=== PATIENT | female | born 1980 | race Caucasian/White ===

== ENCOUNTER 2022-10-11 22:15 | Emergency (ER) | payer MEDICAID, SELFPAY ==
[2022-10-11 22:16] VITALS: BP 187/103; PULSE 105; RESP 22; TEMP 36.2; BMI 39.9
[2022-10-11 22:19] VITALS: BP 187/103; PULSE 105; RESP 22; TEMP 36.2
--- NOTE | 2022-10-11 22:50 | US_ITS ---
INDICATION: PAIN-UPPER ABD RADIATES TO SHOULDER EXAMINATION: Ultrasound US Abdomen RUQ (limited) TECHNIQUE: Penn scale and color doppler imaging was performed of the right upper quadrant. COMPARISON: None. FINDINGS: LIVER: 19.7 cm. Diffuse increased echogenicity with pericholecystic sparing. No focal hepatic lesion. There is no free fluid. 1.3 cm left hepatic echogenic mass. GALLBLADDER AND BILIARY TREE: Distended gallbladder with dependent cholelithiasis. No shadowing gallstone, pericholecystic fluid or gallbladder wall thickening is demonstrated. The proximal common bile duct measures 4 mm, which is within normal limits for the patient''s age. Songraphic Ledezma''s sign: None PANCREAS: No focal abnormality is demonstrated in the pancreas. No pancreatic ductal dilatation. RIGHT KIDNEY: 10.2 cm in length without hydronephrosis or shadowing nephrolithiasis. Color flow noted. US/Gallbladder IMPRESSION: Hepatic steatosis and hepatomegaly. Focal left hepatic echogenic 1.3 cm mass is nonspecific, most commonly hemangioma, with other benign or malignant neoplasms not excluded. Multiphasic contrast enhanced MRI or CT is recommended for further evaluate when clinically able. Distended gallbladder with cholelithiasis. No secondary evidence of cholecystitis. Distention is nonspecific but can be secondary to fasting for symptomatic cholelithiasis. Nuclear medicine hepatobiliary scan can further evaluate as clinically indicated. Electronically Signed: Hector Grier MD at 23:49 EST ,
--- NOTE | 2022-10-11 22:55 | ED.VIS.GI ---
HPI HPI - GI History of Present Illness Chief Complaint: Abd Pain Informant: patient and spouse/S.O. Narrative Narrative: Patient is a 42-year-old female who denies any past medical history presenting with worsening upper abdominal pain. Patient states has been having intermittent episodes of this pain for about a year now. She notices the worst when she eats fatty foods, caffeine or pizza. States the pain will be in her upper abdomen and radiate to her back. She was having an episode every week to 10 days however over the past week she has had 3 episodes. On Friday (1 week ago) she had pain so bad that she threw up. She states normally when these happen she will take ibuprofen of the pain still there she will take Tylenol and that will relieve it. She will go to sleep. She states these always happen at night. She denies any change in her bowel habits. She drinks a glass of wine 1-2 times a week. She is not seeing anyone for this because I am afraid of doctors. She has a history of a 's and 2 D&Cs. She notes stress seems to make her symptoms worse as well. Tonight patient states they had tacos for dinner and she had taco salad. She did have a glass of wine tonight. The pain is pretty severe however not as bad as it has been in the past. She is nauseous but is not had any vomiting tonight. Denies any change in bowel habits or urinary symptoms. Denies any black or blood in her stool. She denies any chest pain, shortness of breath or difficulty breathing. No other complaints at this time. [facility] Medical History No acute medical problems Home Medications famotidine 20 mg tablet (Pepcid) 20 mg PO BID #14 tabs 10/12/22 [Rx Last Taken Unknown] hydrocodone-acetaminophen 5-325mg 5mg-325mg 1 tab PO Q6H PRN pain 3 days #12 tabs 10/12/22 [Rx Last Taken Unknown] ondansetron HCl 4 mg tablet 4 mg PO Q8H 3 days #9 tabs 10/12/22 [Rx Last Taken Unknown] Allergy/AdvReac Type Severity Reaction Status Date / Time No Known Allergies Allergy Verified 10/11/22 22:22 Social History Smoking Status: Never smoker ROS ROS ED Constitutional Constitutional ED: Denies chills or fever(s) ENT ENT ED: Denies rhinorrhea or sore throat Cardiovascular Cardiovascular: Denies chest pain Respiratory/Chest Respiratory/Chest: Denies cough or dyspnea Gastrointestinal Gastrointestinal: Reports abdominal pain and nausea; Denies constipation, diarrhea, melena or vomiting Genitourinary Genitourinary ED: Denies dysuria or hematuria Musculoskeletal Musculoskeletal: Reports back pain; Denies arthralgias or myalgias Integumentary Denies rash Neurologic Neurologic: Denies headache(s), paresthesias or weakness Psychiatric Psychiatric: Denies anxiety Hematologic/Lymphatic Hematologic/Lymphatic: Denies easy bleeding or easy bruising EXAM Physical Exam Const Vital Signs: 10/11/22 22:16 10/11/22 22:19 10/12/22 00:19 Temperature 97.1 F L 97.1 F L Temperature Source Temporal Temporal Pulse Rate 105 H 105 H 70 Respiratory Rate 22 H 22 H 18 Blood Pressure 187/103 H 187/103 H 147/80 H Blood Pressure Mean 131 131 102 Pulse Ox 95 Oxygen Delivery Method Room Air 10/12/22 02:04 Temperature Temperature Source Pulse Rate Respiratory Rate 18 Blood Pressure Blood Pressure Mean Pulse Ox Oxygen Delivery Method Room Air Positive well nourished, well developed and obese Constitutional Narrative: Uncomfortable appearing but no acute distress General Appearance ED: well developed; Negative for pallor Nutritional Appearance: obese HEENT Reports moist mucous membranes normocephalic and atraumatic Eyes PERRL Neck supple and no JVD Resp normal respiratory effort and clear to auscultation bilaterally Cardio regular rate, regular rhythm and no murmurs GI non-distended GI Narrative: Patient does have pain in the right upper quadrant but does not have a Ledezma sign. Pain is worse in the epigastric region. No peritoneal signs. Auscultation: hyperactive bowel sounds Palpation: soft and tender epigastric; Negative for guarding or rigid Back/Spine no CVA tenderness Extremity full ROM General Extremety ED: Negative for edema General Extremity: Negative for edema Neuro moves all extremities and no sensory deficits noted Motor Exam: Negative for general weakness Psych mental status grossly normal and thought process normal Mood & Affect: anxious Skin no wounds General Skin Exam: Negative for jaundice or pallor MDM MDM MDM Narrative Medical decision making narrative: Patient is evaluated for upper abdominal pain with associated nausea. She has been having intermittent episodes but been worsening over the past week or 2. Initially patient is hypertensive, tachycardic and tachypneic. I suspect this is more of a pain response. She also states she has a lot of anxiety about doctors. CBC is normal. BMP is remarkable for mildly elevated creatinine of 1.10. Do not have any baseline to compare to. Urinalysis is normal. Lipase is normal. Right upper quadrant ultrasound obtained which does show a distended gallbladder with cholelithiasis but no secondary signs of cholecystitis. Discussed with the patient and she now tells me she is also get some pain in her left mid abdomen. CT of the abdomen and pelvis added on to further evaluate the left side. This continues to show distended gallbladder with cholelithiasis but also shows a 2.8 cm nodule on the left adrenal gland which recommends adrenal protocol CT for follow-up. Patient is informed of these findings. She is redosed with morphine 1 time in the ER as well as Tylenol. Overall she has improvement of her symptoms. Spoke with Dr. Orlando, surgery on-call who is agreeable with outpatient follow-up with outpatient HIDA scan. Patient is counseled on return precautions. Counseled on a low-fat diet. Will be given a prescription for Pepcid, Zofran and [place] for further symptom control outpatient. Counseled that she may also need to follow-up with a PCP and is given referral. Encouraged to increase her fluid intakes and avoid NSAIDs given her mildly elevated creatinine. Patient is given a liter of IV fluids in the emergency room. Lab Data Labs: Laboratory Results - last 24 hr 10/11/22 10/11/22 10/11/22 22:50 22:50 23:03 WBC 9.3 RBC 4.51 Hgb 13.5 Hct 39.9 MCV 88.5 MCH 29.9 MCHC 33.8 RDW Std Deviation 38.4 RDW Coeff of Zain 12.0 Plt Count 293 MPV 9.8 Immature Gran % (Auto) 0.200 Neut % (Auto) 55.8 Lymph % (Auto) 34.3 [place] % (Auto) 7.5 Eos % (Auto) 1.8 Baso % (Auto) 0.4 Absolute Neuts (auto) 5.2 Absolute Lymphs (auto) 3.20 Nucleated RBC % 0 Sodium 138 Potassium 4.2 Chloride 109 H Carbon Dioxide 24.0 Anion Gap 5 BUN 18 Creatinine 1.10 H Estim Creat Clear Calc 57.53 Est GFR (MDRD) Af Amer 70 Est GFR (MDRD) Non-Af 58 L BUN/Creatinine Ratio 16.4 Glucose 116 H Calcium 11.0 H Total Bilirubin 0.30 Direct Bilirubin 0.08 AST 15 ALT 32 Alkaline Phosphatase 80 Total Protein 7.7 Albumin 3.7 Globulin 4.0 Lipase 112 Urine Color Yellow Urine Clarity Clear Urine pH 6.0 Ur Specific [place] 1.020 Urine Protein Negative Urine Glucose (UA) Normal Urine Ketones Negative Urine Occult Blood Negative Urine Nitrite Negative Urine Bilirubin Negative Urine Urobilinogen Normal Ur Leukocyte Esterase Negative Urine RBC 0 SEEN Urine WBC 0 SEEN Ur Squamous Epith Cells 0 SEEN Urine Bacteria 0 SEEN Urine Mucus 0 SEEN Urine Test Negative Radiography Diagnostic Testing: Clinical Impression(s) from Imaging Studies Gallbladder Ultrasound 10/11/22 22:50 IMPRESSION: Hepatic steatosis and hepatomegaly. Focal left hepatic echogenic 1.3 cm mass is nonspecific, most commonly hemangioma, with other benign or malignant neoplasms not excluded. Multiphasic contrast enhanced MRI or CT is recommended for further evaluate when clinically able. Distended gallbladder with cholelithiasis. No secondary evidence of cholecystitis. Distention is nonspecific but can be secondary to fasting for symptomatic cholelithiasis. Nuclear medicine hepatobiliary scan can further evaluate as clinically indicated. Electronically Signed: Hector Grier MD at 23:49 EST , Abdomen/Pelvis CT 10/12/22 00:44 IMPRESSION: Distended gallbladder with cholelithiasis. No gross surrounding inflammation. Nuclear medicine hepatobiliary scan could further evaluate as clinically indicated. Indeterminate left adrenal 2.8 cm nodule. Recommend multiphasic contrast enhanced adrenal protocol CT to further evaluate when clinically able. Electronically Signed: Hector Grier MD at 2:21 EST , Discharge Plan Triage Chief Complaint: Abd Pain ED Provider: Melody Cohen Dx/Rx/DC Orders Clinical Impression: Symptomatic cholelithiasis, Adrenal nodule, Nausea Instructions: ED Diet, Low Fat, ED Gallstones with Biliary Colic Prescriptions: New hydrocodone-acetaminophen 5-325 mg tablet 1 tab PO Q6H PRN (Reason: pain) 3 Days Qty: 12 0RF ondansetron HCl 4 mg tablet 4 mg PO Q8H 3 Days Qty: 9 0RF famotidine [Pepcid] 20 mg tablet 20 mg PO BID Qty: 14 0RF Primary Care Provider: Care Physician,No Primary Referrals: Daniel Candelario MD [Med Staff - [facility]] - As soon as possible Tali Orlando MD [Med Staff - Active Staff] - 3-5 Days Care Physician,No Primary [Primary Care Provider] - Activity Restrictions/Additional Instructions: You have gallstones. I suspect this is causing your pain. Drink fluids, avoid NSAIDs and stick to a low-fat diet. Return if your symptoms worsen. You been given referral for surgery (Dr. Orlando) as well as a family care doctor to follow-up with Disposition Disposition: Home, Self Care
[2022-10-11 23:06] LABS: Absolute Neutrophil Count 5.2 X10^3/uL (2.0-7.7); Basophil# 0.04 X10^3/uL; Basophil% 0.4 % (0-1); Eosinophil# 0.17 X10^3/uL; Eosinophils% 1.8 % (0-5); Hematocrit 39.9 % (37-47); Hemoglobin 13.5 g/dL (12.0-15.0); Lymphocyte % 34.3 % (19-41); Mean Corp Hgb Conc 33.8 g/dL (32-36); Mean Corpuscular Hgb 29.9 pg (27.0-32.0); Mean Corpuscular Volume 88.5 fL (81-99); Mean Platelet Vol. 9.8 fl (6.2-12.0); Monocyte% 7.5 % (0-10); NRBC Flagged by Analyzer 0 % (0-5); Neutrophil # 5.21 X10^3/uL (2.7-7.7); Neutrophil % 55.8 % (47-70); Platelet Count 293 K/mm3 (150-450); RBC Distribution Width SD 38.4 fl (35.1-43.9); Red Blood Count 4.51 M/mm3 (4.2-5.4); White Blood Count 9.3 K/mm3 (4.4-11.0)
[2022-10-11 23:21] LABS: Bacteria 0 SEEN /hpf (None Seen); Mucous, Urine 0 SEEN /hpf (<or=2+); Red Blood Cells-Urine 0 SEEN /hpf (0-5); Squamous Epithelial Cells - UA 0 SEEN /hpf (5-10); White Blood Cells 0 SEEN /hpf (0-5)
[2022-10-11 23:22] LABS: AST(SGOT) 15 U/L (15-37); Alanine Aminotransfer ALT/SGPT 32 U/L (13-56); Albumin, Serum 3.7 g/dL (3.2-5.0); Alkaline Phosphatase 80 U/L (45-117); Anion Gap 5 (5-15); BUN 18 mg/dL (7-18); BUN/Creat Ratio 16.4 RATIO (10-20); Bilirubin, Direct 0.08 mg/dL (0.00-0.30); Chloride 109 mmol/L (98-107); EST Glomerular Filtration Rate 58 mL/min (>60); Est Glom Filt Rate - Afr Amer 70 mL/min (>60); Estimated Creatinine Clearance 57.53 ml/min; Glucose 116 mg/dL (74-106); Lipase 112 U/L (73-393); Potassium 4.2 mmol/L (3.5-5.1); Protein, Total 7.7 g/dL (6.4-8.2); Sodium Level 138 mmol/L (136-145)
[2022-10-11 23:26] LABS: Color, Urine Yellow (Yellow); Glucose, Dipstick Normal (Normal); Ketone-Dipstick Negative (Negative); Leukocyte Esterase-Dipstick Negative /ul (Negative); Nitrite-Dipstick Negative (Negative); Occult Blood-Urine Negative /ul (Negative); Protein-Dipstick Negative (Negative); Urine Bilirubin Dipstick Negative (Negative); Urine Clarity Clear (Clear); Urine Urobilinogen Normal (Normal)
[2022-10-11 23:30] LABS: Internal QC Validated? YES +Cl - CLEAR BKGD; Pregnancy, Urine Negative Negative
[2022-10-11] MEDS: 0.9% Normal Saline 1,000 ML 1000 ML IV (23:41)
[2022-10-11] MEDS: Ondansetron 4 MG/2 ML Vial IV (23:44)
[2022-10-11] MEDS: Morphine 4 MG/ML Syringe IV (23:45)
[2022-10-12 00:19] VITALS: BP 147/80; PULSE 70; RESP 18; O2SAT 95
--- NOTE | 2022-10-12 00:44 | CT_ITS ---
INDICATION: abd pain EXAMINATION: CT ABDOMEN AND PELVIS WITH CONTRAST - CT Abdomen And Pelvis W/ Contrast Injection TECHNIQUE: Helically acquired images were obtained of the abdomen and pelvis following IV contrast. A radiation dose optimization technique was used for this scan. IV Contrast dosage and agent: 100 mL [id number] Oral contrast: None. COMPARISON: Gallbladder ultrasound October 11, 2022. FINDINGS: LOWER CHEST: Mild dependent atelectasis.. No cardiomegaly or pericardial effusion. LIVER: Homogeneous. No focal mass. GALLBLADDER AND BILIARY TREE: Mildly distended gallbladder with cholelithiasis.. No intra- or extrahepatic biliary ductal dilation. PANCREAS: No focal cystic or solid mass. SPLEEN: Normal size without focal cystic or solid mass. ADRENAL GLANDS: Left adrenal 2.8 cm indeterminate density nodule. Normal right adrenal. The mandible KIDNEYS AND URETERS: Normal renal size and position. No hydronephrosis. PERITONEUM: No ascites or free air. No other fluid collection. BOWEL: No evidence of acute appendicitis. No stomach or bowel distension. No focal inflammatory change. LYMPH NODES: No enlarged mesenteric or retroperitoneal lymph nodes. VESSELS: Aorta is non-dilated. URINARY BLADDER: Well filled gallbladder without wall thickening or surrounding inflammation.. REPRODUCTIVE ORGANS: Unremarkable uterus and adnexa.. ABDOMINAL WALL: Fat-containing umbilical hernia without inflammation.. BONES: No lytic or blastic abnormality. CT/Abdomen/Pelvis W IV Cont ONLY IMPRESSION: Distended gallbladder with cholelithiasis. No gross surrounding inflammation. Nuclear medicine hepatobiliary scan could further evaluate as clinically indicated. Indeterminate left adrenal 2.8 cm nodule. Recommend multiphasic contrast enhanced adrenal protocol CT to further evaluate when clinically able. Electronically Signed: Hector Grier MD at 2:21 EST ,
[2022-10-12] MEDS: Acetaminophen 325 MG Tablet 650 MG PO (00:50)
[2022-10-12] MEDS: Morphine 4 MG/ML Syringe IV (01:38)
[2022-10-12 02:04] VITALS: RESP 18
[2022-10-12 03:19] VITALS: RESP 18
--- NOTE | 2022-10-16 15:08 | CASEMGMT ---
[facility] F/U -Per [facility] report 10/12/22: CT/Abdomen/Pelvis W IV Cont ONLY IMPRESSION: Distended gallbladder with cholelithiasis.? No gross surrounding inflammation.? Nuclear medicine hepatobiliary scan could further evaluate as clinically indicated. Indeterminate left adrenal 2.8 cm nodule.? Recommend multiphasic contrast enhanced adrenal protocol CT to further evaluate when clinically able. -TC to pt regarding the above findings. Pt denied having a PCP but stated a doctor was suggested during the ED visit. Pt is out of town and has not yet called to schedule. [employer] encouraged pt to do so. Pt stated she plans to when she returns home. Findings reviewed. D/t pt not having a PCP and being out of town, pt was encouraged to access the Portal. Pt stated she has an appointment scheduled with Dr. Orlando on Friday for further evaluation. Pt denied needing any assistance in securing a PCP or scheduling any appointments.
== END 2022-10-12 03:38 | disposition home or self-care (01) ==
PROVIDERS: Emergency Provider Emergency Medicine; Visit Provider Emergency Medicine
DX: K80.20 Calculus of gallbladder without cholecystitis without obstruction (principal); E27.8 Other specified disorders of adrenal gland; E66.9 Obesity, unspecified; R11.0 Nausea
CPT/HCPCS: 74177; 76705; 80048; 80076; 81001; 81025; 83690; 85025; 96361; 96374; 96375; 99283; J7030; Q9967; A4216; J2405

== ENCOUNTER → 2023-06-30 | Outpatient (CLI) | payer MEDICAID, SELFPAY ==
[2023-06-30 12:30] LABS: hCG Titer Quant., Serum 2148 mIU/mL (1-3)
== END | disposition home or self-care (01) ==
PROVIDERS: Referring Provider Obstetrics & Gynecology; Visit Provider Obstetrics & Gynecology
DX: O36.80X0 Pregnancy with inconclusive fetal viability, not applicable or unspecified (principal); Z3A.00 Weeks of gestation of pregnancy not specified
CPT/HCPCS: 36415; 84702

== ENCOUNTER → 2023-07-02 | Outpatient (CLI) | payer MEDICAID, SELFPAY ==
[2023-07-02 11:59] LABS: hCG Titer Quant., Serum 2127 mIU/mL (1-3)
== END | disposition home or self-care (01) ==
LOC: LAB 10:20
PROVIDERS: Referring Provider Obstetrics & Gynecology; Visit Provider Obstetrics & Gynecology
DX: O36.80X0 Pregnancy with inconclusive fetal viability, not applicable or unspecified (principal); Z3A.00 Weeks of gestation of pregnancy not specified
CPT/HCPCS: 36415; 84702; 86850; 86900; 86901

== ENCOUNTER → 2023-07-03 | Outpatient (CLI) | payer MEDICAID, SELFPAY ==
[2023-07-09 14:09] LABS: Anti-Cardiolipin Ab, IgA, Qn < 9 APL U/mL (0-11); Anti-Cardiolipin Ab, IgG, Qn < 9 GPL U/mL (0-14); Anti-Cardiolipin Ab, IgM, Qn < 9 MPL U/mL (0-12); Beta-2-Glycoprotein I IgA <9 (0-25); Beta-2-Glycoprotein I IgG <9 (0-20); Beta-2-Glycoprotein I IgM <9 (0-32); Dilute Prothrombin Time (dPT) 35.4 sec (0.0-47.6); Dilute Russell Viper Venom 35.1 sec (0.0-47.0); Interpretation Comment: (.); PTT-LA 35.6 sec (0.0-43.5); Thrombin Time 17.4 sec (0.0-23.0); dPT Confirm Ratio 1.14 Ratio (0.00-1.34)
== END | disposition home or self-care (01) ==
PROVIDERS: Referring Provider Obstetrics & Gynecology; Visit Provider Obstetrics & Gynecology
DX: N96 Recurrent pregnancy loss (principal)
CPT/HCPCS: 36415; 86146; 86147

== ENCOUNTER 2023-09-17 17:28 | Emergency (ER) | payer MEDICAID, SELFPAY ==
[2023-09-17 17:30] VITALS: BP 163/100; PULSE 82; RESP 18; TEMP 36.2; O2SAT 99; BMI 36.7
[2023-09-17 18:38] LABS: Internal QC Validated? YES +Cl - CLEAR BKGD; Pregnancy, Serum, hCG Quali. NEGATIVE Negative
[2023-09-17 18:46] LABS: ALB/GLOB Ratio 0.9 RATIO (0.9-2.4); AST(SGOT) 19 U/L (15-37); Alanine Aminotransfer ALT/SGPT 22 U/L (13-56); Albumin, Serum 3.7 g/dL (3.2-5.0); Alkaline Phosphatase 79 U/L (45-117); Anion Gap 2 (5-15); BUN 7 mg/dL (7-18); BUN/Creat Ratio 6.5 RATIO (10-20); Calcium,Total 10.6 mg/dL (8.5-10.1); Chloride 109 mmol/L (98-107); Creatinine, Serum 1.07 mg/dL (0.55-1.02); EST Glomerular Filtration Rate 59 mL/min (>60); Est Glom Filt Rate - Afr Amer 72 mL/min (>60); Estimated Creatinine Clearance 58.54 ml/min; Globulin 3.9 g/dL (2.2-4.2); Glucose 108 mg/dL (74-106); Potassium 4.5 mmol/L (3.5-5.1); Protein, Total 7.6 g/dL (6.4-8.2); Sodium Level 137 mmol/L (136-145)
[2023-09-17 18:48] LABS: Absolute Lymphocyte Count 2.66 X10^3/uL (0.83-4.51); Absolute Neutrophil Count 4.1 X10^3/uL (2.0-7.7); Bacteria 0 SEEN /hpf (None Seen); Basophil# 0.06 X10^3/uL; Basophil% 0.8 % (0-1); Color, Urine Yellow (Yellow); Eosinophil# 0.11 X10^3/uL; Eosinophils% 1.5 % (0-5); Glucose, Dipstick Normal (Normal); Hematocrit 39.2 % (37-47); Hemoglobin 13.2 g/dL (12.0-15.0); Ketone-Dipstick Negative (Negative); Leukocyte Esterase-Dipstick Negative /ul (Negative); Lymphocyte # 2.66 X10^3/ul (0.83-4.51); Lymphocyte % 35.7 % (19-41); Mean Corp Hgb Conc 33.7 g/dL (32-36); Mean Corpuscular Hgb 30.6 pg (27.0-32.0); Mean Platelet Vol. 9.4 fl (6.2-12.0); Monocyte# 0.56 X10^3/uL; Monocyte% 7.5 % (0-10); Mucous, Urine 0 SEEN /hpf (<or=2+); NRBC Flagged by Analyzer 0 % (0-5); Neutrophil # 4.05 X10^3/uL (2.7-7.7); Neutrophil % 54.4 % (47-70); Nitrite-Dipstick Negative (Negative); Occult Blood-Urine 250 /ul (Negative); Platelet Count 306 K/mm3 (150-450); Protein-Dipstick Negative (Negative); RBC Distribution Width CV 11.9 % (11.6-14.6); RBC Distribution Width SD 39.5 fl (35.1-43.9); Red Blood Count 4.31 M/mm3 (4.2-5.4); Specific Gravity, Urine 1.015 (1.002-1.030); Urine Bilirubin Dipstick Negative (Negative); Urine Clarity Clear (Clear); Urine Urobilinogen Normal (Normal); White Blood Cells 0 SEEN /hpf (0-5); White Blood Count 7.5 K/mm3 (4.4-11.0)
--- NOTE | 2023-09-17 18:48 | CT_ITS ---
EXAM: CT abdomen and pelvis with contrast. HISTORY: abdominal pain TECHNIQUE: CT Abdomen And Pelvis W/ Contrast Injection. A radiation dose optimization technique was used for this scan. COMPARISON: CT abdomen pelvis October 12, 2022. LIMITATIONS: Motion artifact. LOWER CHEST: Normal. LIVER: Normal. GALLBLADDER: Gallstones identified on the prior exam are not well visualized on the current study. No inflammatory change. BILE DUCTS: Normal. PANCREAS: Normal. SPLEEN: Normal. ADRENAL GLANDS: A left adrenal nodule measures 2.5 x 2 cm, similar to the prior exam. The nodule measures 60 Hounsfield units. KIDNEYS/URETERS/BLADDER: Normal. AORTA: Normal caliber. BOWEL/MESENTERY: No evidence of colitis. No small bowel obstruction. APPENDIX: Normal. PERITONEUM: Normal. REPRODUCTIVE ORGANS: Normal. BONES/SOFT TISSUES: No acute fracture. OTHER: None. CONCLUSION: No acute abnormality. 2.5 cm indeterminate left adrenal nodule, grossly stable in size. Adrenal mass protocol CT recommended as previously described. Electronically Signed: Abad Kirkland MD at 20:17 EST , CT/Abdomen/Pelvis W IV Cont ONLY IMPRESSION: undefined
--- NOTE | 2023-09-17 18:49 | ED.VIS.GI ---
HPI HPI - GI History of Present Illness Chief Complaint: Abd Pain Detail of Chief Complaint: Abdominal pain Informant: patient and family Narrative Narrative: Patient presents with abdominal pain that she has had for the last 9 days off-and-on and continuously for more than 24 hours. Describes the pain as starting in the left lower abdomen radiating to the right upper abdomen into her back and right shoulder blade. Patient's had nausea and is vomited intermittently. She is been having a hard time eating for the last 9 days because tends to trigger more pain. Patient states that she was diagnosed with gallstones almost a year ago but did not want to have surgery. Patient saw a extruding press adjuster several months ago and was started on some supplements. She has periods where she does not have pain for weeks on end. She denies urinary symptoms. She had no diarrhea. She denies any blood in her stool or black tarry stool. [facility] Medical History (Updated 09/17/23 @ 22:[address] Maykel Ponce, ) History of blood transfusion History of placenta abruption History of pre-eclampsia No acute medical problems hemorrhage Home Medications docosahexaenoic acid 200 mg capsule ( DHA) mg PO 07/03/23 [History Last Taken Unknown] omeprazole 20 mg capsule,delayed release 20 mg PO DAILY #30 CAPSULES 09/17/23 [Rx Last Taken Unknown] sucralfate 1 gram tablet (Carafate) 1 g PO BID #30 tabs 09/17/23 [Rx Last Taken Unknown] Allergy/AdvReac Type Severity Reaction Status Date / Time No Known Allergies Allergy Verified 09/17/23 17:30 Family History (Updated 07/03/23 @ 15:28 by Rachel Rodriguez) Other Diabetes Surgical History (Updated 07/03/23 @ 15:28 by Rachel Rodriguez) S/P S/P dilation and curettage Social History (Updated 07/03/23 @ 15:30 by Rachel Rodriguez) Smoking Status: Never smoker alcohol intake: current details: not while substance use type: does not use caffeine: Yes what type of physical activity do you participate in: walking and other details: joi frequency: 3-4 times per week seatbelt use: always do you feel safe at home: Yes additional social history: - David RICHARD ED Review of Systems ROS Unobtainable: other Constitutional Constitutional ED: Reports lethargy; Denies chills, fever(s), sweats or weight loss Eyes Eyes: Denies blurry vision, change in vision or diplopia ENT ENT ED: Denies rhinorrhea or sore throat Cardiovascular Cardiovascular: Denies chest pain, orthopnea or racing heartbeat Respiratory/Chest Respiratory/Chest: Denies cough, dyspnea, dyspnea on exertion, orthopnea or sputum Gastrointestinal Gastrointestinal: Reports abdominal pain, nausea and vomiting; Denies diarrhea Genitourinary Genitourinary ED: Denies dysuria, hematuria or urinary frequency Musculoskeletal Musculoskeletal: Denies arthralgias, back pain, myalgias or neck pain Integumentary Denies abscess, Abrasions or rash Neurologic Neurologic: Denies headache(s) or weakness Psychiatric Psychiatric: Denies anxiety, depression or suicidal thoughts Endocrine Endocrinology: Denies polydipsia, polyphagia or polyuria Hematologic/Lymphatic Hematologic/Lymphatic: Denies easy bleeding, easy bruising or lymphadenopathy Allergic/Immunologic Allergic/Immunologic ED: Denies mouth swelling, tongue swelling or urticaria EXAM Physical Exam Const Vital Signs: 09/17/23 17:30 Temperature 97.2 F L Temperature Source Temporal Pulse Rate 82 Respiratory Rate 18 Blood Pressure 163/100 H Blood Pressure Mean 121 Pulse Ox 99 Oxygen Delivery Method Room Air Positive well nourished and well developed General Appearance ED: well developed and NAD HEENT Reports TM's clear and moist mucous membranes normocephalic and atraumatic; Negative for trauma or tenderness Tympanic Membrane ED: Yes TM's clear Eyes PERRL and EOMs intact bilaterally General Eye ED: Negative for pale conjunctiva or scleral icterus Neck no lymphadenopathy, supple and no JVD General: Negative for tenderness Chest Wall inspection of chest normal and palpation of chest normal Chest: Negative for tenderness Resp normal respiratory effort and clear to auscultation bilaterally Effort and Inspection: Negative for respiratory distress or pain with movement Auscultation: Negative for rhonchi, wheezes or diminished lung sounds Cardio regular rate, regular rhythm, S1 normal heart sound, S2 normal heart sound and no murmurs Peripheral Pulses: pulses 2+ throughout GI normal to inspection, nondistended, normoactive bowel sounds, soft to palpation, non-distended and no masses GI Narrative: Mild tenderness to the left lower quadrant. She has tenderness over the epigastric region as well as the right upper quadrant with some guarding. Negative Ledezma sign. No rebound, rigidity, or peritoneal signs. Back/Spine no CVA tenderness and no thoracic nor lumbar tenderness Extremity normal to inspection General Extremety ED: Negative for edema General Extremity: Negative for edema Neuro oriented x3, CN's II-XII intact bilaterally, no sensory deficits noted and gait normal Sensorium / Orientation: awake, alert, oriented to person, oriented to place and oriented to time Motor Exam: strength 5/5 throughout and strength abnormal Psych mental status grossly normal Skin no rashes or lesions noted and no wounds MDM MDM MDM Narrative Medical decision making narrative: Patient presents with abdominal pain that is typical of her gallbladder symptoms. In the differential would be gallbladder disease versus peptic ulcer disease versus other acute intra-abdominal process. IV line established. CBC with differential obtained showing a 7.5 hemoglobin 13 and platelet count of 306. Chemistries and LFTs were couple. Urinalysis normal. hCG was negative. CT scan of the abdomen pelvis without contrast obtained showed no acute disease process. Discussed case with general surgeon on-call who presented to evaluate patient. I was asked to obtain a gallbladder ultrasound which was performed that showed gallstones but no evidence of cholecystitis. Dr. Whittington evaluated patient in the emergency department feels more likely this could be peptic ulcer disease or H. pylori. He recommended that I start patient on Carafate and omeprazole and have patient follow-up with him as an outpatient. Lab Data Attestation: I reviewed the patient's lab results. Labs: Laboratory Results - last 24 hr 09/17/23 09/17/23 09/17/23 18:25 18:25 18:40 WBC Cancelled 7.5 Corrected WBC Cancelled RBC Cancelled 4.31 Hgb Cancelled 13.2 Hct Cancelled 39.2 MCV Cancelled 91.0 MCH Cancelled 30.6 MCHC Cancelled 33.7 RDW Std Deviation Cancelled 39.5 RDW Coeff of Zain Cancelled 11.9 Plt Count Cancelled 306 MPV Cancelled 9.4 Immature Gran % (Auto) Cancelled 0.100 Neut % (Auto) Cancelled 54.4 Lymph % (Auto) Cancelled 35.7 [place] % (Auto) Cancelled 7.5 Eos % (Auto) Cancelled 1.5 Baso % (Auto) Cancelled 0.8 Absolute Neuts (auto) Cancelled 4.1 Absolute Lymphs (auto) Cancelled 2.66 Total Counted Cancelled Neutrophils % (Manual) Cancelled Band Neutrophils % Cancelled Lymphocytes % (Manual) Cancelled Monocytes % (Manual) Cancelled Eosinophils % (Manual) Cancelled Basophils % (Manual) Cancelled Metamyelocytes % Cancelled Myelocytes % Cancelled Promyelocytes % Cancelled Blast Cells % Cancelled Plasma Cell % (Manual) Cancelled Other Cells % Cancelled Nucleated RBC % Cancelled 0 Nucleated RBCs/100 WBC Cancelled Differential Comment Cancelled Diff Path Review Cancelled Hypersegmented Neuts Cancelled Atypical Lymphocytes Cancelled Reactive Lymphocytes Cancelled Smudge Cells Cancelled Toxic Granulation Cancelled Toxic Vacuolation Cancelled Dohle Bodies Cancelled Gilson Rods Cancelled Platelet Estimate Cancelled Plt Morphology Comment Cancelled RBC Morphology Cancelled Cancelled Polychromasia Cancelled Hypochromasia Cancelled Poikilocytosis Cancelled Basophilic Stippling Cancelled Anisocytosis Cancelled Microcytosis Cancelled Macrocytosis Cancelled Spherocytes Cancelled Sickle Cells Cancelled Target Cells Cancelled Tear Drop Cells Cancelled Ovalocytes Cancelled Stomatocytes Cancelled [place] Bodies Cancelled [place] Cells Cancelled Bite Cells Cancelled Crenated Cell Cancelled Acanthocytes (Spur) Cancelled Rouleaux Cancelled Schistocytes Cancelled Sodium 137 Potassium 4.5 Chloride 109 H Carbon Dioxide 26.0 Anion Gap 2 L BUN 7 Creatinine 1.07 H Estim Creat Clear Calc 58.54 Est GFR (MDRD) Af Amer 72 Est GFR (MDRD) Non-Af 59 L BUN/Creatinine Ratio 6.5 L Glucose 108 H Calcium 10.6 H Total Bilirubin 0.40 AST 19 ALT 22 Alkaline Phosphatase 79 Total Protein 7.6 Albumin 3.7 Globulin 3.9 Albumin/Globulin Ratio 0.9 Lipase 18 Serum , Qual NEGATIVE Urine Color Yellow Urine Clarity Clear Urine pH 6.0 Ur Specific [place] 1.015 Urine Protein Negative Urine Glucose (UA) Normal Urine Ketones Negative Urine Occult Blood 250 H Urine Nitrite Negative Urine Bilirubin Negative Urine Urobilinogen Normal Ur Leukocyte Esterase Negative Urine RBC 0-5 SEEN Urine WBC 0 SEEN Ur Squamous Epith Cells 0-5 SEEN Urine Bacteria 0 SEEN Urine Mucus 0 SEEN Radiography Diagnostic Testing: Clinical Impression(s) from Imaging Studies Abdomen/Pelvis CT 09/17/23 18:48 IMPRESSION: undefined Gallbladder Ultrasound 09/17/23 20:40 IMPRESSION: undefined Discharge Plan Triage Chief Complaint: Abd Pain ED Provider: Maykel Ponce Dx/Rx/DC Orders Clinical Impression: Abdominal pain, Cholelithiasis Instructions: ED Abdominal Pain Unkn Cause Fem, ED Gallstones with Biliary Colic, ED Gastritis Ulcer No Abx Prescriptions: New omeprazole 20 mg capsule,delayed release(DR/EC) 20 mg PO DAILY Qty: 30 0RF sucralfate [Carafate] 1 gram tablet 1 g PO BID Qty: 30 0RF No Action DHA 200 mg capsule PO Primary Care Provider: Care Physician,No Primary Referrals: Seth Whittington MD [Med Staff - Active Staff] - 3-5 Days Care Physician,No Primary [Primary Care Provider] - Disposition Disposition: Home, Self Care
[2023-09-17 19:01] LABS: Red Blood Cells-Urine 0-5 SEEN /hpf (0-5); Squamous Epithelial Cells - UA 0-5 SEEN /hpf (5-10)
[2023-09-17] MEDS: Ondansetron 4 MG/2 ML Vial IV (19:03)
[2023-09-17] MEDS: HYDROmorphone 1 MG/ML Syringe IV ×2 (19:03→22:52)
[2023-09-17 19:33] LABS: Lipase 18 U/L (13-75)
--- NOTE | 2023-09-17 20:40 | US_ITS ---
EXAM: Ultrasound abdomen, RUQ. HISTORY: abdominal pain COMPARISON: CT abdomen pelvis from the same day. LIMITATIONS: None. LIVER: Probable mild fatty infiltration. 1.5 cm hyperechoic focus in the left lobe may represent focal fat deposition or a hemangioma. No corresponding abnormality identified on the CT. PORTAL VEINS: Normal. GALLBLADDER Size: Normal. Stones/sludge: Multiple gallstones. Wall thickness: Normal measuring 2 mm. Pericholecystic fluid: None. Sonographic Ledezma sign: Negative. EXTRAHEPATIC BILE DUCTS: The partially visualized common duct is normal in caliber measuring 4 mm. PANCREAS: Partially visualized. The visualized portion is normal. RIGHT KIDNEY: A punctate hyperechoic focus is likely artifactual as no stones are identified on the CT. No hydronephrosis. OTHER: None. CONCLUSION: Gallstones without evidence of acute cholecystitis. Electronically Signed: Abad Kirkland MD at 21:31 EST , US/Gallbladder IMPRESSION: undefined
[2023-09-17 22:29] VITALS: BP 138/93; PULSE 80; RESP 16; O2SAT 99
--- NOTE | 2023-09-17 22:32 | PCM.HP.STD ---
[facility] - General General Date of Service: 09/17/23 Chief Complaint: Abdominal pain HPI Narrative TOD MUHAMMAD, is a 43 F who presents to [facility] with complaints of 9 days of abdominal and back pain is associated with some nausea and vomiting. Patient reports that the pain seems to begin in the left lower quadrant, a send to the left upper quadrant, across her abdomen to the right upper quadrant and then radiated to the back. She reports that this present episode of pain is only the latest in a series of episodes dating back over a year. She notes that the pain seems to begin 5 to 8 hours after eating, but can be present without eating anything at all or with even low-fat foods. She notes particular triggers and marinara sauces or caffeine. She also has observed that she can have an episode simply during a higher stress time of life. She confesses to using an overabundance of Tylenol and ibuprofen to manage the symptoms. Patient's ER work-up today included a CBC and CMP. Both CBC and CMP were within normal limits. CT imaging of the abdomen and pelvis was performed and radiology noted that they did not visualize the cholelithiasis seen on previous imaging and that there is no associated inflammatory changes. I was asked to evaluate patient at this point for consideration of inpatient admission with cholecystectomy on the basis of a diagnosis of symptomatic cholelithiasis but requested a ultrasound to be done prior. This request was granted in this study showed the prior gallstones, but no evidence of cholecystitis. Patient confirms a history of evaluation for these complaints dating back to October 2022. She notes that she came into the emergency department thinking that she probably had an ulcer, however when gallstones were found she was referred for outpatient HIDA imaging. She reports that she did not get much follow-up on this study but did find out that the gallbladder was not visualized. And a follow-up consultation visit with surgery she was recommended cholecystectomy, however she opted not to follow through on this recommendation due to lack of rapport with that consulting physician. She states that she has established with a homeopathic provider for more natural means of dealing with her condition. [facility] Medical History (Updated 09/17/23 @ 22:[address] Maykel Ponce DO) History of blood transfusion History of placenta abruption History of pre-eclampsia No acute medical problems hemorrhage Home Medications docosahexaenoic acid 200 mg capsule ( DHA) mg PO 07/03/23 [History Last Taken Unknown] omeprazole 20 mg capsule,delayed release 20 mg PO DAILY #30 CAPSULES 09/17/23 [Rx Last Taken Unknown] sucralfate 1 gram tablet (Carafate) 1 g PO BID #30 tabs 09/17/23 [Rx Last Taken Unknown] Allergy/AdvReac Type Severity Reaction Status Date / Time No Known Allergies Allergy Verified 09/17/23 17:30 Family History (Updated 07/03/23 @ 15:28 by Rachel Rodriguez) Other Diabetes Surgical History (Updated 07/03/23 @ 15:28 by Rachel Rodriguez) S/P S/P dilation and curettage Social History (Updated 07/03/23 @ 15:30 by Rachel Rodriguez) Smoking Status: Never smoker alcohol intake: current details: not while substance use type: does not use caffeine: Yes what type of physical activity do you participate in: walking and other details: joi frequency: 3-4 times per week seatbelt use: always do you feel safe at home: Yes additional social history: - David RICHARD Gastrointestinal Gastrointestinal: Reports abdominal pain, nausea and vomiting; Denies constipation or diarrhea Vital Signs Vital Signs Vital Signs: 09/17/23 17:30 09/17/23 22:29 Temperature 97.2 F L Temperature Source Temporal Pulse Rate 82 80 Respiratory Rate 18 16 Blood Pressure 163/100 H 138/93 H Blood Pressure Mean 121 108 Pulse Ox 99 99 Oxygen Delivery Method Room Air Room Air Weight Weight: 213 lb 14.4 oz Body Mass Index (BMI) 36.7 Physical Exam Const alert and oriented x3 Constitutional Narrative: Mild distress from discomfort General Appearance: cooperative Resp normal respiratory effort GI GI Narrative: Obese, nondistended, soft, tender to palpation primarily in the epigastrium and slightly to the right upper quadrant. Negative Ledezma sign. Results Lab / Micro Data 09/17/23 18:40 09/17/23 18:25 Labs: Laboratory Results - last 24 hr 09/17/23 18:25: WBC Cancelled, Corrected WBC Cancelled, RBC Cancelled, Hgb Cancelled, Hct Cancelled, MCV Cancelled, MCH Cancelled, MCHC Cancelled, RDW Std Deviation Cancelled, RDW Coeff of Zain Cancelled, Plt Count Cancelled, MPV Cancelled, Immature Gran % (Auto) Cancelled, Neut % (Auto) Cancelled, Lymph % (Auto) Cancelled, [place] % (Auto) Cancelled, Eos % (Auto) Cancelled, Baso % (Auto) Cancelled, Absolute Neuts (auto) Cancelled, Absolute Lymphs (auto) Cancelled, Total Counted Cancelled, Neutrophils % (Manual) Cancelled, Band Neutrophils % Cancelled, Lymphocytes % (Manual) Cancelled, Monocytes % (Manual) Cancelled, Eosinophils % (Manual) Cancelled, Basophils % (Manual) Cancelled, Metamyelocytes % Cancelled, Myelocytes % Cancelled, Promyelocytes % Cancelled, Blast Cells % Cancelled, Plasma Cell % (Manual) Cancelled, Other Cells % Cancelled, Nucleated RBC % Cancelled, Nucleated RBCs/100 WBC Cancelled, Differential Comment Cancelled, Diff Path Review Cancelled, Hypersegmented Neuts Cancelled, Atypical Lymphocytes Cancelled, Reactive Lymphocytes Cancelled, Smudge Cells Cancelled, Toxic Granulation Cancelled, Toxic Vacuolation Cancelled, Dohle Bodies Cancelled, Gil[place] Rods Cancelled, Platelet Estimate Cancelled, Plt Morphology Comment Cancelled, RBC Morphology Cancelled 09/17/23 18:25: RBC Morphology Cancelled, Polychromasia Cancelled, Hypochromasia Cancelled, Poikilocytosis Cancelled, Basophilic Stippling Cancelled, Anisocytosis Cancelled, Microcytosis Cancelled, Macrocytosis Cancelled, Spherocytes Cancelled, Sickle Cells Cancelled, Target Cells Cancelled, Tear Drop Cells Cancelled, Ovalocytes Cancelled, Stomatocytes Cancelled, [place] Bodies Cancelled, [place] Cells Cancelled, Bite Cells Cancelled, Crenated Cell Cancelled, Acanthocytes (Spur) Cancelled, Rouleaux Cancelled, Schistocytes Cancelled, Sodium 137, Potassium 4.5, Chloride 109 H, Carbon Dioxide 26.0, Anion Gap 2 L, BUN 7, Creatinine 1.07 H, Estim Creat Clear Calc 58.54, Est GFR (MDRD) Af Amer 72, Est GFR (MDRD) Non-Af 59 L, BUN/Creatinine Ratio 6.5 L, Glucose 108 H, Calcium 10.6 H, Total Bilirubin 0.40, AST 19, ALT 22, Alkaline Phosphatase 79, Total Protein 7.6, Albumin 3.7, Globulin 3.9, Albumin/Globulin Ratio 0.9, Lipase 18, Serum , Qual NEGATIVE 09/17/23 18:40: WBC 7.5, RBC 4.31, Hgb 13.2, Hct 39.2, MCV 91.0, MCH 30.6, MCHC 33.7, RDW Std Deviation 39.5, RDW Coeff of Zain 11.9, Plt Count 306, MPV 9.4, Immature Gran % (Auto) 0.100, Neut % (Auto) 54.4, Lymph % (Auto) 35.7, [place] % (Auto) 7.5, Eos % (Auto) 1.5, Baso % (Auto) 0.8, Absolute Neuts (auto) 4.1, Absolute Lymphs (auto) 2.66, Nucleated RBC % 0, Urine Color Yellow, Urine Clarity Clear, Urine pH 6.0, Ur Specific [place] 1.015, Urine Protein Negative, Urine Glucose (UA) Normal, Urine Ketones Negative, Urine Occult Blood 250 H, Urine Nitrite Negative, Urine Bilirubin Negative, Urine Urobilinogen Normal, Ur Leukocyte Esterase Negative, Urine RBC 0-5 SEEN, Urine WBC 0 SEEN, Ur Squamous Epith Cells 0-5 SEEN, Urine Bacteria 0 SEEN, Urine Mucus 0 SEEN Radiology Impression Abdomen/Pelvis CT 09/17/23 18:48 IMPRESSION: undefined Gallbladder Ultrasound 09/17/23 20:40 IMPRESSION: undefined Assessment & Plan Assessment/Plan (1) Cholelithiasis: PLAN: This is a 43-year-old female with a history of cholelithiasis (was first diagnosed on CT and ultrasound from October 2022. She subsequently underwent HIDA imaging which reportedly showed no evidence of gallbladder visualization at 120 minutes. Radiology read this as concerning for possible dyskinesia. She was referred for outpatient cholecystectomy but did not follow through on this due to lack of rapport with the consulting physician. In today's evaluation her diagnosis of cholelithiasis was confirmed without any further evidence of cholecystitis. On exam she has a negative Ledezma sign and her tenderness seems to be primarily in the epigastrium. Further, her description of her pain is atypical for gallbladder discomfort?both in the precipitating factors as well as the region of distribution. Therefore, I have suggested the patient, her , and her father that alternative differentials to be considered before we simply proceed with surgery. The more patient discussed her symptoms in more a possible upper GI source sounds plausible. (2) Abdominal pain: PLAN: Patient describing primarily epigastric abdominal pain with some associated nausea and vomiting. Additionally she admits to some bloating and finds that this pain can be present in the absence of any food or in the presence of nonfatty foods. She confesses that the pain is worse with times of stress and after any ingestion of caffeine or marinara type sauces. This combination is highly suggestive of a possible upper GI source and a differential including dyspepsia, possible gastric ulcer, possible hiatal hernia, possible helical back to pylori infection must be considered. To this end, I have recommended empiric treatment with omeprazole and Carafate followed by outpatient follow-up to schedule a diagnostic EGD. Patient and her family are both very receptive/appreciative of this beauty counselor and wished to proceed as described. Charges/Coding Visit Charges Office Visits / Consults: 37248 ED Visit; Moderate Severity
[2023-09-17] MEDS: Pantoprazole Sodium 40 MG in 0.9% Normal Saline (100mL MB+) 100 ML 330 MG IV (22:52)
[2023-09-17] MEDS: Mag Hydrox/Al Hydrox/Simeth 30 ML UDC PO (22:52)
== END 2023-09-17 23:26 | disposition home or self-care (01) ==
PROVIDERS: Emergency Provider Emergency Medicine; Visit Provider Emergency Medicine
DX: K80.20 Calculus of gallbladder without cholecystitis without obstruction (principal); R10.9 Unspecified abdominal pain
CPT/HCPCS: 74177; 76705; 80053; 81001; 83690; 84703; 85025; 96365; 96375; 96376; 99282; Q9967; A4216; J2405

== ENCOUNTER 2023-11-22 23:23 | Observation (INO) | payer MEDICAID, SELFPAY ==
[2023-11-22 23:24] VITALS: BP 157/88; PULSE 94; RESP 18; TEMP 35.7; O2SAT 97; BMI 39.9
--- OUTSIDE RECORDS SUMMARY | 2023-11-22 23:56 | XMS RPT_ITS | CCD ---
Author Name Unknown Address [address] [place] [address] Organization [facility] Care Team Providers Care Staff Field Engineer Name Role Phone Tiseha QURESHI, Donald Syed Primary Care Provider [phone] Unavailable Primary Care Provider Unavailrandi Motley MD, Donald Syed Primary Care Provider [phone] Donald Motley MD Primary Care Provider [phone] CRISTOFER BANKS Referring Unavailable DONALD MOTLEY Primary Care Unavailable CAT SHERMAN Referring Unavailable DONALD MOTLEY Primary Care Unavailable CAT SHERMAN Attending Unavailable DONALD MOTLEY Primary Care Unavailable CAT SHERMAN Referring Unavailable DONALD MOTLEY Primary Care Unavailable CAT SHERMAN Attending Unavailable CAT SHERMAN Referring Unavailable CAROLINE MEZA Attending Unavailable NINFA GUZMAN Referring Unavailable DONALD MOTLEY Primary Care Unavailable Medications Completed/Discontinued Medications Medication Drug Class(es) Dates Sig (Normalized) Sig (Original) acetaminophen 325 mg / HYDROcodone bitartrate 5 mg oral tablet (8 sources) Opioid Agonist Start: 10-12-2022 End: 12-02-2022 take 1 tablet by mouth every six hours as needed for pain HYDROcodone-acetami nophen (NORCO) 5-325 mg per tablet TAKE 1 TABLET BY MOUTH EVERY 6 HOURS NEEDED FOR PAIN FOR 3 DAYS 0 10/12/2022 12/02/2022 Discontinued Problems Active Problems Problem Classification Problem Date Documented Da te Episodic/Chronic Other diseases of kidney and ureters (1 source) Renal impairment; Translations: [Disorder of kidney and ureter, unspecified] Episodic Other endocrine disorders (12 sources) Adrenal mass; Translations: [Other specified disorders of adrenal gland] Onset: 10-28-2022 Chronic Other endocrine disorders (1 source) Other specified disorders of adrenal gland; Translations: [Adrenal nodule (HCC)] Onset: 10-28-2022 Chronic Other nutritional; endocrine; and metabolic disorders (6 sources) Body mass index 30+ - obesity; Translations: [Obesity, unspecified] Onset: 11-07-2022 Chronic Other nutritional; endocrine; and metabolic disorders (1 source) Obesity, unspecified; Translations: [Obesity (BMI 30-39.9)] Onset: 11-07-2022 Chronic Past or Other Problems Problem Classification Problem Date Documented Date Episodic/Chronic Abdominal pain (3 sources) Abdominal pain; Translations: [Unspecified abdominal pain] Onset: 10-31-2022 Episodic Biliary tract disease (5 sources) Cholelithiasis without obstruction; Translations: [Calculus of gallbladder without cholecystitis without obstruction] Onset: 10-31-2022 Episodic Other screening for suspected conditions (not mental disorders or infectious disease) (3 sources) Patient encounter status; Translations: [Encounter for screening mammogram for malignant neoplasm of breast] Onset: 02-07-2023 Episodic Results Test Name Value Interpretation Reference Range Facil ity Vital Signs Date Time Vital Sign Value Performing Clinician Faci lity 02-07-2023 13:17-0400 Body weight 103.87 kg Cat Older HOSPITAL MEDICINE DIRECTOR.PLANT WIRE CHIEF Work Phone: [facility] 02-07-2023 13:17-0400 Diastolic blood pressure 85 mm[Hg] Cat Older HOSPITAL MEDICINE DIRECTOR.PLANT WIRE CHIEF Work Phone: [facility] 02-07-2023 13:17-0400 Heart rate 78 /min Cat Older HOSPITAL MEDICINE DIRECTOR.PLANT WIRE CHIEF Work Phone: [facility] 02-07-2023 13:17-0400 Respiratory rate 16 /min Cat Older HOSPITAL MEDICINE DIRECTOR.PLANT WIRE CHIEF Work Phone: [facility] 02-07-2023 13:17-0400 Systolic blood pressure 126 mm[Hg] Cat Older HOSPITAL MEDICINE DIRECTOR.PLANT WIRE CHIEF Work Phone: [facility] 12-02-2022 15:25-0500 Body height 162.6 cm Caroline Meza PA-C Work Phone: [facility] 12-02-2022 15:25-0500 Body weight 104.24 kg Caroline Kalka PA-C Work Phone: [facility] 12-02-2022 15:25-0500 Diastolic blood pressure 84 mm[Hg] Caroline Kalka PA-C Work Phone: [facility] 12-02-2022 15:25-0500 Heart rate 68 /min Caroline Kalka PA-C Work Phone: [facility] 12-02-2022 15:25-0500 Systolic blood pressure 126 mm[Hg] Caroline Kalka PA-C Work Phone: [facility] 11-07-2022 14:15-0500 Body height 162.6 cm Pac 3 Work Phone: [facility] 11-07-2022 14:15-0500 Body weight 99.79 kg Pac 3 Work Phone: [facility] 10-28-2022 09:46-0500 Body weight 103.42 kg Cat Older HOSPITAL MEDICINE DIRECTOR.PLANT WIRE CHIEF Work Phone: [facility] 10-28-2022 09:46-0500 Diastolic blood pressure 83 mm[Hg] Cat Older HOSPITAL MEDICINE DIRECTOR.PLANT WIRE CHIEF Work Phone: [facility] 10-28-2022 09:46-0500 Heart rate 76 /min Cat Older HOSPITAL MEDICINE DIRECTOR.PLANT WIRE CHIEF Work Phone: [facility] 10-28-2022 09:46-0500 Respiratory rate 14 /min Cat Older HOSPITAL MEDICINE DIRECTOR.PLANT WIRE CHIEF Work Phone: [facility] 10-28-2022 09:46-0500 Systolic blood pressure 125 mm[Hg] Cat Older HOSPITAL MEDICINE DIRECTOR.PLANT WIRE CHIEF Work Phone: [facility] Encounters Encounter Date Encounter Type Care Provider Facility Start: 02-24-2023 End: 02-24-2023 ambulatory DONALD MOTLEY Facility:[facility] Start: 02-07-2023 End: 02-08-2023 ambulatory ANTOINE TIESHA Facility:[facility] Start: 02-07-2023 End: 02-07-2023 Patient encounter procedure Cat Older HOSPITAL MEDICINE DIRECTOR.ALISSON Work Phone: [facility] Procedures Date Procedure Procedure Detail Performing Clinician Start: 10-31-2022 Hepatobiliary syst i maging including gallbladder Cat Older HOSPITAL MEDICINE DIRECTOR.ALISSON Work Phone: Plan of Treatment Date Care Activity Detail Author Start: 02-08-2024 HEPATITIS C SCREENING HEPATITIS C NC DANNI [facility] Payers Date Payer Category Payer Medicaid [id number] 2021 Medicaid [id number] Social History Date Type Detail Facility Start: 10-21-2022 Tobacco smoking stat [facility] Never smoked tobacco [facility] Start: 10-21-2022 Tobacco use and exposure Smoke less tobacco non-user [facility] Start: 10-28-2022 End: 11-05-2022 Alcohol intake Ex-drinker (finding) [facility] Start: 10-28-2022 End: 02-07-2023 Alcohol intake [facility] Start: 1980 Sex Assigned At Not on file C [facility] Tobacco smoking stat [facility] Tobacco smoking consumption unknown [facility] Start: 11-07-2022 Alcohol Comment 2/week [facility] Start: 12-02-2022 End: 02-07-2023 Alcohol intake Current drinker of alcohol (finding) [facility] Start: 02-06-2023 History SDOH Alcohol Frequency 4 [facility] Start: 02-06-2023 History SDOH Alcohol Std Drinks 1 [facility] Start: 02-06-2023 History SDOH Social Connections Phone 5 [facility] Start: 02-06-2023 History SDOH Social Connections Get Together 3 [facility] Start: 02-06-2023 History SDOH Physica l Activity MPS 6 [facility] Start: 02-06-2023 History SDOH Stress 2 [facility] Start: 10-28-2022 Tobacco use panel [facility] Clinical Notes 10-14-2022 to 10-22-2023 Cat Older, HOSPITAL MEDICINE DIRECTORMARY - 02/07/2023 1:32 PM Xander Meza PA-C - 12/02/2022 3:25 PM ESTTelephone Encounter - Judy You - 11/19/2022 8:16 AM ESTPatient InstructionsPatient Instructions Note Date & Type Note Facility 10-22-2023 Note Patient Outreach (IN [facility]) TOD DA SILVA ([id number]) 1980 F Date Time Provider Department 10/22/23 DONALD MOTLEY During your visit today, we recorded the following information about you: Allergies As of Date: 10/22/2023 (No Known Allergies) Date Reviewed: 02/21/2023 Reviewed by: Makenna Moralez RT(R) - Fully Assessed Visit Diagnosis:Encounter for screening mammogram for breast cancer [Z12.31] Order(s):[facility] SCREENING [[id number]] Order #: [id number] FUTURE Prescriptions as of 10/27/2023 - ascorbic acid, vitamin C, (VITAMIN C) 250 mg tablet Take 250 mg by mouth once daily. - cholecalciferol, vitamin D3, 10 mcg (400 unit) cap Take 400 Units by mouth once daily. Problem List As Of Date 10/22/2023 Noted Resolved Adrenal nodule (HCC) [E27.8] 10/28/2022 Obesity (BMI 30-39.9) [E66.9] 11/07/2022 Encounter Status:Closed by [facility] on 10/27/23 [facility] 02-24-2023 Note HNO ID: [id number] Author: RT Sharath(R) Service: ? Author Type: Information Management Officer Type: Progress Notes Filed: 02/24/2023 2:42 PM Note Text: Radiology Service Progress Note PATIENT NAME: Tod Cordova DATE OF SERVICE: February 24, 2023 TIME: 2:41 PM PATIENT IDENTITY VERIFICATION COMPLETED USING TWO (2) IDENTIFIERS: Name and Date of confirmed by patient verbally. FALL SCREENING: Has the patient had 2 falls in the last year or 1 fall with injury or currently using an Ambulatory Assistive Device (Walker, Cane, Wheelchair, Crutches, etc.)? No PATIENT GENDER DATA: Female. status: : No status: NO. PATIENT RELEVANT IMPLANT DATA REVIEWED: Yes RADIOLOGY DEPARTMENT: CT; Exam(s) Completed: adrenals w/o PERIPHERAL IV DATA: Not applicable SIGNED BY: RT Salazar(R) February 24, 2023 2:41 PM [facility] 02-07-2023 Note HNO ID: [id number] Author: Cat Nuñez APRN.PLANT WIRE CHIEF Service: ? Author Type: Nurse Practitioner Type: Progress Notes Filed: 02/10/2023 8:48 AM Note Text: CC: Patient presents with: F/U 3 Month: Gallstones HPI Tod Cordova is a 42 year old female who presents today for above. Patient was seen in October for abdominal pain related to gallstones. She was hesitant to have lap michelle done as recommended by general surgeon and was searching for alternatives. Eventually she agreed to surgery but then canceled it when abdominal pain resolved with daily lemon juice and water. She reports occasional abdominal pain since then that she manages with diet and the lemon juice. Denies any new or worsening symptoms. There was an incidental finding of adrenal nodule on CT in October, further characterization with dedicated CT was recommended and she is ready to schedule this now. REVIEW OF SYSTEMS See HPI PAST MEDICAL HISTORY Diagnosis Date NEGATIVE MEDICAL HISTORY PAST SURGICAL HISTORY Procedure Laterality Date SECTION HX 2018 DANDC, DIAG AND/OR THERAPEUTIC 2017 ALLERGIES Patient has no known allergies. MEDICATIONS ascorbic acid, vitamin C, (VITAMIN C) 250 mg tablet Take 250 mg by mouth once daily. cholecalciferol, vitamin D3, 10 mcg (400 unit) cap Take 400 Units by mouth once daily. FAMILY HISTORY Problem Relation Age of Onset Thyroid Mother Hyperlipidemia Mother Thyroid Father Thyroid Sister No Known Problems Sister No Known Problems Brother No Known Problems Brother No Known Problems Brother No Known Problems Maternal Grandmother No Known Problems Maternal Grandfather No Known Problems Paternal Grandmother Diabetes Paternal Grandfather Heart Paternal Grandfather Colon Cancer No Family History Social History Tobacco Use Smoking status: Never Smokeless tobacco: Never Vaping Use Vaping Use: Never used Substance Use Topics Alcohol use: Yes Alcohol/week: 2.0 standard drinks Types: 2 Glasses of wine per week Comment: 2/week Drug use: Never PHYSICAL EXAM BP 126/85 Pulse 78 Resp 16 Wt 103.9 kg (229 lb) LMP 10/15/2022 BMI 39.31 kg/m? General Appearance: well appearing, in no acute distress, alert Pysch: mood and affect broad and appropriate DATA REVIEWED: Most recent labs and imaging results. ASSESSMENT/PLAN: 1. Calculus of gallbladder without cholecystitis without obstruction - ICD9: 574.20, ICD10: K80.20 (primary diagnosis) Asymptomatic currently. Manages intermittent pain with dietary changes and lemon juice. Follow-up as needed if pain becomes persistent 2. Adrenal nodule (HCC) - ICD9: 255.8, ICD10: E27.8 - CT ADRENAL WO/W IVCON - IV CONTRAST (RADIOLOGY PROCEDURE) 3. Obesity (BMI 30-39.9) - ICD9: 278.00, ICD10: E66.9 Stable 4. Screening, lipid - ICD9: V77.91, ICD10: Z13.220 - LIPID PANEL BASIC Prescription instructions reviewed with patient as applicable. Potential red flag symptoms discussed with the patient. Reviewed appropriate action plan to take if red flag symptoms occur. Patient agreeable to treatment plan. During this patient visit I have spent approximately 20 minutes in counseling regarding medications, test results, and coordinating care. Cat Nuñez APRN.PLANT WIRE CHIEF [facility] 02-07-2023 History of Presen t illness Narrative CC: Patient presents with: F/U 3 Month: Gallstones HPI Tod Cordova is a 42 year old female who presents today for above. Patient was seen in October for abdominal pain related to gallstones. She was hesitant to have lap michelle done as recommended by general surgeon and was searching for alternatives. Eventually she agreed to surgery but then canceled it when abdominal pain resolved with daily lemon juice and water. She reports occasional abdominal pain since then that she manages with diet and the lemon juice. Denies any new or worsening symptoms. There was an incidental finding of adrenal nodule on CT in October, further characterization with dedicated CT was recommended and she is ready to schedule this now. REVIEW OF SYSTEMS See HPI PAST MEDICAL HISTORY Diagnosis Date NEGATIVE MEDICAL HISTORY PAST SURGICAL HISTORY Procedure Laterality Date SECTION HX 2019 D&C, DIAG AND/OR THERAPEUTIC 2017 ALLERGIES Patient has no known allergies. MEDICATIONS ascorbic acid, vitamin C, (VITAMIN C) 250 mg tablet Take 250 mg by mouth once daily. cholecalciferol, vitamin D3, 10 mcg (400 unit) cap Take 400 Units by mouth once daily. FAMILY HISTORY Problem Relation Age of Onset Thyroid Mother Hyperlipidemia Mother Thyroid Father Thyroid Sister No Known Problems Sister No Known Problems Brother No Known Problems Brother No Known Problems Brother No Known Problems Maternal Grandmother No Known Problems Maternal Grandfather No Known Problems Paternal Grandmother Diabetes Paternal Grandfather Heart Paternal Grandfather Colon Cancer No Family History Social History Tobacco Use Smoking status: Never Smokeless tobacco: Never Vaping Use Vaping Use: Never used Substance Use Topics Alcohol use: Yes Alcohol/week: 2.0 standard drinks Types: 2 Glasses of wine per week Comment: 2/week Drug use: Never PHYSICAL EXAM BP 126/85 Pulse 78 Resp 16 Wt 103.9 kg (229 lb) LMP 10/15/2022 BMI 39.31 kg/m General Appearance: well appearing, in no acute distress, alert Pysch: mood and affect broad and appropriate DATA REVIEWED: Most recent labs and imaging results. ASSESSMENT/PLAN: 1. Calculus of gallbladder without cholecystitis without obstruction - ICD9: 574.20, ICD10: K80.20 (primary diagnosis) Asymptomatic currently. Manages intermittent pain with dietary changes and lemon juice. Follow-up as needed if pain becomes persistent 2. Adrenal nodule (HCC) - ICD9: 255.8, ICD10: E27.8 - CT ADRENAL WO/W IVCON - IV CONTRAST (RADIOLOGY PROCEDURE) 3. Obesity (BMI 30-39.9) - ICD9: 278.00, ICD10: E66.9 Stable 4. Screening, lipid - ICD9: V77.91, ICD10: Z13.220 - LIPID PANEL BASIC Prescription instructions reviewed with patient as applicable. Potential red flag symptoms discussed with the patient. Reviewed appropriate action plan to take if red flag symptoms occur. Patient agreeable to treatment plan. During this patient visit I have spent approximately 20 minutes in counseling regarding medications, test results, and coordinating care. Cat Nuñez APRN.CNP documented in this encounter [facility] 12-02-2022 Note HNO ID: [id number] Author: Caroline Meza PA-C Service: ? Author Type: Physician Band Presser Type: Progress Notes Filed: 12/02/2022 3:50 PM Note Text: CHIEF COMPLAINT: Patient presents with: Abdominal Pain HPI: Tod Cordova is a 42 year old female who presents for Abdominal Pain. Admits to LLQ pain, radiates to RUQ, right shoulder for the past few weeks. Has CT abd 10/2022 which showed cholelithiasis, distended gallbladder. HIDA showed no visualization of the gallbladder/possible biliary dyskinesia. Went on liquids w/ tablespoon of lemon juice with improvement in symptoms. Around 11/12/2022 had complete improvement in symptoms, canceled lap surg with Dr. Orlando. Now able to eat, no further abd pain. Labs from 10/2022 were WNL. Denies regular heartburn, indigestion, unintentional weight loss, changes in bowel habits. CT abd 10/2022 HIDA 10/2022 IMPRESSION: 1. Nonvisualization of gallbladder after 2 hours, in an outpatient setting, this can be related to gallbladder dyskinesia. 2. Patent common bile duct Component Latest Ref Rng AND Units 11/07/2022 WBC 3.70 - 11.00 k/uL 6.10 RBC 3.90 - 5.20 m/uL 4.38 Hemoglobin 11.5 - 15.5 g/dL 13.3 Hematocrit 36.0 - 46.0 % 39.5 MCV 80.0 - 100.0 fL 90.2 MCH 26.0 - 34.0 pg 30.4 MCHC 30.5 - 36.0 g/dL 33.7 RDW-CV 11.5 - 15.0 % 11.9 Platelet Count 150 - 400 k/uL 245 MPV 9.0 - 12.7 fL 10.6 Neut% % 54.2 Abs Neut (ANC) 1.45 - 7.50 k/uL 3.31 Lymph% % 33.0 Abs Lymph 1.00 - 4.00 k/uL 2.01 O'Brien% % 9.5 Abs O'Brien <0.87 k/uL 0.58 Eosin% % 2.3 Abs Eosin <0.46 k/uL 0.14 Baso% % 0.7 Abs Baso <0.11 k/uL 0.04 Immature Gran % % 0.3 IMMATURE GRANS (ABS) <0.10 k/uL <0.03 NRBC /100 WBC 0.0 Absolute nRBC <0.01 k/uL <0.01 DTYPE Auto Protein, Total 6.3 - 8.0 g/dL 7.0 Albumin 3.9 - 4.9 g/dL 4.1 Calcium 8.5 - 10.2 mg/dL 10.7 (H) Bilirubin, Total 0.2 - 1.3 mg/dL 0.3 Alkaline Phosphatase 34 - 123 U/L 85 AST 13 - 35 U/L 25 ALT 7 - 38 U/L 24 Glucose 74 - 99 mg/dL 116 (H) BUN 7 - 21 mg/dL 13 Creatinine 0.58 - 0.96 mg/dL 0.92 Sodium 136 - 144 mmol/L 135 (L) Potassium 3.7 - 5.1 mmol/L 4.5 Chloride 97 - 105 mmol/L 104 CO2 22 - 30 mmol/L 21 (L) Anion Gap 9 - 18 mmol/L 10 eGFR >=60 mL/min/1.73mA? 80 Record Review: [facility] / Outside records reviewed. PAST MEDICAL HISTORY Diagnosis Date NEGATIVE MEDICAL HISTORY PAST SURGICAL HISTORY Procedure Laterality Date SECTION HX 2018 DANUT, DIAG AND/OR THERAPEUTIC 2017 Allergies: ALLERGIES No Known Allergies Medications: ascorbic acid, vitamin C, (VITAMIN C) 250 mg tablet Take 250 mg by mouth once daily. cholecalciferol, vitamin D3, 10 mcg (400 unit) cap Take 400 Units by mouth once daily. FAMILY HISTORY Problem Relation Age of Onset Thyroid Mother Hyperlipidemia Mother Thyroid Father Thyroid Sister No Known Problems Sister No Known Problems Brother No Known Problems Brother No Known Problems Brother No Known Problems Maternal Grandmother No Known Problems Maternal Grandfather No Known Problems Paternal Grandmother Diabetes Paternal Grandfather Heart Paternal Grandfather Colon Cancer No Family History Employer And Job Title: None on file Years Of Education Completed: Not specified Marital Status: Social History Tobacco Use Smoking status: Never Smokeless tobacco: Never Vaping Use Vaping Use: Never used Substance Use Topics Alcohol use: Yes Alcohol/week: 2.0 standard drinks Types: 2 Glasses of wine per week Comment: 2/week Drug use: Never Review of Systems: Review of Systems All other systems reviewed and are negative. Are you taking any blood thinners? No Physical Examination: BP 126/84 Pulse 68 Ht 5' 4 (1.63m) Wt 229 lb 12.8 oz (104.2kg) LMP 10/15/2022 BMI 39.43 kg/(m2). Physical Exam Constitutional: General: She is not in acute distress. Appearance: Normal appearance. She is normal weight. She is not ill-appearing, toxic-appearing or diaphoretic. HENT: Head: Normocephalic and atraumatic. Nose: Nose normal. Eyes: General: No scleral icterus. Right eye: No discharge. Left eye: No discharge. Extraocular Movements: Extraocular movements intact. Conjunctiva/sclera: Conjunctivae normal. Pupils: Pupils are equal, round, and reactive to light. Cardiovascular: Rate and Rhythm: Normal rate and regular rhythm. Pulses: Normal pulses. Heart sounds: Normal heart sounds. No murmur heard. No friction rub. No gallop. Pulmonary: Effort: No respiratory distress. Breath sounds: Normal breath sounds. No stridor. No wheezing, rhonchi or rales. Chest: Chest wall: No tenderness. Abdominal: General: Abdomen is flat. Bowel sounds are normal. There is no distension. Palpations: Abdomen is soft. There is no mass. Tenderness: There is no abdominal tenderness. There is no right CVA tenderness, left CVA tenderness, guarding or rebound. Hernia: No hernia is present. Musculosk (more content not included)... [facility] 12-02-2022 History of Presen t illness Narrative Images from the original note were not included. CHIEF COMPLAINT: Patient presents with: Abdominal Pain HPI: Tod Cordova is a 42 year old female who presents for Abdominal Pain. Admits to LLQ pain, radiates to RUQ, right shoulder for the past few weeks. Has CT abd 10/2022 which showed cholelithiasis, distended gallbladder. HIDA showed no visualization of the gallbladder/possible biliary dyskinesia. Went on liquids w/ tablespoon of lemon juice with improvement in symptoms. Around 11/12/2022 had complete improvement in symptoms, canceled lap surg with Dr. Orlando. Now able to eat, no further abd pain. Labs from 10/2022 were WNL. Denies regular heartburn, indigestion, unintentional weight loss, changes in bowel habits. CT abd 10/2022 HIDA 10/2022 IMPRESSION: 1. Nonvisualization of gallbladder after 2 hours, in an outpatient setting, this can be related to gallbladder dyskinesia. 2. Patent common bile duct Component Latest Ref Rng & Units 11/07/2022 WBC 3.70 - 11.00 k/uL 6.10 RBC 3.90 - 5.20 m/uL 4.38 Hemoglobin 11.5 - 15.5 g/dL 13.3 Hematocrit 36.0 - 46.0 % 39.5 MCV 80.0 - 100.0 fL 90.2 MCH 26.0 - 34.0 pg 30.4 MCHC 30.5 - 36.0 g/dL 33.7 RDW-CV 11.5 - 15.0 % 11.9 Platelet Count 150 - 400 k/uL 245 MPV 9.0 - 12.7 fL 10.6 Neut% % 54.2 Abs Neut (ANC) 1.45 - 7.50 k/uL 3.31 Lymph% % 33.0 Abs Lymph 1.00 - 4.00 k/uL 2.01 O'Brien% % 9.5 Abs O'Brien <0.87 k/uL 0.58 Eosin% % 2.3 Abs Eosin <0.46 k/uL 0.14 Baso% % 0.7 Abs Baso <0.11 k/uL 0.04 Immature Gran % % 0.3 IMMATURE GRANS (ABS) <0.10 k/uL <0.03 NRBC /100 WBC 0.0 Absolute nRBC <0.01 k/uL <0.01 DTYPE Auto Protein, Total 6.3 - 8.0 g/dL 7.0 Albumin 3.9 - 4.9 g/dL 4.1 Calcium 8.5 - 10.2 mg/dL 10.7 (H) Bilirubin, Total 0.2 - 1.3 mg/dL 0.3 Alkaline Phosphatase 34 - 123 U/L 85 AST 13 - 35 U/L 25 ALT 7 - 38 U/L 24 Glucose 74 - 99 mg/dL 116 (H) BUN 7 - 21 mg/dL 13 Creatinine 0.58 - 0.96 mg/dL 0.92 Sodium 136 - 144 mmol/L 135 (L) Potassium 3.7 - 5.1 mmol/L 4.5 Chloride 97 - 105 mmol/L 104 CO2 22 - 30 mmol/L 21 (L) Anion Gap 9 - 18 mmol/L 10 eGFR >=60 mL/min/1.73m 80 Record Review: [facility] / Outside records reviewed. PAST MEDICAL HISTORY Diagnosis Date NEGATIVE MEDICAL HISTORY PAST SURGICAL HISTORY Procedure Laterality Date SECTION HX 2018 D&C, DIAG AND/OR THERAPEUTIC 2016 Allergies: ALLERGIES No Known Allergies Medications: ascorbic acid, vitamin C, (VITAMIN C) 250 mg tablet Take 250 mg by mouth once daily. cholecalciferol, vitamin D3, 10 mcg (400 unit) cap Take 400 Units by mouth once daily. FAMILY HISTORY Problem Relation Age of Onset Thyroid Mother Hyperlipidemia Mother Thyroid Father Thyroid Sister No Known Problems Sister No Known Problems Brother No Known Problems Brother No Known Problems Brother No Known Problems Maternal Grandmother No Known Problems Maternal Grandfather No Known Problems Paternal Grandmother Diabetes Paternal Grandfather Heart Paternal Grandfather Colon Cancer No Family History Employer And Job Title: None on file Years Of Education Completed: Not specified Marital Status: Social History Tobacco Use Smoking status: Never Smokeless tobacco: Never Vaping Use Vaping Use: Never used Substance Use Topics Alcohol use: Yes Alcohol/week: 2.0 standard drinks Types: 2 Glasses of wine per week Comment: 2/week Drug use: Never Review of Systems: Review of Systems All other systems reviewed and are negative. Are you taking any blood thinners? No Physical Examination: BP 126/84 Pulse 68 Ht 5' 4 (1.63m) Wt 229 lb 12.8 oz (104.2kg) LMP 10/15/2022 BMI 39.43 kg/(m^2). Physical Exam Constitutional: General: She is not in acute distress. Appearance: Normal appearance. She is normal weight. She is not ill-appearing, toxic-appearing or diaphoretic. HENT: Head: Normocephalic and atraumatic. Nose: Nose normal. Eyes: General: No scleral icterus. Right eye: No discharge. Left eye: No discharge. Extraocular Movements: Extraocular movements intact. Conjunctiva/sclera: Conjunctivae normal. Pupils: Pupils are equal, round, and reactive to light. Cardiovascular: Rate and Rhythm: Normal rate and regular rhythm. Pulses: Normal pulses. Heart sounds: Normal heart sounds. No murmur heard. No friction rub. No gallop. Pulmonary: Effort: No respiratory distress. Breath sounds: Normal breath sounds. No stridor. No wheezing, rhonchi or rales. Chest: Chest wall: No tenderness. Abdominal: General: Abdomen is flat. Bowel sounds are normal. There is no distension. Palpations: Abdomen is soft. There is no mass. Tenderness: There is no abdominal tenderness. There is no right CVA tenderness, left CVA tenderness, guarding or rebound. Hernia: No hernia is present. Musculoskeletal: General: Normal range of motion. Cervical back: Normal range of motion and neck supple. Skin: General: Skin is warm and dry. Neurological: General: No focal deficit present. Mental Status: She is alert and oriented to person, place, and time. Psychiatric: Mood and Affect: Mood normal. Behavior: Behavior normal. Assessment/Plan (K82.8) Biliary dyskinesia (primary encounter diagnosis) 1. Biliary dyskinesia - No current symptoms, tolerating normal diet PO, canceled surg with Dr. Orlando - Discussed indications to return to GI office if sx of abd pain were to return I spent a total of 15 minutes on the date of the service which included preparing to see the patient, [id number] patient care, completing clinical documentation, obtaining and/or reviewing separately obtained history, performing a medically appropriate examination, counseling and educating the patient/family/caregiver, ordering medications, tests, or procedures, communicating with other HCPs (not separately reported), independently interpreting results (not separately reported), communicating results to the patient/family/caregiver, and care coordination (not separately reported). Caroline Meza PA-C December 02, 2022 3:47 PM documented in this encounter [facility] 11-19-2022 Miscellaneous Notes Called patient to confirm cancellation of procedure. Patient confirmed cancellation and denied to reschedule. Patient stated she is following up with gastro. Message sent to [place] to cancel surgery on 11/21/2022 with Darion. Judy You Feature Writer Patient calling in to cancel procedure with Dr Orlando at this time declined to reschedule. Patient accepted sooner date in [place] with Dr. Orlando - anesthesia reviewed and approved. Patient now scheduled 11/21/[address] Orlando in [place] for Lap Michelle. Patient stated if she gets worse she will go to the ER. Message sent to change to [place] Judy You Feature Writer Patient scheduled in [place] with soonest date of 11/25/2022 with Nuvia. Patient asking if she can get in sooner with Darion in [place] and possibly next week as she is in terrible pain and can't wait till the 16. Message sent to verify approval for [place]. Sated to patient I will be in contact if we can geta sooner date. Patient given my direct line of [phone]. Images from the original note were not included. Tali Orlando MD You 22 hours ago (9:39 AM) To be scheduled at [place] [facility] anesthesia Dx: k80.90 CPT 18995, possible [id number] Thank you You Tali Orlando MD [address] Orlando, Patient is ready to proceed with gallbladder surgery as she is in constant pain. What CPT, DX and anesthesia would you like to proceed with? Please advise Thank you Judy You Feature Writer Pt called in states having constant pain now and would like to proceed with the gallbladder surgery. documented in this encounter [facility] 11-07-2022 Instructions Ninfa Guzman PA-C - 11/07/2022 2:29 PM EST PATIENT PREOPERATIVE INSTRUCTIONS Cristofer Banks MD has scheduled you for your procedure at this surgery center: [facility]: [phone] -- [address] [address]. Please read below carefully for your personalized instructions. Dietary Restrictions: - No solid food after midnight. - You may have 12 ounces of clear liquids (water, clear juices such as apple juice or gatorade, carbonated beverages, clear tea, black coffee, jello) until 2 hours before scheduled arrival at facility. Medications: Unless instructed differently below, stay on all of your medications until your surgery. Approved medications to take the morning of surgery with a sip of water: none If you start any new medications after today's visit, please contact the surgeon's office. Blood Thinning Medications: - Stop NSAIDS (Ibuprofen, Advil, Aleve, Motrin, Celebrex, Mobic, etc.) 7 days before surgery, as directed by your surgeon. - Stop Aspirin 7 days before surgery, as directed by your surgeon. - Stop Vitamin E, ALL multi-vitamins, herbals and dietary supplements 7 days before surgery. - You may take Tylenol (Acetaminophen) or any of your pain medications that do not contain aspirin or NSAIDS as needed. [place] is OK to continue Important Reminders: - Candy, mints, and tobacco products are NOT permitted the morning of surgery. - Hearing aids, dentures and glasses may be worn the morning of surgery. - NO jewelry, body piercings, makeup, hairpins or contacts are to be worn the day of surgery. If you develop symptoms such as a fever, cold, or flu, or have other changes to your health within TWO DAYS of scheduled surgery or the morning of surgery, please contact the surgery center above. Personal Belongings: -Please have photo ID and insurance cards. -If you do not have a copy of advance directives on file with us, please bring a copy with you on the day of surgery. - Leave ALL valuables and money at home or with family members. For Outpatient Procedures: - YOU MUST HAVE A RESPONSIBLE PILOT PLANT OPERATOR TAKE YOU HOME. A FOREST ENGINEER OR COCOA POWDER MIXER OPERATOR CANNOT BE MADE A RESPONSIBLE PILOT PLANT OPERATOR. - We recommend that a responsible person stays with you overnight to take care of you. - You cannot stay in a hotel alone after outpatient surgery. You will not be permitted to have your surgery, if you do not have someone to take care of you. Arrival Time for Surgery: - The Surgery Center or hospital where you are having surgery will call the afternoon before surgery (or Friday for Friday surgery) with a scheduled arrival time. - If you have not heard by 4 pm, please contact the surgery center above. Please be aware that emergency situations arise, which may delay or change your surgical time. If this happens, we will notify you as soon as possible and regret any inconvenience. If you already have an Advance Directive, please fax a copy to [phone] or email to for it to be added to your chart. If you do not have an Advance Directive, you can find the appropriate form and more information at [email or web address]. We recommend that you complete the Advance Directive form found on the website and bring it with you the day of your surgery. It can be witnessed and scanned into your chart that day. Ninfa Guzman PA-C documented in this encounter [facility] 11-07-2022 History and physical note PREANESTHESIA CONSULT CLINIC This is a virtual visit. It required patient-provider interaction for the medical decision making as documented below. Patient has been identified by name and date of : Yes Reason for call: PACC visit Accompanied by: - David Patient name: Tod Cordova Scheduled Surgery: LAPAROSCOPIC CHOLECYSTECTOMY WITH GRAMS CHIEF COMPLAINT: Patient presents with: Anesthesia Consult HPI: This is a 42 year old female who presents with calculus of gallbladder. She went to ED 10/11/2022 with severe epigastric pain. She was having ~3 episodes/week, but now symptoms are worse. She describes constant abdominal pain, worse after eating. [place] brings relief for 2 hours. She also reports nausea. ACTIVE PROBLEM LIST Adrenal Nodule (Hcc) Obesity (Bmi 30-39.9) PAST MEDICAL HISTORY Diagnosis Date NEGATIVE MEDICAL HISTORY PAST SURGICAL HISTORY Procedure Laterality Date SECTION HX 2019 D&C, DIAG AND/OR THERAPEUTIC 2017 FAMILY HISTORY Problem Relation Age of Onset Thyroid Mother Hyperlipidemia Mother Thyroid Father Thyroid Sister No Known Problems Sister No Known Problems Brother No Known Problems Brother No Known Problems Brother No Known Problems Maternal Grandmother No Known Problems Maternal Grandfather No Known Problems Paternal Grandmother Diabetes Paternal Grandfather Heart Paternal Grandfather Social History: Social History Tobacco Use Smoking status: Never Smokeless tobacco: Never Vaping Use Vaping Use: Never used Substance Use Topics Alcohol use: Not Currently Alcohol/week: 2.0 standard drinks Types: 2 Glasses of wine per week Comment: 2/week Drug use: Never MEDICATIONS: Current Inpatient Medications Current Outpatient Medications Medication Sig ascorbic acid, vitamin C, (VITAMIN C) 250 mg tablet Take 250 mg by mouth once daily. cholecalciferol, vitamin D3, 10 mcg (400 unit) cap Take 400 Units by mouth once daily. HYDROcodone-acetaminophen (NORCO) 5-325 mg per tablet TAKE 1 TABLET BY MOUTH EVERY 6 HOURS NEEDED FOR PAIN FOR 3 DAYS No current facility-administered medications for this visit. ALLERGIES: ALLERGIES No Known Allergies REVIEW OF SYSTEMS: PAIN ASSESSMENT: Pain Pain Level: 3 General: +weight loss- 10 lbs with gallbladder Neuro: No history of TIA's, stroke, NAIL MAKING MACHINE SETTER tumor, impaired sensorium, hemiplegia, paraplegia or quadraplegia. No neurological symptoms or problems. Respiratory: No history of current cough or dyspnea, or pneumonia in the past 6 weeks. No history of respiratory/pulmonary symptoms or problems. Cardiovascular: No history of HTN requiring medication, no history of angina, CHF, TX, cardiac surgery or stents. Denies rest pain, gangrene or revascularization/amputation for PVD. No history of cardiovascular symptoms or problems. 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 : Denies, Patient's last menstrual period was 10/15/2022. Endocrine: No history of diabetes. Has not taken steroids within the past 30 days. No history of endocrinological symptoms or problems. Hematology: No history of bleeding or clotting disorder. Pt is not taking anti-coagulation or platelet medications. No history of hematological symptoms or problems. Oncology: No history of CA metastasis, chemo within 30 days, or radiotherapy within 90 days. Has not lost 10% of body wt in 6 months. No history of oncological symptoms or problems. Psych: No history of psychiatric symptoms or problems. Musculoskeletal: Negative for joint pain or swelling, back pain or muscle pain. Skin: Negative for lesions, rash and itching. PHYSICAL EXAM: VITAL SIGNS: Ht 5' 4 (1.63m) Wt 220 lb (99.8kg) LMP 10/15/2022 BMI 37.74 kg/(m^2). GENERAL: alert and appropriate, in no distress, well-hydrated, well nourished, and happy, smiling, interactive, BMI 37.8 SKIN: no rash noted HEAD: normocephalic, no abnormality or lesion noted EYES: no injection and visual acuity is grossly normal EARS: hearing grossly normal NOSE: external nose normal without rhinorrhea OROPHARYNX: moist mucus membranes NECK: full ROM, no cervical LNs noted RESPIRATORY: breathing non-labored CHEST: equal chest rise with normal respiratory effort HEART: RRR, confirmed with radial pulse exam ABDOMEN: soft and non-tender BACK: back normal in appearance, spine with FROM NEUROLOGIC: no obvious deficit Diagnostic tests reviewed for today's visit: Lab Value Units Date High Low HB No results within date range. HCT No results within date range. WBC No results within date range. PLT No results within date range. NA No results within date range. K No results within date range. GLUC No results within date range. BUN No results within date range. CREAT No results within date range. PTSEC No results within date range. INR No results within date range. APTT No results within date range. ALT No results within date range. AST No results within date range. TBILI No results within date range. TSH No results within date range. Lab Value Units Date High Low HCGQT No results within date range. UHCG No results within date range. HCG, BODY* No results within date range. Lab Value Units Date High Low ABORHD No results within date range. ABSCREEN No results within date range. No results found for: HBA1C PENDING Assessment/Plan Obesity (BMI 30-39.9) Assessment: BMI 37.8 METS: Climb a flight of stairs or walk up a hill (5.50 METs) Patient denies any chest pain or undue shortness of breath with the above physical activity. ASA Class: 2 ANESTHESIA FINDINGS: Intubation History: No history of difficult intubation Significant Anesthesia Considerations: None Airway Exam: General: Normal appearance Mallampati Score is CLASS III ULBT: Class I - Lower incisors can bite the upper lip above the wally line Neck: Normal appearance and function, Distance from hyoid to mentum during neck extension is at least 3 finger breaths Mouth: Normal tongue size and Mouth opening greater than 2 finger breaths Dentition: caps/crowns Airway History: No abnormal airway history STOP BANG Score: Criteria: Snoring Score = 1 PLAN This patient is optimally prepared for surgery. CONSULTS: Patient does not require consults for optimization at this time. The Following Tests/Procedures Have Been Initiated: CBC, CMP Planned Anesthetic: Per anesthesia choice Instructions Given to Patient: Patient given verbal instructions and voices comprehension and compliance. Copy sent electronically via My Chart, email, or mobile device. I spent more than 25 minutes [id number]-[id number] with the patient and over half the time was devoted to counseling and/or coordination of care. SIGNATURE: Ninfa Guzman PA-C PATIENT NAME: Tod Cordova DATE: 11/07/2022 TIME: 2:25 PM PAGER/CONTACT #: documented in this encounter [facility] 11-05-2022 Miscellaneous Notes Per Cat Nuñez NP, Patient saw Dr. Orlando 10/28/2022, does not need a referral. Patient can MyChart Dr. Orlando re: results, next step. Raquel Gambino LPN Patient notified of below results/recommendation. Consult to General Surgery, Patient is wanting to see Dr. Orlando. Raquel Gambino LPN Please let the patient know the HIDA scan showed gallbladder dyskinesia. Meaning your gallbladder's ability to move bile out into your bile ducts is not functioning properly. When your gallbladder can t efficiently move bile out into your bile ducts, the backup of bile causes your gallbladder to become tinajero or swollen leading to pain that can be intermittent. The treatment for this is typically removal of the gallbladder. Cat Nuñez APRN.CNP documented in this encounter [facility] 11-05-2022 Miscellaneous Notes Error documented in this encounter [facility] 10-31-2022 Note HNO ID: [id number] Author: RT Anthony(R) Service: Nuclear Medicine Author Type: Technologist Type: Progress Notes Filed: 10/31/2022 3:40 PM Note Text: RADIOLOGY SERVICE PROGRESS NOTE SERVICE DATE: 10/31/2022 SERVICE TIME: 1:05 PM PATIENT IDENTITY VERIFICATION COMPLETED USING TWO (2) STANDARD IDENTIFIERS: Name and Date of confirmed by patient verbally FALL SCREENING: Has the patient had 2 falls in the last year or 1 fall with injury or currently using an Ambulatory Assistive Device (Walker, Cane, Wheelchair, Crutches, etc.)? No PATIENT GENDER DATA: .female : No status: No ALLERGIES: Reviewed and unchanged MEDICATIONS REVIEWED: No PATIENT RELEVANT IMPLANT DATA REVIEWED: Not Applicable CREATININE: No results found for: CREAT, EGFROTH, EGFRAA P.O.C.T. RESULTS: N/A October 31, [address] PERFORMED: No IV SITE: Ambulatory: A peripheral IV was started in the Right antecubital site with a Angio cath: 24 gauge. POST EXAM PIV STATUS: Discontinued PROCEDURE TYPE: NM INJECT: Hepatobiliary with Gallbladder EF. 5.4 mCi Tc99m CHOLETEC. Gallbladder did not show after 2 hours of imaging; No EF calculated. ADMINISTRATION TIME: 13:20 PATIENT DISCHARGED TO: Ambulatory patient, left [place] department area. A Diagnostic radioactive procedure has taken place, with no further precautions necessary other than routine body substance precautions. More information regarding radiation safety can be found using this link: [email or web address] [email or web address] SIGNATURE: PIERRE Cruz PATIENT NAME: Tod Cordova DATE: October 31, 2022 TIME: 1:35 PM PAGER/CONTACT #: [facility] 10-31-2022 History of Presen t illness Narrative RADIOLOGY SERVICE PROGRESS NOTE SERVICE DATE: 10/31/2022 SERVICE TIME: 1:05 PM PATIENT IDENTITY VERIFICATION COMPLETED USING TWO (2) STANDARD IDENTIFIERS: Name and Date of confirmed by patient verbally FALL SCREENING: Has the patient had 2 falls in the last year or 1 fall with injury or currently using an Ambulatory Assistive Device (Walker, Cane, Wheelchair, Crutches, etc.)? No PATIENT GENDER DATA: .female : No status: No ALLERGIES: Reviewed and unchanged MEDICATIONS REVIEWED: No PATIENT RELEVANT IMPLANT DATA REVIEWED: Not Applicable CREATININE: No results found for: CREAT, EGFROTH, EGFRAA P.O.C.T. RESULTS: N/A October 31, [address] PERFORMED: No IV SITE: Ambulatory: A peripheral IV was started in the Right antecubital site with a Angio cath: 24 gauge. POST EXAM PIV STATUS: Discontinued PROCEDURE TYPE: NM INJECT: Hepatobiliary with Gallbladder EF. 5.4 mCi Tc99m CHOLETEC. Gallbladder did not show after 2 hours of imaging; No EF calculated. ADMINISTRATION TIME: 13:20 PATIENT DISCHARGED TO: Ambulatory patient, left [place] department area. A Diagnostic radioactive procedure has taken place, with no further precautions necessary other than routine body substance precautions. More information regarding radiation safety can be found using this link: [email or web address] uclear%[email or web address] df SIGNATURE: PIERRE Cruz PATIENT NAME: Tod Cordova DATE: October 31, 2022 TIME: 1:35 PM PAGER/CONTACT #: documented in this encounter [facility] 10-30-2022 Note Patient Outreach (IN [facility]) TOD DA SILVA ([id number]) 1980 F Date Time Provider Department 10/30/22 DONALD MOTLEY During your visit today, we recorded the following information about you: Allergies As of Date: 10/30/2022 (No Known Allergies) Date Reviewed: 10/28/2022 Reviewed by: Cat Nuñez APRN.CNP - Fully Assessed Visit Diagnosis:Encounter for screening mammogram for breast cancer [Z12.31] Order(s):[facility] SCREENING [0703332] Order #: [id number] FUTURE Prescriptions as of 11/04/2022 - ascorbic acid, vitamin C, (VITAMIN C) 250 mg tablet Take 250 mg by mouth once daily. - cholecalciferol, vitamin D3, (VITAMIN D-3) 10 mcg (400 unit) cap Take 400 Units by mouth once daily. - HYDROcodone-acetaminophen (NORCO) 5-325 mg per tablet TAKE 1 TABLET BY MOUTH EVERY 6 HOURS NEEDED FOR PAIN FOR 3 DAYS Problem List As Of Date 10/30/2022 Noted Resolved Adrenal nodule (HCC) [E27.8] 10/28/2022 Encounter Status:Closed by [email or web address], PRODUSER on 11/04/22 [facility] 10-28-2022 Note HNO ID: [id number] Author: Cat Nuñez APRN.PLANT WIRE CHIEF Service: ? Author Type: Nurse Practitioner Type: Progress Notes Filed: 10/28/2022 10:54 AM Note Text: CC: Patient presents with: ED Follow-up Establish Care HPI Tod Cordova is a 42 year old female who presents today for above. Patient was seen in the ER on 10/11 for worsening of chronic abdominal pain. CT abdomen revealed mildly distended gallbladder with cholelithiasis and incidental finding of 2.8 cm adrenal nodule. Ultrasound confirmed distended gallbladder and gallstones, no ductal dilatation or blockage. She was referred to general surgery. Today patient reports ongoing abdominal pain, mainly located in the LLQ abdomen. Described as intermittent, sharp pain. She denies fever, chills, nausea, vomiting, diarrhea, constipation, black/bloody stools. She has made some dietary changes, cut out all alcohol and high fat foods. Trying to lose weight. She saw general surgeon on 10/21 and was not happy with her answers. [place] that they just wanted to cut out my gallbladder without giving consideration to any other treatments and work-up for other causes. She has no previous PCP. Denies any significant medical problems until now. Denies any other concerns today. REVIEW OF SYSTEMS See HPI PAST MEDICAL HISTORY Diagnosis Date NEGATIVE MEDICAL HISTORY PAST SURGICAL HISTORY Procedure Laterality Date DANDC, DIAG AND/OR THERAPEUTIC 2017 ALLERGIES Patient has no known allergies. MEDICATIONS ascorbic acid, vitamin C, (VITAMIN C) 250 mg tablet Take 250 mg by mouth once daily. cholecalciferol, vitamin D3, (VITAMIN D-3) 10 mcg (400 unit) cap Take 400 Units by mouth once daily. HYDROcodone-acetaminophen (NORCO) 5-325 mg per tablet TAKE 1 TABLET BY MOUTH EVERY 6 HOURS NEEDED FOR PAIN FOR 3 DAYS FAMILY HISTORY Problem Relation Age of Onset Thyroid Mother Hyperlipidemia Mother Thyroid Father Thyroid Sister No Known Problems Sister No Known Problems Brother No Known Problems Brother No Known Problems Brother No Known Problems Maternal Grandmother No Known Problems Maternal Grandfather No Known Problems Paternal Grandmother Diabetes Paternal Grandfather Heart Paternal Grandfather Social History Tobacco Use Smoking status: Never Smokeless tobacco: Never Vaping Use Vaping Use: Never used Substance Use Topics Alcohol use: Not Currently Alcohol/week: 2.0 standard drinks Types: 2 Glasses of wine per week Drug use: Never PHYSICAL EXAM BP 125/83 Pulse 76 Resp 14 Wt 103.4 kg (228 lb) BMI 39.14 kg/m? General Appearance: well appearing, in no acute distress, alert Pysch: mood and affect broad and appropriate Lungs: Lungs clear to auscultation. No wheezing, rhonchi, rales. Heart: RRR without murmur, gallop, or rubs. No ectopy Abdomen: Soft, non-distended. mild right lower quadrant abdominal tenderness with palpation. No guarding or rebound tenderness. Negative Ledezma's sign. Bowel sounds normal and active. No masses, organomegaly but difficult exam due to body habitus DATA REVIEWED: Outside chart from [facility] ER reviewed. ASSESSMENT/PLAN: 1. Abdominal pain, unspecified abdominal location - ICD9: 789.00, ICD10: R10.9 (primary diagnosis) Pain mostly in the LLQ abdomen, etiology unclear Differential Diagnosis includes GERD, PUD, IBD, and Gall bladder colic/cholelithiasis - NM HEPATOBILIARY W EF AND/OR RX to evaluate gallbladder function - CONSULT TO GASTROENTEROLOGY for further evaluation and recommendations - follow-up in 3 months or sooner as needed 2. Calculus of gallbladder without cholecystitis without obstruction - ICD9: 574.20, ICD10: K80.20 Low fat diet, avoid triggering foods Plan as above - NM HEPATOBILIARY W EF AND/OR RX 3. Adrenal nodule (HCC) - ICD9: 255.8, ICD10: E27.[address] Radiologist recommends multiphasic contrast enhanced adrenal protocol CT to evaluate further. Recommend addressing gallbladder/abdominal first and can discuss further evaluation with CT at follow-up in 3 months 4. Renal insufficiency - ICD9: 593.9, ICD10: N28.9 Recheck - COMP METABOLIC PANEL Prescription instructions reviewed with patient as applicable. Potential red flag symptoms discussed with the patient. Reviewed appropriate action plan to take if red flag symptoms occur. Patient agreeable to treatment plan. Cat Nuñez APRN.CNP [facility] 10-28-2022 Instructions Cat Nuñez APRN.CNP - 10/28/2022 10:18 AM EST Ursodiol documented in this encounter [facility] 10-28-2022 History of Presen t illness Narrative CC: Patient presents with: ED Follow-up Establish Care HPI Tod Cordova is a 42 year old female who presents today for above. Patient was seen in the ER on 10/11 for worsening of chronic abdominal pain. CT abdomen revealed mildly distended gallbladder with cholelithiasis and incidental finding of 2.8 cm adrenal nodule. Ultrasound confirmed distended gallbladder and gallstones, no ductal dilatation or blockage. She was referred to general surgery. Today patient reports ongoing abdominal pain, mainly located in the LLQ abdomen. Described as intermittent, sharp pain. She denies fever, chills, nausea, vomiting, diarrhea, constipation, black/bloody stools. She has made some dietary changes, cut out all alcohol and high fat foods. Trying to lose weight. She saw general surgeon on 10/21 and was not happy with her answers. Shobonier that they just wanted to cut out my gallbladder without giving consideration to any other treatments and work-up for other causes. She has no previous PCP. Denies any significant medical problems until now. Denies any other concerns today. REVIEW OF SYSTEMS See HPI PAST MEDICAL HISTORY Diagnosis Date NEGATIVE MEDICAL HISTORY PAST SURGICAL HISTORY Procedure Laterality Date D&C, DIAG AND/OR THERAPEUTIC 2016 ALLERGIES Patient has no known allergies. MEDICATIONS ascorbic acid, vitamin C, (VITAMIN C) 250 mg tablet Take 250 mg by mouth once daily. cholecalciferol, vitamin D3, (VITAMIN D-3) 10 mcg (400 unit) cap Take 400 Units by mouth once daily. HYDROcodone-acetaminophen (NORCO) 5-325 mg per tablet TAKE 1 TABLET BY MOUTH EVERY 6 HOURS NEEDED FOR PAIN FOR 3 DAYS FAMILY HISTORY Problem Relation Age of Onset Thyroid Mother Hyperlipidemia Mother Thyroid Father Thyroid Sister No Known Problems Sister No Known Problems Brother No Known Problems Brother No Known Problems Brother No Known Problems Maternal Grandmother No Known Problems Maternal Grandfather No Known Problems Paternal Grandmother Diabetes Paternal Grandfather Heart Paternal Grandfather Social History Tobacco Use Smoking status: Never Smokeless tobacco: Never Vaping Use Vaping Use: Never used Substance Use Topics Alcohol use: Not Currently Alcohol/week: 2.0 standard drinks Types: 2 Glasses of wine per week Drug use: Never PHYSICAL EXAM BP 125/83 Pulse 76 Resp 14 Wt 103.4 kg (228 lb) BMI 39.14 kg/m General Appearance: well appearing, in no acute distress, alert Pysch: mood and affect broad and appropriate Lungs: Lungs clear to auscultation. No wheezing, rhonchi, rales. Heart: RRR without murmur, gallop, or rubs. No ectopy Abdomen: Soft, non-distended. mild right lower quadrant abdominal tenderness with palpation. No guarding or rebound tenderness. Negative Ledezma's sign. Bowel sounds normal and active. No masses, organomegaly but difficult exam due to body habitus DATA REVIEWED: Outside chart from [facility] ER reviewed. ASSESSMENT/PLAN: 1. Abdominal pain, unspecified abdominal location - ICD9: 789.00, ICD10: R10.9 (primary diagnosis) Pain mostly in the LLQ abdomen, etiology unclear Differential Diagnosis includes GERD, PUD, IBD, and Gall bladder colic/cholelithiasis - NM HEPATOBILIARY W EF AND/OR RX to evaluate gallbladder function - CONSULT TO GASTROENTEROLOGY for further evaluation and recommendations - follow-up in 3 months or sooner as needed 2. Calculus of gallbladder without cholecystitis without obstruction - ICD9: 574.20, ICD10: K80.20 Low fat diet, avoid triggering foods Plan as above - NM HEPATOBILIARY W EF AND/OR RX 3. Adrenal nodule (HCC) - ICD9: 255.8, ICD10: E27.[address] Radiologist recommends multiphasic contrast enhanced adrenal protocol CT to evaluate further. Recommend addressing gallbladder/abdominal first and can discuss further evaluation with CT at follow-up in 3 months 4. Renal insufficiency - ICD9: 593.9, ICD10: N28.9 Recheck - COMP METABOLIC PANEL Prescription instructions reviewed with patient as applicable. Potential red flag symptoms discussed with the patient. Reviewed appropriate action plan to take if red flag symptoms occur. Patient agreeable to treatment plan. Cat Nuñez APRN.CNP documented in this encounter [facility] 10-14-2022 Miscellaneous Notes Images from the original note were not included. Tali Orlando MD P [facility] Surg Scheduling Pool This is a new patient - Tod Cordova, seen in [place] ED 10/11/2022 with cholelithiasis/biliary colic. To be referred to this clinic for consideration of laparoscopic cholecystectomy. : 1980 [address], [place] [phone] Please call patient for an appointment to see one of us. 1st attempt to reach patient to schedule an in office visit with Dr. Orlando. Left voicemail to directly contact [phone]. Registration is NOT complete. Judy You Feature Writer documented in this encounter [facility] Diagnosis Encounter for screening mammogram for breast cancer Calculus of gallbladder without cholecystitis without obstruction Calculus of gallbladder without mention of cholecystitis or obstruction [facility] Diagnosis Pre-op evaluation- Primary Preoperative examination, unspecified Obesity (BMI 30-39.9) Obesity, unspecified Calculus of gallbladder without cholecystitis without obstruction Calculus of gallbladder without mention of cholecystitis or obstruction [facility] Diagnosis Biliary dyskinesia- Primary Other specified disorder of gallbladder [facility] Diagnosis Calculus of gallbladder without cholecystitis without obstruction- Primary Calculus of gallbladder without mention of cholecystitis or obstruction Adrenal nodule (HCC) Unspecified disorder of adrenal glands Obesity (BMI 30-39.9) Obesity, unspecified Screening, lipid Screening for lipoid disorders [facility] Diagnosis Calculus of gallbladder without cholecystitis without obstruction Calculus of gallbladder without mention of cholecystitis or obstruction Abdominal pain, unspecified abdominal location [facility]ative)* Diagnostic Procedure Only (Routine) - Pending Review Specialty Diagnoses / Procedures Referred By Sierra quijano Referred To Contact [facility] Diagnoses Encounter for screening mammogram for breast cancer Procedures JULES SCREENING SCREENING MAMMOGRAPHY BI 2-VIEW BREAST INC CAD Donald Motley MD [address] [place] [address] [facility] [address] [place] [address] Referral ID Status Reason Start Date Expiration Date Visits Requested Visits Authorized [id number] Pending Review Auto-Generat ed Referral 2 11/29/2023 1 1 [facility] Reason for Referral Specialty Diagnoses / Procedures Referred By Sierra quijano Referred To Contact Gastroenterology Diagnoses Abdominal pain, unspecified abdominal location Procedures CONSULT TO GASTROENTEROLOGY OFFICE/OUTPATIENT [facility] MDM 60-74 MINUTES Older, JULIA Shelton.PL[employer] WIRE CHIEF [address] [place] [address] Referral ID Status Reason Start Date Expiration Date Visits Requested Visits Authorized [id number] Authorized PCP Requested Referral 2 10/28/2023 1 1 Specialty Diagnoses / Procedures Referred By Contac t Referred To Contact MOLECULAR & FUNCTIONAL IMAGING Diagnoses Calculus of gallbladder without cholecystitis without obstruction Abdominal pain, unspecified abdominal location Procedures NM HEPATOBILIARY W EF AND/OR RX HEPATOBIL SYST IMAG INC GB W/PHARMA INTERVENJ Older, Cat, HOSPITAL MEDICINE DIRECTOR.[employer]F [address] [place] [address] Molecular [facility] Functional Imaging [address] [place] [address] Referral ID Status Reason Start Date Expiration Date Visits Requested Visits Authorized [id number] Authorized Auto-Generat ed Referral 2 11/27/2023 1 1 Specialty Diagnoses / Procedures Referred By Contac t Referred To Contact CT IMAGING Diagnoses Disorder of adrenal gland (HCC) Adrenal nodule (HCC) Procedures CT ADRENAL WO/W IVCON CT ABDOMEN W & W/O CONTRAST Joaquin, Cat, HOSPITAL MEDICINE DIRECTOR.[employer] CHIEF [address] [place] [address] Ct Imaging Referral ID Status Reason Start Date Expiration Date Visits Requested Visits Authorized [id number] Authorized Auto-Generat ed Referral 02/07/2023 03/24/2023 1 1 Summary Purpose Family History No Family History Records Found Advance Directives No Advanced Directives Records Found Additional Source Comments Source Comments (unrecognize d section and content) In the event this informatio n is protected by the Federal Confidentiality of Alcohol and Drug Abuse Patient Records regulations: The Federal rules restrict any use of the information to criminally investigate or prosecute any alcohol or drug abuse patient.[facility] the event this information is protected by the Federal Confidentiality of Alcohol and Drug Abuse Patient Records regulations: The Federal rules restrict any use of the information to criminally investigate or prosecute any alcohol or drug abuse patient.[facility] the event this information is protected by the Federal Confidentiality of Alcohol and Drug Abuse Patient Records regulations: The Federal rules restrict any use of the information to criminally investigate or prosecute any alcohol or drug abuse patient.[facility] the event this information is protected by the Federal Confidentiality of Alcohol and Drug Abuse Patient Records regulations: The Federal rules restrict any use of the information to criminally investigate or prosecute any alcohol or drug abuse patient.[facility] the event this information is protected by the Federal Confidentiality of Alcohol and Drug Abuse Patient Records regulations: The Federal rules restrict any use of the information to criminally investigate or prosecute any alcohol or drug abuse patient.[facility] the event this information is protected by the Federal Confidentiality of Alcohol and Drug Abuse Patient Records regulations: The Federal rules restrict any use of the information to criminally investigate or prosecute any alcohol or drug abuse patient.[facility] the event this information is protected by the Federal Confidentiality of Alcohol and Drug Abuse Patient Records regulations: The Federal rules restrict any use of the information to criminally investigate or prosecute any alcohol or drug abuse patient.[facility] the event this information is protected by the Federal Confidentiality of Alcohol and Drug Abuse Patient Records regulations: The Federal rules restrict any use of the information to criminally investigate or prosecute any alcohol or drug abuse patient.[facility] the event this information is protected by the Federal Confidentiality of Alcohol and Drug Abuse Patient Records regulations: The Federal rules restrict any use of the information to criminally investigate or prosecute any alcohol or drug abuse patient.[facility] the event this information is protected by the Federal Confidentiality of Alcohol and Drug Abuse Patient Records regulations: The Federal rules restrict any use of the information to criminally investigate or prosecute any alcohol or drug abuse patient.[facility] Reason for Visit (unrecogniz ed section and content) Reason Comments Results Reason Comments Appointment Reason Comments Anesthesia Consult Reason Comments Patient Update Appointment Reason Comments Abdominal Pain Specialty Diagnoses / Procedures Referred By Sierra quijano Referred To Contact Gastroenterology Diagnoses Abdominal pain, unspecified abdominal location Procedures CONSULT TO GASTROENTEROLOGY OFFICE/OUTPATIENT NEW HIGH MDM 60-74 MINUTES Cat Nuñez, HOSPITAL MEDICINE DIRECTOR.[employer] CHIEF [address] [place] [address] Referral ID Status Reason Start Date Expiration Date V isits Requested Visits Authorized [id number] Closed PCP Requested Referral 10/28/2022 10/28/2023 1 1 Reason Comments F/U 3 Month Gallstones Reason Comments Radiology NM Specialty Diagnoses / Procedures Referred By Sierra quijano Referred To Contact MOLECULAR & FUNCTIONAL IMAGING Diagnoses Calculus of gallbladder without cholecystitis without obstruction Abdominal pain, unspecified abdominal location Procedures NM HEPATOBILIARY W EF AND/OR RX HEPATOBIL SYST IMAG INC GB W/PHARMA INTERVENJ Cat Nuñez, HOSPITAL MEDICINE DIRECTOR.[employer] CHIEF [address] [place] [address] Molecular & Functional Imaging [address] [place] [address] Referral ID Status Reason Start Date Expiration Date V isits Requested Visits Authorized [id number] Closed Auto-Generate d Referral 10/28/2022 11/27/2023 1 1 Care Teams (unrecognized sec tion and content) Staff Field Engineer Relationship Specialty Start Date End Date Donald Motley MD [address] [place] [address] PCP - General Internal Medicine 10/28/22 Staff Field Engineer Relationship Specialty Start Date End Date Donald Motley MD [address] [place], [place] [address] PCP - General Internal Medicine 10/28/22 11/07/22 Staff Field Engineer Relationship Specialty Start Date End Date Donald Motley MD [address] [place], [place] [id number] PCP - General Internal Medicine 10/28/22 11/07/22 Staff Field Engineer Relationship Specialty Start Date End Date Donald Motley MD [address] [place], [place] [id number] PCP - General Internal Medicine 10/28/22 11/07/22 Staff Field Engineer Relationship Specialty Start Date End Date Donald Motley MD [address] [place] [address] PCP - General Internal Medicine 12/30/22 Staff Field Engineer Relationship Specialty Start Date End Date Donald Motley MD [address] [place], [place] [id number] PCP - General Internal Medicine 10/28/22 11/07/22 INFORMATION SOURCE (unrecogn ized section and content) FOR RECORDS PERTAINING TO PATIENTS WHO ARE OR HAVE BEEN ENROLLED IN A CHEMICAL DEPENDENCY/SUBSTANCEABUSE PROGRAM, SOME INFORMATION MAY BE OMITTED. This clinical summary was aggregated from multiple sources. Caution should be exercised in using it in the provision of clinical care. This summary normalizes information from multiple sources, and as a consequence, information in this document may materially change the coding, format and clinical context of patient data. In addition, data may be omitted in some cases. CLINICAL DECISIONS SHOULD BE BASED ON THE PRIMARY CLINICAL RECORDS. [employer] [facility]. provides no warranty or guarantee of the accuracy or completeness of information in this document.
--- NOTE | 2023-11-23 00:15 | EDS_ITS ---
HPI HPI - GI History of Present Illness Chief Complaint: Abd Pain Narrative Narrative: 43-year-old female presenting with epigastric pain. She has had this for some time. Is been well-controlled with Carafate and omeprazole. Patient states that she was recently seen by Dr. Whittington as there was some speculation as to whether this was her gallbladder and was reassured that it is not her gallbladder. The plan was initially to do an upper endoscopy however the patient found out recently that she is . Because of this the endoscopy was canceled. Her pain had been well-controlled so she did not have any concern. When she is talk to her licensed psychologist manager her licensed psychologist manager told her that she did not want her on omeprazole and to use Pepcid which is not working. Patient denies anything that would cause her symptoms in her diet. She is almost out of her Carafate and omeprazole. PFSH PFSH Medical History Alcohol use Gastric reflux History of blood transfusion History of placenta abruption History of pre-eclampsia Hypertension Non-smoker hemorrhage Wears glasses Home Medications omeprazole 20 mg capsule,delayed release 20 mg PO DAILY #30 CAPSULES 09/17/23 [Rx Last Taken Unknown] sucralfate 1 gram tablet (Carafate) 1 g PO BID PRN abdominal discomfort 11/22/23 [History Last Taken Unknown] thyoid 130 PO DAILY 11/22/23 [History Last Taken Unknown] Allergy/AdvReac Type Severity Reaction Status Date / Time No Known Allergies Allergy Verified 11/22/23 23:29 Family History Mother CAD (coronary artery disease) Thyroid disorder Father CAD (coronary artery disease) Thyroid disorder Sister Thyroid disorder Other Diabetes Surgical History Hx of wisdom tooth extraction S/P S/P dilation and curettage Social History Smoking Status: Never smoker alcohol intake: current details: not while substance use type: does not use caffeine: Yes what type of physical activity do you participate in: walking and other details: joi frequency: 3-4 times per week seatbelt use: always do you feel safe at home: Yes additional social history: - David RICHARD ROS ED Constitutional Constitutional ED: Denies chills, fever(s) or sweats Eyes Eyes: Denies blurry vision or change in vision ENT ENT ED: Denies ear pain or sore throat Cardiovascular Cardiovascular: Denies chest pain, palpitations or racing heartbeat Respiratory/Chest Respiratory/Chest: Denies cough, dyspnea or sputum Gastrointestinal Gastrointestinal: Denies abdominal pain, constipation, diarrhea, nausea or vomiting Genitourinary Genitourinary ED: Denies dysuria, hematuria or urinary frequency Musculoskeletal Musculoskeletal: Denies arthralgias, myalgias or neck pain Integumentary Denies abscess, Abrasions or rash Neurologic Neurologic: Denies headache(s), paresthesias or weakness Psychiatric Psychiatric: Denies anxiety, depression, suicidal ideation or suicidal thoughts Endocrine Endocrinology: Denies polydipsia or polyuria EXAM Physical Exam Const Vital Signs: 11/22/23 23:24 11/23/23 06:14 11/23/23 02:00 Temperature 96.2 F L 98.8 F 98.1 F Temperature Source Temporal Temporal Temporal Pulse Rate 94 78 78 Respiratory Rate 18 16 16 Blood Pressure 157/88 H 154/93 H 156/90 H Blood Pressure Mean 111 113 112 Pulse Ox 97 96 94 Oxygen Delivery Method Room Air Room Air Room Air 11/23/23 06:59 Temperature 97.8 F Temperature Source Temporal Pulse Rate 70 Respiratory Rate 16 Blood Pressure 122/83 H Blood Pressure Mean 96 Pulse Ox 97 Oxygen Delivery Method Room Air Positive well nourished General Appearance ED: NAD HEENT Reports moist mucous membranes normocephalic and atraumatic Resp normal respiratory effort Effort and Inspection: Negative for respiratory distress Cardio regular rate and regular rhythm GI GI Narrative: Epigastric pain Neuro CN's II-XII intact bilaterally Sensorium / Orientation: alert Motor Exam: strength 5/5 throughout Psych mental status grossly normal MDM MDM MDM Narrative Medical decision making narrative: HerPatient with history of gastric ulcers and epigastric pain. She recently stopped her omeprazole per her licensed psychologist manager. She is presenting tonight with worse jason pain and she states she is almost out of her Carafate and omeprazole. After long discussion of her most evaluation we will give her a GI cocktail to see if we can control her symptoms. After leaving the room the patient asked the nurse specifically for morphine or Dilaudid which I do not think is appropriate. Pepcid and Protonix IV. I did check a CBC, CMP, lipase which were all within normal limits. Quantitative hCG will also be obtained. Review of the medical record both on [facility] does show that the patient has had a CT of the abdomen pelvis which was negative and a HIDA scan which showed may be some biliary dyskinesia secondary to no movement of the gallbladder 2 hours into her HIDA scan. She does have a history of gallstones gallbladder ultrasound which was recently performed in the last week. Her labs have remained unremarkable. It is noted that the patient is and has had 3 miscarriages. Patient states that she has not seen anybody this but she has seen Dr. Price in the past and she states she does go to [facility]. Denies any vaginal bleeding or loss of fluid. I obtained a quantitative hCG is 5428. The patient is still experiencing epigastric pain and at this point I will speak with fDr. Price on the best way to control this epigastric pain as the patient is still asking for morphine and Dilaudid. Patient now had an episode of vomiting and she request narcotic pain medicine again. I counseled her on the risks of taking narcotic medication in . We went over this at length. She is willing to take any risk associated with taking narcotics. Her was at the bedside. I will have her fill out appropriate paperwork send she acknowledges the risk and she was given a dose of morphine and Zofran. On reevaluation at 3 AM the patient is doing a little better and laying in bed still appears to be in pain. at this point stated that he did not think that a one-time dose of morphine should be a real risk factor for miscarriage given the studies that he is read. I then stated to him that it is a risk that they need to know before she gets morphine and because she is a patient who has had several miscarriages already morphine and her may pose a greater risk for miscarriage than somebody who would not had several miscarriages. To this she acknowledged understanding. Explained to he and the patient that we will need to get the pain under control but also a plan going forward as her pain is not improving significantly and she is already seeing omeprazole, Pepcid, cocktail, and morphine and Zofran. Negative ultrasound was discussed with Dr. Whittington who was going to come in and see the patient however he had something emergently had to do and needed to go to the OR this morning so therefore I am trying to get a hold of the OB on-call Dr. Price. I repeated her abdominal exam and it is still benign. She does not have any pain with palpation and she is having a band across her epigastrium still. She is requesting crackers at this point. I gave her a dose of IV Dilaudid 0.5 mg at her request. I did discuss with her that diagnostically although that we really had left to make a diagnosis is CT scan which I do not believe she needs given her benign abdomen and normal lab work and she agreed given that she is and does not want to have any risk to the baby. At this point I will try to get a hold of OB so that we can get the patient admitted for pain control and Dr. Whittington was happy to see the patient as an inpatient when he is done with his case. Discussed with Dr. Price who will admit the patient. Patient admitted in stabilized condition. Impression: 1. For semester 2. Intractable abdominal pain 3. Gallstones Lab Data Attestation: I reviewed the patient's lab results. Labs: Laboratory Results - last 24 hr 11/22/23 11/22/23 11/23/23 23:32 23:35 04:00 WBC 8.6 RBC 4.26 Hgb 12.7 Hct 38.4 MCV 90.1 MCH 29.8 MCHC 33.1 RDW Std Deviation 39.3 RDW Coeff of Zain 12.0 Plt Count 274 MPV 10.2 Immature Gran % (Auto) 0.300 Neut % (Auto) 57.3 Lymph % (Auto) 30.6 [place] % (Auto) 9.5 Eos % (Auto) 1.6 Baso % (Auto) 0.7 Absolute Neuts (auto) 4.9 Absolute Lymphs (auto) 2.63 Nucleated RBC % 0 Sodium 138 Potassium 3.8 Chloride 108 H Carbon Dioxide 22.0 Anion Gap 8 BUN 16 Creatinine 0.97 Estim Creat Clear Calc 88.52 Est GFR (MDRD) Af Amer 80 Est GFR (MDRD) Non-Af 67 BUN/Creatinine Ratio 16.5 Glucose 117 H Lactic Acid 1.3 Calcium 10.3 H Total Bilirubin 0.30 AST 15 ALT 26 Alkaline Phosphatase 75 Total Protein 7.3 Albumin 3.5 Globulin 3.8 Albumin/Globulin Ratio 0.9 Lipase 34 HCG, Quant 5428 H Radiography Diagnostic Testing: Clinical Impression(s) from Imaging Studies Obstetrics Ultrasound 11/23/23 02:24 IMPRESSION: 1. Subchorionic hemorrhage measuring 1.6 x 1.4 x 0.7 cm. 2. Cardiac activity is identified on cine images but heart rate was difficult to determine on M mode images. 3. Single live intrauterine at 6 weeks 1 day. Electronically Signed: Seth Isaac MD at 3:57 EST , Gallbladder Ultrasound 11/23/23 04:02 IMPRESSION: 1. Meningioma measuring 1.3 cm left lobe of the liver. 2. Cholelithiasis. Electronically Signed: Seth Isaac MD at 5:35 EST , Discharge Plan Triage Chief Complaint: Abd Pain ED Provider: Bradley Mancini Dx/Rx/DC Orders Prescriptions: No Action omeprazole 20 mg capsule,delayed release(DR/EC) 20 mg PO DAILY Qty: 30 0RF thyoid 130 PO DAILY sucralfate [Carafate] 1 gram tablet 1 g PO BID PRN (Reason: abdominal discomfort) Primary Care Provider: Care Physician,No Primary Referrals: Care Physician,No Primary [Primary Care Provider] -
[2023-11-23] MEDS: Mag Hydrox/Al Hydrox/Simeth 30 ML UDC PO (00:21)
[2023-11-23] MEDS: Ondansetron ODT 4 MG Tablet PO (00:21)
[2023-11-23] MEDS: Famotidine 200 MG/20 ML MDV 20 MG in 0.9% Normal Saline (Pres. free 8 ML 300 MG IV (01:23)
[2023-11-23] MEDS: Pantoprazole Sodium 40 MG in 0.9% Normal Saline (100mL MB+) 100 ML 330 MG IV ×2 (01:23→09:54)
[2023-11-23 01:30] LABS: ALB/GLOB Ratio 0.9 RATIO (0.9-2.4); AST(SGOT) 15 U/L (15-37); Alanine Aminotransfer ALT/SGPT 26 U/L (13-56); Albumin, Serum 3.5 g/dL (3.2-5.0); Alkaline Phosphatase 75 U/L (45-117); Anion Gap 8 (5-15); BUN 16 mg/dL (7-18); BUN/Creat Ratio 16.5 RATIO (10-20); Calcium,Total 10.3 mg/dL (8.5-10.1); Chloride 108 mmol/L (98-107); Creatinine, Serum 0.97 mg/dL (0.55-1.02); EST Glomerular Filtration Rate 67 mL/min (>60); Est Glom Filt Rate - Afr Amer 80 mL/min (>60); Estimated Creatinine Clearance 88.52 ml/min; Globulin 3.8 g/dL (2.2-4.2); Glucose 117 mg/dL (74-106); Lipase 34 U/L (13-75); Potassium 3.8 mmol/L (3.5-5.1); Protein, Total 7.3 g/dL (6.4-8.2); Sodium Level 138 mmol/L (136-145)
[2023-11-23 01:40] LABS: Absolute Lymphocyte Count 2.63 X10^3/uL (0.83-4.51); Absolute Neutrophil Count 4.9 X10^3/uL (2.0-7.7); Basophil# 0.06 X10^3/uL; Basophil% 0.7 % (0-1); Eosinophil# 0.14 X10^3/uL; Eosinophils% 1.6 % (0-5); Hematocrit 38.4 % (37-47); Hemoglobin 12.7 g/dL (12.0-15.0); Lymphocyte # 2.63 X10^3/ul (0.83-4.51); Lymphocyte % 30.6 % (19-41); Mean Corp Hgb Conc 33.1 g/dL (32-36); Mean Corpuscular Hgb 29.8 pg (27.0-32.0); Mean Corpuscular Volume 90.1 fL (81-99); Mean Platelet Vol. 10.2 fl (6.2-12.0); Monocyte# 0.82 X10^3/uL; Monocyte% 9.5 % (0-10); NRBC Flagged by Analyzer 0 % (0-5); Neutrophil # 4.91 X10^3/uL (2.7-7.7); Neutrophil % 57.3 % (47-70); Platelet Count 274 K/mm3 (150-450); RBC Distribution Width SD 39.3 fl (35.1-43.9); Red Blood Count 4.26 M/mm3 (4.2-5.4); White Blood Count 8.6 K/mm3 (4.4-11.0)
[2023-11-23 01:59] LABS: hCG Titer Quant., Serum 5428 mIU/mL (1-3)
[2023-11-23 02:00] VITALS: BP 156/90; PULSE 78; RESP 16; TEMP 36.7; O2SAT 94
--- NOTE | 2023-11-23 02:24 | US_ITS ---
EXAM: US , TRANSVAGINAL CLINICAL INDICATION: abdominal pain TECHNIQUE: Real-time transvaginal obstetrical ultrasound of the maternal pelvis and a first trimester with image documentation. Transvaginal imaging was used for better evaluation of the fetus and adnexa. COMPARISON: No relevant prior studies available. FINDINGS: GESTATION: Single intrauterine gestation. [place]-rump length is 3 mm corresponding to 6 weeks 1 day. Cardiac activity is identified on cine images but heart rate was difficult to determine on M mode images. Yolk sac is visualized. PLACENTA/AMNIOTIC FLUID: Subchorionic hemorrhage measuring 1.6 x 1.4 x 0.7 cm. UTERUS/CERVIX: Unremarkable. No myometrial mass. The uterus measures 10.6 x 6.6 x 5.2 cm. OVARIES: Left ovary not visualized. The right ovary measures 2.6 x 2.3 x 2.5 cm. FREE FLUID: No free fluid. US/Transvaginal w/Preg US IMPRESSION: 1. Subchorionic hemorrhage measuring 1.6 x 1.4 x 0.7 cm. 2. Cardiac activity is identified on cine images but heart rate was difficult to determine on M mode images. 3. Single live intrauterine at 6 weeks 1 day. Electronically Signed: Seth Isaac MD at 3:57 EST ,
[2023-11-23] MEDS: Ondansetron 4 MG/2 ML Vial IV (02:40)
[2023-11-23] MEDS: Morphine 4 MG/ML Syringe IV ×3 (02:40→09:53)
[2023-11-23] MEDS: 0.9% Normal Saline (1000mL) 1,000 ML 999 ML IV (02:40)
--- NOTE | 2023-11-23 02:47 | ED.RN ---
0238: The patient was informed that morphine does have the potential to cause defects, harm, and potential demise; The patient was asked if they would still like the medication for abdominal pain, and they verbalized consent Yes I consent; I just want this pain to stop, obviously the goal is not to kill the baby, I just can't take the pain anymore . The patient was asked if they had also spoke with the primary ER Doctor [facility], I was informed that he also had went over the risks as well.
--- NOTE | 2023-11-23 04:02 | US_ITS ---
EXAM: US ABDOMEN LIMITED, RIGHT UPPER QUADRANT CLINICAL INDICATION: ruq pain TECHNIQUE: Real-time ultrasound of the right upper quadrant with image documentation. COMPARISON: No relevant prior studies available. FINDINGS: LIVER: Meningioma measuring 1.3 cm left lobe of the liver. There is normal echotexture. No intrahepatic biliary ductal dilation. GALLBLADDER: Multiple small gallstones layering in the gallbladder. No gallbladder wall thickening is demonstrated. No pericholecystic fluid. Negative sonographic Ledezma''s sign. COMMON BILE DUCT: Unremarkable as visualized. The proximal common bile duct is within normal limits for the patient''s age. PANCREAS: Unremarkable as visualized. No focal abnormality is demonstrated in the pancreas. No pancreatic ductal dilatation. RIGHT KIDNEY: Unremarkable. There is no hydronephrosis. No shadowing calculus. No focal lesion or perinephric collection is demonstrated. US/Gallbladder IMPRESSION: 1. Meningioma measuring 1.3 cm left lobe of the liver. 2. Cholelithiasis. Electronically Signed: Seth Isaac MD at 5:35 EST ,
[2023-11-23 04:44] LABS: Lactic Acid 1.3 mmol/L (0.4-1.9)
[2023-11-23 06:14] VITALS: BP 154/93; PULSE 78; RESP 16; TEMP 37.1; O2SAT 96
[2023-11-23 06:59] VITALS: BP 122/83; PULSE 70; RESP 16; TEMP 36.6; O2SAT 97
[2023-11-23] MEDS: HYDROmorphone 0.5 MG/0.5 ML SYRINGE IV (06:59)
--- OUTSIDE RECORDS SUMMARY | 2023-11-23 07:37 | XMS RPT_ITS | CCD ---
Author Name Unknown Address [address] [place] [address] Organization [facility] Care Team Providers Care Agency Development Manager Name Role Phone Tiesha QURESHI, Donald Syed Primary Care Provider [phone] Unavailable Primary Care Provider Unavailrandi Motley MD, Donald Syed Primary Care Provider [phone] Donald Motley MD Primary Care Provider [phone] CRISTOFER BANKS Referring Unavailable DONALD MOTLEY Primary [...] 13:17-0400 Body weight 103.87 kg Cat Older CUSTODIAN ATHLETIC EQUIPMENT.TOOL ADJUSTER Work Phone: [facility] 02-07-2023 13:17-0400 Diastolic blood pressure 85 mm[Hg] Cat Older CUSTODIAN ATHLETIC EQUIPMENT.TOOL ADJUSTER Work Phone: [facility] 02-07-2023 13:17-0400 Heart rate 78 /min Cat Older CUSTODIAN ATHLETIC EQUIPMENT.TOOL ADJUSTER Work Phone: [facility] 02-07-2023 13:17-0400 Respiratory rate 16 /min Cat Older CUSTODIAN ATHLETIC EQUIPMENT.TOOL ADJUSTER Work Phone: [facility] 02-07-2023 13:17-0400 Systolic blood pressure 126 mm[Hg] Cat Older CUSTODIAN ATHLETIC EQUIPMENT.TOOL ADJUSTER Work Phone: [facility] 12-02-2022 15:25-0500 Body height 162.6 cm Caroline Meza PA-C Work Phone: [facility] 12-02-2022 15:25-0500 Body weight 104.24 kg Caroline Kalka PA-C Work Phone: [facility] 12-02-2022 15:25-0500 Diastolic blood pressure 84 mm[Hg] Caroline Kalka PA-C Work Phone: [facility] 12-02-2022 15:25-0500 Heart rate 68 /min Caroline Kalka PA-C Work Phone: [facility] 12-02-2022 15:25-0500 Systolic blood pressure 126 mm[Hg] Caroline Kalka PA-C Work Phone: [facility] 11-07-2022 14:15-0500 Body height 162.6 cm Pac 3 Work Phone: [facility] 11-07-2022 14:15-0500 Body weight 99.79 kg Pac 3 Work Phone: [facility] 10-28-2022 09:46-0500 Body weight 103.42 kg Cat Older CUSTODIAN ATHLETIC EQUIPMENT.TOOL ADJUSTER Work Phone: [facility] 10-28-2022 09:46-0500 Diastolic blood pressure 83 mm[Hg] Cat Older CUSTODIAN ATHLETIC EQUIPMENT.TOOL ADJUSTER Work Phone: [facility] 10-28-2022 09:46-0500 Heart rate 76 /min Cat Older CUSTODIAN ATHLETIC EQUIPMENT.TOOL ADJUSTER Work Phone: [facility] 10-28-2022 09:46-0500 Respiratory rate 14 /min Cat Older CUSTODIAN ATHLETIC EQUIPMENT.TOOL ADJUSTER Work Phone: [facility] 10-28-2022 09:46-0500 Systolic blood pressure 125 mm[Hg] Cat Older CUSTODIAN ATHLETIC EQUIPMENT.TOOL ADJUSTER Work Phone: [facility] Encounters Encounter Date Encounter Type Care Provider Facility Start: 02-24-2023 End: 02-24-2023 ambulatory DONALD MOTLEY Facility:[facility] Start: 02-07-2023 End: 02-08-2023 ambulatory ANTOINE TIESHA Facility:[facility] Start: 02-07-2023 End: 02-07-2023 Patient encounter procedure Cat Older CUSTODIAN ATHLETIC EQUIPMENT.ALISSON Work Phone: Internal Medicine [facility]on Procedures Date Procedure Procedure Detail Performing Clinician Start: 10-31-2022 Hepatobiliary syst i maging including gallbladder Cat Older CUSTODIAN ATHLETIC EQUIPMENT.ALISSON Work Phone: Plan of Treatment Date Care Activity Detail Author Start: 02-08-2024 HEPATITIS C SCREENING HEPATITIS C [place] DANNI [facility] Payers Date Payer Category Payer Medicaid [id number] 2021 Medicaid [id number] Social History Date Type Detail Facility Start: 10-21-2022 Tobacco smoking stat [facility] Never smoked tobacco [facility] Start: 10-21-2022 Tobacco use and exposure Smoke less tobacco non-user [facility] Start: 10-28-2022 End: 11-05-2022 Alcohol intake Ex-drinker (finding) [facility] Start: 10-28-2022 End: 02-07-2023 Alcohol intake [facility] Start: 1980 Sex Assigned At Not on file [facility] Tobacco smoking stat [facility] Tobacco smoking consumption unknown [facility] Start: 11-07-2022 Alcohol Comment 2/week [facility] Start: 12-02-2022 End: 02-07-2023 Alcohol intake Current drinker of alcohol (finding) [facility] Start: 02-06-2023 History SDOH Alcohol Frequency 4 [facility] Start: 02-06-2023 History SDOH Alcohol Std Drinks 1 [facility] Start: 02-06-2023 History SDOH Social Connections Phone 5 [facility] Start: 02-06-2023 History SDOH Social Connections Get Together 3 [facility] Start: 02-06-2023 History SDOH Physica l Activity MPS 6 [facility] Start: 02-06-2023 History SDOH Stress 2 [facility] Start: 10-28-2022 Tobacco use panel [facility] Clinical Notes 10-14-2022 to 10-22-2023 Cat Older, CUSTODIAN ATHLETIC EQUIPMENTMARY - 02/07/2023 1:32 PM Xander Meza PA-C - 12/02/2022 3:25 PM ESTTelephone Encounter - Judy You - 11/19/2022 8:16 AM ESTPatient InstructionsPatient Instructions Note Date & Type Note Facility 10-22-2023 Note Patient Outreach (IN [facility]) TOD DA SILVA ([id number]) 1980 F Date Time Provider Department 10/22/23 DONALD MOTLEY During your visit today, we recorded the following information about you: Allergies As of Date: 10/22/2023 (No Known Allergies) Date Reviewed: 02/21/2023 Reviewed by: Makenna Moralez RT(R) - Fully Assessed Visit Diagnosis:Encounter for screening mammogram for breast cancer [Z12.31] Order(s):[facility] SCREENING [[id number]] Order #: [id number] FUTURE Prescriptions as of 10/27/2023 - ascorbic acid, vitamin C, (VITAMIN C) 250 mg tablet Take 250 mg by mouth once daily. - cholecalciferol, vitamin D3, 10 mcg (400 unit) cap Take 400 Units by mouth once daily. Problem List As Of Date 10/22/2023 Noted Resolved Adrenal nodule (HCC) [E27.8] 10/28/2022 Obesity (BMI 30-39.9) [E66.9] 11/07/2022 Encounter Status:Closed by happnR on 10/27/23 [facility] 02-24-2023 Note HNO ID: [id number] Author: RT Sharath(R) Service: ? Author Type: Packer Denture Type: Progress Notes Filed: 02/24/2023 2:42 PM [...] RT Salazar(R) February 24, 2023 2:41 PM [facility] 02-07-2023 Note HNO ID: [id number] Author: Cat Nuñez APRN.TOOL ADJUSTER Service: ? Author Type: Nurse Practitioner Type: [...] test results, and coordinating care. Cat Nuñez APRN.TOOL ADJUSTER [facility] 02-07-2023 History of Presen t illness [...] Cat Nuñez APRN.CNP documented in this encounter [facility] 12-02-2022 Note HNO ID: [id number] Author: Caroline Meza PA-C Service: ? Author Type: Physician Communications Maintainer Type: Progress Notes Filed: 12/02/2022 3:50 PM [...] Abs Lymph 1.00 - 4.00 k/uL 2.01 [place]% % 9.5 Abs [place] <0.87 k/uL 0.58 Eosin% % 2.3 Abs [...] HISTORY Procedure Laterality Date SECTION HX 2018 DANAZ, DIAG AND/OR THERAPEUTIC 2017 Allergies: ALLERGIES No [...] is present. Musculosk (more content not included)... [facility] 12-02-2022 History of Presen t illness [...] Abs Lymph 1.00 - 4.00 k/uL 2.01 [place]% % 9.5 Abs [place] <0.87 k/uL 0.58 Eosin% % 2.3 Abs [...] which included preparing to see the patient, [id number] patient care, completing clinical documentation, obtaining and/or reviewing separately obtained history, performing a medically appropriate examination, counseling and educating the patient/family/caregiver, ordering medications, tests, or procedures, communicating with other HCPs (not separately reported), independently interpreting results (not separately reported), communicating results to the patient/family/caregiver, and care coordination (not separately reported). Caroline Meza PA-C December 02, 2022 3:47 PM documented in this encounter [facility] 11-19-2022 Miscellaneous Notes Called patient to confirm cancellation of procedure. Patient confirmed cancellation and denied to reschedule. Patient stated she is following up with gastro. Message sent to [place] to cancel surgery on 11/21/2022 with Darion. Judy You Professional Architect Patient calling in to cancel procedure with Dr Orlando at this time declined to reschedule. Patient accepted sooner date in [place] with Dr. Orlando - anesthesia reviewed and approved. Patient now scheduled 11/21/[address] Orlando in [place] for Lap Michelle. Patient stated if she gets worse she will go to the ER. Message sent to change to [place] Judy You Professional Architect Patient scheduled in [place] with soonest date of 11/25/2022 with Nuvia. Patient asking if she can get in sooner with Darion in [place] and possibly next week as she is in terrible pain and can't wait till the 16. Message sent to verify approval for [place]. Sated to patient I will be in contact if we can geta sooner date. Patient given my direct line of [phone]. Images from the original note were not included. Tali Orlando MD You 22 hours ago (9:39 AM) To be scheduled at [place] General anesthesia Dx: k80.90 CPT 18108, possible [id number] Thank you You Tali Orlando MD [address] Orlando, Patient is ready to proceed with gallbladder surgery as she is in constant pain. What CPT, DX and anesthesia would you like to proceed with? Please advise Thank you Judy You Professional Architect Pt called in states having constant pain now and would like to proceed with the gallbladder surgery. documented in this encounter [facility] 11-07-2022 Instructions Ninfa Guzman PA-C - 11/07/2022 2:29 PM EST PATIENT PREOPERATIVE INSTRUCTIONS Cristofer Banks MD has scheduled you for your procedure at this surgery center: [facility]: [phone] -- [address] [address]. Please read below carefully for your personalized [...] not contain aspirin or NSAIDS as needed. Sidney is OK to continue Important Reminders: - [...] Procedures: - YOU MUST HAVE A RESPONSIBLE MRI TECHNICIAN TAKE YOU HOME. A ASSISTANT PROFESSOR OF RADIOLOGY OR FLAG FOOTBALL COACH CANNOT BE MADE A RESPONSIBLE MRI TECHNICIAN. - We recommend that a responsible person [...] Advance Directive, please fax a copy to [phone] or email to for it to be [...] Ninfa Guzman PA-C documented in this encounter [facility] 11-07-2022 History and physical note PREANESTHESIA [...] describes constant abdominal pain, worse after eating. Sidney brings relief for 2 hours. She also [...] gallbladder Neuro: No history of TIA's, stroke, VITAMIN MANAGER tumor, impaired sensorium, hemiplegia, paraplegia or quadraplegia. No neurological symptoms or problems. Respiratory: No history of current cough or dyspnea, or pneumonia in the past 6 weeks. No history of respiratory/pulmonary symptoms or problems. Cardiovascular: No history of HTN requiring medication, no history of angina, CHF, VA, cardiac surgery or stents. Denies rest pain, gangrene or revascularization/amputation for PVD. No history of cardiovascular symptoms or problems. 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 I spent more than 25 minutes [id number]-pu-yphm with the patient and over half the time was devoted to counseling and/or coordination of care. SIGNATURE: Ninfa Guzman PA-C PATIENT NAME: Tod Cordova DATE: 11/07/2022 TIME: 2:25 PM PAGER/CONTACT #: documented in this encounter [facility] 11-05-2022 Miscellaneous Notes Per Cat Nuñez [...] Cat Nuñez APRN.CNP documented in this encounter [facility] 11-05-2022 Miscellaneous Notes Error documented in this encounter [facility] 10-31-2022 Note HNO ID: [id number] Author: RT Anthony(R) Service: Nuclear Medicine Author [...] 13:20 PATIENT DISCHARGED TO: Ambulatory patient, left MD department area. A Diagnostic radioactive procedure has taken place, with no further precautions necessary other than routine body substance precautions. More information regarding radiation safety can be found using this link: [email or web address] SIGNATURE: PIERRE Cruz PATIENT NAME: Tod Cordova DATE: October 31, 2022 TIME: 1:35 PM PAGER/CONTACT #: [facility] 10-31-2022 History of Presen t illness [...] PM PAGER/CONTACT #: documented in this encounter [facility] 10-30-2022 Note Patient Outreach (IN [facility]MMN) TOD DA SILVA ([id number]) 1980 F Date Time Provider Department 10/30/22 DONALD MOTLEY During your visit today, we recorded the following information about you: Allergies As of Date: 10/30/2022 (No Known Allergies) Date Reviewed: 10/28/2022 Reviewed by: Cat Nuñez APRN.CNP - Fully Assessed Visit Diagnosis:Encounter for screening mammogram for breast cancer [Z12.31] Order(s):[facility] SCREENING [[id number]] Order #: [id number] FUTURE Prescriptions as of 11/04/2022 - ascorbic [...] nodule (HCC) [E27.8] 10/28/2022 Encounter Status:Closed by SchoolOut, PRODUSER on 11/04/22 [facility] 10-28-2022 Note HNO ID: [id number] Author: Cat Nuñez APRN.TOOL ADJUSTER Service: ? Author Type: Nurse Practitioner Type: [...] and was not happy with her answers. [place] that they just wanted to cut out [...] body habitus DATA REVIEWED: Outside chart from [facility] ER reviewed. ASSESSMENT/PLAN: 1. Abdominal pain, [...] agreeable to treatment plan. Cat Nuñez APRN.CNP [facility] 10-28-2022 Instructions Cat Nuñez APRN.CNP - 10/28/2022 10:18 AM EST Ursodiol documented in this encounter [facility] 10-28-2022 History of Presen t illness [...] and was not happy with her answers. [place] that they just wanted to cut out [...] body habitus DATA REVIEWED: Outside chart from [facility] ER reviewed. ASSESSMENT/PLAN: 1. Abdominal pain, [...] Cat Nuñez APRN.CNP documented in this encounter [facility] 10-14-2022 Miscellaneous Notes Images from the original note were not included. Tali Orlando MD P [facility] Surg Scheduling Pool This is a new patient - Tod Cordova, seen in [place] ED 10/11/2022 with cholelithiasis/biliary colic. To be referred to this clinic for consideration of laparoscopic cholecystectomy. : 1980 [address], [place] [phone] Please call patient for an appointment to see one of us. 1st attempt to reach patient to schedule an in office visit with Dr. Orlando. Left voicemail to directly contact [phone]. Registration is NOT complete. Judy You Professional Architect documented in this encounter [facility] Diagnosis Encounter for screening mammogram for breast cancer Calculus of gallbladder without cholecystitis without obstruction Calculus of gallbladder without mention of cholecystitis or obstruction [facility] Diagnosis Pre-op evaluation- Primary Preoperative examination, unspecified Obesity (BMI 30-39.9) Obesity, unspecified Calculus of gallbladder without cholecystitis without obstruction Calculus of gallbladder without mention of cholecystitis or obstruction [facility] Diagnosis Biliary dyskinesia- Primary Other specified disorder of gallbladder [facility] Diagnosis Calculus of gallbladder without cholecystitis without obstruction- Primary Calculus of gallbladder without mention of cholecystitis or obstruction Adrenal nodule (HCC) Unspecified disorder of adrenal glands Obesity (BMI 30-39.9) Obesity, unspecified Screening, lipid Screening for lipoid disorders [facility] Diagnosis Calculus of gallbladder without cholecystitis without obstruction Calculus of gallbladder without mention of cholecystitis or obstruction Abdominal pain, unspecified abdominal location documented [facility] this encounter [facility] (narrative)* Diagnostic Procedure Only (Routine) - Pending Review Specialty Diagnoses / Procedures Referred By Sierra quijano Referred To Contact [facility] Diagnoses Encounter for screening mammogram for breast cancer Procedures JULES SCREENING SCREENING MAMMOGRAPHY BI 2-VIEW BREAST INC CAD Donald Motley MD [address] [place] [address] [facility] [address] [place] [place] [address] Referral ID Status Reason Start Date Expiration Date Visits Requested Visits Authorized [id number] Pending Review Auto-Generat ed Referral 2 11/29/2023 1 1 [facility] Reason for Referral Specialty Diagnoses / Procedures Referred By Sierra quijano Referred To Contact Gastroenterology Diagnoses Abdominal pain, unspecified abdominal location Procedures CONSULT TO GASTROENTEROLOGY OFFICE/OUTPATIENT [facility] MDM 60-74 MINUTES Older, JULIA Shelton.TOOL ADJUSTER [address] [place] [address] Referral ID Status Reason Start Date Expiration Date Visits Requested Visits Authorized [id number] Authorized PCP Requested Referral 2 10/28/2023 1 1 Specialty Diagnoses / Procedures Referred By Contac t Referred To Contact MOLECULAR & FUNCTIONAL IMAGING Diagnoses Calculus of gallbladder without cholecystitis without obstruction Abdominal pain, unspecified abdominal location Procedures NM HEPATOBILIARY W EF AND/OR RX HEPATOBIL SYST IMAG INC GB W/PHARMA INTERVENJ Older, Cat, CUSTODIAN ATHLETIC EQUIPMENT.TOOL ADJUSTER [address] [place] [address] Molecular & Functional Imaging [address] [place] [address] Referral ID Status Reason Start Date Expiration Date Visits Requested Visits Authorized [id number] Authorized Auto-Generat ed Referral 2 11/27/2023 1 1 Specialty Diagnoses / Procedures Referred By Contac t Referred To Contact CT IMAGING Diagnoses Disorder of adrenal gland (HCC) Adrenal nodule (HCC) Procedures CT ADRENAL WO/W IVCON CT ABDOMEN W & W/O CONTRAST Joaquin, Cat, CUSTODIAN ATHLETIC EQUIPMENT.TOOL ADJUSTER [address] [place] [address] Ct [facility] Referral ID Status Reason Start Date Expiration Date Visits Requested Visits Authorized [id number] Authorized Auto-Generat ed Referral 02/07/2023 03/24/2023 1 [...] or prosecute any alcohol or drug abuse patient.[facility] Hospital[facility] the event this information is protected by the Federal Confidentiality of Alcohol and Drug Abuse Patient Records regulations: The Federal rules restrict any use of the information to criminally investigate or prosecute any alcohol or drug abuse patient.[facility] HospitalIn the event this information is protected by the Federal Confidentiality of Alcohol and Drug Abuse Patient Records regulations: The Federal rules restrict any use of the information to criminally investigate or prosecute any alcohol or drug abuse patient.[facility] HospitalIn the event this information is protected by the Federal Confidentiality of Alcohol and Drug Abuse Patient Records regulations: The Federal rules restrict any use of the information to criminally investigate or prosecute any alcohol or drug abuse patient.[facility] HospitalIn the event this information is protected by the Federal Confidentiality of Alcohol and Drug Abuse Patient Records regulations: The Federal rules restrict any use of the information to criminally investigate or prosecute any alcohol or drug abuse patient.[facility] HospitalIn the event this information is protected by the Federal Confidentiality of Alcohol and Drug Abuse Patient Records regulations: The Federal rules restrict any use of the information to criminally investigate or prosecute any alcohol or drug abuse patient.[facility] HospitalIn the event this information is protected by the Federal Confidentiality of Alcohol and Drug Abuse Patient Records regulations: The Federal rules restrict any use of the information to criminally investigate or prosecute any alcohol or drug abuse patient.[facility] HospitalIn the event this information is protected by the Federal Confidentiality of Alcohol and Drug Abuse Patient Records regulations: The Federal rules restrict any use of the information to criminally investigate or prosecute any alcohol or drug abuse patient.[facility] HospitalIn the event this information is protected by the Federal Confidentiality of Alcohol and Drug Abuse Patient Records regulations: The Federal rules restrict any use of the information to criminally investigate or prosecute any alcohol or drug abuse patient.[facility] HospitalIn the event this information is protected by the Federal Confidentiality of Alcohol and Drug Abuse Patient Records regulations: The Federal rules restrict any use of the information to criminally investigate or prosecute any alcohol or drug abuse patient.[facility] Reason for Visit (unrecogniz ed section and content) Reason Comments Results Reason Comments Appointment Reason Comments Anesthesia Consult Reason Comments Patient Update Appointment Reason Comments Abdominal Pain Specialty Diagnoses / Procedures Referred By Sirera quijano Referred To Contact Gastroenterology Diagnoses Abdominal pain, unspecified abdominal location Procedures CONSULT TO GASTROENTEROLOGY OFFICE/OUTPATIENT NEW HIGH MDM 60-74 MINUTES Cat Nuñez, CUSTODIAN ATHLETIC EQUIPMENT.TOOL ADJUSTER [address] [place] [address] Referral ID Status Reason Start Date Expiration Date V isits Requested Visits Authorized [id number] Closed PCP Requested Referral 10/28/2022 10/28/2023 1 1 Reason Comments F/U 3 Month Gallstones Reason Comments Radiology NM Specialty Diagnoses / Procedures Referred By Sierra quijano Referred To Contact MOLECULAR & FUNCTIONAL IMAGING Diagnoses Calculus of gallbladder without cholecystitis without obstruction Abdominal pain, unspecified abdominal location Procedures NM HEPATOBILIARY W EF AND/OR RX HEPATOBIL SYST IMAG INC GB W/PHARMA INTERVENJ Cat Nuñez, CUSTODIAN ATHLETIC EQUIPMENT.TOOL ADJUSTER [address] [place] [address] Molecular & Functional Imaging [address] [place] [address] Referral ID Status Reason Start Date Expiration Date V isits Requested Visits Authorized [id number] Closed Auto-Generate d Referral 10/28/2022 11/27/2023 1 1 Care Teams (unrecognized sec tion and content) Agency Development Manager Relationship Specialty Start Date End Date Donald Motley MD [address] [place] [address] PCP - General Internal Medicine 10/28/22 Agency Development Manager Relationship Specialty Start Date End Date Donald Motley MD [address], [place] [address] PCP - General Internal Medicine 10/28/22 11/07/22 Agency Development Manager Relationship Specialty Start Date End Date Donald Motley MD [address], [place] [id number] PCP - General Internal Medicine 10/28/22 11/07/22 Agency Development Manager Relationship Specialty Start Date End Date Donald Motley MD [address], [place] [id number] PCP - General Internal Medicine 10/28/22 11/07/22 Agency Development Manager Relationship Specialty Start Date End Date Donald Motley MD [address] [place] [address] PCP - General Internal Medicine 12/30/22 Agency Development Manager Relationship Specialty Start Date End Date Donald Motley MD [address], [place] [address] PCP - General Internal Medicine 10/28/22 11/07/22 [...] BE BASED ON THE PRIMARY CLINICAL RECORDS. [employer] [facility]. provides no warranty or guarantee of the accuracy or completeness of information in this document.
--- NOTE | 2023-11-23 08:03 | EX.PCM.CON.S ---
Assessment & Plan Assessment/Plan (1) Intractable epigastric abdominal pain: PLAN: This is a 43-year-old female with a history of cholelithiasis and dyspepsia/possible peptic ulcer disease who presented with a roughly 12-hour history of abdominal pain that was largely intractable to initial measures at control first using GI cocktail followed by IV narcotics. However, upon my evaluation patient has had resolution of her back pain symptoms and she states near?complete resolution of her abdominal pain (now rated a 2 out of 10. Her exam is unremarkable aside from some very mild right upper quadrant discomfort. I reviewed her laboratories and ultrasound, independently, and do not find any evidence of developing acute cholecystitis. It is possible that, given the differences in her presentation from prior, she may have had some biliary colic symptoms. Yet, given the time course and the recent discontinuation of her PPI medication I do suspect this is most likely ongoing dyspepsia/gastritis?related discomfort. I discussed with her that although she was recommended against taking her omeprazole at this is a category C medication and that teratogenicity is only been identified in animals. I also shared with her that other PPI medications are a category B and that I would be happy for her to transition to 1 of these as an alternative if it meant preventing further hospitalizations and need for narcotic pain medications. Additionally, I suggested that we could undertake a EGD, but recommended we do our best to wait until her second trimester at the earliest. Her wanted to know whether or not we could simply empirically treat for an H. pylori infection into this I suggested that we could perform a stool antigen test if we were simply trying to avoid an EGD. However, at this time Mrs. Muhammad states that is her wish to forego the procedure and any H. pylori testing until after she is hopefully delivered. A summary of the above discussion was held with patient's admitting provider, Dr. Price, and it is my understanding that patient is to be imminently discharged after resolution of her symptoms. HPI Consult Data Date of Consult: 11/23/23 HPI Narrative Reason for Consultation: Acute onset epigastric abdominal pain HPI Narrative: TOD MUHAMMAD, is a 43 F who presented to [facility] ER after developing epigastric pain suddenly at approximately 1800 yesterday. She shares that it was a bit unusual in its distribution as a strip across the top . She also noted some associated back pain which was a bit unusual. She did have a single episode of nausea and vomiting in relation of the pain. She confirms that she had just eaten prior to the development of the pain and had consumed broccoli with pasta but no marinara sauce. Patient's ER workup included basic laboratories and obstetric ultrasound as she is recently and approximately 6 weeks gestation with this . There were no significant abnormalities to her labs but I was notified by emergency medicine that patient was requiring repeat doses of morphine (after first obtaining her consent) despite use of a GI cocktail. I requested a repeat her right upper quadrant ultrasound as it was 2 months out of date and wanted to be sure she had not gone on to develop an acute biliary issue that may be threatening to her fetus. This was performed and radiology simply reported that she had persistent cholelithiasis without signs of acute cholecystitis. Patient is well-known to me from prior ER visit as well as outpatient follow-up for what was initially described as biliary dyskinesia, but has been successfully managed through treatment of dyspepsia/possible gastric ulcer empirically taking omeprazole and sucralfate. She was originally scheduled for an EGD with biopsy for evaluation of pylori last week but canceled after finding out her status. 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 [facility] Medical History (Updated 11/23/23 @ 10:[address] Poly Diamond, ) Alcohol use Gastric reflux History of blood transfusion History of placenta abruption History of pre-eclampsia Hypertension Non-smoker hemorrhage Wears glasses Home Medications omeprazole 20 mg capsule,delayed release 20 mg PO DAILY #30 CAPSULES 09/17/23 [Rx Last Taken Unknown] sucralfate 1 gram tablet (Carafate) 1 g PO BID PRN abdominal discomfort 11/22/23 [History Last Taken Unknown] thyoid 130 PO DAILY 11/22/23 [History Last Taken Unknown] omeprazole 20 mg capsule,delayed release 20 mg PO DAILY #90 caps 11/23/23 [Rx Last Taken Unknown] ondansetron 4 mg disintegrating tablet 4 mg PO Q6H PRN nausea and vomiting #30 tabs 11/23/23 [Rx Last Taken Unknown] sucralfate 1 gram tablet 1 g PO TID 60 days #180 tabs 01/14/24 [Rx Last Taken Unknown] Allergy/AdvReac Type Severity Reaction Status Date / Time No Known Allergies Allergy Verified 11/22/23 23:29 Family History Mother CAD (coronary artery disease) Thyroid disorder Father CAD (coronary artery disease) Thyroid disorder Sister Thyroid disorder Other Diabetes Surgical History Hx of wisdom tooth extraction S/P S/P dilation and curettage Social History Smoking Status: Never smoker alcohol intake: current details: not while substance use type: does not use caffeine: Yes what type of physical activity do you participate in: walking and other details: joi frequency: 3-4 times per week seatbelt use: always do you feel safe at home: Yes additional social history: - Daivd Physical Exam Const alert, oriented x3 and no apparent distress Resp normal respiratory effort GI GI Narrative: Obese, soft, minimally tender to palpation right upper quadrant (less tenderness found over the epigastrium). There is no guarding. Ledezma sign is negative. Lab / Micro Data 11/22/23 23:32 11/22/23 23:32 Labs: Laboratory Results - last 24 hr 11/22/23 23:32: WBC 8.6, RBC 4.26, Hgb 12.7, Hct 38.4, MCV 90.1, MCH 29.8, MCHC 33.1, RDW Std Deviation 39.3, RDW Coeff of Zain 12.0, Plt Count 274, MPV 10.2, Immature Gran % (Auto) 0.300, Neut % (Auto) 57.3, Lymph % (Auto) 30.6, [place] % (Auto) 9.5, Eos % (Auto) 1.6, Baso % (Auto) 0.7, Absolute Neuts (auto) 4.9, Absolute Lymphs (auto) 2.63, Nucleated RBC % 0, Sodium 138, Potassium 3.8, Chloride 108 H, Carbon Dioxide 22.0, Anion Gap 8, BUN 16, Creatinine 0.97, Estim Creat Clear Calc 88.52, Est GFR (MDRD) Af Amer 80, Est GFR (MDRD) Non-Af 67, BUN/Creatinine Ratio 16.5, Glucose 117 H, Calcium 10.3 H, Total Bilirubin 0.30, AST 15, ALT 26, Alkaline Phosphatase 75, Total Protein 7.3, Albumin 3.5, Globulin 3.8, Albumin/Globulin Ratio 0.9, Lipase 34 11/22/23 23:35: HCG, Quant [id number] H 11/23/23 04:00: Lactic Acid 1.3 Imagaing Radiology Impression Obstetrics Ultrasound 11/23/23 02:24 IMPRESSION: 1. Subchorionic hemorrhage measuring 1.6 x 1.4 x 0.7 cm. 2. Cardiac activity is identified on cine images but heart rate was difficult to determine on M mode images. 3. Single live intrauterine at 6 weeks 1 day. Electronically Signed: Seth Isaac MD at 3:57 EST , Gallbladder Ultrasound 11/23/23 04:02 IMPRESSION: 1. Meningioma measuring 1.3 cm left lobe of the liver. 2. Cholelithiasis. Electronically Signed: Seth Isaac MD at 5:35 EST , Charges/Coding Visit Charges Inpatient E&M: 57314 Init Hosp L2
[2023-11-23 08:53] VITALS: BMI 39.9
[2023-11-23 09:00] VITALS: BP 159/91; PULSE 77; RESP 18; TEMP 36.9; O2SAT 96
--- OUTSIDE RECORDS SUMMARY | 2023-11-23 09:31 | XMS RPT_ITS | CCD ---
Author Name Unknown Address [address] [place] [address] Organization [facility] Care Team Providers Care Day Treatment Clinician/Art Therapist Name Role Phone Tiesha QURESHI, Donald Syed Primary Care Provider [phone] Unavailable Primary Care Provider Unavailrandi Motley MD, Donald Syed Primary Care Provider [phone] Donald Motley MD Primary Care Provider [phone] CRISTOFER BANKS Referring Unavailable DONALD MOTLEY Primary [...] 13:17-0400 Body weight 103.87 kg Cat Older PROMOTION PRODUCER.COAT CHECK ATTENDANT Work Phone: [facility] 02-07-2023 13:17-0400 Diastolic blood pressure 85 mm[Hg] Act Older PROMOTION PRODUCER.COAT CHECK ATTENDANT Work Phone: [facility] 02-07-2023 13:17-0400 Heart rate 78 /min Cat Older PROMOTION PRODUCER.COAT CHECK ATTENDANT Work Phone: [facility] 02-07-2023 13:17-0400 Respiratory rate 16 /min Cat Older PROMOTION PRODUCER.COAT CHECK ATTENDANT Work Phone: [facility] 02-07-2023 13:17-0400 Systolic blood pressure 126 mm[Hg] Cat Older PROMOTION PRODUCER.COAT CHECK ATTENDANT Work Phone: [facility] 12-02-2022 15:25-0500 Body height 162.6 cm Caroline Meza PA-C Work Phone: [facility] 12-02-2022 15:25-0500 Body weight 104.24 kg Caroline Kalka PA-C Work Phone: [facility] 12-02-2022 15:25-0500 Diastolic blood pressure 84 mm[Hg] Caroline Kalka PA-C Work Phone: [facility] 12-02-2022 15:25-0500 Heart rate 68 /min Caroline Kalka PA-C Work Phone: [facility] 12-02-2022 15:25-0500 Systolic blood pressure 126 mm[Hg] Caroline Kalka PA-C Work Phone: [facility] 11-07-2022 14:15-0500 Body height 162.6 cm Pac 3 Work Phone: [facility] 11-07-2022 14:15-0500 Body weight 99.79 kg Pac 3 Work Phone: [facility] 10-28-2022 09:46-0500 Body weight 103.42 kg Cat Older PROMOTION PRODUCER.COAT CHECK ATTENDANT Work Phone: [facility] 10-28-2022 09:46-0500 Diastolic blood pressure 83 mm[Hg] Cat Older PROMOTION PRODUCER.COAT CHECK ATTENDANT Work Phone: [facility] 10-28-2022 09:46-0500 Heart rate 76 /min Cat Older PROMOTION PRODUCER.COAT CHECK ATTENDANT Work Phone: [facility] 10-28-2022 09:46-0500 Respiratory rate 14 /min Cat Older PROMOTION PRODUCER.COAT CHECK ATTENDANT Work Phone: [facility] 10-28-2022 09:46-0500 Systolic blood pressure 125 mm[Hg] Cat Older PROMOTION PRODUCER.COAT CHECK ATTENDANT Work Phone: [facility] Encounters Encounter Date Encounter Type Care Provider Facility Start: 02-24-2023 End: 02-24-2023 ambulatory DONALD MOTLEY Facility:[facility] Start: 02-07-2023 End: 02-08-2023 ambulatory ANTOINE TIESHA Facility:[facility] Start: 02-07-2023 End: 02-07-2023 Patient encounter procedure Cat Older PROMOTION PRODUCER.ALISSON Work Phone: Internal Medicine [facility] Procedures Date Procedure Procedure Detail Performing Clinician Start: 10-31-2022 Hepatobiliary syst i maging including gallbladder Cat Older PROMOTION PRODUCER.ALISSON Work Phone: Plan of Treatment Date Care Activity Detail Author Start: 02-08-2024 HEPATITIS C SCREENING HEPATITIS C DC DANNI [facility] Payers Date Payer Category Payer Medicaid [id number] 2021 Medicaid [id number] Social History Date Type Detail Facility Start: 10-21-2022 Tobacco smoking stat [facility] Never smoked tobacco [facility] Start: 10-21-2022 Tobacco use and exposure Smoke less tobacco non-user [facility] Start: 10-28-2022 End: 11-05-2022 Alcohol intake Ex-drinker (finding) [facility] Start: 10-28-2022 End: 02-07-2023 Alcohol intake [facility] Start: 1980 Sex Assigned At Not on file C [facility] Tobacco smoking stat [facility] Tobacco smoking consumption unknown [facility] Start: 11-07-2022 Alcohol Comment 2/week [facility] Start: 12-02-2022 End: 02-07-2023 Alcohol intake Current drinker of alcohol (finding) [facility] Start: 02-06-2023 History SDOH Alcohol Frequency 4 [facility] Start: 02-06-2023 History SDOH Alcohol Std Drinks 1 [facility] Start: 02-06-2023 History SDOH Social Connections Phone 5 [facility] Start: 02-06-2023 History SDOH Social Connections Get Together 3 [facility] Start: 02-06-2023 History SDOH Physica l Activity MPS 6 [facility] Start: 02-06-2023 History SDOH Stress [facility] Start: 10-28-2022 Tobacco use panel [facility] Clinical Notes 10-14-2022 to 10-22-2023 Cat Older, PROMOTION PRODUCERMARY - 02/07/2023 1:32 PM Xander Meza PA-C - 12/02/2022 3:25 PM ESTTelephone Encounter - Judy You - 11/19/2022 8:16 AM ESTPatient InstructionsPatient Instructions Note Date & Type Note Facility 10-22-2023 Note Patient Outreach (IN TMMN) TOD DA SILVA ([id number]) 1980 F Date Time Provider Department 10/22/23 DONALD MOTLEY During your visit today, we recorded the following information about you: Allergies As of Date: 10/22/2023 (No Known Allergies) Date Reviewed: 02/21/2023 Reviewed by: Makenna Moralez RT(R) - Fully Assessed Visit Diagnosis:Encounter for screening mammogram for breast cancer [Z12.31] Order(s):[facility] SCREENING [[id number]] Order #: [id number] FUTURE Prescriptions as of 10/27/2023 - ascorbic acid, vitamin C, (VITAMIN C) 250 mg tablet Take 250 mg by mouth once daily. - cholecalciferol, vitamin D3, 10 mcg (400 unit) cap Take 400 Units by mouth once daily. Problem List As Of Date 10/22/2023 Noted Resolved Adrenal nodule (HCC) [E27.8] 10/28/2022 Obesity (BMI 30-39.9) [E66.9] 11/07/2022 Encounter Status:Closed by DizzywoodR on 10/27/23 [facility] 02-24-2023 Note HNO ID: [id number] Author: RT Sharath(R) Service: ? Author Type: Registration Specialist Type: Progress Notes Filed: 02/24/2023 2:42 PM [...] RT Salazar(R) February 24, 2023 2:41 PM [facility] 02-07-2023 Note HNO ID: [id number] Author: Cat Nuñez APRN.COAT CHECK ATTENDANT Service: ? Author Type: Nurse Practitioner Type: [...] test results, and coordinating care. Cat Nuñez APRN.COAT CHECK ATTENDANT [facility] 02-07-2023 History of Presen t illness Narrative [...] Cat Nuñez APRN.CNP documented in this encounter [facility] 12-02-2022 Note HNO ID: [id number] Author: Caroline Meza PA-C Service: ? Author Type: Physician Legal Process Specialist Type: Progress Notes Filed: 12/02/2022 3:50 PM [...] Abs Lymph 1.00 - 4.00 k/uL 2.01 [place]% % 9.5 Abs [place] <0.87 k/uL 0.58 Eosin% % 2.3 Abs [...] HISTORY Procedure Laterality Date SECTION HX 2018 DANMO, DIAG AND/OR THERAPEUTIC 2017 Allergies: ALLERGIES No [...] is present. Musculosk (more content not included)... [facility] 12-02-2022 History of Presen t illness Narrative [...] Abs Lymph 1.00 - 4.00 k/uL 2.01 [place]% % 9.5 Abs [place] <0.87 k/uL 0.58 Eosin% % 2.3 Abs [...] which included preparing to see the patient, [id number] patient care, completing clinical documentation, obtaining and/or reviewing separately obtained history, performing a medically appropriate examination, counseling and educating the patient/family/caregiver, ordering medications, tests, or procedures, communicating with other HCPs (not separately reported), independently interpreting results (not separately reported), communicating results to the patient/family/caregiver, and care coordination (not separately reported). Caroline Meza PA-C December 02, 2022 3:47 PM documented in this encounter [facility] 11-19-2022 Miscellaneous Notes Called patient to confirm cancellation of procedure. Patient confirmed cancellation and denied to reschedule. Patient stated she is following up with gastro. Message sent to [place] to cancel surgery on 11/21/2022 with Darion. Judy You Inspector Rag Sorting Patient calling in to cancel procedure with Dr Orlando at this time declined to reschedule. Patient accepted sooner date in [place] with Dr. Orlando - anesthesia reviewed and approved. Patient now scheduled 11/21/[address] Orlando in [place] for Lap Michelle. Patient stated if she gets worse she will go to the ER. Message sent to change to [place] Judy You Inspector Rag Sorting Patient scheduled in [place] with soonest date of 11/25/2022 with Nuvia. Patient asking if she can get in sooner with Darion in [place] and possibly next week as she is in terrible pain and can't wait till the 16. Message sent to verify approval for [place]. Sated to patient I will be in contact if we can geta sooner date. Patient given my direct line of [phone]. Images from the original note were not included. Tali Orlando MD You 22 hours ago (9:39 AM) To be scheduled at [place] [facility] anesthesia Dx: k80.90 CPT 14829, possible [id number] Thank you You Tali Orlando MD [address] Orlando, Patient is ready to proceed with gallbladder surgery as she is in constant pain. What CPT, DX and anesthesia would you like to proceed with? Please advise Thank you Judy You Inspector Rag Sorting Pt called in states having constant pain now and would like to proceed with the gallbladder surgery. documented in this encounter [facility] 11-07-2022 Instructions Ninfa Guzman PA-C - 11/07/2022 2:29 PM EST PATIENT PREOPERATIVE INSTRUCTIONS Cristofer Banks MD has scheduled you for your procedure at this surgery center: [facility]: [phone] -- [address] [address]. Please read below carefully for your personalized [...] not contain aspirin or NSAIDS as needed. Mcdonald is OK to continue Important Reminders: - [...] Procedures: - YOU MUST HAVE A RESPONSIBLE MAGISTRATE ASSISTANT TAKE YOU HOME. A VETERINARY MILK SPECIALIST OR SLITTER CUT OFF OPERATOR CANNOT BE MADE A RESPONSIBLE MAGISTRATE ASSISTANT. - We recommend that a responsible person [...] Advance Directive, please fax a copy to [phone] or email to for it to be [...] Ninfa Guzman PA-C documented in this encounter [facility] 11-07-2022 History and physical note PREANESTHESIA [...] describes constant abdominal pain, worse after eating. Mcdonald brings relief for 2 hours. She also [...] gallbladder Neuro: No history of TIA's, stroke, PURCHASING COORDINATOR tumor, impaired sensorium, hemiplegia, paraplegia or quadraplegia. No neurological symptoms or problems. Respiratory: No history of current cough or dyspnea, or pneumonia in the past 6 weeks. No history of respiratory/pulmonary symptoms or problems. Cardiovascular: No history of HTN requiring medication, no history of angina, CHF, [place], cardiac surgery or stents. Denies rest pain, gangrene or revascularization/amputation for PVD. No history of cardiovascular symptoms or problems. GI: see HPI : No history of dysuria, frequency or incontinence,, stones or chronic kidney disease EXCHANGE OPERATOR: Negative for abnormal vaginal bleeding, abnormal vaginal [...] device. I spent more than 25 minutes ohml-fk-ydpt with the patient and over half the time was devoted to counseling and/or coordination of care. SIGNATURE: Ninfa Guzman PA-C PATIENT NAME: Tod Cordova DATE: 11/07/2022 TIME: 2:25 PM PAGER/CONTACT #: documented in this encounter [facility] 11-05-2022 Miscellaneous Notes Per Cat Nuñez [...] Cat Nuñez APRN.CNP documented in this encounter [facility] 11-05-2022 Miscellaneous Notes Error documented in this encounter [facility] 10-31-2022 Note HNO ID: [id number] Author: RT Anthony(R) Service: Nuclear Medicine Author [...] 13:20 PATIENT DISCHARGED TO: Ambulatory patient, left [place] department area. A Diagnostic radioactive procedure has taken place, with no further precautions necessary other than routine body substance precautions. More information regarding radiation safety can be found using this link: [email or web address] SIGNATURE: PIERRE Cruz PATIENT NAME: Tod Cordova DATE: October 31, 2022 TIME: 1:35 PM PAGER/CONTACT #: [facility] 10-31-2022 History of Presen t illness Narrative [...] PM PAGER/CONTACT #: documented in this encounter [facility] 10-30-2022 Note Patient Outreach (IN TMMN) TOD DA SILVA ([id number]) 1980 F Date Time Provider Department 10/30/22 DONALD MOTLEY During your visit today, we recorded the following information about you: Allergies As of Date: 10/30/2022 (No Known Allergies) Date Reviewed: 10/28/2022 Reviewed by: Cat Nuñez APRN.CNP - Fully Assessed Visit Diagnosis:Encounter for screening mammogram for breast cancer [Z12.31] Order(s):[facility] SCREENING [[id number]] Order #: [id number] FUTURE Prescriptions as of 11/04/2022 - ascorbic [...] nodule (HCC) [E27.8] 10/28/2022 Encounter Status:Closed by appMobi, PRODUSER on 11/04/22 [facility] 10-28-2022 Note HNO ID: [id number] Author: Cat Nuñez APRN.COAT CHECK ATTENDANT Service: ? Author Type: Nurse Practitioner Type: [...] and was not happy with her answers. [place] that they just wanted to cut out [...] body habitus DATA REVIEWED: Outside chart from [facility] ER reviewed. ASSESSMENT/PLAN: 1. Abdominal pain, [...] agreeable to treatment plan. Cat Nuñez APRN.CNP [facility] 10-28-2022 Instructions Cat Nuñez APRN.CNP - 10/28/2022 10:18 AM EST Ursodiol documented in this encounter [facility] 10-28-2022 History of Presen t illness [...] and was not happy with her answers. [place] that they just wanted to cut out [...] body habitus DATA REVIEWED: Outside chart from [facility] ER reviewed. ASSESSMENT/PLAN: 1. Abdominal pain, [...] Cat Nuñez APRN.CNP documented in this encounter [facility] 10-14-2022 Miscellaneous Notes Images from the original note were not included. Tali Orlando MD [facility] Surg Scheduling Pool This is a new patient - Tod Cordova, seen in [place] ED 10/11/2022 with cholelithiasis/biliary colic. To be referred to this clinic for consideration of laparoscopic cholecystectomy. : 1980 [address], [place] [phone] Please call patient for an appointment to see one of us. 1st attempt to reach patient to schedule an in office visit with Dr. Orlando. Left voicemail to directly contact [phone]. Registration is NOT complete. Judy You Inspector Rag Sorting documented in this encounter [facility] Diagnosis Encounter for screening mammogram for breast cancer Calculus of gallbladder without cholecystitis without obstruction Calculus of gallbladder without mention of cholecystitis or obstruction [facility] Diagnosis Pre-op evaluation- Primary Preoperative examination, unspecified Obesity (BMI 30-39.9) Obesity, unspecified Calculus of gallbladder without cholecystitis without obstruction Calculus of gallbladder without mention of cholecystitis or obstruction [facility] Diagnosis Biliary dyskinesia- Primary Other specified disorder of gallbladder [facility] Diagnosis Calculus of gallbladder without cholecystitis without obstruction- Primary Calculus of gallbladder without mention of cholecystitis or obstruction Adrenal nodule (HCC) Unspecified disorder of adrenal glands Obesity (BMI 30-39.9) Obesity, unspecified Screening, lipid Screening for lipoid disorders [facility] Diagnosis Calculus of gallbladder without cholecystitis without obstruction Calculus of gallbladder without mention of cholecystitis or obstruction Abdominal pain, unspecified abdominal location documented [facility] (n[facility]ative)* Diagnostic Procedure Only (Routine) - Pending Review Specialty Diagnoses / Procedures Referred By Sierra quijano Referred To Contact [facility] Diagnoses Encounter for screening mammogram for breast cancer Procedures JULES SCREENING SCREENING MAMMOGRAPHY BI 2-VIEW BREAST INC CAD Donald Motley MD [address] [place] [address] [facility] [address] [place] [address] Referral ID Status Reason Start Date Expiration Date Visits Requested Visits Authorized [id number] Pending Review Auto-Generat ed Referral 2 11/29/2023 1 1 [facility] Reason for Referral Specialty Diagnoses / Procedures Referred By Sierra quijano Referred To Contact Gastroenterology Diagnoses Abdominal pain, unspecified abdominal location Procedures CONSULT TO GASTROENTEROLOGY OFFICE/OUTPATIENT [facility] MDM 60-74 MINUTES Older, JULIA Shelton.COAT CHECK ATTENDANT [address] [place] [address] Referral ID Status Reason Start Date Expiration Date Visits Requested Visits Authorized [id number] Authorized PCP Requested Referral 2 10/28/2023 1 1 Specialty Diagnoses / Procedures Referred By Contac t Referred To Contact MOLECULAR & FUNCTIONAL IMAGING Diagnoses Calculus of gallbladder without cholecystitis without obstruction Abdominal pain, unspecified abdominal location Procedures NM HEPATOBILIARY W EF AND/OR RX HEPATOBIL SYST IMAG INC GB W/PHARMA INTERVENJ Older, Cat, PROMOTION PRODUCER.COAT CHECK ATTENDANT [address] [place] [address] [facility] [address] [place] [address] Referral ID Status Reason Start Date Expiration Date Visits Requested Visits Authorized [id number] Authorized Auto-Generat ed Referral 2 11/27/2023 1 1 Specialty Diagnoses / Procedures Referred By Contac t Referred To Contact CT IMAGING Diagnoses Disorder of adrenal gland (HCC) Adrenal nodule (HCC) Procedures CT ADRENAL WO/W IVCON CT ABDOMEN W & W/O CONTRAST Joaquin, Cat, PROMOTION PRODUCER.COAT CHECK ATTENDANT [address] [place] [address] Ct [facility] Referral ID Status Reason Start Date Expiration Date Visits Requested Visits Authorized [id number] Authorized Auto-Generat ed Referral 02/07/2023 03/24/2023 1 [...] or prosecute any alcohol or drug abuse patient.[facility] the event this information is protected by the Federal Confidentiality of Alcohol and Drug Abuse Patient Records regulations: The Federal rules restrict any use of the information to criminally investigate or prosecute any alcohol or drug abuse patient.[facility] the event this information is protected by the Federal Confidentiality of Alcohol and Drug Abuse Patient Records regulations: The Federal rules restrict any use of the information to criminally investigate or prosecute any alcohol or drug abuse patient.[facility] the event this information is protected by the Federal Confidentiality of Alcohol and Drug Abuse Patient Records regulations: The Federal rules restrict any use of the information to criminally investigate or prosecute any alcohol or drug abuse patient.[facility] the event this information is protected by the Federal Confidentiality of Alcohol and Drug Abuse Patient Records regulations: The Federal rules restrict any use of the information to criminally investigate or prosecute any alcohol or drug abuse patient.[facility] the event this information is protected by the Federal Confidentiality of Alcohol and Drug Abuse Patient Records regulations: The Federal rules restrict any use of the information to criminally investigate or prosecute any alcohol or drug abuse patient.[facility] the event this information is protected by the Federal Confidentiality of Alcohol and Drug Abuse Patient Records regulations: The Federal rules restrict any use of the information to criminally investigate or prosecute any alcohol or drug abuse patient.[facility] the event this information is protected by the Federal Confidentiality of Alcohol and Drug Abuse Patient Records regulations: The Federal rules restrict any use of the information to criminally investigate or prosecute any alcohol or drug abuse patient.[facility] the event this information is protected by the Federal Confidentiality of Alcohol and Drug Abuse Patient Records regulations: The Federal rules restrict any use of the information to criminally investigate or prosecute any alcohol or drug abuse patient.[facility] the event this information is protected by the Federal Confidentiality of Alcohol and Drug Abuse Patient Records regulations: The Federal rules restrict any use of the information to criminally investigate or prosecute any alcohol or drug abuse patient.[facility] Reason for Visit (unrecogniz ed section and content) Reason Comments Results Reason Comments Appointment Reason Comments Anesthesia Consult Reason Comments Patient Update Appointment Reason Comments Abdominal Pain Specialty Diagnoses / Procedures Referred By Sierra quijano Referred To Contact Gastroenterology Diagnoses Abdominal pain, unspecified abdominal location Procedures CONSULT TO GASTROENTEROLOGY OFFICE/OUTPATIENT NEW HIGH MDM 60-74 MINUTES Cat Nuñez, PROMOTION PRODUCER.COAT CHECK ATTENDANT [address] [place] [address] Referral ID Status Reason Start Date Expiration Date V isits Requested Visits Authorized [id number] Closed PCP Requested Referral 10/28/2022 10/28/2023 1 1 Reason Comments F/U 3 Month Gallstones Reason Comments Radiology NM Specialty Diagnoses / Procedures Referred By Sierra quijano Referred To Contact MOLECULAR & FUNCTIONAL IMAGING Diagnoses Calculus of gallbladder without cholecystitis without obstruction Abdominal pain, unspecified abdominal location Procedures NM HEPATOBILIARY W EF AND/OR RX HEPATOBIL SYST IMAG INC GB W/PHARMA INTERVENJ Cat Nuñez, PROMOTION PRODUCER.COAT CHECK ATTENDANT [address] [place] [address] Molecular [facility] Functional [facility] [address] [place] [address] Referral ID Status Reason Start Date Expiration Date V isits Requested Visits Authorized [id number] Closed Auto-Generate d Referral 10/28/2022 11/27/2023 1 1 Care Teams (unrecognized sec tion and content) Day Treatment Clinician/Art Therapist Relationship Specialty Start Date End Date Donald Motley MD [address] [place] [address] PCP - General Internal Medicine 10/28/22 Day Treatment Clinician/Art Therapist Relationship Specialty Start Date End Date Donald Motley MD [address] [place], [place] [address] PCP - General Internal Medicine 10/28/22 11/07/22 Day Treatment Clinician/Art Therapist Relationship Specialty Start Date End Date Donald Motley MD [address] [place], [place] [address] PCP - General Internal Medicine 10/28/22 11/07/22 Day Treatment Clinician/Art Therapist Relationship Specialty Start Date End Date Donald Motley MD [address] [place], [place] [id number] PCP - General Internal Medicine 10/28/22 11/07/22 Day Treatment Clinician/Art Therapist Relationship Specialty Start Date End Date Donald Motley MD [address] [place] [address] PCP - General Internal Medicine 12/30/22 Day Treatment Clinician/Art Therapist Relationship Specialty Start Date End Date Donald Motley MD [address] [place], [place] [address] PCP - General Internal Medicine 10/28/22 11/07/22 [...] BE BASED ON THE PRIMARY CLINICAL RECORDS. [facility]. provides no warranty or guarantee of the accuracy or completeness of information in this document.
[2023-11-23] MEDS: 0.9% Normal Saline (1000mL) 1,000 ML 125 ML IV (09:54)
[2023-11-23] MEDS: Sucralfate 1 GM Tablet PO (09:55)
[2023-11-23 10:00] VITALS: BP 143/86; PULSE 79; RESP 18; TEMP 36.7; O2SAT 97
--- NOTE | 2023-11-23 10:35 | HP.PCM.OB_ITS ---
HPI - General General Date of Admission: 11/23/23 HPI Narrative TOD MUHAMMAD, is a 43 y/o who presents to [facility] with abdominal pain related to her ongoing GI complaints. She states that she has been dealing with cholecystitis and ulcers for the last couple of years. She has initially saw a general surgeon at [facility] and she states that she was dismissed when she preferred to avoid surgery. She currently sees Dr. Whittington who has started her on a PPI and sucralfate but she stopped taking these when she found out she was . Treats her flairs with hot water with lemon and honey. Last night she presented to the ER with intractable abdominal pain requiring IV narcotics. We discussed the implications on that include neural tube defects, gastroschisis, glaucoma, and miscarriage/still with continued use of narcotics. She states that she is willing to try tylenol only for the pain and agrees to stay on the GI medication. She states that she is feeling much better this am and thinks she can go home soon. She was able to keep some sips and crackers down this am. [facility] Medical History (Updated 11/23/23 @ 10:[address] Poly Diamond DO) Alcohol use Gastric reflux History of blood transfusion History of placenta abruption History of pre-eclampsia Hypertension Non-smoker hemorrhage Wears glasses Home Medications omeprazole 20 mg capsule,delayed release 20 mg PO DAILY #30 CAPSULES 09/17/23 [Rx Last Taken Unknown] sucralfate 1 gram tablet (Carafate) 1 g PO BID PRN abdominal discomfort 11/22/23 [History Last Taken Unknown] thyoid 130 PO DAILY 11/22/23 [History Last Taken Unknown] Allergy/AdvReac Type Severity Reaction Status Date / Time No Known Allergies Allergy Verified 11/22/23 23:29 Family History Mother CAD (coronary artery disease) Thyroid disorder Father CAD (coronary artery disease) Thyroid disorder Sister Thyroid disorder Other Diabetes Surgical History Hx of wisdom tooth extraction S/P S/P dilation and curettage Social History Smoking Status: Never smoker alcohol intake: current details: not while substance use type: does not use caffeine: Yes what type of physical activity do you participate in: walking and other details: joi frequency: 3-4 times per week seatbelt use: always do you feel safe at home: Yes additional social history: - David History 11 Elective abortions Hx Para 8 Spontaneous abortions 2 Hx # Term Pregnancies Ectopic pregnancies Hx # Pregnancies Multiple births # of living children Past Pregnancies Del. Date Name GA/Weeks Outcome Route Bth Weight [facility] Josia Unknown Virgen Unknown Delmi Unknown Mejia Unknown Ronal Unknown Jaki Unknown Gale Unknown Gale Unknown miscarriage x2 Unknown Misha Delivery Date: Last Updated by: Rachel Rodriguez pre-e, placenta abruption Delivery Date: Last Updated by: Rachel Rodriguez D&C for both with 1 blood transfusion x2 units Delivery Date: Last Updated by: Rachel Rodriguez Hemorrhaged at home, transferred to hospital by squad, blood transfusion [id number] ROS Constitutional Constitutional: Denies change in weight, fatigue, fever(s), headache(s), poor appetite or weakness Eyes Eyes: Denies blurry vision, change in vision, seeing flashes or spots in vision ENT HEENT: Denies dizziness, headache(s), loss taste/smell or sore throat Cardiovascular Cardiovascular: Denies chest pain, dizziness, dyspnea, irregular heart rhythm, leg edema, palpitations or rapid heart rate Respiratory/Chest Respiratory/Chest: Denies chest tightness, cough, dyspnea or breast pain Gastrointestinal Gastrointestinal: Denies constipation, cramping, diarrhea, hemorrhoids or weight changes Genitourinary Genitourinary: Denies dysuria, flank pain, genital lesions, genital pain, urinary frequency or urinary urgency Musculoskeletal Musculoskeletal: Denies difficulty walking, joint pain, limited range of motion, muscle cramps or numbness Integumentary Integumentary: Denies lesions or unusual bruising Neurologic Neurologic: Denies abnormal movements, abnormal speech, dizziness, numbness, seizure-like activity or syncope Psychiatric Psychiatric: Denies anxiety, behavioral changes, change in appetite, change in libido, cognitive impairment, confusion, depression, difficulty concentrating, hallucinations or suicidal thoughts Endocrine Endocrinology: Denies excessive sweating, polydipsia or polyuria Hematologic/Lymphatic Hematologic/Lymphatic: Denies easy bleeding, easy bruising or lymphadenopathy Allergic/Immunologic Allergic/Immunologic: Denies itchy eyes, lip swelling, seasonal rhinorrhea, rhinitis, throat swelling, tongue swelling, eczemia, wheezing or asthma Vital Signs Vital Signs Vital Signs: 11/22/23 23:24 11/23/23 06:14 11/23/23 02:00 Temperature 96.2 F L 98.8 F 98.1 F Temperature Source Temporal Temporal Temporal Pulse Rate 94 78 78 Respiratory Rate 18 16 16 Blood Pressure 157/88 H 154/93 H 156/90 H Blood Pressure Mean 111 113 112 Blood Pressure Source Blood Pressure Position Blood Pressure Location Pulse Ox 97 96 94 Oxygen Delivery Method Room Air Room Air Room Air 11/23/23 06:59 11/23/23 09:00 11/23/23 10:00 Temperature 97.8 F 98.4 F 98.1 F Temperature Source Temporal Temporal Temporal Pulse Rate 70 77 79 Respiratory Rate 16 18 18 Blood Pressure 122/83 H 159/91 H 143/86 H Blood Pressure Mean 96 113 105 Blood Pressure Source Monitor Monitor Blood Pressure Position Semi-Fowlers Semi-Fowlers Blood Pressure Location Left Forearm Left Arm Pulse Ox 97 96 97 Oxygen Delivery Method Room Air Room Air Room Air Weight Weight: 232 lb 5.875 oz Body Mass Index (BMI) 39.9 Physical Exam Const alert, oriented x3, no apparent distress and healthy appearing General Appearance: cooperative; Negative for anxious Resp normal respiratory effort Effort and Inspection: able to speak in complete sentences Cardio regular rate GI soft to palpation and non-tender Palpation: soft; Negative for tender Back/Spine no CVA tenderness Extremity normal to inspection, full ROM and no clubbing, cyanosis or edema General Extremity: Negative for calf tenderness or edema Skin Lesions: no lesions Rashes: no rashes Psych mental status grossly normal Labs Labs Labs: Blood Type O POSITIVE Antibody Screen NEGATIVE Hct 38.4 % (37-47) Hgb 12.7 g/dL (12.0-15.0) Obstetrics Ultrasound Assessment & Plan (1) Gastric reflux: COMMENT: CONTROLLED WITH MED (2) Intractable epigastric abdominal pain: PLAN: Plan due to the unstable GI state, the risks of being off a ppi out weight the benefits of being off of them. We discussed that omeprazole and other PPI's are a category c (lack of human data) and recommendations are to take only as absolutely needed. We discussed that this is a case that I recommend she stays on it. Sucralfate with meals is highly recommended and not a risk to the baby. No NSAIDs other than tylenol is recommended in . We discussed that in there is an increase in the gastric emptying time and staying on these medications is crucial as well as sleeping and laying on her left side to help avoid reflux. tums is also advisable for breakthrough pain and reflux. -plan to dc to home with omeprazole and sucralfate and follow up in the office on Friday. -plan for 10 week NIPT testing due to her advanced maternal age as well as consultation with maternal medicine for serial growth scans and further recommendations. -Appreciate general surgery assistance. Charges/Coding Multi Select Codes Visit Charges Visit Charges: 22032 Init Hosp L3
--- NOTE | 2023-11-23 10:45 | DCINST_ITS ---
Discharge Instructions Follow Up Care Test Results: Test results from this visit will be discussed in further detail at your follow- up appointment, if applicable. Discharge Plan Admission Admit Date/Time: 11/23/23 08:30 Attending Provider: Poly Diamond Primary Care Provider: Shannon PhysicianCharu Primary Instructions Patient Instructions: Tips to Control Acid Reflux, ED GERD (Adult) Discharge Orders/Prescriptions Prescriptions: New omeprazole 20 mg capsule,delayed release(DR/EC) 20 mg PO DAILY Qty: 90 4RF sucralfate 1 gram tablet 1 g PO TID 60 Days Qty: 180 12RF Rx Instructions: crush and dissolve in water and drink slurry 10-20 minutes before meals ondansetron 4 mg tablet,disintegrating 4 mg PO Q6H PRN (Reason: nausea and vomiting) Qty: 30 4RF Continued omeprazole 20 mg capsule,delayed release(DR/EC) 20 mg PO DAILY Qty: 30 0RF sucralfate [Carafate] 1 gram tablet 1 g PO BID PRN (Reason: abdominal discomfort) No Action thyoid 130 PO DAILY Referrals / Follow Up: Care Physician,No Primary [Primary Care Provider] - Disposition Disposition (needs filled in before D/C Order can be placed): Home, Self Care
[2023-11-23 11:03] LABS: Thyroid Stim Hormone (TSH) 0.94 uIU/mL (0.358-3.74)
--- NOTE | 2023-11-23 11:47 | NURSING ---
pt a&o x3 @ approx 0900 when arrived from ER via cot-pt c/o back pain 05/19-ivf started as ordered, morphine given as ordered-pt denies nausea at this time lungs are clear, abdomen is soft and non tender-BM [employer]MENT[employer]-voiding without burning-amb to BR without assistance skin overall intact, no rashes
== END 2023-11-23 11:51 | disposition home or self-care (01) ==
LOC: ED 23:53 → MS3 11-23 09:29
PROVIDERS: Admitting Provider Obstetrics & Gynecology; Emergency Provider Student in an Organized Health Care Education/Training Program; Visit Provider Obstetrics & Gynecology
DX: O21.0 Mild hyperemesis gravidarum (principal); K80.20 Calculus of gallbladder without cholecystitis without obstruction; K21.9 Gastro-esophageal reflux disease without esophagitis; O99.611 Diseases of the digestive system complicating pregnancy, first trimester; Z3A.01 Less than 8 weeks gestation of pregnancy; O10.911 Unspecified pre-existing hypertension complicating pregnancy, first trimester
CPT/HCPCS: 76705; 76817; 80053; 83605; 83690; 84443; 84702; 85025; 96365; 96368; 96375; 96376; 99221; 99284; J7030; A4216; G0378; J2405; J3490

== ENCOUNTER 2023-11-25 19:10 | Emergency (ER) | payer MEDICAID, SELFPAY ==
[2023-11-25 19:11] VITALS: BP 146/92; PULSE 79; RESP 15; TEMP 36.4; O2SAT 97; BMI 34.3
[2023-11-25] MEDS: HYDROmorphone 1 MG/ML Syringe 0.5 MG IV (19:46)
[2023-11-25] MEDS: 0.9% Normal Saline (1000mL) 1,000 ML 1000 ML IV (19:46)
[2023-11-25] MEDS: Ondansetron 4 MG/2 ML Vial IV (19:46)
[2023-11-25 19:53] LABS: Absolute Lymphocyte Count 1.63 X10^3/uL (0.83-4.51); Absolute Neutrophil Count 5.4 X10^3/uL (2.0-7.7); Basophil# 0.05 X10^3/uL; Basophil% 0.6 % (0-1); Eosinophils% 1.3 % (0-5); Hematocrit 40.3 % (37-47); Lymphocyte # 1.63 X10^3/ul (0.83-4.51); Lymphocyte % 20.9 % (19-41); Mean Corp Hgb Conc 34.7 g/dL (32-36); Mean Corpuscular Hgb 29.9 pg (27.0-32.0); Mean Corpuscular Volume 85.9 fL (81-99); Mean Platelet Vol. 9.5 fl (6.2-12.0); Monocyte% 7.7 % (0-10); NRBC Flagged by Analyzer 0 % (0-5); Neutrophil # 5.39 X10^3/uL (2.7-7.7); Neutrophil % 69.1 % (47-70); Platelet Count 272 K/mm3 (150-450); RBC Distribution Width CV 12.1 % (11.6-14.6); RBC Distribution Width SD 37.2 fl (35.1-43.9); Red Blood Count 4.69 M/mm3 (4.2-5.4); White Blood Count 7.8 K/mm3 (4.4-11.0)
--- OUTSIDE RECORDS SUMMARY | 2023-11-25 20:13 | XMS RPT_ITS | CCD ---
Author Name Unknown Address [address] [place] [address] Organization [facility] Care Team Providers Care Building Carpenter Helper Name Role Phone Tiesha QURESHI, Donald Syed Primary Care Provider [phone] Unavailable Primary Care Provider Unavailrandi Motley MD, oDnald Syed Primary Care Provider [phone] Donald Motley MD Primary Care Provider [phone] CRISTOFER BANKS Referring Unavailable DONALD MOTELY Primary Care Unavailable CAT SHERMAN Referring Unavailable [...] 13:17-0400 Body weight 103.87 kg Cat Older ROPE MAKER.SUPERINTENDENT METERS Work Phone: [facility] 02-07-2023 13:17-0400 Diastolic blood pressure 85 mm[Hg] Cat Older ROPE MAKER.SUPERINTENDENT METERS Work Phone: [facility] 02-07-2023 13:17-0400 Heart rate 78 /min Cat Older ROPE MAKER.SUPERINTENDENT METERS Work Phone: [facility] 02-07-2023 13:17-0400 Respiratory rate 16 /min Cat Older ROPE MAKER.SUPERINTENDENT METERS Work Phone: [facility] 02-07-2023 13:17-0400 Systolic blood pressure 126 mm[Hg] Cat Older ROPE MAKER.SUPERINTENDENT METERS Work Phone: [facility] 12-02-2022 15:25-0500 Body height 162.6 cm Caroline Meza PA-C Work Phone: [facility] 12-02-2022 15:25-0500 Body weight 104.24 kg Caroline Kalka PA-C Work Phone: [facility] 12-02-2022 15:25-0500 Diastolic blood pressure 84 mm[Hg] Caroline Kalka PA-C Work Phone: [facility] 12-02-2022 15:25-0500 Heart rate 68 /min Caroline Kalka PA-C Work Phone: [facility] 12-02-2022 15:25-0500 Systolic blood pressure 126 mm[Hg] Caroline Kalka PA-C Work Phone: [facility] 11-07-2022 14:15-0500 Body height 162.6 cm Pac 3 Work Phone: [facility] 11-07-2022 14:15-0500 Body weight 99.79 kg Pac 3 Work Phone: [facility] 10-28-2022 09:46-0500 Body weight 103.42 kg Cat Older ROPE MAKER.SUPERINTENDENT METERS Work Phone: [facility] 10-28-2022 09:46-0500 Diastolic blood pressure 83 mm[Hg] Cat Older ROPE MAKER.SUPERINTENDENT METERS Work Phone: [facility] 10-28-2022 09:46-0500 Heart rate 76 /min Cat Older ROPE MAKER.SUPERINTENDENT METERS Work Phone: [facility] 10-28-2022 09:46-0500 Respiratory rate 14 /min Cat Older ROPE MAKER.SUPERINTENDENT METERS Work Phone: [facility] 10-28-2022 09:46-0500 Systolic blood pressure 125 mm[Hg] Cat Older ROPE MAKER.SUPERINTENDENT METERS Work Phone: [facility] Encounters Encounter Date Encounter Type Care Provider Facility Start: 02-24-2023 End: 02-24-2023 ambulatory DONALD MOTLEY Facility:[facility] Start: 02-07-2023 End: 02-08-2023 ambulatory ANTOINE TIESHA Facility:[facility] Start: 02-07-2023 End: 02-07-2023 Patient encounter procedure Cat Older ROPE MAKER.ALISSON Work Phone: Internal Medicine [facility]on Procedures Date Procedure Procedure Detail Performing Clinician Start: 10-31-2022 Hepatobiliary syst i maging including gallbladder Cat Older ROPE MAKER.ALISSON Work Phone: Plan of Treatment Date Care Activity Detail Author Start: 02-08-2024 HEPATITIS C SCREENING HEPATITIS C IA DANNI [facility] Payers Date Payer Category Payer Medicaid [id number] 2021 Medicaid [id number] Social History Date Type Detail Facility Start: 10-21-2022 Tobacco smoking stat [facility] Never smoked tobacco [facility] Start: 10-21-2022 Tobacco use and exposure Smoke less tobacco non-user [facility] Start: 10-28-2022 End: 11-05-2022 Alcohol intake Ex-drinker (finding) [facility] Start: 10-28-2022 End: 02-07-[address] [facility] Start: 1980 Sex Assigned At Not on file C [facility] Tobacco smoking stat [facility] Tobacco smoking consumption unknown [facility] Start: 11-07-2022 Alcohol Comment 2/week [facility] Start: 12-02-2022 End: 02-07-2023 Alcohol intake Current drinker of alcohol (finding) [facility] Start: 02-06-2023 History SDOH Alcohol Frequency [address] [facility] Start: 02-06-2023 History SDOH Alcohol Std Drinks [address] [facility] Start: 02-06-2023 History SDOH Social Connections Phone [address] [facility] Start: 02-06-2023 History SDOH Social Connections Get Together [address] [facility] Start: 02-06-2023 History SDOH Physica l Activity MPS [address] [facility] Start: 02-06-2023 History SDOH Stress 2 [facility] Start: 10-28-2022 Tobacco use panel [facility] Clinical Notes 10-14-2022 to 10-22-2023 Cat Older, ROPE MAKERMARY - 02/07/2023 1:32 PM Xander Meza PA-C - 12/02/2022 3:25 PM ESTTelephone Encounter - Judy You - 11/19/2022 8:16 AM ESTPatient InstructionsPatient Instructions Note Date & Type Note Facility 10-22-2023 Note Patient Outreach (IN TMMN) TOD DA SILVA ([id number]) 1980 F Date Time Provider Department 10/22/23 DONALD MOTLEY During your visit today, we recorded the following information about you: Allergies As of Date: 10/22/2023 (No Known Allergies) Date Reviewed: 02/21/2023 Reviewed by: Makenna Moralez RT(R) - Fully Assessed Visit Diagnosis:Encounter for screening mammogram for breast cancer [Z12.31] Order(s):[facility] SCREENING [[id number]] Order #: [id number] FUTURE Prescriptions as of 10/27/2023 - ascorbic acid, vitamin C, (VITAMIN C) 250 mg tablet Take 250 mg by mouth once daily. - cholecalciferol, vitamin D3, 10 mcg (400 unit) cap Take 400 Units by mouth once daily. Problem List As Of Date 10/22/2023 Noted Resolved Adrenal nodule (HCC) [E27.8] 10/28/2022 Obesity (BMI 30-39.9) [E66.9] 11/07/2022 Encounter Status:Closed by [employer] on 10/27/23 [facility] 02-24-2023 Note HNO ID: [id number] Author: RT Sharath(R) Service: ? Author Type: Nailhead Puncher Type: Progress Notes Filed: 02/24/2023 2:42 PM [...] RT Salazar(R) February 24, 2023 2:41 PM [facility] 02-07-2023 Note HNO ID: [id number] Author: Cat Nuñez APRN.SUPERINTENDENT METERS Service: ? Author Type: Nurse Practitioner Type: [...] test results, and coordinating care. Cat Nuñez APRN.SUPERINTENDENT METERS [facility] 02-07-2023 History of Presen t illness [...] Cat Nuñez APRN.CNP documented in this encounter [facility] 12-02-2022 Note HNO ID: [id number] Author: Caroline Meza PA-C Service: ? Author Type: Physician Barge Pilot Type: Progress Notes Filed: 12/02/2022 3:50 PM [...] Abs Lymph 1.00 - 4.00 k/uL 2.01 Gibson% % 9.5 Abs Gibson <0.87 k/uL 0.58 Eosin% % 2.3 Abs [...] is present. Musculosk (more content not included)... [facility] 12-02-2022 History of Presen t illness [...] Abs Lymph 1.00 - 4.00 k/uL 2.01 Gibson% % 9.5 Abs Gibson <0.87 k/uL 0.58 Eosin% % 2.3 Abs [...] which included preparing to see the patient, [id number] patient care, completing clinical documentation, obtaining and/or reviewing separately obtained history, performing a medically appropriate examination, counseling and educating the patient/family/caregiver, ordering medications, tests, or procedures, communicating with other HCPs (not separately reported), independently interpreting results (not separately reported), communicating results to the patient/family/caregiver, and care coordination (not separately reported). Caroline Meza PA-C December 02, 2022 3:47 PM documented in this encounter [facility] 11-19-2022 Miscellaneous Notes Called patient to confirm cancellation of procedure. Patient confirmed cancellation and denied to reschedule. Patient stated she is following up with gastro. Message sent to [place] to cancel surgery on 11/21/2022 with Darion. Judy You Merchandise Manager Patient calling in to cancel procedure with Dr Orlando at this time declined to reschedule. Patient accepted sooner date in [place] with Dr. Orlando - anesthesia reviewed and approved. Patient now scheduled 11/21/[address] Orlando in [place] for Lap Michelle. Patient stated if she gets worse she will go to the ER. Message sent to change to [place] Judy You Merchandise Manager Patient scheduled in [place] with soonest date of 11/25/2022 with Nuvia. Patient asking if she can get in sooner with Darion in [place] and possibly next week as she is in terrible pain and can't wait till the 16. Message sent to verify approval for [place]. Sated to patient I will be in contact if we can geta sooner date. Patient given my direct line of [phone]. Images from the original note were not included. Tali Orlando MD You 22 hours ago (9:39 AM) To be scheduled at [place] General anesthesia Dx: k80.90 CPT 57634, possible [id number] Thank you You Tali Orlando MD [address] Orlando, Patient is ready to proceed with gallbladder surgery as she is in constant pain. What CPT, DX and anesthesia would you like to proceed with? Please advise Thank you Judy You Merchandise Manager Pt called in states having constant pain now and would like to proceed with the gallbladder surgery. documented in this encounter [facility] 11-07-2022 Instructions Ninfa Guzman PA-C - 11/07/2022 2:29 PM EST PATIENT PREOPERATIVE INSTRUCTIONS Cristofer Banks MD has scheduled you for your procedure at this surgery center: [facility]: [phone] -- [address] [facility] [address]. Please read below carefully for your personalized [...] not contain aspirin or NSAIDS as needed. Mcintosh is OK to continue Important Reminders: - [...] Procedures: - YOU MUST HAVE A RESPONSIBLE PONY ROLL FINISHER TAKE YOU HOME. A CAR VARNISHER OR ETL DEVELOPER CANNOT BE MADE A RESPONSIBLE PONY ROLL FINISHER. - We recommend that a responsible person [...] Advance Directive, please fax a copy to [phone] or email to for it to be [...] Ninfa Guzman PA-C documented in this encounter [facility] 11-07-2022 History and physical note PREANESTHESIA [...] describes constant abdominal pain, worse after eating. Mcintosh brings relief for 2 hours. She also [...] gallbladder Neuro: No history of TIA's, stroke, CHILD PROTECTIVE INVESTIGATOR tumor, impaired sensorium, hemiplegia, paraplegia or quadraplegia. No neurological symptoms or problems. Respiratory: No history of current cough or dyspnea, or pneumonia in the past 6 weeks. No history of respiratory/pulmonary symptoms or problems. Cardiovascular: No history of HTN requiring medication, no history of angina, CHF, [place], cardiac surgery or stents. Denies rest pain, gangrene or revascularization/amputation for PVD. No history of cardiovascular symptoms or problems. GI: see HPI : No history of dysuria, frequency or incontinence,, stones or chronic kidney disease HYDROCHLORIC MANUFACTURING SUPERVISOR: Negative for abnormal vaginal bleeding, abnormal vaginal [...] device. I spent more than 25 minutes [id number] with the patient and over half the time was devoted to counseling and/or coordination of care. SIGNATURE: Ninfa Guzman PA-C PATIENT NAME: Tod Cordova DATE: 11/07/2022 TIME: 2:25 PM PAGER/CONTACT #: documented in this encounter [facility] 11-05-2022 Miscellaneous Notes Per Cat Nuñez [...] Cat Nuñez APRN.CNP documented in this encounter [facility] 11-05-2022 Miscellaneous Notes Error documented in this encounter [facility] 10-31-2022 Note HNO ID: [id number] Author: RT Anthony(R) Service: Nuclear Medicine Author [...] 13:20 PATIENT DISCHARGED TO: Ambulatory patient, left PR department area. A Diagnostic radioactive procedure has taken place, with no further precautions necessary other than routine body substance precautions. More information regarding radiation safety can be found using this link: [email or web address] SIGNATURE: PIERRE Cruz PATIENT NAME: Tod Cordova DATE: October 31, 2022 TIME: 1:35 PM PAGER/CONTACT #: [facility] 10-31-2022 History of Presen t illness [...] PM PAGER/CONTACT #: documented in this encounter [facility] 10-30-2022 Note Patient Outreach (IN TMMN) TOD DA SILVA ([id number]) 1980 F Date Time Provider Department 10/30/22 DONALD MOTLEY During your visit today, we recorded the following information about you: Allergies As of Date: 10/30/2022 (No Known Allergies) Date Reviewed: 10/28/2022 Reviewed by: Cat Nuñez APRN.CNP - Fully Assessed Visit Diagnosis:Encounter for screening mammogram for breast cancer [Z12.31] Order(s):[facility] SCREENING [[id number]] Order #: [id number] FUTURE Prescriptions as of 11/04/2022 - ascorbic [...] nodule (HCC) [E27.8] 10/28/2022 Encounter Status:Closed by [employer], PRODUSER on 11/04/22 [facility] 10-28-2022 Note HNO ID: [id number] Author: Cat Nuñez APRN.SUPERINTENDENT METERS Service: ? Author Type: Nurse Practitioner Type: [...] and was not happy with her answers. [place] that they just wanted to cut out [...] body habitus DATA REVIEWED: Outside chart from [facility] ER reviewed. ASSESSMENT/PLAN: 1. Abdominal pain, unspecified [...] agreeable to treatment plan. Cat Nuñez APRN.CNP [facility] 10-28-2022 Instructions Cat Nuñez APRN.CNP - 10/28/2022 10:18 AM EST Ursodiol documented in this encounter [facility] 10-28-2022 History of Presen t illness [...] and was not happy with her answers. [place] that they just wanted to cut out [...] body habitus DATA REVIEWED: Outside chart from [facility] ER reviewed. ASSESSMENT/PLAN: 1. Abdominal pain, unspecified [...] Cat Nuñez APRN.CNP documented in this encounter [facility] 10-14-2022 Miscellaneous Notes Images from the original note were not included. Tali Orlando MD P [facility] Surg Scheduling Pool This is a new patient - Tod Cordova, seen in [place] ED 10/11/2022 with cholelithiasis/biliary colic. To be referred to this clinic for consideration of laparoscopic cholecystectomy. : 1980 [address], [place] [phone] Please call patient for an appointment to see one of us. 1st attempt to reach patient to schedule an in office visit with Dr. Orlando. Left voicemail to directly contact [phone]. Registration is NOT complete. Judy You Merchandise Manager documented in this encounter [facility] Diagnosis Encounter for screening mammogram for breast cancer Calculus of gallbladder without cholecystitis without obstruction Calculus of gallbladder without mention of cholecystitis or obstruction [facility] Diagnosis Pre-op evaluation- Primary Preoperative examination, unspecified Obesity (BMI 30-39.9) Obesity, unspecified Calculus of gallbladder without cholecystitis without obstruction Calculus of gallbladder without mention of cholecystitis or obstruction [facility] Diagnosis Biliary dyskinesia- Primary Other specified disorder of gallbladder [facility] Diagnosis Calculus of gallbladder without cholecystitis without obstruction- Primary Calculus of gallbladder without mention of cholecystitis or obstruction Adrenal nodule (HCC) Unspecified disorder of adrenal glands Obesity (BMI 30-39.9) Obesity, unspecified Screening, lipid Screening for lipoid disorders [facility] Diagnosis Calculus of gallbladder without cholecystitis without obstruction Calculus of gallbladder without mention of cholecystitis or obstruction Abdominal pain, unspecified abdominal location [facility]ative[facility] Diagnostic Procedure Only (Routine) - Pending Review Specialty Diagnoses / Procedures Referred By Sierra quijano Referred To Contact [facility] Diagnoses Encounter for screening mammogram for breast cancer Procedures JULES SCREENING SCREENING MAMMOGRAPHY BI 2-VIEW BREAST INC CAD Donald Motley MD [address] [place] [address] [facility] [address] [place] [address] Referral ID Status Reason Start Date Expiration Date Visits Requested Visits Authorized [id number] Pending Review Auto-Generat ed Referral 2 11/29/[address] [facility] Reason for Referral Specialty Diagnoses / Procedures Referred By Sierra quijano Referred To Contact Gastroenterology Diagnoses Abdominal pain, unspecified abdominal location Procedures CONSULT TO GASTROENTEROLOGY OFFICE/OUTPATIENT [facility] MDM 60-74 MINUTES Older, JULIA Shelton.SUPERINTENDENT METERS [address] [place] [address] Referral ID Status Reason Start Date Expiration Date Visits Requested Visits Authorized [id number] Authorized PCP Requested Referral 2 10/28/2023 1 1 Specialty Diagnoses / Procedures Referred By Contac t Referred To Contact MOLECULAR & FUNCTIONAL IMAGING Diagnoses Calculus of gallbladder without cholecystitis without obstruction Abdominal pain, unspecified abdominal location Procedures NM HEPATOBILIARY W EF AND/OR RX HEPATOBIL SYST IMAG INC GB W/PHARMA INTERVENJ Older, Cat, ROPE MAKER.SUPERINTENDENT METERS [address] [place] [address] Molecular & Functional Imaging [address] [place] [address] Referral ID Status Reason Start Date Expiration Date Visits Requested Visits Authorized [id number] Authorized Auto-Generat ed Referral 2 11/27/2023 1 1 Specialty Diagnoses / Procedures Referred By Contac t Referred To Contact CT IMAGING Diagnoses Disorder of adrenal gland (HCC) Adrenal nodule (HCC) Procedures CT ADRENAL WO/W IVCON CT ABDOMEN W & W/O CONTRAST Joaquin, Cat, ROPE MAKER.SUPERINTENDENT METERS [address] [place] [address] Ct [facility] Referral ID Status Reason Start Date Expiration Date Visits Requested Visits Authorized [id number] Authorized Auto-Generat ed Referral 02/07/2023 03/24/2023 1 [...] or prosecute any alcohol or drug abuse patient.[facility] the event this information is protected by the Federal Confidentiality of Alcohol and Drug Abuse Patient Records regulations: The Federal rules restrict any use of the information to criminally investigate or prosecute any alcohol or drug abuse patient.[facility] the event this information is protected by the Federal Confidentiality of Alcohol and Drug Abuse Patient Records regulations: The Federal rules restrict any use of the information to criminally investigate or prosecute any alcohol or drug abuse patient.[facility] the event this information is protected by the Federal Confidentiality of Alcohol and Drug Abuse Patient Records regulations: The Federal rules restrict any use of the information to criminally investigate or prosecute any alcohol or drug abuse patient.[facility] the event this information is protected by the Federal Confidentiality of Alcohol and Drug Abuse Patient Records regulations: The Federal rules restrict any use of the information to criminally investigate or prosecute any alcohol or drug abuse patient.[facility] the event this information is protected by the Federal Confidentiality of Alcohol and Drug Abuse Patient Records regulations: The Federal rules restrict any use of the information to criminally investigate or prosecute any alcohol or drug abuse patient.[facility] the event this information is protected by the Federal Confidentiality of Alcohol and Drug Abuse Patient Records regulations: The Federal rules restrict any use of the information to criminally investigate or prosecute any alcohol or drug abuse patient.[facility] the event this information is protected by the Federal Confidentiality of Alcohol and Drug Abuse Patient Records regulations: The Federal rules restrict any use of the information to criminally investigate or prosecute any alcohol or drug abuse patient.[facility] the event this information is protected by the Federal Confidentiality of Alcohol and Drug Abuse Patient Records regulations: The Federal rules restrict any use of the information to criminally investigate or prosecute any alcohol or drug abuse patient.[facility] the event this information is protected by the Federal Confidentiality of Alcohol and Drug Abuse Patient Records regulations: The Federal rules restrict any use of the information to criminally investigate or prosecute any alcohol or drug abuse patient.[facility] Reason for Visit (unrecogniz ed section and content) Reason Comments Results Reason Comments Appointment Reason Comments Anesthesia Consult Reason Comments Patient Update Appointment Reason Comments Abdominal Pain Specialty Diagnoses / Procedures Referred By Sierra quijano Referred To Contact Gastroenterology Diagnoses Abdominal pain, unspecified abdominal location Procedures CONSULT TO GASTROENTEROLOGY OFFICE/OUTPATIENT NEW HIGH MDM 60-74 MINUTES Cat Nuñez, ROPE MAKER.SUPERINTENDENT METERS [address] [place] [address] Referral ID Status Reason Start Date Expiration Date V isits Requested Visits Authorized [id number] Closed PCP Requested Referral 10/28/2022 10/28/2023 1 1 Reason Comments F/U 3 Month Gallstones Reason Comments Radiology NM Specialty Diagnoses / Procedures Referred By Sierra quijano Referred To Contact MOLECULAR & FUNCTIONAL IMAGING Diagnoses Calculus of gallbladder without cholecystitis without obstruction Abdominal pain, unspecified abdominal location Procedures NM HEPATOBILIARY W EF AND/OR RX HEPATOBIL SYST IMAG INC GB W/PHARMA INTERVENJ Cat Nuñez, ROPE MAKER.SUPERINTENDENT METERS [address] [place] [address] Molecular [facility] Functional Imaging [address] [place] [address] Referral ID Status Reason Start Date Expiration Date V isits Requested Visits Authorized [id number] Closed Auto-Generate d Referral 10/28/2022 11/27/2023 1 1 Care Teams (unrecognized sec tion and content) Building Carpenter Helper Relationship Specialty Start Date End Date Donald Motley MD [address] [place] [address] PCP - General Internal Medicine 10/28/22 Building Carpenter Helper Relationship Specialty Start Date End Date Donald Motley MD [address], [place] [address] PCP - General Internal Medicine 10/28/22 11/07/22 Building Carpenter Helper Relationship Specialty Start Date End Date Donald Motley MD [address], [place] [address] PCP - General Internal Medicine 10/28/22 11/07/22 Building Carpenter Helper Relationship Specialty Start Date End Date Donald Motley MD [address], [place] [id number] PCP - General Internal Medicine 10/28/22 11/07/22 Building Carpenter Helper Relationship Specialty Start Date End Date Donald Motley MD [address] [place] [address] PCP - General Internal Medicine 12/30/22 Building Carpenter Helper Relationship Specialty Start Date End Date Donald Motley MD [address], [place] [id number] PCP - General Internal Medicine 10/28/22 11/07/22 [...] BE BASED ON THE PRIMARY CLINICAL RECORDS. [facility]. provides no warranty or guarantee of the accuracy or completeness of information in this document.
[2023-11-25 20:23] LABS: ALB/GLOB Ratio 0.9 RATIO (0.9-2.4); AST(SGOT) 31 U/L (15-37); Alanine Aminotransfer ALT/SGPT 56 U/L (13-56); Albumin, Serum 3.7 g/dL (3.2-5.0); Alkaline Phosphatase 86 U/L (45-117); Anion Gap 7 (5-15); BUN 7 mg/dL (7-18); BUN/Creat Ratio 7.7 RATIO (10-20); Calcium,Total 10.8 mg/dL (8.5-10.1); Chloride 107 mmol/L (98-107); EST Glomerular Filtration Rate 72 mL/min (>60); Est Glom Filt Rate - Afr Amer 87 mL/min (>60); Estimated Creatinine Clearance 87.93 ml/min; Globulin 3.9 g/dL (2.2-4.2); Glucose 114 mg/dL (74-106); Lipase 17 U/L (13-75); Protein, Total 7.6 g/dL (6.4-8.2); Sodium Level 136 mmol/L (136-145)
--- NOTE | 2023-11-25 20:24 | EDS_ITS ---
HPI HPI - GI History of Present Illness Chief Complaint: Abd Pain Narrative Narrative: 43-year-old female past medical history of gastric ulcers and gastric reflux, is currently almost 7 weeks gestation, presents after being discharged from the hospital with epigastric abdominal pain. She relays a remote history that prior to her becoming , she was post to have endoscopy by Dr. Whittington. While she has a history of cholelithiasis, he thought that her gallbladder was okay and was recommending upper endoscopy to check for gastric ulcers. She was switched by her vice president of procurement when she found out that she was from [facility] to [facility] She was having epigastric to right-sided abdominal pain on Friday, 4 days ago, and was admitted overnight. She went home Friday and stated she was doing well until Friday when she began having epigastric pain, b ut it was lingering more to the left. It is associated with nausea. She thinks it is from her drinking a small amount of decaffeinated coffee. It was recommended that she start the omeprazole again, and take Carafate. She states she had 2 leftover hydrocodone and she took acetaminophen as well which did not relieve her epigastric pain. She presents to the emergency department stating that her pain is uncontrolled. [facility] Medical History Alcohol use Gastric reflux History of blood transfusion History of placenta abruption History of pre-eclampsia Hypertension Non-smoker hemorrhage Wears glasses Home Medications sucralfate 1 gram tablet (Carafate) 1 g PO BID PRN abdominal discomfort 11/22/23 [History Last Taken Unknown] omeprazole 20 mg capsule,delayed release 20 mg PO DAILY #90 caps 11/23/23 [Rx Last Taken Unknown] ondansetron 4 mg disintegrating tablet 4 mg PO Q6H PRN nausea and vomiting #30 tabs 11/23/23 [Rx Last Taken Unknown] hydrocodone-acetaminophen 5-325mg 5mg-325mg 1 tab PO Q6H PRN 11/25/23 [History Last Taken Unknown] multivit-min no.71-iron fum 28 mg-folate no.1 1 mg-dha 300 mg capsule (PNV- Gibbs) cap PO 11/25/23 [History Last Taken Unknown] pantoprazole 40 mg tablet,delayed release 40 mg PO DAILY #60 tabs 11/25/23 [Rx Last Taken Unknown] Allergy/AdvReac Type Severity Reaction Status Date / Time No Known Allergies Allergy Verified 11/25/23 19:16 Family History Mother CAD (coronary artery disease) Thyroid disorder Father CAD (coronary artery disease) Thyroid disorder Sister Thyroid disorder Other Diabetes Surgical History Hx of wisdom tooth extraction S/P S/P dilation and curettage Social History adopted: No household members: spouse and children number of children: 7 current occupational status: unemployed current occupation: [employer] current occupational exposures/hazards: No pets and animals: Yes pets and animals: dog(s), hamster(s) and farm animals history of recent travel: No sexually active: Yes Smoking Status: Never smoker alcohol intake: current details: not while substance use type: does not use well-balanced diet: about half the time caffeine: Yes Type: coffee Number of servings: 2 eating out: 1-3 times/week during the past year weight has: decreased > 10 lbs what type of physical activity do you participate in: none gallo/mosque: Denominational seatbelt use: always do you feel safe at home: Yes additional social history: - David RICHARD Narrative Constitutional: No fever, no chills. HEENT: No sore throat. No neck pain. No loss of vision. No rhinorrhea. Cardiovascular: No chest pain. No palpitations. No pedal edema. Respiratory: No cough, no shortness of breath. Abdominal: Gastric to left upper quadrant abdominal pain. No nausea. No vomiting. Genitourinary: No dysuria. No hematuria. Musculoskeletal: No myalgias. No arthralgias. Neurologic: No headaches. No dizziness. No lightheadedness. Skin: No rash. No change in color. Psychiatric: No depression. No anxiety. EXAM Physical Exam Const Vital Signs: 11/25/23 19:11 Temperature 97.6 F L Temperature Source Temporal Pulse Rate 79 Respiratory Rate 15 Blood Pressure 146/92 H Blood Pressure Mean 110 Pulse Ox 97 Oxygen Delivery Method Room Air MDM MDM MDM Narrative Medical decision making narrative: I reviewed the patient's prior labs. Concern is for exacerbation of her abdominal pain secondary to ulcers. Lower on the differential is bleeding ulcer as she is not reporting any dark in stool or hematemesis. This is the same pain that she was admitted for previously. I rechecked her labs. On review of her labs and in comparison to prior there is no significant change, she has a normal white count of 7.8, hemoglobin normal at 14.0, hematocrit 40.3, platelet count normal at 272. CMP is grossly normal except for glucose appropriately elevated at 114 with a normal anion gap of 7. AST is normal at 31 with ALT 56 and alk phos 86. I have low concern for choledocholithiasis. Lipase is normal at 17. Initially she was given Dilaudid 0.5 mg for analgesia. I had discussed with her again the risks of using narcotic pain medication for her pain. Her is now at the bedside. She is only taking omeprazole 20 mg once a day. I do feel that this may need to be increased to 40 mg in total. I did discuss patient with Dr. Whittington with general surgery who states that the plan is to try and get her to the second trimester so that she can be scoped to confirm H. pylori as a cause of her gastric ulcers. I had a discussion with the patient on whether she wanted to be admitted again, but she would like something more for pain. She was given an additional Dilaudid 0.5 mg prior to discharge. I did discuss with Dr. Whittington that he would like her changed to pantoprazole 40 mg once a day instead of omeprazole. She will continue her Carafate 3 times a day. She will call him in the next few days to see if she needs to increase this. As she does not want to be readmitted, I feel she can be discharged to follow- up. Return instructions to the emergency department were reviewed. Patient and are agreeable to the plan. Disposition is discharged home in stable condition. History & Record Review Discussion w/independent historian: Patient and Family Additional record(s) reviewed:: Prior ED visit and Prior labs Lab Data Attestation: I reviewed the patient's lab results. Labs: Laboratory Results - last 24 hr 11/25/23 19:45 WBC 7.8 RBC 4.69 Hgb 14.0 Hct 40.3 MCV 85.9 MCH 29.9 MCHC 34.7 RDW Std Deviation 37.2 RDW Coeff of Zain 12.1 Plt Count 272 MPV 9.5 Immature Gran % (Auto) 0.400 Neut % (Auto) 69.1 Lymph % (Auto) 20.9 Dyer % (Auto) 7.7 Eos % (Auto) 1.3 Baso % (Auto) 0.6 Absolute Neuts (auto) 5.4 Absolute Lymphs (auto) 1.63 Nucleated RBC % 0 Sodium 136 Potassium 4.0 Chloride 107 Carbon Dioxide 22.0 Anion Gap 7 BUN 7 Creatinine 0.90 Estim Creat Clear Calc 87.93 Est GFR (MDRD) Af Amer 87 Est GFR (MDRD) Non-Af 72 BUN/Creatinine Ratio 7.7 L Glucose 114 H Calcium 10.8 H Total Bilirubin 0.90 AST 31 ALT 56 Alkaline Phosphatase 86 Total Protein 7.6 Albumin 3.7 Globulin 3.9 Albumin/Globulin Ratio 0.9 Lipase 17 Discharge Plan Triage Chief Complaint: Abd Pain ED Provider: Kory Garcia Dx/Rx/DC Orders Clinical Impression: Abdominal pain, Gastric reflux, Instructions: ED Abdominal Pain Unkn Cause Fem, ED Established ... Prescriptions: New pantoprazole 40 mg tablet,delayed release (DR/EC) 40 mg PO DAILY Qty: 60 0RF No Action hydrocodone-acetaminophen 5-325 mg tablet 1 tab PO Q6H PRN PNV-Gibbs 28-1-300 mg capsule PO sucralfate [Carafate] 1 gram tablet 1 g PO BID PRN (Reason: abdominal discomfort) omeprazole 20 mg capsule,delayed release(DR/EC) 20 mg PO DAILY Qty: 90 4RF ondansetron 4 mg tablet,disintegrating 4 mg PO Q6H PRN (Reason: nausea and vomiting) Qty: 30 4RF Primary Care Provider: Care Physician,No Primary Referrals: Poly Diamond DO [Med Staff - Active Staff] - Seth Whittington MD [Med Staff - Active Staff] - As soon as possible Care Physician,No Primary [Primary Care Provider] - Activity Restrictions/Additional Instructions: Switch to pantoprazole 40 mg once a day instead of your omeprazole. Call Dr. Whittington with an update as you may need to increase the dosing of that to twice a day. Continue your Carafate as previously directed 3 times a day. 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 Next of kin: [place] law dictates a PRIORITY LIST for identifying legal decision-maker/legal next of kin in the following order (LNOK): 1st: The patient?s legal guardian, if any 2nd: The patient's spouse (if status is questionable, consult Risk Management) 3rd: The patient?s adult child(lola) (majority, if multiple children) 4th: The patient?s parents 5th: The patient?s adult siblings (majority, if multiple children siblings)
[2023-11-25] MEDS: HYDROmorphone 0.5 MG/0.5 ML SYRINGE IV (21:13)
== END 2023-11-25 21:20 | disposition home or self-care (01) ==
PROVIDERS: Emergency Provider Emergency Medicine; Visit Provider Emergency Medicine
DX: O99.891 Other specified diseases and conditions complicating pregnancy (principal); K21.9 Gastro-esophageal reflux disease without esophagitis; O99.611 Diseases of the digestive system complicating pregnancy, first trimester; Z3A.01 Less than 8 weeks gestation of pregnancy; Z79.899 Other long term (current) drug therapy; R10.9 Unspecified abdominal pain
CPT/HCPCS: 80053; 83690; 85025; 96361; 96374; 96375; 96376; 99283; J7030; A4216; J2405

== ENCOUNTER 2023-11-27 06:34 | Observation (INO) | payer MEDICAID, SELFPAY ==
[2023-11-27] VITALS (11 sets, daily range): BP systolic 130–170; BP diastolic 72–86; PULSE 72–87; RESP 16–18; TEMP 36.4–36.9; O2SAT 95–100; BMI 37.8
[2023-11-27 07:07] LABS: Absolute Lymphocyte Count 1.77 X10^3/uL (0.83-4.51); Absolute Neutrophil Count 6.7 X10^3/uL (2.0-7.7); Basophil# 0.04 X10^3/uL; Basophil% 0.4 % (0-1); Eosinophils% 1.1 % (0-5); Hematocrit 39.6 % (37-47); Hemoglobin 13.6 g/dL (12.0-15.0); Lymphocyte # 1.77 X10^3/ul (0.83-4.51); Lymphocyte % 19.1 % (19-41); Mean Corp Hgb Conc 34.3 g/dL (32-36); Mean Corpuscular Hgb 29.8 pg (27.0-32.0); Mean Corpuscular Volume 86.7 fL (81-99); Mean Platelet Vol. 9.3 fl (6.2-12.0); Monocyte# 0.63 X10^3/uL; Monocyte% 6.8 % (0-10); NRBC Flagged by Analyzer 0 % (0-5); Neutrophil % 72.4 % (47-70); Platelet Count 249 K/mm3 (150-450); RBC Distribution Width SD 37.9 fl (35.1-43.9); Red Blood Count 4.57 M/mm3 (4.2-5.4); White Blood Count 9.3 K/mm3 (4.4-11.0)
[2023-11-27 07:17] LABS: Internal QC Validated? YES +Cl - CLEAR BKGD; Record Kit Lot#, Serum Preg. HCG0000667200
[2023-11-27 07:22] LABS: Pregnancy, Serum, hCG Quali. POSITIVE Negative
--- OUTSIDE RECORDS SUMMARY | 2023-11-27 07:25 | XMS RPT_ITS | CCD ---
Author Name Unknown Address [address] [place] [address] Organization [facility] Care Team Providers Care Seed Cleaning Manager Name Role Phone Tiesha QURESHI, Donald Syed Primary Care Provider [phone] Unavailable Primary Care Provider Unavailrandi Motley MD, Donald Syed Primary Care Provider [phone] Donald Motley MD Primary Care Provider [phone] CRISTOFER BANKS Referring Unavailable DONALD MOTLEY Primary [...] 13:17-0400 Body weight 103.87 kg Cat Older PROP SAWYER.MANAGER COMMODITIES Work Phone: [facility] 02-07-2023 13:17-0400 Diastolic blood pressure 85 mm[Hg] Cat Older PROP SAWYER.MANAGER COMMODITIES Work Phone: [facility] 02-07-2023 13:17-0400 Heart rate 78 /min Cat Older PROP SAWYER.MANAGER COMMODITIES Work Phone: [facility] 02-07-2023 13:17-0400 Respiratory rate 16 /min Cat Older PROP SAWYER.MANAGER COMMODITIES Work Phone: [facility] 02-07-2023 13:17-0400 Systolic blood pressure 126 mm[Hg] Cat Older PROP SAWYER.MANAGER COMMODITIES Work Phone: [facility] 12-02-2022 15:25-0500 Body height 162.6 cm Caroline Meza PA-C Work Phone: [facility] 12-02-2022 15:25-0500 Body weight 104.24 kg Caroline Kalka PA-C Work Phone: [facility] 12-02-2022 15:25-0500 Diastolic blood pressure 84 mm[Hg] Caroline Kalka PA-C Work Phone: [facility] 12-02-2022 15:25-0500 Heart rate 68 /min Caroline Kalka PA-C Work Phone: [facility] 12-02-2022 15:25-0500 Systolic blood pressure 126 mm[Hg] Caroline Kalka PA-C Work Phone: [facility] 11-07-2022 14:15-0500 Body height 162.6 cm Pac 3 Work Phone: [facility] 11-07-2022 14:15-0500 Body weight 99.79 kg Pac 3 Work Phone: [facility] 10-28-2022 09:46-0500 Body weight 103.42 kg Cat Older PROP SAWYER.MANAGER COMMODITIES Work Phone: [facility] 10-28-2022 09:46-0500 Diastolic blood pressure 83 mm[Hg] Cat Older PROP SAWYER.MANAGER COMMODITIES Work Phone: [facility] 10-28-2022 09:46-0500 Heart rate 76 /min Cta Older PROP SAWYER.MANAGER COMMODITIES Work Phone: [facility] 10-28-2022 09:46-0500 Respiratory rate 14 /min Cat Older PROP SAWYER.MANAGER COMMODITIES Work Phone: [facility] 10-28-2022 09:46-0500 Systolic blood pressure 125 mm[Hg] Cat Older PROP SAWYER.MANAGER COMMODITIES Work Phone: [facility] Encounters Encounter Date Encounter Type Care Provider Facility Start: 02-24-2023 End: 02-24-2023 ambulatory DONALD MOTLEY Facility:[facility] Start: 02-07-2023 End: 02-08-2023 ambulatory ANTOINE TIESHA Facility:[facility] Start: 02-07-2023 End: 02-07-2023 Patient encounter procedure Cat Older PROP SAWYER.ALISSON Work Phone: Internal Medicine [facility] Procedures Date Procedure Procedure Detail Performing Clinician Start: 10-31-2022 Hepatobiliary syst i maging including gallbladder Cat Older PROP SAWYER.ALISSON Work Phone: Plan of Treatment Date Care Activity Detail Author Start: 02-08-2024 HEPATITIS C SCREENING HEPATITIS C [place] DANNI [facility] Payers Date Payer Category Payer Medicaid [id number] 2021 Medicaid [id number] Social History Date Type Detail Facility Start: 10-21-2022 Tobacco smoking stat [facility] Never smoked tobacco [facility] Start: 10-21-2022 Tobacco use and exposure Smoke less tobacco non-user [facility] Start: 10-28-2022 End: 11-05-2022 Alcohol intake Ex-drinker (finding) [facility] Start: 10-28-2022 End: 02-07-2023 Alcohol intake [facility] Start: 1980 Sex Assigned At Not on file C [facility] Tobacco smoking stat [facility] Tobacco smoking consumption unknown [facility] Start: 11-07-2022 Alcohol Comment 2/week [facility] Start: 12-02-2022 End: 02-07-2023 Alcohol intake Current drinker of alcohol (finding) [facility] Start: 02-06-2023 History SDOH Alcohol Frequency 4 [facility] Start: 02-06-2023 History SDOH Alcohol Std Drinks 1 [facility] Start: 02-06-2023 History SDOH Social Connections Phone 5 [facility] Start: 02-06-2023 History SDOH Social Connections Get Together 3 [facility] Start: 02-06-2023 History SDOH Physica l Activity MPS 6 [facility] Start: 02-06-2023 History SDOH Stress 2 [facility] Start: 10-28-2022 Tobacco use panel [facility] Clinical Notes 10-14-2022 to 10-22-2023 Cat Older, PROP SAWYERMARY - 02/07/2023 1:32 PM Xander Meza PA-C - 12/02/2022 3:25 PM ESTTelephone Encounter - Judy You - 11/19/2022 8:16 AM ESTPatient InstructionsPatient Instructions Note Date & Type Note Facility 10-22-2023 Note Patient Outreach (IN TMMN) TOD DA SILVA ([id number]) 1980 F Date Time Provider Department 10/22/23 DONALD MOTLEY During your visit today, we recorded the following information about you: Allergies As of Date: 10/22/2023 (No Known Allergies) Date Reviewed: 02/21/2023 Reviewed by: Makenna Moralez RT(R) - Fully Assessed Visit Diagnosis:Encounter for screening mammogram for breast cancer [Z12.31] Order(s):[facility] SCREENING [[id number]] Order #: [id number] FUTURE Prescriptions as of 10/27/2023 - ascorbic acid, vitamin C, (VITAMIN C) 250 mg tablet Take 250 mg by mouth once daily. - cholecalciferol, vitamin D3, 10 mcg (400 unit) cap Take 400 Units by mouth once daily. Problem List As Of Date 10/22/2023 Noted Resolved Adrenal nodule (HCC) [E27.8] 10/28/2022 Obesity (BMI 30-39.9) [E66.9] 11/07/2022 Encounter Status:Closed by [employer] on 10/27/23 [facility] 02-24-2023 Note HNO ID: [id number] Author: RT Sharath(R) Service: ? Author Type: Fulling Mill Operator Type: Progress Notes Filed: 02/24/2023 2:42 PM [...] RT Salazar(R) February 24, 2023 2:41 PM [facility] 02-07-2023 Note HNO ID: [id number] Author: Cat Nuñez APRN.MANAGER COMMODITIES Service: ? Author Type: Nurse Practitioner Type: [...] test results, and coordinating care. Cat Nuñez APRN.MANAGER COMMODITIES [facility] 02-07-2023 History of Presen t illness [...] Cat Nuñez APRN.CNP documented in this encounter [facility] 12-02-2022 Note HNO ID: [id number] Author: Caroline Meza PA-C Service: ? Author Type: Physician Rocket Engine Tester Type: Progress Notes Filed: 12/02/2022 3:50 PM [...] Abs Lymph 1.00 - 4.00 k/uL 2.01 [place]% % 9.5 Abs [place] <0.87 k/uL 0.58 Eosin% % 2.3 Abs [...] HISTORY Procedure Laterality Date SECTION HX 2018 DANWA, DIAG AND/OR THERAPEUTIC 2017 Allergies: ALLERGIES No [...] is present. Musculosk (more content not included)... [facility] 12-02-2022 History of Presen t illness [...] Abs Lymph 1.00 - 4.00 k/uL 2.01 [place]% % 9.5 Abs [place] <0.87 k/uL 0.58 Eosin% % 2.3 Abs [...] which included preparing to see the patient, [id number] patient care, completing clinical documentation, obtaining and/or reviewing separately obtained history, performing a medically appropriate examination, counseling and educating the patient/family/caregiver, ordering medications, tests, or procedures, communicating with other HCPs (not separately reported), independently interpreting results (not separately reported), communicating results to the patient/family/caregiver, and care coordination (not separately reported). Caroline Meza PA-C December 02, 2022 3:47 PM documented in this encounter [facility] 11-19-2022 Miscellaneous Notes Called patient to confirm cancellation of procedure. Patient confirmed cancellation and denied to reschedule. Patient stated she is following up with gastro. Message sent to [place] to cancel surgery on 11/21/2022 with Darion. Judy You Spray Gun Sizer Patient calling in to cancel procedure with Dr Orlando at this time declined to reschedule. Patient accepted sooner date in [place] with Dr. Orlando - anesthesia reviewed and approved. Patient now scheduled 11/21/[address] Orlando in [place] for Lap Michelle. Patient stated if she gets worse she will go to the ER. Message sent to change to [place] Judy You Spray Gun Sizer Patient scheduled in [place] with soonest date of 11/25/2022 with Nuvia. Patient asking if she can get in sooner with Darion in [place] and possibly next week as she is in terrible pain and can't wait till the 16. Message sent to verify approval for [place]. Sated to patient I will be in contact if we can geta sooner date. Patient given my direct line of [phone]. Images from the original note were not included. Tali Orlando MD You 22 hours ago (9:39 AM) To be scheduled at [place] [facility] anesthesia Dx: k80.90 CPT 52196, possible 64088 Thank you You Tali Orlando MD [address] Orlando, Patient is ready to proceed with gallbladder surgery as she is in constant pain. What CPT, DX and anesthesia would you like to proceed with? Please advise Thank you Judy You Spray Gun Sizer Pt called in states having constant pain now and would like to proceed with the gallbladder surgery. documented in this encounter [facility] 11-07-2022 Instructions Ninfa Guzman PA-C - 11/07/2022 2:29 PM EST PATIENT PREOPERATIVE INSTRUCTIONS Cristofer Banks MD has scheduled you for your procedure at this surgery center: [facility]: [phone] -- [address] [address]. Please read below carefully for your personalized [...] not contain aspirin or NSAIDS as needed. [place] is OK to continue Important Reminders: - [...] Procedures: - YOU MUST HAVE A RESPONSIBLE ENGLISH FACULTY MEMBER TAKE YOU HOME. A PLATINUM AND PALLADIUM KETTLE TENDER OR PEN RIDER CANNOT BE MADE A RESPONSIBLE ENGLISH FACULTY MEMBER. - We recommend that a responsible person [...] Advance Directive, please fax a copy to [phone] or email to for it to be [...] Ninfa Guzman PA-C documented in this encounter [facility] 11-07-2022 History and physical note PREANESTHESIA CONSULT [...] describes constant abdominal pain, worse after eating. Good Thunder brings relief for 2 hours. She also [...] gallbladder Neuro: No history of TIA's, stroke, SONOGRAM TECHNICIAN tumor, impaired sensorium, hemiplegia, paraplegia or quadraplegia. No neurological symptoms or problems. Respiratory: No history of current cough or dyspnea, or pneumonia in the past 6 weeks. No history of respiratory/pulmonary symptoms or problems. Cardiovascular: No history of HTN requiring medication, no history of angina, CHF, IA, cardiac surgery or stents. Denies rest pain, gangrene or revascularization/amputation for PVD. No history of cardiovascular symptoms or problems. GI: see HPI : No history of dysuria, frequency or incontinence,, stones or chronic kidney disease DRAW FIRE OPERATOR: Negative for abnormal vaginal bleeding, abnormal [...] device. I spent more than 25 minutes gmiy-uj-abni with the patient and over half the time was devoted to counseling and/or coordination of care. SIGNATURE: Ninfa Guzman PA-C PATIENT NAME: Tod Cordova DATE: 11/07/2022 TIME: 2:25 PM PAGER/CONTACT #: documented in this encounter [facility] 11-05-2022 Miscellaneous Notes Per Cat Nuñez NP, [...] Cat Nuñez APRN.CNP documented in this encounter [facility] 11-05-2022 Miscellaneous Notes Error documented in this encounter [facility] 10-31-2022 Note HNO ID: [id number] Author: RT Anthony(R) Service: Nuclear Medicine Author [...] 13:20 PATIENT DISCHARGED TO: Ambulatory patient, left [place] department area. A Diagnostic radioactive procedure has taken place, with no further precautions necessary other than routine body substance precautions. More information regarding radiation safety can be found using this link: [email or web address] SIGNATURE: PIERRE Cruz PATIENT NAME: Tod Cordova DATE: October 31, 2022 TIME: 1:35 PM PAGER/CONTACT #: [facility] 10-31-2022 History of Presen t illness [...] PM PAGER/CONTACT #: documented in this encounter [facility] 10-30-2022 Note Patient Outreach (IN TMMN) TOD DA SILVA ([id number]) 1980 F Date Time Provider Department 10/30/22 DONALD MOTLEY During your visit today, we recorded the following information about you: Allergies As of Date: 10/30/2022 (No Known Allergies) Date Reviewed: 10/28/2022 Reviewed by: Cat Nuñez APRN.CNP - Fully Assessed Visit Diagnosis:Encounter for screening mammogram for breast cancer [Z12.31] Order(s):[facility] SCREENING [[id number]] Order #: [id number] FUTURE Prescriptions as of 11/04/2022 - ascorbic [...] nodule (HCC) [E27.8] 10/28/2022 Encounter Status:Closed by [employer], PRODUSER on 11/04/22 [facility] 10-28-2022 Note HNO ID: [id number] Author: Cat Nuñez APRN.MANAGER COMMODITIES Service: ? Author Type: Nurse Practitioner Type: [...] and was not happy with her answers. [place] that they just wanted to cut out [...] body habitus DATA REVIEWED: Outside chart from [facility] ER reviewed. ASSESSMENT/PLAN: 1. Abdominal pain, [...] agreeable to treatment plan. Cat Nuñez APRN.CNP [facility] 10-28-2022 Instructions Cat Nuñez APRN.CNP - 10/28/2022 10:18 AM EST Ursodiol documented in this encounter [facility] 10-28-2022 History of Presen t illness Narrative [...] and was not happy with her answers. [place] that they just wanted to cut out [...] body habitus DATA REVIEWED: Outside chart from [facility] ER reviewed. ASSESSMENT/PLAN: 1. Abdominal pain, [...] Cat Nuñez APRN.CNP documented in this encounter [facility] 10-14-2022 Miscellaneous Notes Images from the original note were not included. Tali Orlando MD [facility] Surg Scheduling Pool This is a new patient - Tod Cordova, seen in [place] ED 10/11/2022 with cholelithiasis/biliary colic. To be referred to this clinic for consideration of laparoscopic cholecystectomy. : 1980 [address], [place] [phone] Please call patient for an appointment to see one of us. 1st attempt to reach patient to schedule an in office visit with Dr. Orlando. Left voicemail to directly contact [phone]. Registration is NOT complete. Judy You Spray Gun Sizer documented in this encounter [facility] Diagnosis Encounter for screening mammogram for breast cancer Calculus of gallbladder without cholecystitis without obstruction Calculus of gallbladder without mention of cholecystitis or obstruction [facility] Diagnosis Pre-op evaluation- Primary Preoperative examination, unspecified Obesity (BMI 30-39.9) Obesity, unspecified Calculus of gallbladder without cholecystitis without obstruction Calculus of gallbladder without mention of cholecystitis or obstruction [facility] Diagnosis Biliary dyskinesia- Primary Other specified disorder of gallbladder [facility] Diagnosis Calculus of gallbladder without cholecystitis without obstruction- Primary Calculus of gallbladder without mention of cholecystitis or obstruction Adrenal nodule (HCC) Unspecified disorder of adrenal glands Obesity (BMI 30-39.9) Obesity, unspecified Screening, lipid Screening for lipoid disorders [facility] Diagnosis Calculus of gallbladder without cholecystitis without obstruction Calculus of gallbladder without mention of cholecystitis or obstruction Abdominal pain, unspecified abdominal location [facility] (n[facility]ative)* Diagnostic Procedure Only (Routine) - Pending Review Specialty Diagnoses / Procedures Referred By Sierra quijano Referred To Contact [facility] Diagnoses Encounter for screening mammogram for breast cancer Procedures JULES SCREENING SCREENING MAMMOGRAPHY BI 2-VIEW BREAST INC CAD Donald Motley MD [address] [place] [address] [facility] [address] [place] [address] Referral ID Status Reason Start Date Expiration Date Visits Requested Visits Authorized [id number] Pending Review Auto-Generat ed Referral 2 11/29/2023 1 1 [facility] Reason for Referral Specialty Diagnoses / Procedures Referred By Sierra quijano Referred To Contact Gastroenterology Diagnoses Abdominal pain, unspecified abdominal location Procedures CONSULT TO GASTROENTEROLOGY OFFICE/OUTPATIENT [facility] MDM 60-74 MINUTES Older, JULIA Shelton.MANAGER COMMODITIES [address] [place] [address] Referral ID Status Reason Start Date Expiration Date Visits Requested Visits Authorized [id number] Authorized PCP Requested Referral 2 10/28/2023 1 1 Specialty Diagnoses / Procedures Referred By Contac t Referred To Contact MOLECULAR & FUNCTIONAL IMAGING Diagnoses Calculus of gallbladder without cholecystitis without obstruction Abdominal pain, unspecified abdominal location Procedures NM HEPATOBILIARY W EF AND/OR RX HEPATOBIL SYST IMAG INC GB W/PHARMA INTERVENJ Older, Cat, PROP SAWYER.MANAGER COMMODITIES [address] [place] [address] Molecular [facility] Functional Imaging [address] [place] [address] Referral ID Status Reason Start Date Expiration Date Visits Requested Visits Authorized [id number] Authorized Auto-Generat ed Referral 2 11/27/2023 1 1 Specialty Diagnoses / Procedures Referred By Contac t Referred To Contact CT IMAGING Diagnoses Disorder of adrenal gland (HCC) Adrenal nodule (HCC) Procedures CT ADRENAL WO/W IVCON CT ABDOMEN W & W/O CONTRAST Joaquin, Cat, PROP SAWYER.MANAGER COMMODITIES [address] [place] [address] Ct Imaging Referral ID Status Reason Start Date Expiration Date Visits Requested Visits Authorized [id number] Authorized Auto-Generat ed Referral 02/07/2023 03/24/2023 1 [...] or prosecute any alcohol or drug abuse patient.[facility] the event this information is protected by the Federal Confidentiality of Alcohol and Drug Abuse Patient Records regulations: The Federal rules restrict any use of the information to criminally investigate or prosecute any alcohol or drug abuse patient.[facility] the event this information is protected by the Federal Confidentiality of Alcohol and Drug Abuse Patient Records regulations: The Federal rules restrict any use of the information to criminally investigate or prosecute any alcohol or drug abuse patient.[facility] the event this information is protected by the Federal Confidentiality of Alcohol and Drug Abuse Patient Records regulations: The Federal rules restrict any use of the information to criminally investigate or prosecute any alcohol or drug abuse patient.[facility] the event this information is protected by the Federal Confidentiality of Alcohol and Drug Abuse Patient Records regulations: The Federal rules restrict any use of the information to criminally investigate or prosecute any alcohol or drug abuse patient.[facility] the event this information is protected by the Federal Confidentiality of Alcohol and Drug Abuse Patient Records regulations: The Federal rules restrict any use of the information to criminally investigate or prosecute any alcohol or drug abuse patient.[facility] the event this information is protected by the Federal Confidentiality of Alcohol and Drug Abuse Patient Records regulations: The Federal rules restrict any use of the information to criminally investigate or prosecute any alcohol or drug abuse patient.[facility] Center[facility] the event this information is protected by the Federal Confidentiality of Alcohol and Drug Abuse Patient Records regulations: The Federal rules restrict any use of the information to criminally investigate or prosecute any alcohol or drug abuse patient.[facility] Center[facility] the event this information is protected by the Federal Confidentiality of Alcohol and Drug Abuse Patient Records regulations: The Federal rules restrict any use of the information to criminally investigate or prosecute any alcohol or drug abuse patient.[facility] Center[facility] the event this information is protected by the Federal Confidentiality of Alcohol and Drug Abuse Patient Records regulations: The Federal rules restrict any use of the information to criminally investigate or prosecute any alcohol or drug abuse patient.[facility] Reason for Visit (unrecogniz ed section and content) Reason Comments Results Reason Comments Appointment Reason Comments Anesthesia Consult Reason Comments Patient Update Appointment Reason Comments Abdominal Pain Specialty Diagnoses / Procedures Referred By Sierra quijano Referred To Contact Gastroenterology Diagnoses Abdominal pain, unspecified abdominal location Procedures CONSULT TO GASTROENTEROLOGY OFFICE/OUTPATIENT NEW HIGH MDM 60-74 MINUTES Cat Nuñez, PROP SAWYER.MANAGER COMMODITIES [address] [place] [address] Referral ID Status Reason Start Date Expiration Date V isits Requested Visits Authorized [id number] Closed PCP Requested Referral 10/28/2022 10/28/2023 1 1 Reason Comments F/U 3 Month Gallstones Reason Comments Radiology NM Specialty Diagnoses / Procedures Referred By Sierra quijano Referred To Contact MOLECULAR & FUNCTIONAL IMAGING Diagnoses Calculus of gallbladder without cholecystitis without obstruction Abdominal pain, unspecified abdominal location Procedures NM HEPATOBILIARY W EF AND/OR RX HEPATOBIL SYST IMAG INC GB W/PHARMA INTERVENJ Cat Nuñez, PROP SAWYER.MANAGER COMMODITIES [address] [place] [address] Molecular & Functional Imaging [address] [place] [address] Referral ID Status Reason Start Date Expiration Date V isits Requested Visits Authorized [id number] Closed Auto-Generate d Referral 10/28/2022 11/27/2023 1 1 Care Teams (unrecognized sec tion and content) Seed Cleaning Manager Relationship Specialty Start Date End Date Donald Motley MD [address] [place] [address] PCP - General Internal Medicine 10/28/22 Seed Cleaning Manager Relationship Specialty Start Date End Date Donald Motley MD [address], [place] [address] PCP - General Internal Medicine 10/28/22 11/07/22 Seed Cleaning Manager Relationship Specialty Start Date End Date Donald Motley MD [address] [place], [place] [id number] PCP - General Internal Medicine 10/28/22 11/07/22 Seed Cleaning Manager Relationship Specialty Start Date End Date Donald Motley MD [address], [place] [id number] PCP - General Internal Medicine 10/28/22 11/07/22 Seed Cleaning Manager Relationship Specialty Start Date End Date Donald Motley MD [address] [place] [address] PCP - General Internal Medicine 12/30/22 Seed Cleaning Manager Relationship Specialty Start Date End Date Donald Motley MD [address], [place] [id number] PCP - General Internal Medicine 10/28/22 11/07/22 [...] BE BASED ON THE PRIMARY CLINICAL RECORDS. [facility]. provides no warranty or guarantee of the accuracy or completeness of information in this document.
--- NOTE | 2023-11-27 07:27 | US_ITS ---
INDICATION: Right upper quadrant pain EXAMINATION: Ultrasound US Abdomen Limited (quadrant) TECHNIQUE: Penn scale and color doppler imaging was performed of the right upper quadrant. COMPARISON: Prior study dated: 11/23/2023 FINDINGS: LIVER: There is mild increased echogenicity. The liver measures about 16.5 cm in length. The portal vein is patent with normal hepatopedal flow. Hypoechoic lesion in the left lobe of the liver measuring 1.4 cm consistent with a hemangioma unchanged. There is no free fluid. GALLBLADDER AND BILIARY TREE: No gallstones are seen with thickening of the gallbladder wall measuring about 4.6 mm. There is mild pericholecystic fluid. The proximal common bile duct measures 2.5 mm, which is within normal limits for the patient''s age. Sonographic Ledezma''s sign: Negative. PANCREAS: The distal body and tail of the pancreas are obscured by bowel gas. RIGHT KIDNEY: The right kidney measures 10.6 cm in length. The renal cortex measures 1.3 cm. No evidence of hydronephrosis. US/Gallbladder IMPRESSION: Gallstones with thickening of the gallbladder wall and pericholecystic fluid. Acute cholecystitis cannot be excluded. Nuclear medicine biliary scan might be of value. Electronically Signed: Gustavo Dorman MD at 9:00 EST ,
[2023-11-27 07:29] LABS: AST(SGOT) 15 U/L (15-37); Alanine Aminotransfer ALT/SGPT 49 U/L (13-56); Albumin, Serum 3.7 g/dL (3.2-5.0); Alkaline Phosphatase 88 U/L (45-117); Anion Gap 8 (5-15); BUN 7 mg/dL (7-18); BUN/Creat Ratio 8.8 RATIO (10-20); Calcium,Total 10.9 mg/dL (8.5-10.1); Chloride 107 mmol/L (98-107); EST Glomerular Filtration Rate 84 mL/min (>60); Est Glom Filt Rate - Afr Amer 101 mL/min (>60); Estimated Creatinine Clearance 104.29 ml/min; Globulin 3.7 g/dL (2.2-4.2); Glucose 114 mg/dL (74-106); Potassium 3.4 mmol/L (3.5-5.1); Protein, Total 7.4 g/dL (6.4-8.2); Sodium Level 135 mmol/L (136-145)
[2023-11-27] MEDS: 0.9% Normal Saline (1000mL) 1,000 ML 999 ML IV ×2 (07:35→10:51)
[2023-11-27] MEDS: HYDROmorphone 1 MG/ML Syringe IV ×3 (07:36→21:31)
[2023-11-27] MEDS: Ondansetron 4 MG/2 ML Vial IV ×2 (07:36→21:31)
[2023-11-27 07:44] LABS: Lipase 29 U/L (13-75)
--- NOTE | 2023-11-27 07:53 | EDS_ITS ---
HPI HPI - GI History of Present Illness Chief Complaint: Abd Pain Informant: patient Narrative Narrative: Patient is , currently 7 weeks , presenting back to the emergency room with worsening upper abdominal pain. Patient states for the past 6 days or so she has had significantly worsening upper abdominal pain that is mostly in the epigastric/left upper quadrant. Was actually supposed to have a recent EGD but found out she was . Had previously been off of her PPI but had restarted omeprazole. Her gynecology office had switched her to Pepcid which had made the symptoms worse. She was admitted for intractable abdominal pain on 11/23 she does have a history of cholelithiasis and potential stomach ulcers. She was evaluated by general surgery, Dr. Whittington, and admitted for intractable abdominal pain to OB service with surgical consult. Given that her symptoms had improved the goal is to wait until further the or after delivery to perform EGD/H. pylori testing/treatment. She was switched to omeprazole 20 mg daily and resumed Carafate. Patient states that while she was in the hospital she did have pain control but never really ate anything. States upon leaving the hospital she then took a couple sips of decaf coffee and her pain worsened again. She came back to our ER 2 days ago for worsening of this pain. Chart review shows that patient was treated with 2 doses of 0.5 mg IV Dilaudid and her omeprazole switched to pantoprazole 40 mg. She was discharged home. Patient states she did have improvement of her pain but was still present when she was discharged. When she went home she did have to take an additional 2 leftover hydrocodone and use heat and to finally get some sleep. She notes the next day when she woke up (yesterday) she is feeling better and able to eat a plain pancake. At lunchtime she ate an apple which caused the pain to return again. She states that the pain has been constant since. Normally the pain will go away after about 7 hours is not this time. She states it is in her upper abdomen radiating to her left lower quadrant into her back. She has some mild radiation to her right lower quadrant. She describes as constant in nature. Denies any stabbing or sharp pain. Has had nausea. Is also worried about potential dehydration and the effects of this on the . She denies any vaginal bleeding or urinary symptoms. She has not had any vomiting, hematemesis. Denies any change in her bowel movements or black or blood in her stool. Could not get her pain under control so came back to emergency room. [facility] Medical History Alcohol use Gastric reflux History of blood transfusion History of placenta abruption History of pre-eclampsia Hypertension Non-smoker hemorrhage Wears glasses Home Medications sucralfate 1 gram tablet (Carafate) 1 g PO TID PRN ABDOMINAL DISCOMFORT 11/22/23 [History Last Taken 11/26/23] hydrocodone-acetaminophen 5-325mg 5mg-325mg 1 tab PO Q6H PRN PAIN 11/25/23 [History Last Taken 11/26/23] multivit-min no.71-iron fum 28 mg-folate no.1 1 mg-dha 300 mg capsule (PNV- [place]) 1 cap PO DAILY SUPPLEMENT 11/25/23 [History Last Taken 11/21/23] pantoprazole 40 mg tablet,delayed release 40 mg PO DAILY ACID REFLUX #60 tabs 11/25/23 [Rx Last Taken 11/26/23] Allergy/AdvReac Type Severity Reaction Status Date / Time No Known Allergies Allergy Verified 11/25/23 19:16 Family History Mother CAD (coronary artery disease) Thyroid disorder Father CAD (coronary artery disease) Thyroid disorder Sister Thyroid disorder Other Diabetes Surgical History Hx of wisdom tooth extraction S/P S/P dilation and curettage Social History adopted: No household members: spouse and children number of children: 7 current occupational status: unemployed current occupation: [employer] current occupational exposures/hazards: No pets and animals: Yes pets and animals: dog(s), hamster(s) and farm animals history of recent travel: No sexually active: Yes Smoking Status: Never smoker alcohol intake: current details: not while substance use type: does not use well-balanced diet: about half the time caffeine: Yes Type: coffee Number of servings: 2 eating out: 1-3 times/week during the past year weight has: decreased > 10 lbs what type of physical activity do you participate in: none gallo/anabaptism: Roman Catholic seatbelt use: always do you feel safe at home: Yes additional social history: - David RICHARD ROS ED Constitutional Constitutional ED: Denies chills or fever(s) Cardiovascular Cardiovascular: Denies chest pain Respiratory/Chest Respiratory/Chest: Denies cough Gastrointestinal Gastrointestinal: Reports abdominal pain and nausea; Denies constipation, diarrhea, melena or vomiting Genitourinary Genitourinary ED: Reports other Details: No vaginal bleeding ; Denies dysuria Musculoskeletal Musculoskeletal: Reports back pain; Denies arthralgias or myalgias Integumentary Denies rash Neurologic Neurologic: Denies headache(s) Psychiatric Psychiatric: Denies anxiety EXAM Physical Exam Const Vital Signs: 11/27/23 06:36 11/27/23 06:39 11/27/23 09:39 Temperature 97.6 F L 97.6 F L Temperature Source Temporal Temporal Pulse Rate 86 87 Respiratory Rate 18 18 Blood Pressure 170/76 H 170/76 H 143/81 H Blood Pressure Mean 107 107 101 Pulse Ox 98 97 Oxygen Delivery Method Room Air Room Air Positive well nourished, well developed and obese Constitutional Narrative: Uncomfortable appearing?no first going to the room she is on the bed on all fours crouched over in pain General Appearance ED: well developed; Negative for pallor Nutritional Appearance: obese HEENT Reports moist mucous membranes normocephalic and atraumatic Eyes PERRL Neck supple Resp normal respiratory effort and clear to auscultation bilaterally Cardio regular rate and regular rhythm GI non-distended Auscultation: normoactive bowel sounds Palpation: soft and tender epigastric, LUQ and RUQ; Negative for guarding or rigid Back/Spine no CVA tenderness Extremity full ROM Neuro Sensorium / Orientation: alert, oriented to person, oriented to place and oriented to time Psych mental status grossly normal Mood & Affect: anxious and tearful Skin no wounds General Skin Exam: Negative for jaundice or pallor MDM MDM MDM Narrative Medical decision making narrative: Patient is evaluated for recurrent upper abdominal pain. The current thought is this is from a particularly bad flareup of gastritis versus peptic ulcer disease. She does have known gallstones but is had a previous HIDA scan per patient which was not consistent with cholecystitis. Upon arrival patient is hypertensive but is quite uncomfortable. Blood pressure does improve. Differential includes continued peptic ulcer disease/gastritis pain, cholecystitis. Given no report of any vomiting blood, change in her stools lower suspicion for bleeding ulcer. She does not have any peritoneal signs lower suspicion for perforated ulcer. Acute dehydration secondary to decreased oral intake is also on the differential. She is not having any symptoms or vaginal bleeding so I do not think she requires a repeat ultrasound she is already had confirmed IUP is not having symptoms consistent with a threatened miscarriage at this time. Will recheck labs and get a repeat ultrasound of the right upper quadrant. Patient given 1 mg IV Dilaudid as well as 4 mg IV Zofran. Is given IV fluids. Will contact surgery for further recommendations once results are back. US is concerning for acute cholecystitis. Pain is improved after 1 mg IV Dilaudid. Lab work is consistent with some mild dehydration but otherwise largely normal. Patient will be admitted to surgical service, Dr. Bronson, for possible EGD versus cholecystectomy. Is given Zosyn in the ER. Patient is also evaluated by Dr. Ronan Levy and case is discussed with her. She is comfortable with the patient being cleared for what ever surgical procedure she might need whether is an EGD or cholecystectomy. Pelvic ultrasound is ordered per the recommendation of Dr. Ronan Levy which shows current single intrauterine gestation consistent with 6 weeks 2 days with heart rate of 117 and there is a persistent subchorionic hemorrhage which is slightly larger than previous exam. Patient is informed of these ultrasound findings we will consult this time she still has an intrauterine that is alive but we cannot predict if she will have a miscarriage or not. She verbalizes understanding of this. Patient does require we doses of Dilaudid for pain control prior to going to the OR. Lab Data Attestation: I reviewed the patient's lab results. Labs: Laboratory Results - last 24 hr 11/27/23 11/27/23 07:00 09:38 WBC 9.3 RBC 4.57 Hgb 13.6 Hct 39.6 MCV 86.7 MCH 29.8 MCHC 34.3 RDW Std Deviation 37.9 RDW Coeff of Zain 12.0 Plt Count 249 MPV 9.3 Immature Gran % (Auto) 0.200 Neut % (Auto) 72.4 H Lymph % (Auto) 19.1 [place] % (Auto) 6.8 Eos % (Auto) 1.1 Baso % (Auto) 0.4 Absolute Neuts (auto) 6.7 Absolute Lymphs (auto) 1.77 Nucleated RBC % 0 Sodium 135 L Potassium 3.4 L Chloride 107 Carbon Dioxide 20.0 L Anion Gap 8 BUN 7 Creatinine 0.80 Estim Creat Clear Calc 104.29 Est GFR (MDRD) Af Amer 101 Est GFR (MDRD) Non-Af 84 BUN/Creatinine Ratio 8.8 L Glucose 114 H Calcium 10.9 H Total Bilirubin 0.80 AST 15 ALT 49 Alkaline Phosphatase 88 Total Protein 7.4 Albumin 3.7 Globulin 3.7 Albumin/Globulin Ratio 1.0 Lipase 29 Serum , Qual POSITIVE H Urine Color Yellow Urine Clarity Clear Urine pH 6.0 Ur Specific [place] 1.015 Urine Protein Negative Urine Glucose (UA) Normal Urine Ketones 150 A* Urine Occult Blood Negative Urine Nitrite Negative Urine Bilirubin Negative Urine Urobilinogen Normal Ur Leukocyte Esterase Negative Urine RBC 0 SEEN Urine WBC 0 SEEN Ur Squamous Epith Cells 0-5 SEEN Urine Bacteria 1+ Urine Mucus 0 SEEN Radiography Diagnostic Testing: Clinical Impression(s) from Imaging Studies Gallbladder Ultrasound 11/27/23 07:27 IMPRESSION: Gallstones with thickening of the gallbladder wall and pericholecystic fluid. Acute cholecystitis cannot be excluded. Nuclear medicine biliary scan might be of value. Electronically Signed: Gustavo Dorman MD at 9:00 EST , Obstetrics Ultrasound 11/27/23 10:43 IMPRESSION: 1. Single live intrauterine . Estimated gestational age is 6 weeks and 2 days. The DEJON is 07/20/2024. 2. Persistent subchorionic hemorrhage slightly larger than the previous exam. Further follow-up exam is recommended. 3. Mild fluid within the endocervical canal. Electronically Signed: Gustavo Dorman MD at 12:08 EST , Management Discussion w/another healthcare provider: Sales Warehouse Driver (surgery, OBGYN) Discharge Plan Dx/Rx/DC Orders Clinical Impression: First trimester , Intractable epigastric abdominal pain, Acute cholecystitis, Dehydration Disposition Disposition: [facility] Discharge Date/Time: 11/27/23 12:57 Capacity Legal Sprinkler Tender Reflex Medical hold order details:: IF a medical hold is selected below, a suggested order for a MEDICAL HOLD will reflex upon signing the document. Next of kin: [place] law dictates a PRIORITY LIST for identifying legal decision-maker/legal next of kin in the following order (LNOK): 1st: The patient?s legal guardian, if any 2nd: The patient's spouse (if status is questionable, consult Risk Management) 3rd: The patient?s adult child(lola) (majority, if multiple children) 4th: The patient?s parents 5th: The patient?s adult siblings (majority, if multiple children siblings)
[2023-11-27 09:42] LABS: Mucous, Urine 0 SEEN /hpf (<or=2+); Red Blood Cells-Urine 0 SEEN /hpf (0-5); White Blood Cells 0 SEEN /hpf (0-5)
[2023-11-27 09:48] LABS: Color, Urine Yellow (Yellow); Glucose, Dipstick Normal (Normal); Leukocyte Esterase-Dipstick Negative /ul (Negative); Nitrite-Dipstick Negative (Negative); Occult Blood-Urine Negative /ul (Negative); Protein-Dipstick Negative (Negative); Specific Gravity, Urine 1.015 (1.002-1.030); Urine Bilirubin Dipstick Negative (Negative); Urine Clarity Clear (Clear); Urine Urobilinogen Normal (Normal)
[2023-11-27 09:52] LABS: Ketone-Dipstick 150 mg/dl (Negative)
[2023-11-27 10:19] LABS: Squamous Epithelial Cells - UA 0-5 SEEN /hpf (5-10)
[2023-11-27 10:20] LABS: Bacteria 1+ /hpf (None Seen)
--- NOTE | 2023-11-27 10:37 | PCM.HP.STD ---
HPI - General HPI Narrative TOD MUHAMMAD, is a 43 F who presents with abdominal pain. The patient reports the abdominal pain is in her left upper quadrant and left lower quadrant. Patient occasionally has pain in the right upper quadrant. The patient is having nausea and vomiting. She denies fevers or chills. She is was just recently admitted with intractable pain and went home and ate an apple and the pain started again Friday and has been going on since Friday. [facility] Medical History Alcohol use Gastric reflux History of blood transfusion History of placenta abruption History of pre-eclampsia Hypertension Non-smoker hemorrhage Wears glasses Home Medications sucralfate 1 gram tablet (Carafate) 1 g PO TID PRN ABDOMINAL DISCOMFORT 11/22/23 [History Last Taken 11/26/23] hydrocodone-acetaminophen 5-325mg 5mg-325mg 1 tab PO Q6H PRN PAIN 11/25/23 [History Last Taken 11/26/23] multivit-min no.71-iron fum 28 mg-folate no.1 1 mg-dha 300 mg capsule (PNV-[place]) 1 cap PO DAILY SUPPLEMENT 11/25/23 [History Last Taken 11/21/23] pantoprazole 40 mg tablet,delayed release 40 mg PO DAILY ACID REFLUX #60 tabs 11/25/23 [Rx Last Taken 11/26/23] Allergy/AdvReac Type Severity Reaction Status Date / Time No Known Allergies Allergy Verified 11/25/23 19:16 Family History Mother CAD (coronary artery disease) Thyroid disorder Father CAD (coronary artery disease) Thyroid disorder Sister Thyroid disorder Other Diabetes Surgical History Hx of wisdom tooth extraction S/P S/P dilation and curettage Social History adopted: No household members: spouse and children number of children: 7 current occupational status: unemployed current occupation: [employer] current occupational exposures/hazards: No pets and animals: Yes pets and animals: dog(s), hamster(s) and farm animals history of recent travel: No sexually active: Yes Smoking Status: Never smoker alcohol intake: current details: not while substance use type: does not use well-balanced diet: about half the time caffeine: Yes Type: coffee Number of servings: 2 eating out: 1-3 times/week during the past year weight has: decreased > 10 lbs what type of physical activity do you participate in: none gallo/pentecostal: Sabianist seatbelt use: always do you feel safe at home: Yes additional social history: - David ROS Constitutional Constitutional: Reports anorexia; Denies chills or fatigue ENT HEENT: Denies abnormal hearing Cardiovascular Cardiovascular: Denies chest pain Respiratory/Chest Respiratory/Chest: Denies cough or dyspnea Gastrointestinal Gastrointestinal: Reports abdominal pain, nausea and vomiting; Denies constipation, diarrhea or dysphagia Genitourinary Genitourinary: Denies change in urinary stream Musculoskeletal Musculoskeletal: Denies abnormal gait Integumentary Integumentary: Denies jaundice Psychiatric Psychiatric: Denies anxiety Endocrine Endocrinology: Denies flushing Vital Signs Vital Signs Vital Signs: 11/27/23 06:36 11/27/23 06:39 11/27/23 09:39 Temperature 97.6 F L 97.6 F L Temperature Source Temporal Temporal Pulse Rate 86 87 Respiratory Rate 18 18 Blood Pressure 170/76 H 170/76 H 143/81 H Blood Pressure Mean 107 107 101 Pulse Ox 98 97 Oxygen Delivery Method Room Air Room Air Weight Weight: 220 lb 10.923 oz Body Mass Index (BMI) 37.8 Physical Exam Const oriented x3 and no apparent distress Resp normal respiratory effort GI soft to palpation and non-tender Extremity normal to inspection Results Lab / Micro Data 11/27/23 07:00 11/27/23 07:00 Labs: Laboratory Results - last 24 hr 11/27/23 07:00: WBC 9.3, RBC 4.57, Hgb 13.6, Hct 39.6, MCV 86.7, MCH 29.8, MCHC 34.3, RDW Std Deviation 37.9, RDW Coeff of Zain 12.0, Plt Count 249, MPV 9.3, Immature Gran % (Auto) 0.200, Neut % (Auto) 72.4 H, Lymph % (Auto) 19.1, [place] % (Auto) 6.8, Eos % (Auto) 1.1, Baso % (Auto) 0.4, Absolute Neuts (auto) 6.7, Absolute Lymphs (auto) 1.77, Nucleated RBC % 0, Sodium 135 L, Potassium 3.4 L, Chloride 107, Carbon Dioxide 20.0 L, Anion Gap 8, BUN 7, Creatinine 0.80, Estim Creat Clear Calc 104.29, Est GFR (MDRD) Af Amer 101, Est GFR (MDRD) Non-Af 84, BUN/Creatinine Ratio 8.8 L, Glucose 114 H, Calcium 10.9 H, Total Bilirubin 0.80, AST 15, ALT 49, Alkaline Phosphatase 88, Total Protein 7.4, Albumin 3.7, Globulin 3.7, Albumin/Globulin Ratio 1.0, Lipase 29, Serum , Qual POSITIVE H 11/27/23 09:38: Urine Color Yellow, Urine Clarity Clear, Urine pH 6.0, Ur Specific [place] 1.015, Urine Protein Negative, Urine Glucose (UA) Normal, Urine Ketones 150 A*, Urine Occult Blood Negative, Urine Nitrite Negative, Urine Bilirubin Negative, Urine Urobilinogen Normal, Ur Leukocyte Esterase Negative, Urine RBC 0 SEEN, Urine WBC 0 SEEN, Ur Squamous Epith Cells 0-5 SEEN, Urine Bacteria 1+, Urine Mucus 0 SEEN Imagaing Radiology Impression Gallbladder Ultrasound 11/27/23 07:27 IMPRESSION: Gallstones with thickening of the gallbladder wall and pericholecystic fluid. Acute cholecystitis cannot be excluded. Nuclear medicine biliary scan might be of value. Electronically Signed: Gustavo Dorman MD at 9:00 EST , Assessment & Plan Assessment/Plan (1) Abdominal pain: QUALIFIERS: Abdominal location: left lower quadrant Qualified Code(s): R10.32 - Left lower quadrant pain PLAN: The patient was recently admitted with abdominal pain. She has been seeing Dr. Whittington for this pain as well. She said she was started on Carafate and PPI several weeks ago and this took care of her pain. She was doing well for a month but then stopped the PPI when she became and that is when all her symptoms return. Patient also has underlying cholelithiasis with confuses the picture. The patient is 7 weeks . The patient has had 3 miscarriages in the past. I discussed the differential diagnosis between gallbladder and stomach. The patient is concerned this is an ulcer and does not want to proceed with gallbladder surgery. The patient had CT and ultrasound which showed thickened gallbladder with pericholecystic fluid and cholelithiasis. White count is normal. I myself am unsure as to the diagnosis as of now, patient had a CT scan during her last visit which was normal. Patient's white count is normal and all of her pain is on the left side. She does not elicit any tenderness when palpated in the right upper quadrant and palpating the left upper and left lower quadrant does not make the pain worse. I discussed with OB and they feel that endoscopy is safe. I will get a vaginal ultrasound before procedure to ensure that there is still a heart tone. I will also repeat afterwards. The patient is high risk due to her age and multiple miscarriages in the past and the fact that the patient has subchorionic hemorrhage. I discussed this with the patient and her in detail. I would like to admit the patient and perform an EGD today. If EGD shows ulceration I will try her back on a PPI and perform biopsies for H. pylori. If there is no ulceration in the stomach I would recommend laparoscopic cholecystectomy. I explained endoscopy in detail to the patient. I explained the risks including but not limited to stroke or heart attack with anesthesia, perforation of the GI tract, bleeding, infection. I explained that any of these could necessitate further emergency surgery. The patient understands and all questions were answered sufficiently. The patient wishes to proceed with procedure. Cam Hernandez MD Pager: [facility] [address] [place] [address], [address] [place] [address] Office:
--- NOTE | 2023-11-27 10:43 | US_ITS ---
INDICATION: abd pain, + 7 weeks IUP EXAMINATION: Ultrasound US OB Transvaginal TECHNIQUE: Transvaginal (for optimal evaluation of the adnexa) pelvic ultrasound was performed. Grayscale, spectral waveform, and color flow Doppler evaluation of the adnexa. COMPARISON: Prior study dated: 11/23/2023 LMP: [10/10/2024 Beta-hCG: Unknown FINDINGS: UTERUS: The uterus measures 10.7 x 6.5 x 5.4 cm. Mild fluid within the endocervical canal. RIGHT OVARY: Not visualized. LEFT OVARY: Not visualized. FREE FLUID: None. INTRAUTERINE GESTATIONAL SAC(s) (size/shape): Single. The gestational sac measures about 1.5 cm in mean sac diameter which corresponds approximately 6 weeks and 2 days.. YOLK SAC: Identified measuring 3 mm. POLE: Identified CRL 4 mm. ESTIMATED GESTATION AGE: 6 weeks and 2 days. HEART MOTION: 117 bpm. PLACENTA: Not visualized due to age. SUBCHORIONIC HEMORRHAGE: [Hemorrhage is seen measuring about 2.5 x 2.2 x 1 cm slightly larger than the previous exam. Previously measured 1.6 x 1.4 x 0.7 cm. AMNIOTIC FLUID: Qualitatively normal. US/Transvaginal w/Preg US IMPRESSION: 1. Single live intrauterine . Estimated gestational age is 6 weeks and 2 days. The DEJON is 07/20/2024. 2. Persistent subchorionic hemorrhage slightly larger than the previous exam. Further follow-up exam is recommended. 3. Mild fluid within the endocervical canal. Electronically Signed: Gustavo Dorman MD at 12:08 EST ,
[2023-11-27] MEDS: HYDROmorphone 0.5 MG/0.5 ML SYRINGE IV ×2 (10:51→12:52)
[2023-11-27] MEDS: Piperacil/Tazobactam 3.375 GM in 0.9% Normal Saline (50mL MB+) 50 ML IV ×3 (11:39→22:56)
--- OUTSIDE RECORDS SUMMARY | 2023-11-27 12:14 | XMS RPT_ITS | CCD ---
Author Name Unknown Address [address] [place] [address] Organization [facility] Care Team Providers Care Piece Work Checker Name Role Phone Tiesha QURESHI, Donald Syed Primary Care Provider [phone] Unavailable Primary Care Provider Unavailrandi Motley MD, Donald Syed Primary Care Provider [phone] Donald Motley MD Primary Care Provider [phone] CRISTOFER BANKS Referring Unavailable DONALD MOTLEY Primary [...] 13:17-0400 Body weight 103.87 kg Cat Older COMMANDER INTERNAL AFFAIRS.HEDDLE MACHINE OPERATOR Work Phone: [facility] 02-07-2023 13:17-0400 Diastolic blood pressure 85 mm[Hg] Cat Older COMMANDER INTERNAL AFFAIRS.HEDDLE MACHINE OPERATOR Work Phone: [facility] 02-07-2023 13:17-0400 Heart rate 78 /min Cat Older COMMANDER INTERNAL AFFAIRS.HEDDLE MACHINE OPERATOR Work Phone: [facility] 02-07-2023 13:17-0400 Respiratory rate 16 /min Cat Older COMMANDER INTERNAL AFFAIRS.HEDDLE MACHINE OPERATOR Work Phone: [facility] 02-07-2023 13:17-0400 Systolic blood pressure 126 mm[Hg] Cat Older COMMANDER INTERNAL AFFAIRS.HEDDLE MACHINE OPERATOR Work Phone: [facility] 12-02-2022 15:25-0500 Body height 162.6 cm Caroline Meza PA-C Work Phone: [facility] 12-02-2022 15:25-0500 Body weight 104.24 kg Caroline Kalka PA-C Work Phone: [facility] 12-02-2022 15:25-0500 Diastolic blood pressure 84 mm[Hg] Caroline Kalka PA-C Work Phone: [facility] 12-02-2022 15:25-0500 Heart rate 68 /min Caroline Kalka PA-C Work Phone: [facility] 12-02-2022 15:25-0500 Systolic blood pressure 126 mm[Hg] Caroline Kalka PA-C Work Phone: [facility] 11-07-2022 14:15-0500 Body height 162.6 cm Pac 3 Work Phone: [facility] 11-07-2022 14:15-0500 Body weight 99.79 kg Pac 3 Work Phone: [facility] 10-28-2022 09:46-0500 Body weight 103.42 kg Cat Older COMMANDER INTERNAL AFFAIRS.HEDDLE MACHINE OPERATOR Work Phone: [facility] 10-28-2022 09:46-0500 Diastolic blood pressure 83 mm[Hg] Cat Older COMMANDER INTERNAL AFFAIRS.HEDDLE MACHINE OPERATOR Work Phone: [facility] 10-28-2022 09:46-0500 Heart rate 76 /min Cat Older COMMANDER INTERNAL AFFAIRS.HEDDLE MACHINE OPERATOR Work Phone: [facility] 10-28-2022 09:46-0500 Respiratory rate 14 /min Cat Older COMMANDER INTERNAL AFFAIRS.HEDDLE MACHINE OPERATOR Work Phone: [facility] 10-28-2022 09:46-0500 Systolic blood pressure 125 mm[Hg] Cat Older COMMANDER INTERNAL AFFAIRS.HEDDLE MACHINE OPERATOR Work Phone: [facility] Encounters Encounter Date Encounter Type Care Provider Facility Start: 02-24-2023 End: 02-24-2023 ambulatory DONALD MOTLEY Facility:[facility] Start: 02-07-2023 End: 02-08-2023 ambulatory ANTOINE TIESHA Facility:[facility] Start: 02-07-2023 End: 02-07-2023 Patient encounter procedure Cat Older COMMANDER INTERNAL AFFAIRS.[place]ISSON Work Phone: Internal Medicine [facility] Procedures Date Procedure Procedure Detail Performing Clinician Start: 10-31-2022 Hepatobiliary syst i maging including gallbladder Cat Older [employer]ER [employer]NAL AFFAIRS.[place] Work Phone: Plan of Treatment Date Care Activity Detail Author Start: 02-08-2024 HEPATITIS C SCREENING HEPATITIS C TN DANNI [facility] Payers Date Payer Category Payer Medicaid [id number] 2021 Medicaid [id number] Social History Date Type Detail Facility Start: 10-21-2022 Tobacco smoking stat [facility] Never smoked tobacco [facility] Start: 10-21-2022 Tobacco use and exposure Smoke less tobacco non-user [facility] Start: 10-28-2022 End: 11-05-2022 Alcohol intake Ex-drinker (finding) [facility] Start: 10-28-2022 End: 02-07-2023 Alcohol intake [facility] Start: 1980 Sex Assigned At Not on file C [facility] Tobacco smoking stat [facility] Tobacco smoking consumption unknown [facility] Start: 11-07-2022 Alcohol Comment 2/week [facility] Start: 12-02-2022 End: 02-07-2023 Alcohol intake Current drinker of alcohol (finding) [facility] Start: 02-06-2023 History SDOH Alcohol Frequency 4 [facility] Start: 02-06-2023 History SDOH Alcohol Std Drinks 1 [facility] Start: 02-06-2023 History SDOH Social Connections Phone 5 [facility] Start: 02-06-2023 History SDOH Social Connections Get Together 3 [facility] Start: 02-06-2023 History SDOH Physica l Activity MPS 6 [facility] Start: 02-06-2023 History SDOH Stress 2 [facility] Start: 10-28-2022 Tobacco use panel [facility] Clinical Notes 10-14-2022 to 10-22-2023 Cat Older, COMMANDER INTERNAL AFFAIRSMARY - 02/07/2023 1:32 PM Xander Meza PA-C - 12/02/2022 3:25 PM ESTTelephone Encounter - Judy You - 11/19/2022 8:16 AM ESTPatient InstructionsPatient Instructions Note Date & Type Note Facility 10-22-2023 Note Patient Outreach (IN TMMN) TOD DA SILVA ([id number]) 1980 F Date Time Provider Department 10/22/23 DONALD MOTLEY During your visit today, we recorded the following information about you: Allergies As of Date: 10/22/2023 (No Known Allergies) Date Reviewed: 02/21/2023 Reviewed by: Makenna Moralez RT(R) - Fully Assessed Visit Diagnosis:Encounter for screening mammogram for breast cancer [Z12.31] Order(s):[facility] SCREEN[facility] [[id number]] Order #: [id number] FUTURE Prescriptions as of 10/27/2023 - ascorbic acid, vitamin C, (VITAMIN C) 250 mg tablet Take 250 mg by mouth once daily. - cholecalciferol, vitamin D3, 10 mcg (400 unit) cap Take 400 Units by mouth once daily. Problem List As Of Date 10/22/2023 Noted Resolved Adrenal nodule (HCC) [E27.8] 10/28/2022 Obesity (BMI 30-39.9) [E66.9] 11/07/2022 Encounter Status:Closed by [employer]ment[employer] on 10/27/23 [facility] 02-24-2023 Note HNO ID: [id number] Author: RT Sharath(R) Service: ? Author Type: Fire Boss Type: Progress Notes Filed: 02/24/2023 2:42 PM [...] February 24, 2023 2:41 PM [facility] 02-07-2023 Note HNO ID: [id number] Author: Cat Nuñez APRN.HEDDLE MACHINE OPERATOR Service: ? Author Type: Nurse Practitioner Type: [...] test results, and coordinating care. Cat Nuñez APRN.HEDDLE MACHINE OPERATOR [facility] 02-07-2023 History of Presen t illness [...] Cat Nuñez APRN.CNP documented in this encounter [facility] 12-02-2022 Note HNO ID: [id number] Author: Caroline Meza PA-C Service: ? Author Type: Physician Production Roustabout Type: Progress Notes Filed: 12/02/2022 3:50 PM [...] Abs Lymph 1.00 - 4.00 k/uL 2.01 [place]% % 9.5 Abs [place] <0.87 k/uL 0.58 Eosin% % 2.3 Abs [...] HISTORY Procedure Laterality Date SECTION HX 2018 DANVA, DIAG AND/OR THERAPEUTIC 2017 Allergies: ALLERGIES No [...] Musculosk (more content not included)... [facility] 12-02-2022 History of Presen t illness [...] Abs Lymph 1.00 - 4.00 k/uL 2.01 [place]% % 9.5 Abs [place] <0.87 k/uL 0.58 Eosin% % 2.3 Abs [...] which included preparing to see the patient, [id number] patient care, completing clinical documentation, obtaining and/or reviewing separately obtained history, performing a medically appropriate examination, counseling and educating the patient/family/caregiver, ordering medications, tests, or procedures, communicating with other HCPs (not separately reported), independently interpreting results (not separately reported), communicating results to the patient/family/caregiver, and care coordination (not separately reported). Caroline Meza PA-C December 02, 2022 3:47 PM documented in this encounter [facility] 11-19-2022 Miscellaneous Notes Called patient to confirm cancellation of procedure. Patient confirmed cancellation and denied to reschedule. Patient stated she is following up with gastro. Message sent to [place] to cancel surgery on 11/21/2022 with Darion. Judy You Fare Register Repairer Patient calling in to cancel procedure with Dr Orlando at this time declined to reschedule. Patient accepted sooner date in [place] with Dr. Orlando - anesthesia reviewed and approved. Patient now scheduled 11/21/[address] Orlando in [place] for Lap Michelle. Patient stated if she gets worse she will go to the ER. Message sent to change to [place] Judy You Fare Register Repairer Patient scheduled in [place] with soonest date of 11/25/2022 with Nuvia. Patient asking if she can get in sooner with Darion in [place] and possibly next week as she is in terrible pain and can't wait till the 16. Message sent to verify approval for [place]. Sated to patient I will be in contact if we can geta sooner date. Patient given my direct line of [phone]. Images from the original note were not included. Tali Orlando MD You 22 hours ago (9:39 AM) To be scheduled at [place] [facility] anesthesia Dx: k80.90 CPT 96175, possible 30257 Thank you You Tali Orlando MD [address] Orlando, Patient is ready to proceed with gallbladder surgery as she is in constant pain. What CPT, DX and anesthesia would you like to proceed with? Please advise Thank you Judy You Fare Register Repairer Pt called in states having constant pain now and would like to proceed with the gallbladder surgery. documented in this encounter [facility] 11-07-2022 Instructions Ninfa Guzman PA-C - 11/07/2022 2:29 PM EST PATIENT PREOPERATIVE INSTRUCTIONS Cristofer Banks MD has scheduled you for your procedure at this surgery center: [facility]: [phone] -- [address] [address]. Please read below carefully for your personalized [...] not contain aspirin or NSAIDS as needed. Mathias is OK to continue Important Reminders: - [...] Procedures: - YOU MUST HAVE A RESPONSIBLE NURSES' ASSOCIATION COUNSELOR TAKE YOU HOME. A DUMPING MACHINE OPERATOR OR BAILING MACHINE OPERATOR CANNOT BE MADE A RESPONSIBLE NURSES' ASSOCIATION COUNSELOR. - We recommend that a responsible person [...] Advance Directive, please fax a copy to [phone] or email to for it to be [...] Ninfa Guzman PA-C documented in this encounter [facility] 11-07-2022 History and physical note [...] describes constant abdominal pain, worse after eating. Mathias brings relief for 2 hours. She also [...] gallbladder Neuro: No history of TIA's, stroke, LINING STRAP CLOSER tumor, impaired sensorium, hemiplegia, paraplegia or quadraplegia. No neurological symptoms or problems. Respiratory: No history of current cough or dyspnea, or pneumonia in the past 6 weeks. No history of respiratory/pulmonary symptoms or problems. Cardiovascular: No history of HTN requiring medication, no history of angina, CHF, AR, cardiac surgery or stents. Denies rest pain, gangrene or revascularization/amputation for PVD. No history of cardiovascular symptoms or problems. GI: see HPI : No history of dysuria, frequency or incontinence,, stones or chronic kidney disease CAR REPAIRMAN: Negative for abnormal vaginal bleeding, abnormal vaginal [...] device. I spent more than 25 minutes [id number] with the patient and over half the time was devoted to counseling and/or coordination of care. SIGNATURE: Ninfa Guzman PA-C PATIENT NAME: Tod Cordova DATE: 11/07/2022 TIME: 2:25 PM PAGER/CONTACT #: documented in this encounter [facility] 11-05-2022 Miscellaneous Notes Per Cat Nuñez NP, Patient saw Dr. Orlando 10/28/2022, does not need a referral. Patient can MyChart Dr. Orlando re: results, next step. aRquel Gambino LPN Patient notified of below results/recommendation. [...] Cat Nuñez APRN.CNP documented in this encounter [facility] 11-05-2022 Miscellaneous Notes Error documented in this encounter [facility] 10-31-2022 Note HNO ID: [id number] Author: RT Anthony(R) Service: Nuclear Medicine Author [...] 13:20 PATIENT DISCHARGED TO: Ambulatory patient, left AR department area. A Diagnostic radioactive procedure has taken place, with no further precautions necessary other than routine body substance precautions. More information regarding radiation safety can be found using this link: [email or web address] SIGNATURE: PIERRE Cruz PATIENT NAME: Tod Cordova DATE: October 31, 2022 TIME: 1:35 PM PAGER/CONTACT #: [facility] 10-31-2022 History of Presen t illness [...] PM PAGER/CONTACT #: documented in this encounter [facility] 10-30-2022 Note Patient Outreach (IN TMMN) TOD DA SILVA ([id number]) 1980 F Date Time Provider Department 10/30/22 DONALD MOTLEY During your visit today, we recorded the following information about you: Allergies As of Date: 10/30/2022 (No Known Allergies) Date Reviewed: 10/28/2022 Reviewed by: Cat Nuñez APRN.CNP - Fully Assessed Visit Diagnosis:Encounter for screening mammogram for breast cancer [Z12.31] Order(s):[facility] SCREEN[facility] [[id number]] Order #: [id number] FUTURE Prescriptions as of 11/04/2022 - ascorbic [...] nodule (HCC) [E27.8] 10/28/2022 Encounter Status:Closed by [employer], PRODUSER on 11/04/22 [facility] 10-28-2022 Note HNO ID: [id number] Author: Cat Nuñez APRN.HEDDLE MACHINE OPERATOR Service: ? Author Type: Nurse Practitioner Type: [...] and was not happy with her answers. [facility] that they just wanted to cut out [...] body habitus DATA REVIEWED: Outside chart from [facility] ER reviewed. ASSESSMENT/PLAN: 1. Abdominal pain, unspecified [...] treatment plan. Cat Nuñez APRN.CNP [facility] 10-28-2022 Instructions Cat Nuñez APRN.CNP - 10/28/2022 10:18 AM EST Ursodiol documented in this encounter [facility] 10-28-2022 History of Presen t [...] and was not happy with her answers. [facility] that they just wanted to cut out [...] body habitus DATA REVIEWED: Outside chart from [facility] ER reviewed. ASSESSMENT/PLAN: 1. Abdominal pain, unspecified [...] Cat Nuñez APRN.CNP documented in this encounter [facility] 10-14-2022 Miscellaneous Notes Images from the original note were not included. Tali Orlando MD [facility] Surg Scheduling Pool This is a new patient - Tod Cordova, seen in [place] ED 10/11/2022 with cholelithiasis/biliary colic. To be referred to this clinic for consideration of laparoscopic cholecystectomy. : 1980 [address], [place] [phone] Please call patient for an appointment to see one of us. 1st attempt to reach patient to schedule an in office visit with Dr. Orlando. Left voicemail to directly contact [phone]. Registration is NOT complete. Judy You Fare Register Repairer documented in this encounter [facility] Diagnosis Encounter for screening mammogram for breast cancer Calculus of gallbladder without cholecystitis without obstruction Calculus of gallbladder without mention of cholecystitis or obstruction [facility] Diagnosis Pre-op evaluation- Primary Preoperative examination, unspecified Obesity (BMI 30-39.9) Obesity, unspecified Calculus of gallbladder without cholecystitis without obstruction Calculus of gallbladder without mention of cholecystitis or obstruction [facility] Diagnosis Biliary dyskinesia- Primary Other specified disorder of gallbladder [facility] Diagnosis Calculus of gallbladder without cholecystitis without obstruction- Primary Calculus of gallbladder without mention of cholecystitis or obstruction Adrenal nodule (HCC) Unspecified disorder of adrenal glands Obesity (BMI 30-39.9) Obesity, unspecified Screening, lipid Screening for lipoid disorders [facility] Diagnosis Calculus of gallbladder without cholecystitis without obstruction Calculus of gallbladder without mention of cholecystitis or obstruction Abdominal pain, unspecified abdominal location [facility] encounter [facility] (narrative)* Diagnostic Procedure Only (Routine) - Pending Review Specialty Diagnoses / Procedures Referred By Sierra quijano Referred To Contact [facility] Diagnoses Encounter for screening mammogram for breast cancer Procedures JULES SCREENING SCREENING MAMMOGRAPHY BI 2-VIEW BREAST INC CAD Donald Motley MD [address] [place] [address] [facility] [address] [place] [address] Referral ID Status Reason Start Date Expiration Date Visits Requested Visits Authorized [id number] Pending Review Auto-Generat ed Referral 2 11/29/2023 1 1 [facility] Reason for Referral Specialty Diagnoses / Procedures Referred By Sierra quijano Referred To Contact Gastroenterology Diagnoses Abdominal pain, unspecified abdominal location Procedures CONSULT TO GASTROENTEROLOGY OFFICE/OUTPATIENT [facility] MDM 60-74 MINUTES Older, JULIA Shelton.HEDDLE MACHINE OPERATOR [address] [place] [address] Referral ID Status Reason Start Date Expiration Date Visits Requested Visits Authorized [id number] Authorized PCP Requested Referral 2 10/28/2023 1 1 Specialty Diagnoses / Procedures Referred By Contac t Referred To Contact MOLECULAR & FUNCTIONAL IMAGING Diagnoses Calculus of gallbladder without cholecystitis without obstruction Abdominal pain, unspecified abdominal location Procedures NM HEPATOBILIARY W EF AND/OR RX HEPATOBIL SYST IMAG INC GB W/PHARMA INTERVENJ Older, Cat, COMMANDER INTERNAL AFFAIRS.HEDDLE MACHINE OPERATOR [address] [place] [address] Molecular & Functional Imaging [address] [place] [address] Referral ID Status Reason Start Date Expiration Date Visits Requested Visits Authorized [id number] Authorized Auto-Generat ed Referral 2 11/27/2023 1 1 Specialty Diagnoses / Procedures Referred By Contac t Referred To Contact CT IMAGING Diagnoses Disorder of adrenal gland (HCC) Adrenal nodule (HCC) Procedures CT ADRENAL WO/W IVCON CT ABDOMEN W & W/O CONTRAST Joaquin, Cat, COMMANDER INTERNAL AFFAIRS.HEDDLE MACHINE OPERATOR [address] [place] [address] Ct Imaging Referral ID Status Reason Start Date Expiration Date Visits Requested Visits Authorized [id number] Authorized Auto-Generat ed Referral 02/07/2023 03/24/2023 1 [...] or prosecute any alcohol or drug abuse patient.[facility] the event this information is protected by the Federal Confidentiality of Alcohol and Drug Abuse Patient Records regulations: The Federal rules restrict any use of the information to criminally investigate or prosecute any alcohol or drug abuse patient.[facility] HospitalIn the event this information is protected by the Federal Confidentiality of Alcohol and Drug Abuse Patient Records regulations: The Federal rules restrict any use of the information to criminally investigate or prosecute any alcohol or drug abuse patient.[facility] HospitalIn the event this information is protected by the Federal Confidentiality of Alcohol and Drug Abuse Patient Records regulations: The Federal rules restrict any use of the information to criminally investigate or prosecute any alcohol or drug abuse patient.[facility] HospitalIn the event this information is protected by the Federal Confidentiality of Alcohol and Drug Abuse Patient Records regulations: The Federal rules restrict any use of the information to criminally investigate or prosecute any alcohol or drug abuse patient.[facility] HospitalIn the event this information is protected by the Federal Confidentiality of Alcohol and Drug Abuse Patient Records regulations: The Federal rules restrict any use of the information to criminally investigate or prosecute any alcohol or drug abuse patient.[facility] HospitalIn the event this information is protected by the Federal Confidentiality of Alcohol and Drug Abuse Patient Records regulations: The Federal rules restrict any use of the information to criminally investigate or prosecute any alcohol or drug abuse patient.[facility] HospitalIn the event this information is protected by the Federal Confidentiality of Alcohol and Drug Abuse Patient Records regulations: The Federal rules restrict any use of the information to criminally investigate or prosecute any alcohol or drug abuse patient.[facility] HospitalIn the event this information is protected by the Federal Confidentiality of Alcohol and Drug Abuse Patient Records regulations: The Federal rules restrict any use of the information to criminally investigate or prosecute any alcohol or drug abuse patient.[facility] HospitalIn the event this information is protected by the Federal Confidentiality of Alcohol and Drug Abuse Patient Records regulations: The Federal rules restrict any use of the information to criminally investigate or prosecute any alcohol or drug abuse patient.[facility] Reason for Visit (unrecogniz ed section and content) Reason Comments Results Reason Comments Appointment Reason Comments Anesthesia Consult Reason Comments Patient Update Appointment Reason Comments Abdominal Pain Specialty Diagnoses / Procedures Referred By Sierra quijano Referred To Contact Gastroenterology Diagnoses Abdominal pain, unspecified abdominal location Procedures CONSULT TO GASTROENTEROLOGY OFFICE/OUTPATIENT NEW HIGH MDM 60-74 MINUTES Cat Nuñez, COMMANDER INTERNAL AFFAIRS.HEDDLE MACHINE OPERATOR [address] [place] [address] Referral ID Status Reason Start Date Expiration Date V isits Requested Visits Authorized [id number] Closed PCP Requested Referral 10/28/2022 10/28/2023 1 1 Reason Comments F/U 3 Month Gallstones Reason Comments Radiology NM Specialty Diagnoses / Procedures Referred By Sierra quijano Referred To Contact MOLECULAR & FUNCTIONAL IMAGING Diagnoses Calculus of gallbladder without cholecystitis without obstruction Abdominal pain, unspecified abdominal location Procedures NM HEPATOBILIARY W EF AND/OR RX HEPATOBIL SYST IMAG INC GB W/PHARMA INTERVENJ Cat Nuñez, COMMANDER INTERNAL AFFAIRS.HEDDLE MACHINE OPERATOR [address] [place] [address] Molecular & Functional Imaging [address] [place] [address] Referral ID Status Reason Start Date Expiration Date V isits Requested Visits Authorized [id number] Closed Auto-Generate d Referral 10/28/2022 11/27/2023 1 1 Care Teams (unrecognized sec tion and content) Piece Work Checker Relationship Specialty Start Date End Date Donald Motley MD [address] [place] [address] PCP - General Internal Medicine 10/28/22 Piece Work Checker Relationship Specialty Start Date End Date Donald Motley MD [address] [place], [place] [address] PCP - General Internal Medicine 10/28/22 11/07/22 Piece Work Checker Relationship Specialty Start Date End Date Donald Motley MD [address] [place], [place] [address] PCP - General Internal Medicine 10/28/22 11/07/22 Piece Work Checker Relationship Specialty Start Date End Date Donald Motley MD [address] [place], [place] [id number] PCP - General Internal Medicine 10/28/22 11/07/22 Piece Work Checker Relationship Specialty Start Date End Date Donald Motley MD [address] [place] [address] PCP - General Internal Medicine 12/30/22 Piece Work Checker Relationship Specialty Start Date End Date Donald Motley MD [address] [place], [place] [address] PCP - General Internal Medicine 10/28/22 11/07/22 [...] BE BASED ON THE PRIMARY CLINICAL RECORDS. [employer] [facility]. provides no warranty or guarantee of the accuracy or completeness of information in this document.
--- NOTE | 2023-11-27 13:00 | IMM_PTH ---
PATHOLOGY RESULTS PATIENT: TOD MUHAMMAD LOC: MS3 U#:[id number] AGE/SX: 43/F ROOM: [facility] RE11/27/[address]: Dr. Cam Hernandez MD : 1980 BED: 1 DIS: 11/29/2023 SPEC #: [id number] RECD: 11/28/23 10:23 STATUS: DARIN REChuckie #: [id number] MARCELINO: 11/27/23 13:[address]: Cam Hernandez DEPT: IMMUNOHISTOCHEMISTRY RECD BY: Manasa Akers ENTERED: 11/28/23 10:24 SP TYPE: IMMUNO OTHR DR: No Primary Care Phys Tissues: Stomach, NOS Procedures: H Pylori (initial) PHYSICIAN & INSTITUTION [place] [address] SPECIMEN INFORMATION: Tissue Source: Gastric antrum Clinical Info: Abdominal pain Specimen Number: [id number] CPT code: 48812 METHODOLOGY: Deparaffinized sections of prefer/formalin-fixed tissue or PAP/DQ stained slides are incubated with monoclonal/polyclonal antibodies/oligonucleotide probes. Localization is made via biotin free immunoperoxidase method. Appropriate controls are performed and reacted as expected. Results on target cell population are indicated in the following table: RESULTS: ANTIBODY / CLONE RESULT H Pylori (polyclonal) negative These tests were developed and their performance characteristics determined by [facility]. They may not have been cleared or approved by the U.S. Food and Drug Administration. The FDA has determined that such clearance or approval is not necessary. The above immunohistochemical/dualISH markers are ordered and reviewed by the Pathologist. INTERPRETATION: Gastric antrum, biopsy: Negative for Helicobacter pylori organisms. AM:oneil 12/01/2023
--- NOTE | 2023-11-27 13:00 | EGD_PTH ---
PATHOLOGY RESULTS PATIENT: TOD MUHAMMAD LOC: MS3 U#:[id number] AGE/SX: 43/F ROOM: [facility] RE11/27/[address]: Dr. Cam Hernandez MD : 1980 BED: 1 DIS: 11/29/2023 SPEC #: [id number] RECD: 11/28/23 07:34 STATUS: DARIN [place] #: [id number] MARCELINO: 11/27/23 13:[address]: Cam Hernandez DEPT: SURGICAL PATHOLOGY RECD BY: Vianca Hawkins ENTERED: 11/28/23 10:09 SP TYPE: EGD BIOPSY OTHR DR: No Primary Care Phys Tissues: Gastric mucous membrane Procedures: Surgery Specimen Level IV HEADER OPERATION: EGD, biopsy PRE-OP DIAGNOSIS: Abdominal pain TISSUE SUBMITTED: Gastric antrum biopsy for histo and H. pylori MICROSCOPIC DIAGNOSIS Gastric antrum, biopsy: Chronic gastritis. See comment. AM:oneil 12/01/2023 COMMENT The results of immunohistochemistry for Helicobacter pylori will be reported separately ([id number]). MICROSCOPIC DESCRIPTION Slides are reviewed. GROSS DESCRIPTION Received in fixative is one container labeled with the patient's name and designated gastric antrum biopsy. The specimen consists of two irregular fragments of light mcmahon soft tissue that in aggregate measure 0.5 x 0.3 x 0.1 cm. The specimen is totally submitted in one cassette. / SJ:oneil 11/28/2023 TC:3 CPT: 68204
--- NOTE | 2023-11-27 13:39 | OP.EGD_ITS ---
Patient Name: Luma Cordova Procedure Date: 11/27/2023 12:50 PM Date of : 1980 Age: 43 Procedure: Upper GI endoscopy Indications: Abdominal pain in the left upper quadrant Providers: Cam Hernandez MD Referring MD: Cam Hernandez MD Medicines: Monitored Anesthesia Care Patient Profile: This is a 43 year old female. Refer to note in patient chart for documentation of history and physical. Complications: No immediate complications. Estimated blood loss: Minimal. Procedure: Pre-Anesthesia Assessment: - Prior to the procedure, a History and Physical was performed, and patient medications and allergies were reviewed. The patient's tolerance of previous anesthesia was also reviewed. The risks and benefits of the procedure and the sedation options and risks were discussed with the patient. All questions were answered, and informed consent was obtained. Prior Anticoagulants: The patient has taken no anticoagulant or antiplatelet agents. After reviewing the risks and benefits, the patient was deemed in satisfactory condition to undergo the procedure. After obtaining informed consent, the endoscope was passed under direct vision. Throughout the procedure, the patient's blood pressure, pulse, and oxygen saturations were monitored continuously. The gastroscope was introduced through the mouth, and advanced to the fourth part of duodenum. The upper GI endoscopy was accomplished without difficulty. The patient tolerated the procedure well. Scope In: 1:28:19 PM Scope Out: 1:30:53 PM Total Procedure Duration Time 0 hours 2 minutes 34 seconds Findings: The esophagus was normal. The stomach was normal. The examined duodenum was normal. Biopsies were taken with a cold forceps in the gastric antrum for Helicobacter pylori testing. Impression: - Normal esophagus. - Normal stomach. - Normal examined duodenum. - Biopsies were taken with a cold forceps for Helicobacter pylori testing. Recommendation: - Resume previous diet. - Continue present medications. Procedure Code(s): --- Professional --- 02786, Esophagogastroduodenoscopy, flexible, transoral; with biopsy, single or multiple Diagnosis Code(s): --- Professional --- R10.12, Left upper quadrant pain CPT copyright 2021 [employer]. All rights reserved. The codes documented in this report are preliminary and upon data coder operator review may be revised to meet current compliance requirements. Cam Hernandez MD 11/27/2023 1:39:03 PM This report has been signed electronically. Number of Addenda: 0 Note Initiated On: 11/27/2023 12:50 PM
--- NOTE | 2023-11-27 13:39 | OP.CCLET_ITS ---
11/27/2023 No Primary Care Physician Re : Upper GI endoscopy procedure for Luma Cordova Dear Care Physician This procedure was performed on November. My impressions and recommendations are as follows: Impressions : - Normal esophagus. - Normal stomach. - Normal examined duodenum. - Biopsies were taken with a cold forceps for Helicobacter pylori testing. Recommendations : - Resume previous diet. - Continue present medications. My findings are described in the full procedure note, which is enclosed. If I can be of further assistance, please feel free to contact me at Doctor phone number(s): , Work: . Sincerely, Cam Hernandez MD 11/27/2023 1:39:03 PM This report has been signed electronically.
[2023-11-27] MEDS: 0.9% Normal Saline (1000mL) 1,000 ML 125 ML IV ×2 (15:08→23:40)
[2023-11-27] MEDS: Morphine 2 MG/ML Syringe IV (15:38)
[2023-11-27] MEDS: 0.9% Saline Lock 10 ML Syringe IV ×2 (17:57→21:32)
--- NOTE | 2023-11-27 18:29 | CT_ITS ---
STUDY: CT ABDOMEN AND PELVIS WITH CONTRAST REASON FOR EXAM: Female, 43 years old. LUQ pain RADIATION DOSAGE (If Supplied By Facility): CTDIvol = ( 15.08 ) mGy, DLP = ( 1155.26 ) mGycm TECHNIQUE: Transaxial images were obtained from the dome of the diaphragm to the symphysis pubis without oral contrast. IV 100mL Isovue-370 was administered. Sagittal and coronal images were reconstructed. Individualized dose optimization techniques were used for this CT. COMPARISON: 09/17/2023 FINDINGS: The visualized lung bases are unremarkable. The visualized portions of the heart are within normal limits. Normal liver. Normal gallbladder and extrahepatic biliary system. Normal spleen. Normal pancreas. There is a small, circumscribed, smooth, low attenuation left adrenal mass, consistent with an adrenal adenoma. Normal right adrenal gland. Normal right kidney. Normal left kidney. Normal visualized stomach. Normal small intestine. Normal colon. The appendix is visualized and appears normal. Normal abdominal aorta. Normal inferior vena cava. Normal retroperitoneum. Normal urinary bladder. 1.5 cm round area of fluid attenuation with peripheral enhancement and surrounded by fluid within the endometrial cavity consistent with a gestational sac Normal abdominal wall. Normal osseous structures. CT/Abdomen/Pelvis W IV Cont ONLY IMPRESSION: 1. No acute abnormality. 2. No change in left adrenal gland adenoma. 3. Known intrauterine gestational sac. Electronically Signed: Cristofer Angulo MD at 22:12 EST ,
--- NOTE | 2023-11-27 18:30 | PCM.PN.BLA ---
Progress Note I discussed her case with her and her extensively and spend over [address] Whittington and Luma Campbell were present as well. We discussed the risks of surgical intervention and the risks of nonsurgical observation. We discussed surgery in detail and the risks including but not limited to: infection, bleeding, injury to surrounding organs such as bowel, bile duct, liver. We also discussed increased risks associated with first trimester of . We discussed alternatives and we discussed all of her prior workup. Patients had many concerns and these were addressed as best as possible. I also offered the patient transfer to tertiary center for second opinion and I offered transfer of care to Dr Whittington's service if the patient would like but the patient agreed to proceed with laparoscopic cholecystectomy. I will order a CT scan of the abdomen with IV contrast to ensure that there is no underlying pathology elsewhere on the patients left side. I discussed with OB prior and they said it would be ok to order a CT with IV contrast. As long as CT is normal I will proceed with cholecystectomy tomorrow. Capacity Legal Oil Heat Technician Reflex Medical hold order details:: IF a medical hold is selected below, a suggested order for a MEDICAL HOLD will reflex upon signing the document. Next of kin: [place] law dictates a PRIORITY LIST for identifying legal decision-maker/legal next of kin in the following order (LNOK): 1st: The patient?s legal guardian, if any 2nd: The patient's spouse (if status is questionable, consult Risk Management) 3rd: The patient?s adult child(lola) (majority, if multiple children) 4th: The patient?s parents 5th: The patient?s adult siblings (majority, if multiple children siblings)
[2023-11-28] VITALS (11 sets, daily range): BP systolic 134–168; BP diastolic 76–108; PULSE 70–109; RESP 16–18; TEMP 36.4–37.3; O2SAT 93–100; BMI 37.8
[2023-11-28] MEDS: 0.9% Saline Lock 10 ML Syringe IV ×5 (02:03→18:52)
[2023-11-28] MEDS: HYDROmorphone 1 MG/ML Syringe IV ×7 (02:03→21:35)
[2023-11-28] MEDS: Piperacil/Tazobactam 3.375 GM in 0.9% Normal Saline (50mL MB+) 50 ML IV ×3 (05:06→21:49)
[2023-11-28 06:20] LABS: Absolute Lymphocyte Count 1.48 X10^3/uL (0.83-4.51); Basophil# 0.05 X10^3/uL; Basophil% 0.7 % (0-1); Eosinophil# 0.17 X10^3/uL; Eosinophils% 2.3 % (0-5); Hemoglobin 12.2 g/dL (12.0-15.0); Lymphocyte # 1.48 X10^3/ul (0.83-4.51); Lymphocyte % 20.4 % (19-41); Mean Corp Hgb Conc 33.9 g/dL (32-36); Mean Corpuscular Hgb 29.6 pg (27.0-32.0); Mean Corpuscular Volume 87.4 fL (81-99); Mean Platelet Vol. 9.7 fl (6.2-12.0); Monocyte# 0.49 X10^3/uL; Monocyte% 6.8 % (0-10); NRBC Flagged by Analyzer 0 % (0-5); Neutrophil # 5.03 X10^3/uL (2.7-7.7); Neutrophil % 69.5 % (47-70); Platelet Count 223 K/mm3 (150-450); RBC Distribution Width CV 12.2 % (11.6-14.6); RBC Distribution Width SD 38.7 fl (35.1-43.9); Red Blood Count 4.12 M/mm3 (4.2-5.4); White Blood Count 7.2 K/mm3 (4.4-11.0)
[2023-11-28 06:28] LABS: International Normalized Ratio 1.1; Prothrombin Time (Protime)PT. 13.7 SECONDS (11.7-14.9)
[2023-11-28 06:30] LABS: Partial Thromboplast Time 27.3 Seconds (24.1-36.2)
[2023-11-28 06:39] LABS: AST(SGOT) 13 U/L (15-37); Alanine Aminotransfer ALT/SGPT 36 U/L (13-56); Alkaline Phosphatase 76 U/L (45-117); Anion Gap 5 (5-15); BUN 6 mg/dL (7-18); BUN/Creat Ratio 8.1 RATIO (10-20); Bilirubin, Direct 0.23 mg/dL (0.00-0.30); Calcium,Total 9.8 mg/dL (8.5-10.1); Chloride 108 mmol/L (98-107); Creatinine, Serum 0.74 mg/dL (0.55-1.02); EST Glomerular Filtration Rate 91 mL/min (>60); Est Glom Filt Rate - Afr Amer 110 mL/min (>60); Estimated Creatinine Clearance 112.75 ml/min; Globulin 3.5 g/dL (2.2-4.2); Glucose 105 mg/dL (74-106); Potassium 3.5 mmol/L (3.5-5.1); Protein, Total 6.5 g/dL (6.4-8.2); Sodium Level 136 mmol/L (136-145)
--- NOTE | 2023-11-28 07:26 | PCM.PN.SRG ---
Subjective Subjective Patient is still having left upper quadrant pain. Objective Data Objective Data Vital Signs: Vital Signs Temp Pulse Resp BP Pulse Ox O2 Del Method 98.4 F 70 18 141/81 H 98 Room Air 11/28/23 03:47 11/28/23 03:47 11/28/23 03:47 11/28/23 03:47 11/28/23 03:47 11/28/23 03:47 Oxygen Delivery Method Room Air Weight: 220 lb 10.923 oz Body Mass Index (BMI) 37.8 Intake & Output: Intake and Output for Last 24 Hours 11/26/23 11/27/23 11/28/23 23:59 23:59 23:59 Intake Total 3993.75 / 3993.75 50 / 50 Output Total 800 / 800 600 / 600 Balance 3193.75 / 3193.75 -550 / -550 Lab / Micro Data 11/28/23 05:50 11/28/23 05:50 Labs: Laboratory Results - last 24 hr 11/27/23 07:00: Sodium 135 L, Potassium 3.4 L, Chloride 107, Carbon Dioxide 20.0 L, Anion Gap 8, BUN 7, Creatinine 0.80, Estim Creat Clear Calc 104.29, Est GFR (MDRD) Af Amer 101, Est GFR (MDRD) Non-Af 84, BUN/Creatinine Ratio 8.8 L, Glucose 114 H, Calcium 10.9 H, Total Bilirubin 0.80, AST 15, ALT 49, Alkaline Phosphatase 88, Total Protein 7.4, Albumin 3.7, Globulin 3.7, Albumin/Globulin Ratio 1.0, Lipase 29 11/27/23 09:38: Urine Color Yellow, Urine Clarity Clear, Urine pH 6.0, Ur Specific Frederic 1.015, Urine Protein Negative, Urine Glucose (UA) Normal, Urine Ketones 150 A*, Urine Occult Blood Negative, Urine Nitrite Negative, Urine Bilirubin Negative, Urine Urobilinogen Normal, Ur Leukocyte Esterase Negative, Urine RBC 0 SEEN, Urine WBC 0 SEEN, Ur Squamous Epith Cells 0-5 SEEN, Urine Bacteria 1+, Urine Mucus 0 SEEN 11/28/23 05:50: WBC 7.2, RBC 4.12 L, Hgb 12.2, Hct 36.0 L, MCV 87.4, MCH 29.6, MCHC 33.9, RDW Std Deviation 38.7, RDW Coeff of Zain 12.2, Plt Count 223, MPV 9.7, Immature Gran % (Auto) 0.300, Neut % (Auto) 69.5, Lymph % (Auto) 20.4, [place] % (Auto) 6.8, Eos % (Auto) 2.3, Baso % (Auto) 0.7, Absolute Neuts (auto) 5.0, Absolute Lymphs (auto) 1.48, Nucleated RBC % 0, PT 13.7, INR 1.1, APTT 27.3, Sodium 136, Potassium 3.5, Chloride 108 H, Carbon Dioxide 23.0, Anion Gap 5, BUN 6 L, Creatinine 0.74, Estim Creat Clear Calc 112.75, Est GFR (MDRD) Af Amer 110, Est GFR (MDRD) Non-Af 91, BUN/Creatinine Ratio 8.1 L, Glucose 105, Calcium 9.8, Total Bilirubin 0.70, Direct Bilirubin 0.23, AST 13 L, ALT 36, Alkaline Phosphatase 76, Total Protein 6.5, Albumin 3.0 L, Globulin 3.5 Radiography Diagnostic Testing: Radiology Impression Gallbladder Ultrasound 11/27/23 07:27 IMPRESSION: Gallstones with thickening of the gallbladder wall and pericholecystic fluid. Acute cholecystitis cannot be excluded. Nuclear medicine biliary scan might be of value. Electronically Signed: Gustavo Dorman MD at 9:00 EST , Obstetrics Ultrasound 11/27/23 10:43 IMPRESSION: 1. Single live intrauterine . Estimated gestational age is 6 weeks and 2 days. The DEJON is 07/20/2024. 2. Persistent subchorionic hemorrhage slightly larger than the previous exam. Further follow-up exam is recommended. 3. Mild fluid within the endocervical canal. Electronically Signed: Gustavo Dorman MD at 12:08 EST , Abdomen/Pelvis CT 01/18/24 18:29 IMPRESSION: 1. No acute abnormality. 2. No change in left adrenal gland adenoma. 3. Known intrauterine gestational sac. Electronically Signed: Cristofer Angulo MD at 22:12 EST , Physical Exam Const oriented x3 and no apparent distress Resp normal respiratory effort GI soft to palpation and non-tender Assessment & Plan Assessment/Plan (1) Acute cholecystitis: PLAN: The patient had recurrence of her left upper quadrant pain last night after eating only ice chips. There is no tenderness to palpation but she does complain of pain in the left upper quadrant. I performed an EGD yesterday which showed no gastric or duodenal ulcers or irritation or gastritis. I ordered a CT scan last night with IV contrast that did not show any pathology in the abdomen other than her known adenoma and her . At this point I believe she has chronic cholecystitis with referred pain to the left. I do recommend laparoscopic cholecystectomy and I went over this once more with her. I discussed the risks including but not limited to bleeding, infection, injury to organs such as the liver, bile duct, bowel. I also discussed the risk of miscarriage. 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 I discussed this with her in detail again this morning. I believe she needs to be able to eat and drink to support this right now she is unable to do so. I have ruled out peptic ulcer disease and pathology in the left upper quadrant and the only positive objective finding is the thickening of the gallbladder and the gallstones. I will take her for laparoscopic cholecystectomy this afternoon. I will order a vaginal ultrasound after surgery. Cam Hernandez MD Pager: [facility] [address] [place] [address], [address] [place] [phone] Office: Capacity Legal Production Control Coordinating Clerk Reflex Medical hold order details:: IF a medical hold is selected below, a suggested order for a MEDICAL HOLD will reflex upon signing the document. Next of kin: [place] law dictates a PRIORITY LIST for identifying legal decision-maker/legal next of kin in the following order (LNOK): 1st: The patient?s legal guardian, if any 2nd: The patient's spouse (if status is questionable, consult Risk Management) 3rd: The patient?s adult child(lola) (majority, if multiple children) 4th: The patient?s parents 5th: The patient?s adult siblings (majority, if multiple children siblings)
[2023-11-28] MEDS: 0.9% Normal Saline (1000mL) 1,000 ML 125 ML IV ×2 (08:01→18:53)
--- OUTSIDE RECORDS SUMMARY | 2023-11-28 12:45 | XMS RPT_ITS | CCD ---
Author Name Unknown Address [address] [place] [address] Organization [facility] Care Team Providers Care Filling Room Operator Name Role Phone Tiesha QURESHI, Donald Syed Primary Care Provider [phone] Unavailable Primary Care Provider Unavailrandi Motley MD, Donald Syed Primary Care Provider [phone] Donald Motley MD Primary Care Provider [phone] CRISTOFER BANKS Referring Unavailable DONALD MOTLEY Primary [...] 13:17-0400 Body weight 103.87 kg Cat Older MACHINE VENEER REPAIRER.MEDICAL OFFICE CLERK Work Phone: [facility] 02-07-2023 13:17-0400 Diastolic blood pressure 85 mm[Hg] Cat Older MACHINE VENEER REPAIRER.MEDICAL OFFICE CLERK Work Phone: [facility] 02-07-2023 13:17-0400 Heart rate 78 /min Cat Older MACHINE VENEER REPAIRER.MEDICAL OFFICE CLERK Work Phone: [facility] 02-07-2023 13:17-0400 Respiratory rate 16 /min Cat Older MACHINE VENEER REPAIRER.MEDICAL OFFICE CLERK Work Phone: [facility] 02-07-2023 13:17-0400 Systolic blood pressure 126 mm[Hg] Cat Older MACHINE VENEER REPAIRER.MEDICAL OFFICE CLERK Work Phone: [facility] 12-02-2022 15:25-0500 Body height 162.6 cm Caroline Meza PA-C Work Phone: [facility] 12-02-2022 15:25-0500 Body weight 104.24 kg Caroline Kalka PA-C Work Phone: [facility] 12-02-2022 15:25-0500 Diastolic blood pressure 84 mm[Hg] Caroline Kalka PA-C Work Phone: [facility] 12-02-2022 15:25-0500 Heart rate 68 /min Caroline Kalka PA-C Work Phone: [facility] 12-02-2022 15:25-0500 Systolic blood pressure 126 mm[Hg] Caroline Kalka PA-C Work Phone: [facility] 11-07-2022 14:15-0500 Body height 162.6 cm Pac 3 Work Phone: [facility] 11-07-2022 14:15-0500 Body weight 99.79 kg Pac 3 Work Phone: [facility] 10-28-2022 09:46-0500 Body weight 103.42 kg Cat Older MACHINE VENEER REPAIRER.MEDICAL OFFICE CLERK Work Phone: [facility] 10-28-2022 09:46-0500 Diastolic blood pressure 83 mm[Hg] Cat Older MACHINE VENEER REPAIRER.MEDICAL OFFICE CLERK Work Phone: [facility] 10-28-2022 09:46-0500 Heart rate 76 /min Cat Older MACHINE VENEER REPAIRER.MEDICAL OFFICE CLERK Work Phone: [facility] 10-28-2022 09:46-0500 Respiratory rate 14 /min Cat Older MACHINE VENEER REPAIRER.MEDICAL OFFICE CLERK Work Phone: [facility] 10-28-2022 09:46-0500 Systolic blood pressure 125 mm[Hg] Cat Older MACHINE VENEER REPAIRER.MEDICAL OFFICE CLERK Work Phone: [facility] Encounters Encounter Date Encounter Type Care Provider Facility Start: 02-24-2023 End: 02-24-2023 ambulatory DONALD MOTLEY Facility:[facility] Start: 02-07-2023 End: 02-08-2023 ambulatory ANTOINE TIESHA Facility:[facility] Start: 02-07-2023 End: 02-07-2023 Patient encounter procedure Cat Older MACHINE VENEER REPAIRER.ALISSON Work Phone: Internal Medicine Juan Ramon Procedures Date Procedure Procedure Detail Performing Clinician Start: 10-31-2022 Hepatobiliary syst i maging including gallbladder Cat Older MACHINE VENEER REPAIRER.ALISSON Work Phone: Plan of Treatment Date Care Activity Detail Author Start: 02-08-2024 HEPATITIS C SCREENING HEPATITIS C LA DANNI [facility] Payers Date Payer Category Payer Medicaid [id number] 2021 Medicaid [id number] Social History Date Type Detail Facility Start: 10-21-2022 Tobacco smoking stat [facility] Never smoked tobacco [facility] Start: 10-21-2022 Tobacco use and exposure Smoke less tobacco non-user [facility] Start: 10-28-2022 End: 11-05-2022 Alcohol intake Ex-drinker (finding) [facility] Start: 10-28-2022 End: 02-07-2023 Alcohol intake [facility] Start: 1980 Sex Assigned At Not on file [facility] Tobacco smoking stat [facility] Tobacco smoking consumption unknown [facility] Start: 11-07-2022 Alcohol Comment 2/week [facility] Start: 12-02-2022 End: 02-07-2023 Alcohol intake Current drinker of alcohol (finding) [facility] Start: 02-06-2023 History SDOH Alcohol Frequency 4 [facility] Start: 02-06-2023 History SDOH Alcohol Std Drinks 1 [facility] Start: 02-06-2023 History SDOH Social Connections Phone 5 [facility] Start: 02-06-2023 History SDOH Social Connections Get Together 3 [facility] Start: 02-06-2023 History SDOH Physica l Activity MPS 6 [facility] Start: 02-06-2023 History SDOH Stress 2 [facility] Start: 10-28-2022 Tobacco use panel [facility] Clinical Notes 10-14-2022 to 10-22-2023 Cat Older, MACHINE VENEER REPAIRERMARY - 02/07/2023 1:32 PM Xander Meza PA-C - 12/02/2022 3:25 PM ESTTelephone Encounter - Judy You - 11/19/2022 8:16 AM ESTPatient InstructionsPatient Instructions Note Date & Type Note Facility 10-22-2023 Note Patient Outreach (IN TMMN) TOD DA SILVA ([id number]) 1980 F Date Time Provider Department 10/22/23 DONALD MOTLEY During your visit today, we recorded the following information about you: Allergies As of Date: 10/22/2023 (No Known Allergies) Date Reviewed: 02/21/2023 Reviewed by: Makenna Moralez RT(R) - Fully Assessed Visit Diagnosis:Encounter for screening mammogram for breast cancer [Z12.31] Order(s):[facility] SCREENING [[id number]] Order #: [id number] FUTURE Prescriptions as of 10/27/2023 - ascorbic acid, vitamin C, (VITAMIN C) 250 mg tablet Take 250 mg by mouth once daily. - cholecalciferol, vitamin D3, 10 mcg (400 unit) cap Take 400 Units by mouth once daily. Problem List As Of Date 10/22/2023 Noted Resolved Adrenal nodule (HCC) [E27.8] 10/28/2022 Obesity (BMI 30-39.9) [E66.9] 11/07/2022 Encounter Status:Closed by VontooR on 10/27/23 [facility] 02-24-2023 Note HNO ID: [id number] Author: RT Sharath(R) Service: ? Author Type: Print Inspector Type: Progress Notes Filed: 02/24/2023 2:42 PM [...] Salazar(R) February 24, 2023 2:41 PM [facility] 02-07-2023 Note HNO ID: [id number] Author: Cat Nuñez APRN.MEDICAL OFFICE CLERK Service: ? Author Type: Nurse Practitioner Type: [...] test results, and coordinating care. Cat Nuñez APRN.MEDICAL OFFICE CLERK [facility] 02-07-2023 History of Presen t illness [...] Cat Nuñez APRN.CNP documented in this encounter [facility] 12-02-2022 Note HNO ID: [id number] Author: Caroline Meza PA-C Service: ? Author Type: Physician Production Corrugator Type: Progress Notes Filed: 12/02/2022 3:50 PM [...] Abs Lymph 1.00 - 4.00 k/uL 2.01 Coal% % 9.5 Abs Coal <0.87 k/uL 0.58 Eosin% % 2.3 Abs [...] HISTORY Procedure Laterality Date SECTION HX 2018 DANGA, DIAG AND/OR THERAPEUTIC 2017 Allergies: ALLERGIES No [...] present. Musculosk (more content not included)... [facility] 12-02-2022 History of Presen t illness [...] Abs Lymph 1.00 - 4.00 k/uL 2.01 Coal% % 9.5 Abs Coal <0.87 k/uL 0.58 Eosin% % 2.3 Abs [...] which included preparing to see the patient, [id number] patient care, completing clinical documentation, obtaining and/or reviewing separately obtained history, performing a medically appropriate examination, counseling and educating the patient/family/caregiver, ordering medications, tests, or procedures, communicating with other HCPs (not separately reported), independently interpreting results (not separately reported), communicating results to the patient/family/caregiver, and care coordination (not separately reported). Caroline Meza PA-C December 02, 2022 3:47 PM documented in this encounter [facility] 11-19-2022 Miscellaneous Notes Called patient to confirm cancellation of procedure. Patient confirmed cancellation and denied to reschedule. Patient stated she is following up with gastro. Message sent to [place] to cancel surgery on 11/21/2022 with Darion. Judy You Account Support Associate Patient calling in to cancel procedure with Dr Orlando at this time declined to reschedule. Patient accepted sooner date in [place] with Dr. Orlando - anesthesia reviewed and approved. Patient now scheduled 11/21/[address] Orlando in [place] for Lap Michelle. Patient stated if she gets worse she will go to the ER. Message sent to change to [place] Judy You Account Support Associate Patient scheduled in [place] with soonest date of 11/25/2022 with Nuvia. Patient asking if she can get in sooner with Darion in [place] and possibly next week as she is in terrible pain and can't wait till the 16. Message sent to verify approval for [place]. Sated to patient I will be in contact if we can geta sooner date. Patient given my direct line of [phone]. Images from the original note were not included. Tali Orlando MD You 22 hours ago (9:39 AM) To be scheduled at [place] [facility] anesthesia Dx: k80.90 CPT 19147, possible 26219 Thank you You Tali Orlando MD [address] Orlando, Patient is ready to proceed with gallbladder surgery as she is in constant pain. What CPT, DX and anesthesia would you like to proceed with? Please advise Thank you Judy You Account Support Associate Pt called in states having constant pain now and would like to proceed with the gallbladder surgery. documented in this encounter [facility] 11-07-2022 Instructions Ninfa Guzman PA-C - 11/07/2022 2:29 PM EST PATIENT PREOPERATIVE INSTRUCTIONS Cristofer Banks MD has scheduled you for your procedure at this surgery center: [facility]: [phone] -- [address] [facility] [address]. Please read below carefully for your personalized [...] not contain aspirin or NSAIDS as needed. [place] is OK to continue Important Reminders: - [...] Procedures: - YOU MUST HAVE A RESPONSIBLE EVENT SALES MANAGER TAKE YOU HOME. A SENIOR CYTOGENETICS LABORATORY DIRECTOR OR CASE MANAGERS CANNOT BE MADE A RESPONSIBLE EVENT SALES MANAGER. - We recommend that a responsible person [...] Advance Directive, please fax a copy to [phone] or email to for it to be [...] Ninfa Guzman PA-C documented in this encounter [facility] 11-07-2022 History and physical note PREANESTHESIA [...] describes constant abdominal pain, worse after eating. [place] brings relief for 2 hours. She also [...] gallbladder Neuro: No history of TIA's, stroke, DENTAL INSTRUCTOR tumor, impaired sensorium, hemiplegia, paraplegia or quadraplegia. [...] or incontinence,, stones or chronic kidney disease OPERATING COST CLERK: Negative for abnormal vaginal bleeding, abnormal vaginal [...] device. I spent more than 25 minutes [id number] with the patient and over half the time was devoted to counseling and/or coordination of care. SIGNATURE: Ninfa Guzman PA-C PATIENT NAME: Tod Cordova DATE: 11/07/2022 TIME: 2:25 PM PAGER/CONTACT #: documented in this encounter [facility] 11-05-2022 Miscellaneous Notes Per Cat Nuñez [...] Cat Nuñez APRN.CNP documented in this encounter [facility] 11-05-2022 Miscellaneous Notes Error documented in this encounter [facility] 10-31-2022 Note HNO ID: [id number] Author: RT Anthony(R) Service: Nuclear Medicine Author [...] 13:20 PATIENT DISCHARGED TO: Ambulatory patient, left [place] department area. A Diagnostic radioactive procedure has taken place, with no further precautions necessary other than routine body substance precautions. More information regarding radiation safety can be found using this link: [email or web address] SIGNATURE: PIERRE Cruz PATIENT NAME: Tod Cordova DATE: October 31, 2022 TIME: 1:35 PM PAGER/CONTACT #: [facility] 10-31-2022 History of Presen t illness [...] PM PAGER/CONTACT #: documented in this encounter [facility] 10-30-2022 Note Patient Outreach (IN TMMN) TOD DA SILVA ([id number]) 1980 F Date Time Provider Department 10/30/22 DONALD MOTLEY During your visit today, we recorded the following information about you: Allergies As of Date: 10/30/2022 (No Known Allergies) Date Reviewed: 10/28/2022 Reviewed by: Cat Nuñez APRN.CNP - Fully Assessed Visit Diagnosis:Encounter for screening mammogram for breast cancer [Z12.31] Order(s):[facility] SCREENING [[id number]] Order #: [id number] FUTURE Prescriptions as of 11/04/2022 - ascorbic [...] nodule (HCC) [E27.8] 10/28/2022 Encounter Status:Closed by [employer], PRODUSER on 11/04/22 [facility] 10-28-2022 Note HNO ID: [id number] Author: Cat Nuñez APRN.MEDICAL OFFICE CLERK Service: ? Author Type: Nurse Practitioner Type: [...] and was not happy with her answers. Mantee that they just wanted to cut out [...] body habitus DATA REVIEWED: Outside chart from [facility] ER reviewed. ASSESSMENT/PLAN: 1. Abdominal pain, unspecified [...] to treatment plan. Cat Nuñez APRN.CNP [facility] 10-28-2022 Instructions Cat Nuñez APRN.CNP - 10/28/2022 10:18 AM EST Ursodiol documented in this encounter [facility] 10-28-2022 History of Presen t illness [...] and was not happy with her answers. Mantee that they just wanted to cut out [...] body habitus DATA REVIEWED: Outside chart from [facility] ER reviewed. ASSESSMENT/PLAN: 1. Abdominal pain, unspecified [...] Cat Nuñez APRN.CNP documented in this encounter [facility] 10-14-2022 Miscellaneous Notes Images from the original note were not included. Tali Orlando MD P [facility] Surg Scheduling Pool This is a new patient - Tod Cordova, seen in [place] ED 10/11/2022 with cholelithiasis/biliary colic. To be referred to this clinic for consideration of laparoscopic cholecystectomy. : 1980 [address], [place] [phone] Please call patient for an appointment to see one of us. 1st attempt to reach patient to schedule an in office visit with Dr. Orlando. Left voicemail to directly contact [phone]. Registration is NOT complete. Judy You Account Support Associate documented in this encounter [facility] Diagnosis Encounter for screening mammogram for breast cancer Calculus of gallbladder without cholecystitis without obstruction Calculus of gallbladder without mention of cholecystitis or obstruction [facility] Diagnosis Pre-op evaluation- Primary Preoperative examination, unspecified Obesity (BMI 30-39.9) Obesity, unspecified Calculus of gallbladder without cholecystitis without obstruction Calculus of gallbladder without mention of cholecystitis or obstruction [facility] Diagnosis Biliary dyskinesia- Primary Other specified disorder of gallbladder [facility] Diagnosis Calculus of gallbladder without cholecystitis without obstruction- Primary Calculus of gallbladder without mention of cholecystitis or obstruction Adrenal nodule (HCC) Unspecified disorder of adrenal glands Obesity (BMI 30-39.9) Obesity, unspecified Screening, lipid Screening for lipoid disorders [facility] Diagnosis Calculus of gallbladder without cholecystitis without obstruction Calculus of gallbladder without mention of cholecystitis or obstruction Abdominal pain, unspecified abdominal location [facility] (narrative)* Diagnostic Procedure Only (Routine) - Pending Review Specialty Diagnoses / Procedures Referred By Sierra quijano Referred To Contact [facility] Diagnoses Encounter for screening mammogram for breast cancer Procedures JULES SCREENING SCREENING MAMMOGRAPHY BI 2-VIEW BREAST INC CAD Donald Motley MD [address] [place] [address] [facility] [address] [place] [address] Referral ID Status Reason Start Date Expiration Date Visits Requested Visits Authorized [id number] Pending Review Auto-Generat ed Referral 2 11/29/2023 1 1 [facility] Reason for Referral Specialty Diagnoses / Procedures Referred By Sierra quijano Referred To Contact Gastroenterology Diagnoses Abdominal pain, unspecified abdominal location Procedures CONSULT TO GASTROENTEROLOGY OFFICE/OUTPATIENT [facility] MDM 60-74 MINUTES Older, JULIA Shelton.MEDICAL OFFICE CLERK [address] [place] [address] Referral ID Status Reason Start Date Expiration Date Visits Requested Visits Authorized [id number] Authorized PCP Requested Referral 2 10/28/2023 1 1 Specialty Diagnoses / Procedures Referred By Contac t Referred To Contact MOLECULAR & FUNCTIONAL IMAGING Diagnoses Calculus of gallbladder without cholecystitis without obstruction Abdominal pain, unspecified abdominal location Procedures NM HEPATOBILIARY W EF AND/OR RX HEPATOBIL SYST IMAG INC GB W/PHARMA INTERVENJ Older, Cat, MACHINE VENEER REPAIRER.MEDICAL OFFICE CLERK [address] [place] [address] Molecular [facility] Functional Imaging [address] [place] [address] Referral ID Status Reason Start Date Expiration Date Visits Requested Visits Authorized [id number] Authorized Auto-Generat ed Referral 2 11/27/2023 1 1 Specialty Diagnoses / Procedures Referred By Contac t Referred To Contact CT IMAGING Diagnoses Disorder of adrenal gland (HCC) Adrenal nodule (HCC) Procedures CT ADRENAL WO/W IVCON CT ABDOMEN W & W/O CONTRAST Joaquin, Cat, MACHINE VENEER REPAIRER.MEDICAL OFFICE CLERK [address] [place] [address] Ct Imaging Referral ID Status Reason Start Date Expiration Date Visits Requested Visits Authorized [id number] Authorized Auto-Generat ed Referral 02/07/2023 03/24/2023 1 [...] or prosecute any alcohol or drug abuse patient.[facility] the event this information is protected by the Federal Confidentiality of Alcohol and Drug Abuse Patient Records regulations: The Federal rules restrict any use of the information to criminally investigate or prosecute any alcohol or drug abuse patient.[facility] the event this information is protected by the Federal Confidentiality of Alcohol and Drug Abuse Patient Records regulations: The Federal rules restrict any use of the information to criminally investigate or prosecute any alcohol or drug abuse patient.[facility] Hospital[facility] the event this information is protected by the Federal Confidentiality of Alcohol and Drug Abuse Patient Records regulations: The Federal rules restrict any use of the information to criminally investigate or prosecute any alcohol or drug abuse patient.[facility] the event this information is protected by the Federal Confidentiality of Alcohol and Drug Abuse Patient Records regulations: The Federal rules restrict any use of the information to criminally investigate or prosecute any alcohol or drug abuse patient.[facility] the event this information is protected by the Federal Confidentiality of Alcohol and Drug Abuse Patient Records regulations: The Federal rules restrict any use of the information to criminally investigate or prosecute any alcohol or drug abuse patient.[facility] Hospital[facility] the event this information is protected by the Federal Confidentiality of Alcohol and Drug Abuse Patient Records regulations: The Federal rules restrict any use of the information to criminally investigate or prosecute any alcohol or drug abuse patient.[facility] Hospital[facility] the event this information is protected by the Federal Confidentiality of Alcohol and Drug Abuse Patient Records regulations: The Federal rules restrict any use of the information to criminally investigate or prosecute any alcohol or drug abuse patient.[facility] the event this information is protected by the Federal Confidentiality of Alcohol and Drug Abuse Patient Records regulations: The Federal rules restrict any use of the information to criminally investigate or prosecute any alcohol or drug abuse patient.[facility] the event this information is protected by the Federal Confidentiality of Alcohol and Drug Abuse Patient Records regulations: The Federal rules restrict any use of the information to criminally investigate or prosecute any alcohol or drug abuse patient.[facility] Reason for Visit (unrecogniz ed section and content) Reason Comments Results Reason Comments Appointment Reason Comments Anesthesia Consult Reason Comments Patient Update Appointment Reason Comments Abdominal Pain Specialty Diagnoses / Procedures Referred By Sierra quijano Referred To Contact Gastroenterology Diagnoses Abdominal pain, unspecified abdominal location Procedures CONSULT TO GASTROENTEROLOGY OFFICE/OUTPATIENT NEW HIGH MDM 60-74 MINUTES Cat Nuñez, MACHINE VENEER REPAIRER.MEDICAL OFFICE CLERK [address] [place] [address] Referral ID Status Reason Start Date Expiration Date V isits Requested Visits Authorized [id number] Closed PCP Requested Referral 10/28/2022 10/28/2023 1 1 Reason Comments F/U 3 Month Gallstones Reason Comments Radiology NM Specialty Diagnoses / Procedures Referred By Sierra quijano Referred To Contact MOLECULAR & FUNCTIONAL IMAGING Diagnoses Calculus of gallbladder without cholecystitis without obstruction Abdominal pain, unspecified abdominal location Procedures NM HEPATOBILIARY W EF AND/OR RX HEPATOBIL SYST IMAG INC GB W/PHARMA INTERVENJ Cat Nuñez, MACHINE VENEER REPAIRER.MEDICAL OFFICE CLERK [address] [place] [address] Molecular & Functional Imaging [address] [place] [address] Referral ID Status Reason Start Date Expiration Date V isits Requested Visits Authorized [id number] Closed Auto-Generate d Referral 10/28/2022 11/27/2023 1 1 Care Teams (unrecognized sec tion and content) Filling Room Operator Relationship Specialty Start Date End Date Donald Motley MD [address] [place] [address] PCP - General Internal Medicine 10/28/22 Filling Room Operator Relationship Specialty Start Date End Date Donald Motley MD [address] [place], [place] [id number] PCP - General Internal Medicine 10/28/22 11/07/22 Filling Room Operator Relationship Specialty Start Date End Date Donald Motley MD [address] [place], [place] [id number] PCP - General Internal Medicine 10/28/22 11/07/22 Filling Room Operator Relationship Specialty Start Date End Date Donald Motley MD [address], [place] [id number] PCP - General Internal Medicine 10/28/22 11/07/22 Filling Room Operator Relationship Specialty Start Date End Date Donald Motley MD [address] [place] [address] PCP - General Internal Medicine 12/30/22 Filling Room Operator Relationship Specialty Start Date End Date Donald Motley MD [address], [place] [address] PCP - General Internal Medicine 10/28/22 11/07/22 [...] BE BASED ON THE PRIMARY CLINICAL RECORDS. [employer] [facility]. provides no warranty or guarantee of the accuracy or completeness of information in this document.
--- NOTE | 2023-11-28 12:47 | CASEMGMT ---
SIDNEY ZHAO Assessment: Face to Face with pt for initial transition planning/care coordination assessment. RN CECE introduced self and role at [facility], pt voices understanding and consents to assessment. Pt is A&O x4 and answers all questions appropriately at this time. Pt sitting up in bed in no distress. Care providers, pharmacy, and demographics verified/updated. Admitting Dx:L upper quadrant pain PCP:Jesús, provided pt with a local healthcare directory pamphlet. Specialists:SHANA Whittington DOCTOR OF MEDICINE Preferred [facility]acy:[facility] Insurance:[employer] Community Plan Prescription Benefit: yes LNOK:David Cordova, Living Arrangements: Pt lives with and 7 children in a two story home with 2 steps to enter. Pt reports she is I in ADL's and denies concerns at home. Transportation: Pt drives self and denies concerns with transportation. DME:Denies HHC/SNF:Denies hx of Pt states no concerns with going home at time of dc. Pt states no further concerns/needs. CM to follow. Advised pt to ask CM if any further question/concerns/needs arise, voices understanding. Pt Goal:Home Plan:Home
--- NOTE | 2023-11-28 15:30 | GALL_PTH ---
PATHOLOGY RESULTS PATIENT: TOD MUHAMMAD LOC: MS3 U#:[id number] AGE/SX: 43/F ROOM: VT320 RE11/27/[address]: Dr. Cam Hernandez MD : 1980 BED: 1 DIS: 11/29/2023 SPEC #: [id number] RECD: 11/28/23 18:12 STATUS: DARIN MELGARChuckie #: [id number] MARCELINO: 11/28/23 15:[address]: Cam Hernandez DEPT: SURGICAL PATHOLOGY RECD BY: Vianca Hawkins ENTERED: 12/01/23 09:37 SP TYPE: JASS GONZALEZ DR: No Primary Care Phys Tissues: Gallbladder, NOS Procedures: Surgery Specimen Level III HEADER OPERATION: Laparoscopic cholecystectomy PRE-OP DIAGNOSIS: Gallstones with thickening of gallbladder wall and pericholecystic fluid; acute cholecystitis TISSUE SUBMITTED: Gallbladder MICROSCOPIC DIAGNOSIS Gallbladder, cholecystectomy: Chronic cholecystitis and cholelithiasis. AM:oneil 12/02/2023 MICROSCOPIC DESCRIPTION Slides are reviewed. GROSS DESCRIPTION Received is one container labeled with the patient's name and designated gallbladder. The specimen consists of a gallbladder measuring 7.5 cm in length and 2.5 cm in diameter. The external surface is pink-mcmahon, smooth and glistening for the most part. Focally it is granular, hemorrhagic and contains cautery artifact. The gallbladder contains a small amount of hemorrhagic fluid and multiple mulberry, orange stones measuring in aggregate 3.0 x 2.5 x 0.7 cm and 0.5 to 0.7 cm in greatest dimension. No obvious cystic duct is noted. The mucosa is congested and hemorrhagic. The gallbladder wall measures up to 0.5 cm in thickness. Radiology Nurse sections from the gallbladder are submitted in one cassette. / SJ:oneil 12/01/2023 TC:3 CPT: 58039
[2023-11-28] MEDS: Bupivacaine 0.25% 30 ML Vial (17:30)
--- NOTE | 2023-11-28 18:03 | US_ITS ---
STUDY: FIRST TRIMESTER OBSTETRICAL ULTRASOUND REASON FOR EXAM: Female, 43 years old assess heart activity after surgery LMP: 10/10/2023 TECHNIQUE: Transvaginal TECHNICAL QUALITY: Adequate. PRIOR ULTRASOUND: None. FINDINGS: There is visualization of a single gestational sac in a normal intrauterine position. The mean sac diameter (MSD) measures 17 mm, indicating an estimated gestational age (EGA) of 6 weeks, 4 days. The gestational sac shape is within normal limits. There is a visualized yolk sac. The yolk sac measures 3 mm. The placenta is non-visualized. There is visualization of a live embryo. The crown-rump length (CRL) measures 5 mm, indicating an estimated gestational age (EGA) of 6 weeks, 3 days. There is demonstrated cardiac activity with a heart rate of 126 bpm. The estimated gestation age (EGA) by LMP is 7 weeks, 0 days. The estimated date of delivery (DEJON) by LMP is 07/16/2024. The estimated gestation age (EGA) by US is 6 weeks, 4 days. The estimated date of delivery (DEJON) by US is 07/19/2024. The uterus measures 10.1 x 5.7 x 4.6 cm. There is no demonstrated uterine fibroid. The cervix is closed. The ovaries are not visualized. There is a moderate amount of fluid in the cul de sac. US/Transvaginal w/Preg US IMPRESSION: Living intrauterine 6 weeks 4 days as described above. Electronically Signed: Cristofer Angulo MD at 19:52 EST ,
--- NOTE | 2023-11-28 18:17 | OP.PCM_ITS ---
Report of Operation Date of Procedure: 11/28/23 Pre-Operative Diagnosis: Chronic cholecystitis Post-Operative Diagnosis: Acute on chronic cholecystitis with hydrops Surgery/Procedure Performed:: Laparoscopic cholecystectomy Description of Surgical Findings:: Very inflamed gallbladder. Cholangiograms unable to be performed due to obstructed cystic duct and short cystic duct Type of Anesthesia: General/Regional Specimen's removed: Gallbladder Estimated Blood Loss (mL): 50 Description of Procedure: After obtaining informed consent patient was brought back to the operating room. General anesthesia was induced. The abdomen was prepped and draped in usual sterile fashion. A small midline incision was made superior to the umbilicus and deepened to the level of fascia. The fascia was elevated and incised. Next the peritoneum was elevated and incised in the same fashion. Finger sweep was performed and the Lauren trocar was placed into the abdomen. The balloon was inflated. The abdomen was inflated to 15 mmHg. Next a camera was introduced into the abdomen and the abdomen was inspected. Next under direct visualization three 5-mm ports were placed one subxiphoid and 2 subcostal. Next the gallbladder was elevated and retracted toward the right shoulder. The peritoneum was stripped from the gallbladder. The gallbladder was very thickened and there were a lot of adhesions to the omentum. These were taken down. The gallbladder was too tense to be retracted and so it was aspirated. It contained hydrops. The infundibulum was located and retracted laterally. Next the triangle of Calot was dissected and the cystic duct and cystic artery were identified. Cholangiograms were attempted but the gallbladder was too thickened and the cystic duct was obstructed. The cystic duct was also too short to directly enter that for cholangiograms. I was able to identify the common duct and the cystic duct. The cystic duct was also too large to be able to closed with a clip. The cystic artery was clipped and divided. The hook cautery was then used to take the gallbladder off of the gallbladder bed in a dome down technique. Hemostasis was obtained. The gallbladder was inspected and the cystic duct was identified once more and then an Endoloop was placed around the gallbladder and down to the cystic duct and cinched closed. Another Endoloop was placed more proximal to this and then the cystic duct was divided. Gallbladder fossa was irrigated and no active bleeding or bile leakage was note d. Next the camera was introduced in the subxiphoid port. An Endopouch bag was placed through the umbilical port and the gallbladder was placed into it. The gallbladder was then removed through the umbilical incision. The camera was then reinserted through the umbilical port. The gallbladder fossa was inspected once more and noted to be hemostatic with no leaking bile. The abdomen was suctioned dry. The 5 mm ports were removed under direct visualization. The umbilical port was then removed and the air was removed from the abdomen. Next using an 0 Vicryl suture the umbilical fascia was closed in a naauom-ca-svtsa fashion. The umbilical port site was irrigated local anesthetic was administered to all the incisions. All the incisions were closed with interrupted subcuticular 4-0 Monocryl sutures followed by Steri-Strips and dressings. The patient was awoken and taken to PACU in stable condition. Transvaginal ultrasound will be obtained when she gets to the floor. Admit VTE Documentation VTE Mechan Device Prophylaxis: SCD's
[2023-11-28] MEDS: Acetaminophen 325 MG Tablet 650 MG PO (21:44)
[2023-11-29 02:21] VITALS: BP 135/66; PULSE 69; RESP 18; TEMP 36.6; O2SAT 96
[2023-11-29] MEDS: HYDROmorphone 1 MG/ML Syringe IV ×2 (02:24→07:03)
[2023-11-29] MEDS: 0.9% Normal Saline (1000mL) 1,000 ML 125 ML IV (02:27)
[2023-11-29 06:55] VITALS: BP 136/69; PULSE 63; RESP 18; TEMP 36.8; O2SAT 98
[2023-11-29] MEDS: Piperacil/Tazobactam 3.375 GM in 0.9% Normal Saline (50mL MB+) 50 ML IV (06:58)
[2023-11-29] MEDS: Acetaminophen 325 MG Tablet 650 MG PO ×2 (06:58→16:49)
[2023-11-29 08:39] VITALS: BP 131/76; PULSE 82; RESP 16; TEMP 36.6; O2SAT 96
--- NOTE | 2023-11-29 09:05 | PCM.PN.SRG ---
Subjective Subjective Patient with previous left-sided abdominal pain has resolved, patient just has pain at her incisions. Tolerating clears Objective Data Objective Data Vital Signs: Vital Signs Temp Pulse Resp BP Pulse Ox O2 Del Method 98 F 82 16 131/76 H 96 Room Air 11/29/23 08:39 11/29/23 08:39 11/29/23 08:39 11/29/23 08:39 11/29/23 08:39 11/29/23 08:39 Oxygen Delivery Method Room Air Weight: 220 lb 10.923 oz Body Mass Index (BMI) 37.8 Intake & Output: Intake and Output for Last 24 Hours 11/27/23 11/28/23 11/29/23 23:59 23:59 23:59 Intake Total 3993.75 / 3993.75 2150 / 2650 2681.25 / 2681.25 Output Total 800 / 800 1000 / 1600 1000 / 1000 Balance 3193.75 / 3193.75 1150 / 1050 1681.25 / 1681.25 Lab / Micro Data 11/28/23 05:50 11/28/23 05:50 Radiography Diagnostic Testing: Radiology Impression Obstetrics Ultrasound 11/28/23 18:03 IMPRESSION: Living intrauterine 6 weeks 4 days as described above. Electronically Signed: Cristofer Angulo MD at 19:52 EST , Physical Exam Const oriented x3 and no apparent distress Resp normal respiratory effort GI soft to palpation GI Narrative: Tender near incisions incisions dressed clean dry and intact Assessment & Plan Assessment/Plan (1) S/P laparoscopic cholecystectomy: PLAN: Plan Patient tolerated clears will advance to regular diet Continue pain control Will stop IV Zosyn Patient tolerates a diet, pain controlled, vital signs stable okay to DC home--patient agreeable with plan Jackelyn Whitney M.D. Pager: [phone] [facility] [address] [place] [address], [facility], [address] [place] [address] Office: [phone]
--- NOTE | 2023-11-29 09:07 | DCINST_ITS ---
Discharge Instructions Diet Discharge Diet: Light diet - advance as tolerated Activity Discharge Activity: May Not Drive (while taking narcotic pain medications.) May shower in (days): 1 Lifting Restrictions: no lifting >20 lbs x 2 wks, no strenuous exercise for 4 wks Dressing / Incision Call your doctor if your incision/area has: Continuous Slow Oozing, Sudden Increased Bleeding, Increased Pain/ Swelling, Increased Redness, Foul Smelling Discharge and Swelling at the incision site Call your doctor if you observe: Fever of 101 or Higher Remove Dressing in: 2 days Cleanse incision/area with: Soap & Water Additional Dressing/Incision Instructions:: Steri-Strips will fall off in 7 to 10 days, if they do not fall off okay to remove after 10 days. Follow Up Care Please Follow Up With: Cam Hernandez MD When: Call the office for a follow-up appointment 2 weeks; after 5 PM and on the weekends call [phone] with any concerns. Test Results: Test results from this visit will be discussed in further detail at your follow- up appointment, if applicable. Discharge Plan Admission Admit Date/Time: 11/27/23 10:49 Attending Provider: Cam Hernandez Primary Care Provider: Shannon PhysicianCharu Primary Discharge Orders/Prescriptions Prescriptions: New oxycodone 5 mg capsule 5 - 10 mg PO Q6H PRN (Reason: pain) 4 Days Qty: 20 0RF Continued PNV-[place] 28-1-300 mg capsule 1 cap PO DAILY Discontinued hydrocodone-acetaminophen 5-325 mg tablet 1 tab PO Q6H PRN (Reason: PAIN ) Patient Comments: PT STATES SHE TOOK THREE LAST NIGHT, AND DOESNT HAVE ANYMORE AT HOME ( OF 11/27/2023) sucralfate [Carafate] 1 gram tablet 1 g PO TID PRN (Reason: ABDOMINAL DISCOMFORT ) No Action pantoprazole 40 mg tablet,delayed release (DR/EC) 40 mg PO DAILY Qty: 60 0RF Referrals / Follow Up: Care PhysicianCharu Primary [Primary Care Provider] - Disposition Disposition (needs filled in before D/C Order can be placed): Home, Self Care
--- NOTE | 2023-11-29 09:09 | DS.PCM_ITS ---
Providers Date of Admission: 11/27/23 Date of Discharge: 11/29/23 Primary Care Physician: No Primary Care Phys Reason For Visit: LEFT UPPER QUADRANT PAIN Diagnosis Discharge Diagnosis (1) S/P laparoscopic cholecystectomy: Status: Acute Code(s): Z90.49 - Acquired absence of other specified parts of digestive tract Plan: due to acute cholecystitis Plan Patient tolerated clears will advance to regular diet Continue pain control Will stop IV Zosyn Patient tolerates a diet, pain controlled, vital signs stable okay to DC home--patient agreeable with plan Jackelyn Whitney M.D. Pager: [phone] [facility] [address] [place] [address], [facility] [place], [address] [place] [address] Office: [phone] Medications at Discharge Home Medications multivit-min no.71-iron fum 28 mg-folate no.1 1 mg-dha 300 mg capsule (PNV- [place]) 1 cap PO DAILY SUPPLEMENT 11/25/23 pantoprazole 40 mg tablet,delayed release 40 mg PO DAILY ACID REFLUX #60 tabs 11/25/23 oxycodone 5 mg capsule 5 - 10 mg (1 - 2 x 5 mg) PO Q6H PRN pain 4 days #20 caps 11/29/23 Hospital Course Operations cholecystecomy Procedures EGD Summary of Care Provided Minutes Spent on Discharge: 15 Hospital Course: 43-year-old female presents to the ER due to upper quadrant pain. Patient is currently 7 weeks . Patient was on Protonix which was controlling the pain however switched to Pepcid and continue to have this pain. Patient had previously been worked up for gallbladder and had been recommended occasion in the past to have her gallbladder removed. Patient underwent an EGD which did not show any signs of gastritis thus patient was recommended to have a laparoscopic cholecystectomy. Status post laparoscopic cholecystectomy patient's left-sided abdominal pain had improved patient only had incisional pain at that time. Patient was able to tolerate diet and be DC'd home. Patient did have heart tones checked before all procedures and after which were normal. Weight / BMI Weight Weight: 220 lb 10.923 oz Body Mass Index (BMI) 37.8 ABG / Lab / Microbiology Data 11/28/23 05:50 11/28/23 05:50 Radiography Diagnostic Testing: Radiology Impression Obstetrics Ultrasound 11/28/23 18:03 IMPRESSION: Living intrauterine 6 weeks 4 days as described above. Electronically Signed: Cristofer Angulo MD at 19:52 EST , D/C Instructions Discharge Diet: Light diet - advance as tolerated May shower in (days): 1 Call your doctor if your incision/area has: Continuous Slow Oozing, Sudden Increased Bleeding, Increased Pain/ Swelling, Increased Redness, Foul Smelling Discharge and Swelling at the incision site Call your doctor if you observe: Fever of 101 or Higher Cleanse incision/area with: Soap & Water Additional Dressing/Incision Instructions: Steri-Strips will fall off in 7 to 10 days, if they do not fall off okay to remove after 10 days. Please Follow Up With: Cam Hernandez MD When: Call the office for a follow-up appointment 2 weeks; after 5 PM and on the weekends call [phone] with any concerns. Meaningful Use Info Meaningful Use Diagnoses (Choose all that apply): None applicable Discharge Plan Admission Admit Date/Time: 11/27/23 10:49 Attending Provider: Cam Hernandez Primary Care Provider: Care Physician,Charu Primary Discharge Orders/Prescriptions Prescriptions: New oxycodone 5 mg capsule 5 - 10 mg PO Q6H PRN (Reason: pain) 4 Days Qty: 20 0RF Continued PNV-[place] 28-1-300 mg capsule 1 cap PO DAILY Discontinued hydrocodone-acetaminophen 5-325 mg tablet 1 tab PO Q6H PRN (Reason: PAIN ) Patient Comments: PT STATES SHE TOOK THREE LAST NIGHT, AND DOESNT HAVE ANYMORE AT HOME ( OF 11/27/2023) sucralfate [Carafate] 1 gram tablet 1 g PO TID PRN (Reason: ABDOMINAL DISCOMFORT ) No Action pantoprazole 40 mg tablet,delayed release (DR/EC) 40 mg PO DAILY Qty: 60 0RF Referrals / Follow Up: Care PhysicianCharu Primary [Primary Care Provider] - Disposition Disposition (needs filled in before D/C Order can be placed): Home, Self Care
[2023-11-29 09:52] LABS: Absolute Lymphocyte Count 1.58 X10^3/uL (0.83-4.51); Absolute Neutrophil Count 5.2 X10^3/uL (2.0-7.7); Basophil# 0.04 X10^3/uL; Basophil% 0.5 % (0-1); Eosinophil# 0.12 X10^3/uL; Eosinophils% 1.6 % (0-5); Hematocrit 33.3 % (37-47); Hemoglobin 11.3 g/dL (12.0-15.0); Lymphocyte # 1.58 X10^3/ul (0.83-4.51); Lymphocyte % 21.1 % (19-41); Mean Corp Hgb Conc 33.9 g/dL (32-36); Mean Corpuscular Volume 88.3 fL (81-99); Mean Platelet Vol. 9.7 fl (6.2-12.0); Monocyte% 6.7 % (0-10); NRBC Flagged by Analyzer 0 % (0-5); Neutrophil # 5.23 X10^3/uL (2.7-7.7); Neutrophil % 69.7 % (47-70); Platelet Count 219 K/mm3 (150-450); RBC Distribution Width CV 12.3 % (11.6-14.6); RBC Distribution Width SD 39.6 fl (35.1-43.9); Red Blood Count 3.77 M/mm3 (4.2-5.4); White Blood Count 7.5 K/mm3 (4.4-11.0)
[2023-11-29 10:02] LABS: Anion Gap 5 (5-15); BUN 4 mg/dL (7-18); BUN/Creat Ratio 5.3 RATIO (10-20); Calcium,Total 9.9 mg/dL (8.5-10.1); Chloride 108 mmol/L (98-107); Creatinine, Serum 0.75 mg/dL (0.55-1.02); EST Glomerular Filtration Rate 90 mL/min (>60); Est Glom Filt Rate - Afr Amer 109 mL/min (>60); Estimated Creatinine Clearance 111.25 ml/min; Glucose 124 mg/dL (74-106); Potassium 3.4 mmol/L (3.5-5.1); Sodium Level 136 mmol/L (136-145)
[2023-11-29] MEDS: oxyCODONE 5 MG Tablet PO ×2 (10:15→14:24)
[2023-11-29 11:24] VITALS: BP 140/68; PULSE 67; RESP 16; TEMP 36.8; O2SAT 96
[2023-11-29 14:57] VITALS: BP 139/69; PULSE 83; RESP 16; TEMP 36.8; O2SAT 96
== END 2023-11-29 17:18 | disposition home or self-care (01) | DRG 955 ==
LOC: ED 10:11 → MS3 12:42
PROVIDERS: Admitting Provider Surgery; Emergency Provider Emergency Medicine; Referring Provider Surgery; Visit Provider Surgery
PROC: 0DJ08ZZ Inspection of Upper Intestinal Tract, Via Natural or Artificial Opening Endoscopic (ICD-10-PCS; CPT 43235; principal; 2023-11-27 12:55)
PROC: (CPT 47610; principal; 2023-11-28 15:10)
DX: O99.611 Diseases of the digestive system complicating pregnancy, first trimester (principal); E86.0 Dehydration; Z3A.01 Less than 8 weeks gestation of pregnancy; O26.21 Pregnancy care for patient with recurrent pregnancy loss, first trimester; O10.911 Unspecified pre-existing hypertension complicating pregnancy, first trimester; O99.281 Endocrine, nutritional and metabolic diseases complicating pregnancy, first trimester; K80.12 Calculus of gallbladder with acute and chronic cholecystitis without obstruction; K82.1 Hydrops of gallbladder; O26.611 Liver and biliary tract disorders in pregnancy, first trimester; K83.1 Obstruction of bile duct; K21.9 Gastro-esophageal reflux disease without esophagitis; Z79.899 Other long term (current) drug therapy
CPT/HCPCS: 47562; 43239; 36415; 74177; 76705; 76817; 80048; 80053; 80076; 81001; 83690; 84703; 85025; 85610; 85730; 88304; 88305; 88342; 93005; 96361; 96365; 96366; 96374; 96375; 96376; 97802; 99221; 99283; 99284; J7030; J7120; Q9967; A4216; G0378; J2405

== ENCOUNTER 2023-12-02 23:04 | Emergency (ER) | payer MEDICAID, SELFPAY ==
[2023-12-02 23:06] VITALS: BP 155/98; PULSE 88; RESP 18; TEMP 36.1; O2SAT 97; BMI 37.5
--- OUTSIDE RECORDS SUMMARY | 2023-12-02 23:27 | XMS RPT_ITS | CCD ---
Author Name Unknown Address [address] [place] [address] Organization [facility] Care Team Providers Care Hadoop Architect Name Role Phone Tiesha QURESHI, Donald Syed Primary Care Provider [phone] Unavailable Primary Care Provider Unavailrandi Motley MD, Donald Syed Primary Care Provider [phone] Donald Motley MD Primary Care Provider [phone] CRISTOFER BANKS Referring Unavailable DONALD MOTLEY Primary [...] 13:17-0400 Body weight 103.87 kg Cat Older TREASURY MANAGER.BRAID PATTERN SETTER Work Phone: [facility] 02-07-2023 13:17-0400 Diastolic blood pressure 85 mm[Hg] Cat Older TREASURY MANAGER.BRAID PATTERN SETTER Work Phone: [facility] 02-07-2023 13:17-0400 Heart rate 78 /min Cat Older TREASURY MANAGER.BRAID PATTERN SETTER Work Phone: [facility] 02-07-2023 13:17-0400 Respiratory rate 16 /min Cat Older TREASURY MANAGER.BRAID PATTERN SETTER Work Phone: [facility] 02-07-2023 13:17-0400 Systolic blood pressure 126 mm[Hg] Cat Older TREASURY MANAGER.BRAID PATTERN SETTER Work Phone: [facility] 12-02-2022 15:25-0500 Body height 162.6 cm Caroline Meza PA-C Work Phone: [facility] 12-02-2022 15:25-0500 Body weight 104.24 kg Caroline Kalka PA-C Work Phone: [facility] 12-02-2022 15:25-0500 Diastolic blood pressure 84 mm[Hg] Caroline Kalka PA-C Work Phone: [facility] 12-02-2022 15:25-0500 Heart rate 68 /min Caroline Kalka PA-C Work Phone: [facility] 12-02-2022 15:25-0500 Systolic blood pressure 126 mm[Hg] Caroline Kalka PA-C Work Phone: [facility] 11-07-2022 14:15-0500 Body height 162.6 cm Pac 3 Work Phone: [facility] 11-07-2022 14:15-0500 Body weight 99.79 kg Pac 3 Work Phone: [facility] 10-28-2022 09:46-0500 Body weight 103.42 kg Cat Older TREASURY MANAGER.BRAID PATTERN SETTER Work Phone: [facility] 10-28-2022 09:46-0500 Diastolic blood pressure 83 mm[Hg] Cat Older TREASURY MANAGER.BRAID PATTERN SETTER Work Phone: [facility] 10-28-2022 09:46-0500 Heart rate 76 /min Cat Older TREASURY MANAGER.BRAID PATTERN SETTER Work Phone: [facility] 10-28-2022 09:46-0500 Respiratory rate 14 /min Cat Older TREASURY MANAGER.BRAID PATTERN SETTER Work Phone: [facility] 10-28-2022 09:46-0500 Systolic blood pressure 125 mm[Hg] Cat Older TREASURY MANAGER.BRAID PATTERN SETTER Work Phone: [facility] Encounters Encounter Date Encounter Type Care Provider Facility Start: 02-24-2023 End: 02-24-2023 ambulatory DONALD MOTLEY Facility:[facility] Start: 02-07-2023 End: 02-08-2023 ambulatory ANTOINE TIESHA Facility:[facility] Start: 02-07-2023 End: 02-07-2023 Patient encounter procedure Cat Older TREASURY MANAGER.ALISSON Work Phone: Internal Medicine [facility] Procedures Date Procedure Procedure Detail Performing Clinician Start: 10-31-2022 Hepatobiliary syst i maging including gallbladder Cat Older TREASURY MANAGER.ALISSON Work Phone: Plan of Treatment Date Care Activity Detail Author Start: 02-08-2024 HEPATITIS C SCREENING HEPATITIS C TN DANNI [facility] Payers Date Payer Category Payer Medicaid [id number] 2021 Medicaid [id number] Social History Date Type Detail Facility Start: 10-21-2022 Tobacco smoking stat [facility] Never smoked tobacco [facility] Start: 10-21-2022 Tobacco use and exposure Smoke less tobacco non-user [facility] Start: 10-28-2022 End: 11-05-2022 Alcohol intake Ex-drinker (finding) [facility] Start: 10-28-2022 End: 02-07-2023 Alcohol intake [facility] Start: 1980 Sex Assigned At Not on file C [facility] Tobacco smoking stat [facility] Tobacco smoking consumption unknown [facility] Start: 11-07-2022 Alcohol Comment 2/week [facility] Start: 12-02-2022 End: 02-07-2023 Alcohol intake Current drinker of alcohol (finding) [facility] Start: 02-06-2023 History SDOH Alcohol Frequency 4 [facility] Start: 02-06-2023 History SDOH Alcohol Std Drinks 1 [facility] Start: 02-06-2023 History SDOH Social Connections Phone 5 [facility] Start: 02-06-2023 History SDOH Social Connections Get Together 3 [facility] Start: 02-06-2023 History SDOH Physica l Activity MPS 6 [facility] Start: 02-06-2023 History SDOH Stress 2 [facility] Start: 10-28-2022 Tobacco use panel [facility] Clinical Notes 10-14-2022 to 10-22-2023 Cat Older, TREASURY MANAGERMARY - 02/07/2023 1:32 PM Xander Meza PA-C - 12/02/2022 3:25 PM ESTTelephone Encounter - Judy You - 11/19/2022 8:16 AM ESTPatient InstructionsPatient Instructions Note Date & Type Note Facility 10-22-2023 Note Patient Outreach (IN TMMN) TOD DA SILVA ([id number]) 1980 F Date Time Provider Department 10/22/23 DONALD MOTLEY During your visit today, we recorded the following information about you: Allergies As of Date: 10/22/2023 (No Known Allergies) Date Reviewed: 02/21/2023 Reviewed by: Makenna Moralez RT(R) - Fully Assessed Visit Diagnosis:Encounter for screening mammogram for breast cancer [Z12.31] Order(s):[facility] SCREENING [[id number]] Order #: [id number] FUTURE Prescriptions as of 10/27/2023 - ascorbic acid, vitamin C, (VITAMIN C) 250 mg tablet Take 250 mg by mouth once daily. - cholecalciferol, vitamin D3, 10 mcg (400 unit) cap Take 400 Units by mouth once daily. Problem List As Of Date 10/22/2023 Noted Resolved Adrenal nodule (HCC) [E27.8] 10/28/2022 Obesity (BMI 30-39.9) [E66.9] 11/07/2022 Encounter Status:Closed by CultureAlleyR on 10/27/23 [facility] 02-24-2023 Note HNO ID: [id number] Author: RT Sharath(R) Service: ? Author Type: Data Engineer Type: Progress Notes Filed: 02/24/2023 2:42 PM [...] RT Salazar(R) February 24, 2023 2:41 PM [facility] 02-07-2023 Note HNO ID: [id number] Author: Cat Nuñez APRN.BRAID PATTERN SETTER Service: ? Author Type: Nurse Practitioner Type: [...] test results, and coordinating care. Cat Nuñez APRN.BRAID PATTERN SETTER [facility] 02-07-2023 History of Presen t illness [...] Cat Nuñez APRN.CNP documented in this encounter [facility] 12-02-2022 Note HNO ID: [id number] Author: Caroline Meza PA-C Service: ? Author Type: Physician Recreation Program Specialist Type: Progress Notes Filed: 12/02/2022 3:50 [...] Abs Lymph 1.00 - 4.00 k/uL 2.01 Toombs% % 9.5 Abs Toombs <0.87 k/uL 0.58 Eosin% % 2.3 Abs [...] HISTORY Procedure Laterality Date SECTION HX 2018 DANNC, DIAG AND/OR THERAPEUTIC 2017 Allergies: ALLERGIES No [...] is present. Musculosk (more content not included)... [facility] 12-02-2022 History of Presen t illness [...] Abs Lymph 1.00 - 4.00 k/uL 2.01 Toombs% % 9.5 Abs Toombs <0.87 k/uL 0.58 Eosin% % 2.3 Abs [...] which included preparing to see the patient, [id number]-mtaw patient care, completing clinical documentation, obtaining and/or reviewing separately obtained history, performing a medically appropriate examination, counseling and educating the patient/family/caregiver, ordering medications, tests, or procedures, communicating with other HCPs (not separately reported), independently interpreting results (not separately reported), communicating results to the patient/family/caregiver, and care coordination (not separately reported). Caroline Meza PA-C December 02, 2022 3:47 PM documented in this encounter [facility] 11-19-2022 Miscellaneous Notes Called patient to confirm cancellation of procedure. Patient confirmed cancellation and denied to reschedule. Patient stated she is following up with gastro. Message sent to [place] to cancel surgery on 11/21/2022 with Darion. Judy You Receiving Weigher Patient calling in to cancel procedure with Dr Orlando at this time declined to reschedule. Patient accepted sooner date in [place] with Dr. Orlando - anesthesia reviewed and approved. Patient now scheduled 11/21/[address] Orlando in [place] for Lap Michelle. Patient stated if she gets worse she will go to the ER. Message sent to change to [place] Judy You Receiving Weigher Patient scheduled in [place] with soonest date of 11/25/2022 with Nuvia. Patient asking if she can get in sooner with Darion in [place] and possibly next week as she is in terrible pain and can't wait till the 16. Message sent to verify approval for [place]. Sated to patient I will be in contact if we can geta sooner date. Patient given my direct line of [phone]. Images from the original note were not included. Tali Orlando MD You 22 hours ago (9:39 AM) To be scheduled at [place] [facility] anesthesia Dx: k80.90 CPT 32617, possible [id number] Thank you You Tali Orlando MD [address] Orlando, Patient is ready to proceed with gallbladder surgery as she is in constant pain. What CPT, DX and anesthesia would you like to proceed with? Please advise Thank you Judy You Receiving Weigher Pt called in states having constant pain now and would like to proceed with the gallbladder surgery. documented in this encounter [facility] 11-07-2022 Instructions Ninfa Guzman PA-C - 11/07/2022 2:29 PM EST PATIENT PREOPERATIVE INSTRUCTIONS Cristofer Banks MD has scheduled you for your procedure at this surgery center: [facility]: [phone] -- [address] [address]. Please read below carefully for your personalized [...] not contain aspirin or NSAIDS as needed. [place] is OK to continue Important Reminders: - [...] Procedures: - YOU MUST HAVE A RESPONSIBLE MARBLE CHIP TERRAZZO WORKER TAKE YOU HOME. A PROGRAM ARCHITECT OR CHIEF UNDERWRITER CANNOT BE MADE A RESPONSIBLE MARBLE CHIP TERRAZZO WORKER. - We recommend that a responsible person [...] Advance Directive, please fax a copy to [phone] or email to for it to be [...] Ninfa Guzman PA-C documented in this encounter [facility] 11-07-2022 History and physical note PREANESTHESIA [...] describes constant abdominal pain, worse after eating. [place] brings relief for 2 hours. She also [...] gallbladder Neuro: No history of TIA's, stroke, TRAY DRIER OPERATOR tumor, impaired sensorium, hemiplegia, paraplegia or quadraplegia. No neurological symptoms or problems. Respiratory: No history of current cough or dyspnea, or pneumonia in the past 6 weeks. No history of respiratory/pulmonary symptoms or problems. Cardiovascular: No history of HTN requiring medication, no history of angina, CHF, HI, cardiac surgery or stents. Denies rest pain, gangrene or revascularization/amputation for PVD. No history of cardiovascular symptoms or problems. GI: see HPI : No history of dysuria, frequency or incontinence,, stones or chronic kidney disease DIRECTOR EMERGENCY DEPARTMENT: Negative for abnormal vaginal bleeding, abnormal vaginal [...] device. I spent more than 25 minutes rfuj-jz-bwfu with the patient and over half the time was devoted to counseling and/or coordination of care. SIGNATURE: Ninfa Guzman PA-C PATIENT NAME: Tod Cordova DATE: 11/07/2022 TIME: 2:25 PM PAGER/CONTACT #: documented in this encounter [facility] 11-05-2022 Miscellaneous Notes Per Cat Nuñez [...] Cat Nuñez APRN.CNP documented in this encounter [facility] 11-05-2022 Miscellaneous Notes Error documented in this encounter [facility] 10-31-2022 Note HNO ID: [id number] Author: RT Anthony(R) Service: Nuclear Medicine Author [...] 13:20 PATIENT DISCHARGED TO: Ambulatory patient, left [place] department area. A Diagnostic radioactive procedure has taken place, with no further precautions necessary other than routine body substance precautions. More information regarding radiation safety can be found using this link: [email or web address] SIGNATURE: PIERRE Cruz PATIENT NAME: Tod Cordova DATE: October 31, 2022 TIME: 1:35 PM PAGER/CONTACT #: [facility] 10-31-2022 History of Presen t illness [...] PM PAGER/CONTACT #: documented in this encounter [facility] 10-30-2022 Note Patient Outreach (IN TMMN) TOD DA SILVA ([id number]) 1980 F Date Time Provider Department 10/30/22 DONALD MOTLEY During your visit today, we recorded the following information about you: Allergies As of Date: 10/30/2022 (No Known Allergies) Date Reviewed: 10/28/2022 Reviewed by: Cat Nuñez APRN.CNP - Fully Assessed Visit Diagnosis:Encounter for screening mammogram for breast cancer [Z12.31] Order(s):[facility] SCREENING [[id number]] Order #: [id number] FUTURE Prescriptions as of 11/04/2022 - ascorbic [...] nodule (HCC) [E27.8] 10/28/2022 Encounter Status:Closed by SpiderOak, PRODUSER on 11/04/22 [facility] 10-28-2022 Note HNO ID: [id number] Author: Cat Nuñez APRN.BRAID PATTERN SETTER Service: ? Author Type: Nurse Practitioner Type: [...] and was not happy with her answers. Pratt that they just wanted to cut out [...] habitus DATA REVIEWED: Outside chart from [facility] ER reviewed. ASSESSMENT/PLAN: 1. Abdominal pain, [...] agreeable to treatment plan. Cat Nuñez APRN.CNP [facility] 10-28-2022 Instructions Cat Nuñez APRN.CNP - 10/28/2022 10:18 AM EST Ursodiol documented in this encounter [facility] 10-28-2022 History of Presen t illness [...] and was not happy with her answers. Pratt that they just wanted to cut out [...] habitus DATA REVIEWED: Outside chart from [facility] ER reviewed. ASSESSMENT/PLAN: 1. Abdominal pain, [...] Cat Nuñez APRN.CNP documented in this encounter [facility] 10-14-2022 Miscellaneous Notes Images from the original note were not included. Tali Orlando MD P [facility] Surg Scheduling Pool This is a new patient - Tod Cordova, seen in [place] ED 10/11/2022 with cholelithiasis/biliary colic. To be referred to this clinic for consideration of laparoscopic cholecystectomy. : 1980 [address], [place] [phone] Please call patient for an appointment to see one of us. 1st attempt to reach patient to schedule an in office visit with Dr. Orlando. Left voicemail to directly contact [phone]. Registration is NOT complete. Judy You Receiving Weigher documented in this encounter [facility] Encounter for screening mammogram for breast cancer Calculus of gallbladder without cholecystitis without obstruction Calculus of gallbladder without mention of cholecystitis or obstruction [facility] Diagnosis Pre-op evaluation- Primary Preoperative examination, unspecified Obesity (BMI 30-39.9) Obesity, unspecified Calculus of gallbladder without cholecystitis without obstruction Calculus of gallbladder without mention of cholecystitis or obstruction [facility] Diagnosis Biliary dyskinesia- Primary Other specified disorder of gallbladder [facility] Diagnosis Calculus of gallbladder without cholecystitis without obstruction- Primary Calculus of gallbladder without mention of cholecystitis or obstruction Adrenal nodule (HCC) Unspecified disorder of adrenal glands Obesity (BMI 30-39.9) Obesity, unspecified Screening, lipid Screening for lipoid disorders [facility] Diagnosis Calculus of gallbladder without cholecystitis without obstruction Calculus of gallbladder without mention of cholecystitis or obstruction Abdominal pain, unspecified abdominal location documented [facility]ative[facility] Diagnostic Procedure Only (Routine) - Pending Review Specialty Diagnoses / Procedures Referred By Sierra quijano Referred To Contact [facility] Diagnoses Encounter for screening mammogram for breast cancer Procedures JULES SCREENING SCREENING MAMMOGRAPHY BI 2-VIEW BREAST INC CAD Donald Motley MD [address] [place] [address] [facility] [address] [place] [address] Referral ID Status Reason Start Date Expiration Date Visits Requested Visits Authorized [id number] Pending Review Auto-Generat ed Referral 2 11/29/2023 1 1 [facility] Reason for Referral Specialty Diagnoses / Procedures Referred By Sierra quijano Referred To Contact Gastroenterology Diagnoses Abdominal pain, unspecified abdominal location Procedures CONSULT TO GASTROENTEROLOGY OFFICE/OUTPATIENT [facility] MDM 60-74 MINUTES Older, JULIA Shelton.BRAID PATTERN SETTER [address] [place] [address] Referral ID Status Reason Start Date Expiration Date Visits Requested Visits Authorized [id number] Authorized PCP Requested Referral 2 10/28/2023 1 1 Specialty Diagnoses / Procedures Referred By Contac t Referred To Contact MOLECULAR & FUNCTIONAL IMAGING Diagnoses Calculus of gallbladder without cholecystitis without obstruction Abdominal pain, unspecified abdominal location Procedures NM HEPATOBILIARY W EF AND/OR RX HEPATOBIL SYST IMAG INC GB W/PHARMA INTERVENJ Older, Cat, TREASURY MANAGER.BRAID PATTERN SETTER [address] [place] [address] Molecular [facility] Functional Imaging [address] [place] [address] Referral ID Status Reason Start Date Expiration Date Visits Requested Visits Authorized [id number] Authorized Auto-Generat ed Referral 2 11/27/2023 1 1 Specialty Diagnoses / Procedures Referred By Contac t Referred To Contact CT IMAGING Diagnoses Disorder of adrenal gland (HCC) Adrenal nodule (HCC) Procedures CT ADRENAL WO/W IVCON CT ABDOMEN W & W/O CONTRAST Joaquin, Cat, TREASURY MANAGER.BRAID PATTERN SETTER [address] [place] [address] Ct [facility] Referral ID Status Reason Start Date Expiration Date Visits Requested Visits Authorized [id number] Authorized Auto-Generat ed Referral 02/07/2023 03/24/2023 1 [...] or prosecute any alcohol or drug abuse patient.[facility] the event this information is protected by the Federal Confidentiality of Alcohol and Drug Abuse Patient Records regulations: The Federal rules restrict any use of the information to criminally investigate or prosecute any alcohol or drug abuse patient.[facility] the event this information is protected by the Federal Confidentiality of Alcohol and Drug Abuse Patient Records regulations: The Federal rules restrict any use of the information to criminally investigate or prosecute any alcohol or drug abuse patient.[facility] the event this information is protected by the Federal Confidentiality of Alcohol and Drug Abuse Patient Records regulations: The Federal rules restrict any use of the information to criminally investigate or prosecute any alcohol or drug abuse patient.[facility] the event this information is protected by the Federal Confidentiality of Alcohol and Drug Abuse Patient Records regulations: The Federal rules restrict any use of the information to criminally investigate or prosecute any alcohol or drug abuse patient.[facility] the event this information is protected by the Federal Confidentiality of Alcohol and Drug Abuse Patient Records regulations: The Federal rules restrict any use of the information to criminally investigate or prosecute any alcohol or drug abuse patient.[facility] the event this information is protected by the Federal Confidentiality of Alcohol and Drug Abuse Patient Records regulations: The Federal rules restrict any use of the information to criminally investigate or prosecute any alcohol or drug abuse patient.[facility] the event this information is protected by the Federal Confidentiality of Alcohol and Drug Abuse Patient Records regulations: The Federal rules restrict any use of the information to criminally investigate or prosecute any alcohol or drug abuse patient.[facility] the event this information is protected by the Federal Confidentiality of Alcohol and Drug Abuse Patient Records regulations: The Federal rules restrict any use of the information to criminally investigate or prosecute any alcohol or drug abuse patient.[facility] the event this information is protected by the Federal Confidentiality of Alcohol and Drug Abuse Patient Records regulations: The Federal rules restrict any use of the information to criminally investigate or prosecute any alcohol or drug abuse patient.[facility] Reason for Visit (unrecogniz ed section and content) Reason Comments Results Reason Comments Appointment Reason Comments Anesthesia Consult Reason Comments Patient Update Appointment Reason Comments Abdominal Pain Specialty Diagnoses / Procedures Referred By iSerra quijano Referred To Contact Gastroenterology Diagnoses Abdominal pain, unspecified abdominal location Procedures CONSULT TO GASTROENTEROLOGY OFFICE/OUTPATIENT NEW HIGH MDM 60-74 MINUTES Cat Nuñez, TREASURY MANAGER.BRAID PATTERN SETTER [address] [place] [address] Referral ID Status Reason Start Date Expiration Date V isits Requested Visits Authorized [id number] Closed PCP Requested Referral 10/28/2022 10/28/2023 1 1 Reason Comments F/U 3 Month Gallstones Reason Comments Radiology NM Specialty Diagnoses / Procedures Referred By Sierra quijano Referred To Contact MOLECULAR & FUNCTIONAL IMAGING Diagnoses Calculus of gallbladder without cholecystitis without obstruction Abdominal pain, unspecified abdominal location Procedures NM HEPATOBILIARY W EF AND/OR RX HEPATOBIL SYST IMAG INC GB W/PHARMA INTERVENJ Cat Nuñez, TREASURY MANAGER.BRAID PATTERN SETTER [address] [place] [address] Molecular [facility] [address] [place] [address] Referral ID Status Reason Start Date Expiration Date V isits Requested Visits Authorized [id number] Closed Auto-Generate d Referral 10/28/2022 11/27/2023 1 1 Care Teams (unrecognized sec tion and content) Hadoop Architect Relationship Specialty Start Date End Date Donald Motley MD [address] [place] [address] PCP - General Internal Medicine 10/28/22 Hadoop Architect Relationship Specialty Start Date End Date Donald Motley MD [address] [place], [place] [address] PCP - General Internal Medicine 10/28/22 11/07/22 Hadoop Architect Relationship Specialty Start Date End Date Donald Motley MD [address] [place], [place] [address] PCP - General Internal Medicine 10/28/22 11/07/22 Hadoop Architect Relationship Specialty Start Date End Date Donald Motley MD [address] [place], [place] [id number] PCP - General Internal Medicine 10/28/22 11/07/22 Hadoop Architect Relationship Specialty Start Date End Date Donald Motley MD [address] [place] [address] PCP - General Internal Medicine 12/30/22 Hadoop Architect Relationship Specialty Start Date End Date Donald Motley MD [address] [place], [place] [id number] PCP - General Internal Medicine 10/28/22 11/07/22 [...] BE BASED ON THE PRIMARY CLINICAL RECORDS. [facility]. provides no warranty or guarantee of the accuracy or completeness of information in this document.
--- NOTE | 2023-12-02 23:30 | US_ITS ---
INDICATION: ABD PAIN EXAMINATION: Ultrasound US Abdomen RUQ (limited) TECHNIQUE: Penn scale and color doppler imaging was performed of the right upper quadrant. COMPARISON: 11/27/2023 CT and 11/27/2023 ultrasound. FINDINGS: LIVER: Diffuse increased echogenicity. Hepatomegaly with the right lobe length measuring 17.1 cm. 1.3 cm hyperechoic lesion within the left lobe. No intrahepatic duct dilation. GALLBLADDER: Status post cholecystectomy. 5.5 x 1.0 cm fluid collection in the gallbladder fossa. COMMON BILE DUCT: Normal measuring 4 mm in diameter. PANCREAS: Visualized portions of the pancreas appear normal. RIGHT KIDNEY: Nonobstructing renal stone. FREE FLUID: No free fluid in the right upper quadrant. US/Gallbladder IMPRESSION: 1. 5.5 x 1.0 cm fluid collection in the gallbladder fossa, status post cholecystectomy. 2. Fatty infiltration of the liver and mild hepatomegaly. 3. 1.3 cm hyperechoic lesion within the left lobe of the liver most likely representing a hemangioma, however given no corresponding findings on previous CTs recommend follow-up with routine MRI with dedicated liver protocol. 4. Nonobstructing right renal stone. Electronically Signed: Rojelio Kruger DO at 0:21 EST ,
--- NOTE | 2023-12-02 23:42 | EDS_ITS ---
HPI HPI - GI History of Present Illness Chief Complaint: Abd Pain Informant: patient Abdominal Pain/Flank Pain Onset: Today Context: Gradual Onset Timing: Continuous Quality: Aching and - (Tightness) Location: RUQ Worsened by: Nothing Relieved by: - (Movement) Nausea/Vomiting/Emesis GI Symptom: Positive for Nausea; Negative for Vomiting Diarrhea/Melena/Hematochezia GI Symptom: Negative for Diarrhea, Melena or Hematochezia Associated Symptoms Associated Symptoms: Negative for Dysuria, Frequency or Hematuria Narrative Narrative: Patient presents with abdominal pain that became worse today. Patient states it is gradually getting worse. Patient states she had a cholecystectomy performed 4 days ago. Patient states her pain is mainly over the right upper quadrant and radiates into the right scapular area. Patient describes it as aching and tight. Patient states it is better if she keeps moving. Patient admits to some nausea but denies any vomiting. Patient denies any diarrhea, melena, or hematochezia. Patient denies any dysuria, frequency, or hematuria. Patient states she is approximately 7 weeks . [facility] Medical History Alcohol use Gastric reflux History of blood transfusion History of placenta abruption History of pre-eclampsia Hypertension Non-smoker hemorrhage Wears glasses Home Medications multivit-min no.71-iron fum 28 mg-folate no.1 1 mg-dha 300 mg capsule (PNV- [place]) 1 cap PO DAILY SUPPLEMENT 11/25/23 [History Last Taken 11/21/23] pantoprazole 40 mg tablet,delayed release 40 mg PO DAILY ACID REFLUX #60 tabs 11/25/23 [Rx Last Taken 11/26/23] oxycodone 5 mg capsule 5 mg PO Q6H PRN pain 3 days #12 caps 12/03/23 [Rx Last Taken Unknown] Allergy/AdvReac Type Severity Reaction Status Date / Time No Known Allergies Allergy Verified 12/02/23 23:05 Family History Mother CAD (coronary artery disease) Thyroid disorder Father CAD (coronary artery disease) Thyroid disorder Sister Thyroid disorder Other Diabetes Surgical History Hx of wisdom tooth extraction S/P S/P dilation and curettage S/P laparoscopic cholecystectomy Social History adopted: No household members: spouse and children number of children: 7 current occupational status: unemployed current occupation: [employer] current occupational exposures/hazards: No pets and animals: Yes pets and animals: dog(s), hamster(s) and farm animals history of recent travel: No sexually active: Yes Smoking Status: Never smoker alcohol intake: current details: not while substance use type: does not use well-balanced diet: about half the time caffeine: Yes Type: coffee Number of servings: 2 eating out: 1-3 times/week during the past year weight has: decreased > 10 lbs what type of physical activity do you participate in: none gallo/caodaism: Zoroastrianism seatbelt use: always do you feel safe at home: Yes additional social history: - David ROS ROS ED Constitutional Constitutional ED: Denies chills or fever(s) Eyes Eyes: Denies blurry vision or change in vision ENT ENT ED: Denies rhinorrhea or sore throat Cardiovascular Cardiovascular: Denies chest pain or palpitations Respiratory/Chest Respiratory/Chest: Denies cough or dyspnea Gastrointestinal Gastrointestinal: Reports abdominal pain and nausea; Denies vomiting Genitourinary Genitourinary ED: Denies dysuria or hematuria Musculoskeletal Musculoskeletal: Reports back pain; Denies neck pain Integumentary Denies abscess or rash Neurologic Neurologic: Denies headache(s) or weakness Allergic/Immunologic Allergic/Immunologic ED: Denies mouth swelling or urticaria EXAM Physical Exam Const Vital Signs: 12/02/23 23:06 Temperature 97 F L Temperature Source Oral Pulse Rate 88 Respiratory Rate 18 Blood Pressure 155/98 H Blood Pressure Mean 117 Pulse Ox 97 Oxygen Delivery Method Room Air Positive well nourished, well developed and obese General Appearance ED: well developed and NAD Nutritional Appearance: obese HEENT Reports moist mucous membranes Resp normal respiratory effort and clear to auscultation bilaterally Cardio regular rate and regular rhythm GI non-distended Palpation: soft and tender RUQ; Negative for guarding or rebound tenderness present Extremity full ROM Neuro CN's II-XII intact bilaterally, moves all extremities and no sensory deficits noted Sensorium / Orientation: alert Motor Exam: strength 5/5 throughout Psych mental status grossly normal MDM MDM MDM Narrative Medical decision making narrative: Differential diagnosis includes choledocholithiasis, postoperative pain, hepatitis, ureteral calculus, and urinary tract infection. Right upper quadrant ultrasound will be obtained to assess for choledocholithiasis. CBC will be obtained to assess for leukocytosis and anemia. Comprehensive metabolic profile will be obtained to assess for hepatitis, renal function, and electrolyte abnormality. Lipase will be obtained to assess for pancreatitis. Urinalysis will be obtained to assess for urinary tract infection. Lab Data Attestation: I reviewed the patient's lab results. Lab results narrative: CBC was reviewed and was within normal limits. Comprehensive metabolic profile was reviewed and was within normal limits. Lipase was reviewed and was normal. Quantitative hCG was reviewed and was [id number]. Urinalysis was reviewed. There is no evidence of urinary tract infection or hematuria. Labs: Laboratory Results - last 24 hr 12/02/23 12/03/23 23:18 01:28 WBC 7.0 RBC 4.22 Hgb 12.5 Hct 36.6 L MCV 86.7 MCH 29.6 MCHC 34.2 RDW Std Deviation 38.3 RDW Coeff of Zain 12.0 Plt Count 274 MPV 10.2 Immature Gran % (Auto) 0.600 Neut % (Auto) 62.6 Lymph % (Auto) 27.5 [place] % (Auto) 7.0 Eos % (Auto) 1.7 Baso % (Auto) 0.6 Absolute Neuts (auto) 4.4 Absolute Lymphs (auto) 1.93 Nucleated RBC % 0 Sodium 136 Potassium 3.5 Chloride 105 Carbon Dioxide 25.0 Anion Gap 6 BUN 7 Creatinine 0.84 Estim Creat Clear Calc 98.91 Est GFR (MDRD) Af Amer 95 Est GFR (MDRD) Non-Af 79 BUN/Creatinine Ratio 8.4 L Glucose 128 H Calcium 11.4 H Total Bilirubin 0.40 AST 27 ALT 58 H Alkaline Phosphatase 111 Total Protein 7.3 Albumin 3.3 Globulin 4.0 Albumin/Globulin Ratio 0.8 L Lipase 17 HCG, Quant 37167 H Urine Color Yellow Urine Clarity Clear Urine pH 7.0 Ur Specific [place] 1.015 Urine Protein Negative Urine Glucose (UA) Normal Urine Ketones Negative Urine Occult Blood Negative Urine Nitrite Negative Urine Bilirubin Negative Urine Urobilinogen Normal Ur Leukocyte Esterase Negative Urine RBC 0 SEEN Urine WBC 0 SEEN Ur Squamous Epith Cells 0 SEEN Urine Bacteria 0 SEEN Urine Mucus 0 SEEN Radiography Diagnostic Testing: Clinical Impression(s) from Imaging Studies Gallbladder Ultrasound 12/02/23 23:30 IMPRESSION: 1. 5.5 x 1.0 cm fluid collection in the gallbladder fossa, status post cholecystectomy. 2. Fatty infiltration of the liver and mild hepatomegaly. 3. 1.3 cm hyperechoic lesion within the left lobe of the liver most likely representing a hemangioma, however given no corresponding findings on previous CTs recommend follow-up with routine MRI with dedicated liver protocol. 4. Nonobstructing right renal stone. Electronically Signed: Rojelio Kruger DO at 0:21 EST , Right upper quadrant ultrasound was obtained. There is a 5.5 x 1.0 cm fluid collection in the gallbladder fossa status postcholecystectomy. There is no ductal dilatation. There is no retained stone. There is fatty infiltration of the liver. This was interpreted by the radiologist and was also dependently reviewed by myself. Treatment and Re-Evaluation :: Patient was given morphine and Zofran initially. Patient states her pain was recurring and was given a repeat dose of morphine. On reevaluation, patient states her pain was improving but it was still present in her back. Patient was requesting another dose of pain medication. Patient states that Dilaudid has worked better than morphine for her in the past. Patient was advised of the risks of opiate analgesics during . Patient will be given a dose of Dilaudid here. Patient was advised that we would not be able to give her any further opiate analgesics here tonight. Patient was given a prescription for oxycodone which she was taking after her cholecystectomy. Patient was instructed to follow-up with her surgeon as scheduled. Patient understood and was agreeable with the plan. All questions were answered. Discharge Plan Triage Chief Complaint: Abd Pain ED Provider: Daniel Barker Dx/Rx/DC Orders Clinical Impression: Abdominal pain, First trimester , S/P laparoscopic cholecystectomy Instructions: ED Abdominal Pain Unkn Cause Fem, ED Abdominal Pain, Early Preg karo Prescriptions: Changed oxycodone 5 mg capsule 5 mg PO Q6H PRN (Reason: pain) 3 Days Qty: 12 0RF No Action PNV-[place] 28-1-300 mg capsule 1 cap PO DAILY pantoprazole 40 mg tablet,delayed release (DR/EC) 40 mg PO DAILY Qty: 60 0RF Primary Care Provider: Care Physician,No Primary Referrals: Jackelyn Whitney MD [Med Staff - Active Staff] - 3-5 Days Care Physician,No Primary [Primary Care Provider] - Disposition Disposition: Home, Self Care
[2023-12-02 23:47] LABS: Absolute Lymphocyte Count 1.93 X10^3/uL (0.83-4.51); Absolute Neutrophil Count 4.4 X10^3/uL (2.0-7.7); Basophil# 0.04 X10^3/uL; Basophil% 0.6 % (0-1); Eosinophil# 0.12 X10^3/uL; Eosinophils% 1.7 % (0-5); Hematocrit 36.6 % (37-47); Hemoglobin 12.5 g/dL (12.0-15.0); Lymphocyte # 1.93 X10^3/ul (0.83-4.51); Lymphocyte % 27.5 % (19-41); Mean Corp Hgb Conc 34.2 g/dL (32-36); Mean Corpuscular Hgb 29.6 pg (27.0-32.0); Mean Corpuscular Volume 86.7 fL (81-99); Mean Platelet Vol. 10.2 fl (6.2-12.0); Monocyte# 0.49 X10^3/uL; NRBC Flagged by Analyzer 0 % (0-5); Neutrophil # 4.41 X10^3/uL (2.7-7.7); Neutrophil % 62.6 % (47-70); Platelet Count 274 K/mm3 (150-450); RBC Distribution Width SD 38.3 fl (35.1-43.9); Red Blood Count 4.22 M/mm3 (4.2-5.4)
[2023-12-03 00:06] LABS: ALB/GLOB Ratio 0.8 RATIO (0.9-2.4); AST(SGOT) 27 U/L (15-37); Alanine Aminotransfer ALT/SGPT 58 U/L (13-56); Albumin, Serum 3.3 g/dL (3.2-5.0); Alkaline Phosphatase 111 U/L (45-117); Anion Gap 6 (5-15); BUN 7 mg/dL (7-18); BUN/Creat Ratio 8.4 RATIO (10-20); Calcium,Total 11.4 mg/dL (8.5-10.1); Chloride 105 mmol/L (98-107); Creatinine, Serum 0.84 mg/dL (0.55-1.02); EST Glomerular Filtration Rate 79 mL/min (>60); Est Glom Filt Rate - Afr Amer 95 mL/min (>60); Estimated Creatinine Clearance 98.91 ml/min; Glucose 128 mg/dL (74-106); Lipase 17 U/L (13-75); Potassium 3.5 mmol/L (3.5-5.1); Protein, Total 7.3 g/dL (6.4-8.2); Sodium Level 136 mmol/L (136-145)
[2023-12-03] MEDS: Morphine 4 MG/ML Syringe IV ×2 (00:06→01:25)
[2023-12-03] MEDS: Ondansetron 4 MG/2 ML Vial IV (00:06)
[2023-12-03 00:36] LABS: hCG Titer Quant., Serum 25750 mIU/mL (1-3)
[2023-12-03 01:32] LABS: Bacteria 0 SEEN /hpf (None Seen); Mucous, Urine 0 SEEN /hpf (<or=2+); Red Blood Cells-Urine 0 SEEN /hpf (0-5); Squamous Epithelial Cells - UA 0 SEEN /hpf (5-10); White Blood Cells 0 SEEN /hpf (0-5)
[2023-12-03 01:33] LABS: Color, Urine Yellow (Yellow); Glucose, Dipstick Normal (Normal); Ketone-Dipstick Negative (Negative); Leukocyte Esterase-Dipstick Negative /ul (Negative); Nitrite-Dipstick Negative (Negative); Occult Blood-Urine Negative /ul (Negative); Protein-Dipstick Negative (Negative); Specific Gravity, Urine 1.015 (1.002-1.030); Urine Bilirubin Dipstick Negative (Negative); Urine Clarity Clear (Clear); Urine Urobilinogen Normal (Normal)
[2023-12-03] MEDS: HYDROmorphone 1 MG/ML Syringe 0.5 MG IV (02:25)
[2023-12-03 02:29] VITALS: BP 142/79; PULSE 85; RESP 22; O2SAT 99
== END 2023-12-03 02:30 | disposition home or self-care (01) ==
PROVIDERS: Emergency Provider Emergency Medicine; Visit Provider Emergency Medicine
DX: O99.891 Other specified diseases and conditions complicating pregnancy (principal); R10.11 Right upper quadrant pain; O99.611 Diseases of the digestive system complicating pregnancy, first trimester; Z90.49 Acquired absence of other specified parts of digestive tract; Z3A.01 Less than 8 weeks gestation of pregnancy; K21.9 Gastro-esophageal reflux disease without esophagitis; Z79.899 Other long term (current) drug therapy; R11.0 Nausea
CPT/HCPCS: 76705; 80053; 81001; 83690; 84702; 85025; 96374; 96375; 96376; 99283; A4216; J2405

== ENCOUNTER → 2023-12-04 | Outpatient (CLI) | payer MEDICAID, SELFPAY ==
--- OUTSIDE RECORDS SUMMARY | 2023-12-04 12:19 | XMS RPT_ITS | CCD ---
Author Name Unknown Address [address] [place] [address] Organization [facility] Care Team Providers Care Stunt Double Name Role Phone Tiesha QURESHI, Donald Syed Primary Care Provider [phone] Unavailable Primary Care Provider Unavailrandi Motley MD, Donald Syed Primary Care Provider [phone] Donald Motley MD Primary Care Provider [phone] CRISTOFER BANKS Referring Unavailable DONALD MOTLEY Primary [...] 13:17-0400 Body weight 103.87 kg Cat Older BEARING MAKER.PHYSICS TECHNICAL OFFICER Work Phone: [facility] 02-07-2023 13:17-0400 Diastolic blood pressure 85 mm[Hg] Cat Older BEARING MAKER.PHYSICS TECHNICAL OFFICER Work Phone: [facility] 02-07-2023 13:17-0400 Heart rate 78 /min Cat Older BEARING MAKER.PHYSICS TECHNICAL OFFICER Work Phone: [facility] 02-07-2023 13:17-0400 Respiratory rate 16 /min Cat Older BEARING MAKER.PHYSICS TECHNICAL OFFICER Work Phone: [facility] 02-07-2023 13:17-0400 Systolic blood pressure 126 mm[Hg] Cat Older BEARING MAKER.PHYSICS TECHNICAL OFFICER Work Phone: [facility] 12-02-2022 15:25-0500 Body height 162.6 cm Caroline Meza PA-C Work Phone: [facility] 12-02-2022 15:25-0500 Body weight 104.24 kg Caroline Kalka PA-C Work Phone: [facility] 12-02-2022 15:25-0500 Diastolic blood pressure 84 mm[Hg] Caroline Kalka PA-C Work Phone: [facility] 12-02-2022 15:25-0500 Heart rate 68 /min Caroline Kalka PA-C Work Phone: [facility] 12-02-2022 15:25-0500 Systolic blood pressure 126 mm[Hg] Caroline Kalka PA-C Work Phone: [facility] 11-07-2022 14:15-0500 Body height 162.6 cm Pac 3 Work Phone: [facility] 11-07-2022 14:15-0500 Body weight 99.79 kg Pac 3 Work Phone: [facility] 10-28-2022 09:46-0500 Body weight 103.42 kg Cat Older BEARING MAKER.PHYSICS TECHNICAL OFFICER Work Phone: [facility] 10-28-2022 09:46-0500 Diastolic blood pressure 83 mm[Hg] Cat Older BEARING MAKER.PHYSICS TECHNICAL OFFICER Work Phone: [facility] 10-28-2022 09:46-0500 Heart rate 76 /min Cat Older BEARING MAKER.PHYSICS TECHNICAL OFFICER Work Phone: [facility] 10-28-2022 09:46-0500 Respiratory rate 14 /min Cat Older BEARING MAKER.PHYSICS TECHNICAL OFFICER Work Phone: [facility] 10-28-2022 09:46-0500 Systolic blood pressure 125 mm[Hg] Cat Older BEARING MAKER.PHYSICS TECHNICAL OFFICER Work Phone: [facility] Encounters Encounter Date Encounter Type Care Provider Facility Start: 02-24-2023 End: 02-24-2023 ambulatory DONALD MOTLEY Facility:[facility] Start: 02-07-2023 End: 02-08-2023 ambulatory ANTOINE TIESHA Facility:[facility] Start: 02-07-2023 End: 02-07-2023 Patient encounter procedure Cat Older BEARING MAKER.ALISSON Work Phone: Internal Medicine [facility] Procedures Date Procedure Procedure Detail Performing Clinician Start: 10-31-2022 Hepatobiliary syst i maging including gallbladder Cat Older BEARING MAKER.ALISSON Work Phone: Plan of Treatment Date Care Activity Detail Author Start: 02-08-2024 HEPATITIS C SCREENING HEPATITIS C NE DANNI [facility] Payers Date Payer Category Payer Medicaid [id number] 2021 Medicaid [id number] Social History Date Type Detail Facility Start: 10-21-2022 Tobacco smoking stat [facility] Never smoked tobacco [facility] Start: 10-21-2022 Tobacco use and exposure Smoke less tobacco non-user [facility] Start: 10-28-2022 End: 11-05-2022 Alcohol intake Ex-drinker (finding) [facility] Start: 10-28-2022 End: 02-07-[address] [facility] Start: 1980 Sex Assigned At Not on file C [facility] Tobacco smoking stat [facility] Tobacco smoking consumption unknown [facility] Start: 11-07-2022 Alcohol Comment 2/week [facility] Start: 12-02-2022 End: 02-07-2023 Alcohol intake Current drinker of alcohol (finding) [facility] Start: 02-06-2023 History SDOH Alcohol Frequency 4 [facility] Start: 02-06-2023 History SDOH Alcohol Std Drinks 1 [facility] Start: 02-06-2023 History SDOH Social Connections Phone 5 [facility] Start: 02-06-2023 History SDOH Social Connections Get Together 3 [facility] Start: 02-06-2023 History SDOH Physica l Activity MPS 6 [facility] Start: 02-06-2023 History SDOH Stress 2 [facility] Start: 10-28-2022 Tobacco use panel [facility] Clinical Notes 10-14-2022 to 10-22-2023 Cat Older, BEARING MAKERMARY - 02/07/2023 1:32 PM Xander Meza PA-C - 12/02/2022 3:25 PM ESTTelephone Encounter - Judy You - 11/19/2022 8:16 AM ESTPatient InstructionsPatient Instructions Note Date & Type Note Facility 10-22-2023 Note Patient Outreach (IN TMMN) TOD DA SILVA ([id number]) 1980 F Date Time Provider Department 10/22/23 DONALD MOTLEY During your visit today, we recorded the following information about you: Allergies As of Date: 10/22/2023 (No Known Allergies) Date Reviewed: 02/21/2023 Reviewed by: Makenna Mroalez RT(R) - Fully Assessed Visit Diagnosis:Encounter for screening mammogram for breast cancer [Z12.31] Order(s):[facility] SCREENING [[id number]] Order #: [id number] FUTURE Prescriptions as of 10/27/2023 - ascorbic acid, vitamin C, (VITAMIN C) 250 mg tablet Take 250 mg by mouth once daily. - cholecalciferol, vitamin D3, 10 mcg (400 unit) cap Take 400 Units by mouth once daily. Problem List As Of Date 10/22/2023 Noted Resolved Adrenal nodule (HCC) [E27.8] 10/28/2022 Obesity (BMI 30-39.9) [E66.9] 11/07/2022 Encounter Status:Closed by [employer] on 10/27/23 [facility] 02-24-2023 Note HNO ID: [id number] Author: RT Sharath(R) Service: ? Author Type: Carbon Paper Coating Supervisor Type: Progress Notes Filed: 02/24/2023 2:42 PM Note Text: Radiology Service Progress Note PATIENT NAME: oTd Cordova DATE OF SERVICE: February 24, 2023 [...] RT Salazar(R) February 24, 2023 2:41 PM [facility] 02-07-2023 Note HNO ID: [id number] Author: Cat Nuñez APRN.PHYSICS TECHNICAL OFFICER Service: ? Author Type: Nurse Practitioner Type: [...] test results, and coordinating care. Cat Nuñez APRN.PHYSICS TECHNICAL OFFICER [facility] 02-07-2023 History of Presen t [...] Cat Nuñez APRN.CNP documented in this encounter [facility] 12-02-2022 Note HNO ID: [id number] Author: Caroline Meza PA-C Service: ? Author Type: Physician Customer Service Cashier Type: Progress Notes Filed: 12/02/2022 3:50 PM [...] Abs Lymph 1.00 - 4.00 k/uL 2.01 [place]% % 9.5 Abs [place] <0.87 k/uL 0.58 Eosin% % 2.3 Abs [...] HISTORY Procedure Laterality Date SECTION HX 2018 DANNH, DIAG AND/OR THERAPEUTIC 2017 Allergies: ALLERGIES No [...] is present. Musculosk (more content not included)... [facility] 12-02-2022 History of Presen t [...] Abs Lymph 1.00 - 4.00 k/uL 2.01 [place]% % 9.5 Abs [place] <0.87 k/uL 0.58 Eosin% % 2.3 Abs [...] which included preparing to see the patient, [id number] patient care, completing clinical documentation, obtaining and/or reviewing separately obtained history, performing a medically appropriate examination, counseling and educating the patient/family/caregiver, ordering medications, tests, or procedures, communicating with other HCPs (not separately reported), independently interpreting results (not separately reported), communicating results to the patient/family/caregiver, and care coordination (not separately reported). Caroline Meza PA-C December 02, 2022 3:47 PM documented in this encounter [facility] 11-19-2022 Miscellaneous Notes Called patient to confirm cancellation of procedure. Patient confirmed cancellation and denied to reschedule. Patient stated she is following up with gastro. Message sent to [place] to cancel surgery on 11/21/2022 with Darion. Judy You Crystal Cutter Patient calling in to cancel procedure with Dr Orlando at this time declined to reschedule. Patient accepted sooner date in [place] with Dr. Orlando - anesthesia reviewed and approved. Patient now scheduled 11/21/[address] Orlando in [place] for Lap Michelle. Patient stated if she gets worse she will go to the ER. Message sent to change to [place] Judy You Crystal Cutter Patient scheduled in [place] with soonest date of 11/25/2022 with Nuvia. Patient asking if she can get in sooner with Darion in [place] and possibly next week as she is in terrible pain and can't wait till the 16. Message sent to verify approval for [place]. Sated to patient I will be in contact if we can geta sooner date. Patient given my direct line of [phone]. Images from the original note were not included. Tali Orlando MD You 22 hours ago (9:39 AM) To be scheduled at [place] General anesthesia Dx: k80.90 CPT 29868, possible [id number] Thank you You Tali Orlando MD [address] Orlando, Patient is ready to proceed with gallbladder surgery as she is in constant pain. What CPT, DX and anesthesia would you like to proceed with? Please advise Thank you Judy You Crystal Cutter Pt called in states having constant pain now and would like to proceed with the gallbladder surgery. documented in this encounter [facility] 11-07-2022 Instructions Ninfa Guzman PA-C - 11/07/2022 2:29 PM EST PATIENT PREOPERATIVE INSTRUCTIONS Cristofer Banks MD has scheduled you for your procedure at this surgery center: [facility]: [phone] -- [address] [address]. Please read below carefully for your personalized [...] not contain aspirin or NSAIDS as needed. Tate is OK to continue Important Reminders: - [...] Procedures: - YOU MUST HAVE A RESPONSIBLE CUBE CUTTER TAKE YOU HOME. A SEARCH ENGINE OPTIMIZATION ANALYST OR VOCATIONAL REHABILITATION ADMINISTRATOR CANNOT BE MADE A RESPONSIBLE CUBE CUTTER. - We recommend that a responsible person [...] Advance Directive, please fax a copy to [phone] or email to for it to be [...] Ninfa Guzman PA-C documented in this encounter [facility] 11-07-2022 History and physical note PREANESTHESIA [...] describes constant abdominal pain, worse after eating. Tate brings relief for 2 hours. She also [...] gallbladder Neuro: No history of TIA's, stroke, COMPLIANCE OFFICER tumor, impaired sensorium, hemiplegia, paraplegia or quadraplegia. No neurological symptoms or problems. Respiratory: No history of current cough or dyspnea, or pneumonia in the past 6 weeks. No history of respiratory/pulmonary symptoms or problems. Cardiovascular: No history of HTN requiring medication, no history of angina, CHF, CO, cardiac surgery or stents. Denies rest pain, gangrene or revascularization/amputation for PVD. No history of cardiovascular symptoms or problems. GI: see HPI : No history of dysuria, frequency or incontinence,, stones or chronic kidney disease ENTERPRISE RESOURCE ANALYST: Negative for abnormal vaginal bleeding, abnormal vaginal [...] device. I spent more than 25 minutes [id number] with the patient and over half the time was devoted to counseling and/or coordination of care. SIGNATURE: Ninfa Guzman PA-C PATIENT NAME: Tod Cordova DATE: 11/07/2022 TIME: 2:25 PM PAGER/CONTACT #: documented in this encounter [facility] 11-05-2022 Miscellaneous Notes Per Cat Nuñez [...] Cat Nuñez APRN.CNP documented in this encounter [facility] 11-05-2022 Miscellaneous Notes Error documented in this encounter [facility] 10-31-2022 Note HNO ID: [id number] Author: RT Anthony(R) Service: Nuclear Medicine Author [...] 13:20 PATIENT DISCHARGED TO: Ambulatory patient, left [place] department area. A Diagnostic radioactive procedure has taken place, with no further precautions necessary other than routine body substance precautions. More information regarding radiation safety can be found using this link: [email or web address] SIGNATURE: PIERRE Cruz PATIENT NAME: Tod Cordova DATE: October 31, 2022 TIME: 1:35 PM PAGER/CONTACT #: [facility] 10-31-2022 History of Presen t [...] PM PAGER/CONTACT #: documented in this encounter [facility] 10-30-2022 Note Patient Outreach (IN TMMN) TOD DA SILVA ([id number]) 1980 F Date Time Provider Department 10/30/22 DONALD MOTLEY During your visit today, we recorded the following information about you: Allergies As of Date: 10/30/2022 (No Known Allergies) Date Reviewed: 10/28/2022 Reviewed by: Cat Nuñez APRN.CNP - Fully Assessed Visit Diagnosis:Encounter for screening mammogram for breast cancer [Z12.31] Order(s):[facility] SCREENING [[id number]] Order #: [id number] FUTURE Prescriptions as of 11/04/2022 - ascorbic [...] nodule (HCC) [E27.8] 10/28/2022 Encounter Status:Closed by [employer], PRODUSER on 11/04/22 [facility] 10-28-2022 Note HNO ID: [id number] Author: Cat Nuñez APRN.PHYSICS TECHNICAL OFFICER Service: ? Author Type: Nurse Practitioner Type: [...] and was not happy with her answers. [place] that they just wanted to cut out [...] body habitus DATA REVIEWED: Outside chart from [facility] ER reviewed. ASSESSMENT/PLAN: 1. Abdominal [...] agreeable to treatment plan. Cat Nuñez APRN.CNP [facility] 10-28-2022 Instructions Cat Nuñez APRN.CNP - 10/28/2022 10:18 AM EST Ursodiol documented in this encounter [facility] 10-28-2022 History of Presen t illness [...] and was not happy with her answers. [place] that they just wanted to cut out [...] body habitus DATA REVIEWED: Outside chart from [facility] ER reviewed. ASSESSMENT/PLAN: 1. Abdominal [...] Cat Nuñez APRN.CNP documented in this encounter [facility] 10-14-2022 Miscellaneous Notes Images from the original note were not included. Tali Orlando MD P [facility] Surg Scheduling Pool This is a new patient - Tod Cordova, seen in [place] ED 10/11/2022 with cholelithiasis/biliary colic. To be referred to this clinic for consideration of laparoscopic cholecystectomy. : 1980 [address], [place] [phone] Please call patient for an appointment to see one of us. 1st attempt to reach patient to schedule an in office visit with Dr. Orlando. Left voicemail to directly contact [phone]. Registration is NOT complete. Judy You Crystal Cutter documented in this encounter [facility] Diagnosis Encounter for screening mammogram for breast cancer Calculus of gallbladder without cholecystitis without obstruction Calculus of gallbladder without mention of cholecystitis or obstruction [facility] Diagnosis Pre-op evaluation- Primary Preoperative examination, unspecified Obesity (BMI 30-39.9) Obesity, unspecified Calculus of gallbladder without cholecystitis without obstruction Calculus of gallbladder without mention of cholecystitis or obstruction [facility] Diagnosis Biliary dyskinesia- Primary Other specified disorder of gallbladder [facility] Diagnosis Calculus of gallbladder without cholecystitis without obstruction- Primary Calculus of gallbladder without mention of cholecystitis or obstruction Adrenal nodule (HCC) Unspecified disorder of adrenal glands Obesity (BMI 30-39.9) Obesity, unspecified Screening, lipid Screening for lipoid disorders [facility] Diagnosis Calculus of gallbladder without cholecystitis without obstruction Calculus of gallbladder without mention of cholecystitis or obstruction Abdominal pain, unspecified abdominal location [facility] (narrative)* Diagnostic Procedure Only (Routine) - Pending Review Specialty Diagnoses / Procedures Referred By Sierra quijano Referred To Contact [facility] Diagnoses Encounter for screening mammogram for breast cancer Procedures JULES SCREENING SCREENING MAMMOGRAPHY BI 2-VIEW BREAST INC CAD Donald Mtoley MD [address] [place] [address] [facility] [address] [facility] [place] [address] Referral ID Status Reason Start Date Expiration Date Visits Requested Visits Authorized [id number] Pending Review Auto-Generat ed Referral 2 11/29/[address] [facility] Reason for Referral Specialty Diagnoses / Procedures Referred By Sierra quijano Referred To Contact Gastroenterology Diagnoses Abdominal pain, unspecified abdominal location Procedures CONSULT TO GASTROENTEROLOGY OFFICE/OUTPATIENT [facility] MDM 60-74 MINUTES Older, JULIA Shelton.PHYSICS TECHNICAL OFFICER [address] [place] [address] Referral ID Status Reason Start Date Expiration Date Visits Requested Visits Authorized [id number] Authorized PCP Requested Referral 2 10/28/2023 1 1 Specialty Diagnoses / Procedures Referred By Contac t Referred To Contact MOLECULAR & FUNCTIONAL IMAGING Diagnoses Calculus of gallbladder without cholecystitis without obstruction Abdominal pain, unspecified abdominal location Procedures NM HEPATOBILIARY W EF AND/OR RX HEPATOBIL SYST IMAG INC GB W/PHARMA INTERVENJ Older, Cat, BEARING MAKER.PHYSICS TECHNICAL OFFICER [address] [place] [address] Molecular & Functional Imaging [address] [place] [address] Referral ID Status Reason Start Date Expiration Date Visits Requested Visits Authorized [id number] Authorized Auto-Generat ed Referral 2 11/27/2023 1 1 Specialty Diagnoses / Procedures Referred By Contac t Referred To Contact CT IMAGING Diagnoses Disorder of adrenal gland (HCC) Adrenal nodule (HCC) Procedures CT ADRENAL WO/W IVCON CT ABDOMEN W & W/O CONTRAST Joaquin, Cat, BEARING MAKER.PHYSICS TECHNICAL OFFICER [address] [place] [address] Ct Imaging Referral ID Status Reason Start Date Expiration Date Visits Requested Visits Authorized [id number] Authorized Auto-Generat ed Referral 02/07/2023 03/24/2023 1 [...] or prosecute any alcohol or drug abuse patient.[facility] the event this information is protected by the Federal Confidentiality of Alcohol and Drug Abuse Patient Records regulations: The Federal rules restrict any use of the information to criminally investigate or prosecute any alcohol or drug abuse patient.[facility] the event this information is protected by the Federal Confidentiality of Alcohol and Drug Abuse Patient Records regulations: The Federal rules restrict any use of the information to criminally investigate or prosecute any alcohol or drug abuse patient.[facility] the event this information is protected by the Federal Confidentiality of Alcohol and Drug Abuse Patient Records regulations: The Federal rules restrict any use of the information to criminally investigate or prosecute any alcohol or drug abuse patient.[facility] the event this information is protected by the Federal Confidentiality of Alcohol and Drug Abuse Patient Records regulations: The Federal rules restrict any use of the information to criminally investigate or prosecute any alcohol or drug abuse patient.[facility] the event this information is protected by the Federal Confidentiality of Alcohol and Drug Abuse Patient Records regulations: The Federal rules restrict any use of the information to criminally investigate or prosecute any alcohol or drug abuse patient.[facility] the event this information is protected by the Federal Confidentiality of Alcohol and Drug Abuse Patient Records regulations: The Federal rules restrict any use of the information to criminally investigate or prosecute any alcohol or drug abuse patient.[facility] the event this information is protected by the Federal Confidentiality of Alcohol and Drug Abuse Patient Records regulations: The Federal rules restrict any use of the information to criminally investigate or prosecute any alcohol or drug abuse patient.[facility] the event this information is protected by the Federal Confidentiality of Alcohol and Drug Abuse Patient Records regulations: The Federal rules restrict any use of the information to criminally investigate or prosecute any alcohol or drug abuse patient.[facility] the event this information is protected by the Federal Confidentiality of Alcohol and Drug Abuse Patient Records regulations: The Federal rules restrict any use of the information to criminally investigate or prosecute any alcohol or drug abuse patient.[facility] Reason for Visit (unrecogniz ed section and content) Reason Comments Results Reason Comments Appointment Reason Comments Anesthesia Consult Reason Comments Patient Update Appointment Reason Comments Abdominal Pain Specialty Diagnoses / Procedures Referred By Sierra quijano Referred To Contact Gastroenterology Diagnoses Abdominal pain, unspecified abdominal location Procedures CONSULT TO GASTROENTEROLOGY OFFICE/OUTPATIENT NEW HIGH MDM 60-74 MINUTES Cat Nuñez, BEARING MAKER.PHYSICS TECHNICAL OFFICER [address] [place] [address] Referral ID Status Reason Start Date Expiration Date V isits Requested Visits Authorized [id number] Closed PCP Requested Referral 10/28/2022 10/28/2023 1 1 Reason Comments F/U 3 Month Gallstones Reason Comments Radiology NM Specialty Diagnoses / Procedures Referred By Sierra quijano Referred To Contact MOLECULAR & FUNCTIONAL IMAGING Diagnoses Calculus of gallbladder without cholecystitis without obstruction Abdominal pain, unspecified abdominal location Procedures NM HEPATOBILIARY W EF AND/OR RX HEPATOBIL SYST IMAG INC GB W/PHARMA INTERVENJ Cat Nuñez, BEARING MAKER.PHYSICS TECHNICAL OFFICER [address] [place] [address] Molecular & Functional Imaging [address] [place] [address] Referral ID Status Reason Start Date Expiration Date V isits Requested Visits Authorized [id number] Closed Auto-Generate d Referral 10/28/2022 11/27/2023 1 1 Care Teams (unrecognized sec tion and content) Stunt Double Relationship Specialty Start Date End Date Donald Motley MD [address] [place] [address] PCP - General Internal Medicine 10/28/22 Stunt Double Relationship Specialty Start Date End Date Donald Motley MD [address] [place], [place] [address] PCP - General Internal Medicine 10/28/22 11/07/22 Stunt Double Relationship Specialty Start Date End Date Donald Motley MD [address] [place], [place] [address] PCP - General Internal Medicine 10/28/22 11/07/22 Stunt Double Relationship Specialty Start Date End Date Donald Motley MD [address] [place], [place] [id number] PCP - General Internal Medicine 10/28/22 11/07/22 Stunt Double Relationship Specialty Start Date End Date Donald Motley MD [address] [place] [address] PCP - General Internal Medicine 12/30/22 Stunt Double Relationship Specialty Start Date End Date Doanld Motley MD [address] [place], [place] [address] PCP - General Internal Medicine 10/28/22 11/07/22 [...] BE BASED ON THE PRIMARY CLINICAL RECORDS. [employer] [facility]. provides no warranty or guarantee of the accuracy or completeness of information in this document.
[2023-12-06 06:10] LABS: Chlamydia By Nucleic Acid AMP Negative (Negative); Gonococcus By Nucleic Acid AMP Negative (Negative)
[2023-12-08 14:08] LABS: HPV APTIMA, High Risk Negative (Negative)
== END | disposition home or self-care (01) ==
LOC: LABSPEC 11:52
PROVIDERS: Advanced Practice Midwife; Referring Provider Registered Nurse; Visit Provider Registered Nurse
DX: Z34.90 Encounter for supervision of normal pregnancy, unspecified, unspecified trimester (principal)
CPT/HCPCS: 87491; 87591; 87624; G0145; 88175

== ENCOUNTER 2023-12-06 15:24 | Inpatient (IN) | payer MEDICAID, SELFPAY ==
[2023-12-06 15:25] VITALS: BP 150/100; PULSE 85; RESP 18; TEMP 36.2; O2SAT 95; BMI 36.6
--- NOTE | 2023-12-06 15:41 | EDS_ITS ---
HPI <STEFANY Mejia - Last Filed: 12/06/23 21:04> History of Present Illness Chief Complaint: Abd Pain Narrative Narrative: Patient is currently 8 weeks and 8 days postop from cholecystectomy with Dr. Hernandez. Her gallbladder was removed for symptoms of epigastric and left upper quadrant pain and the pain seemed better for couple days but then returned. Prior to her surgery she had a normal EGD. Pain lessens with sitting upright. Pain is worse with eating so she has not been eating much. She is nauseated but not vomiting. Her urine looks dark but she is having no dysuria or hematuria. She has been taking Colace because she was on pain meds and had a normal bowel movement today. Denies black or bloody stool. She states she has been here multiple times and no one can figure out what is causing her symptoms and she cannot keep her pain under control. She restarted omeprazole 3 days ago because she was having acid reflux symptoms. [facility] <STEFANY Mejia - Last Filed: 12/06/23 21:04> [facility] Medical History (Updated 12/06/23 @ 21:04 by STEFANY Mejia) Acute cholecystitis Alcohol use Dehydration First trimester Gastric reflux History of blood transfusion History of gestational hypertension History of placenta abruption History of pre-eclampsia Hypertension Incomplete Intractable epigastric abdominal pain Non-smoker hemorrhage Wears glasses Home Medications multivit-min no.71-iron fum 28 mg-folate no.1 1 mg-dha 300 mg capsule (PNV- [place]) 1 cap PO DAILY SUPPLEMENT 11/25/23 [History Last Taken 11/21/23] pantoprazole 40 mg tablet,delayed release 40 mg PO DAILY ACID REFLUX #60 tabs 11/25/23 [Rx Last Taken 11/26/23] oxycodone 5 mg capsule 5 mg PO Q6H PRN pain 3 days #12 caps 12/03/23 [Rx Last Taken Unknown] Allergy/AdvReac Type Severity Reaction Status Date / Time No Known Allergies Allergy Verified 12/06/23 15:25 Family History Mother CAD (coronary artery disease) Thyroid disorder Father CAD (coronary artery disease) Thyroid disorder Sister Thyroid disorder Other Diabetes Surgical History Hx of wisdom tooth extraction S/P S/P dilation and curettage S/P laparoscopic cholecystectomy Social History adopted: No household members: spouse and children number of children: 7 current occupational status: unemployed current occupation: [employer] current occupational exposures/hazards: No pets and animals: Yes pets and animals: dog(s), hamster(s) and farm animals history of recent travel: No sexually active: Yes Smoking Status: Never smoker alcohol intake: current details: not while substance use type: does not use well-balanced diet: about half the time caffeine: Yes Type: coffee Number of servings: 2 eating out: 1-3 times/week during the past year weight has: decreased > 10 lbs what type of physical activity do you participate in: none gallo/jain: Jainism seatbelt use: always do you feel safe at home: Yes additional social history: - David ROS <STEFANY Mejia - Last Filed: 12/06/23 21:04> ROS ED ROS Narrative Constitutional: Negative for fever, chills, malaise. CVS: Negative for palpitations, chest pain, syncope. Respiratory: Negative for shortness of breath, cough. GI: Positive for abdominal pain, nausea, vomiting, diarrhea, constipation, melena, hematochezia. : Negative for dysuria, hematuria or frequency. EXAM <STEFANY Mejia - Last Filed: 12/06/23 21:04> Physical Exam Narrative Exam Narrative: CONST: Patient sitting in no acute distress. EYES: Normal inspection. NECK: Normal inspection. RESP: No respiratory distress, CTAB. CVS: Regular rate and rhythm, no murmur, no gallop. ABD: Soft and nontender, no guarding or rebound, nondistended. Laparoscopic incisions covered with Steri-Strips. Appear well-healed with no dehiscence or cellulitis. Lower abdomen mildly red from heating pad. SKIN: Color normal, no rash, warm, dry, intact. EXTREMITIES: Normal appearance, no pedal edema. NEURO: Oriented x4. PSYCH: Normal affect. Const Vital Signs: 12/06/23 15:25 12/06/23 19:06 Temperature 97.2 F L Temperature Source Temporal Pulse Rate 85 89 Respiratory Rate 18 18 Blood Pressure 150/100 H 160/73 H Blood Pressure Mean 116 102 Pulse Ox 95 95 Oxygen Delivery Method Room Air Room Air <Dr. Daniel Barker DO - Last Filed: 12/06/23 21:14> Physical Exam Const Vital Signs: 12/06/23 15:25 12/06/23 19:06 Temperature 97.2 F L Temperature Source Temporal Pulse Rate 85 89 Respiratory Rate 18 18 Blood Pressure 150/100 H 160/73 H Blood Pressure Mean 116 102 Pulse Ox 95 95 Oxygen Delivery Method Room Air Room Air MDM <STEFANY Mejia - Last Filed: 12/06/23 21:04> [facility] MDM Narrative Medical decision making narrative: History gathered from: Patient and spouse Patient is having persistent epigastric and left upper quadrant pain after cholecystectomy 8 days ago. She also had a normal EGD. She appears well and nontoxic. BP is 150/100 with otherwise normal vital signs. She has a normal heart and lung exam. Laparoscopic incisions are healing well without signs of infection and abdomen is soft with no significant tenderness. Blood work will be repeated and she was given IV fluids, morphine, Zofran and Protonix. Risks of opioids in were discussed. White count is normal at 7.0. Compared to blood work 4 days ago she has a new elevation of total bilirubin at 3.6, AST 878, ALT 1390, alk phos 628. Lipase normal at 33. RUQ US shows no acute findings. Labs are clinically concerning for choledocholithiasis. I consulted Dr. Hernandez who agreed with admission if Dr. Lea can do ERCP. Dr. Lea is aware and on board. Case was discussed with the hospitalist for admission. Consults: General surgery, GI, hospitalist Lab Data Attestation: I reviewed the patient's lab results. Labs: Laboratory Results - last 24 hr 12/06/23 12/06/23 12/06/23 16:05 17:05 17:14 WBC 7.0 RBC 4.30 Hgb 12.7 Hct 37.8 MCV 87.9 MCH 29.5 MCHC 33.6 RDW Std Deviation 38.8 RDW Coeff of Zain 12.0 Plt Count 355 MPV 10.3 Immature Gran % (Auto) 0.300 Neut % (Auto) 73.9 H Lymph % (Auto) 16.7 L [place] % (Auto) 7.6 Eos % (Auto) 0.9 Baso % (Auto) 0.6 Absolute Neuts (auto) 5.2 Absolute Lymphs (auto) 1.17 Nucleated RBC % 0 Platelet Estimate ADEQUATE RBC Morphology N CHROM Anisocytosis RARE Sodium Cancelled Cancelled Potassium Cancelled Cancelled Chloride Cancelled Cancelled Carbon Dioxide Cancelled Cancelled Anion Gap Cancelled Cancelled BUN Cancelled Cancelled Creatinine Cancelled Cancelled Estim Creat Clear Calc Cancelled Cancelled Est GFR (MDRD) Af Amer Cancelled Cancelled Est GFR (MDRD) Non-Af Cancelled Cancelled BUN/Creatinine Ratio Cancelled Cancelled Glucose Cancelled Cancelled Calcium Cancelled Cancelled Total Bilirubin Cancelled Cancelled AST Cancelled Cancelled ALT Cancelled Cancelled Alkaline Phosphatase Cancelled Cancelled Total Protein Cancelled Cancelled Albumin Cancelled Cancelled Globulin Cancelled Cancelled Albumin/Globulin Ratio Cancelled Cancelled Lipase Cancelled Cancelled Urine Color Yellow Urine Clarity Sl. Cloudy Urine pH 7.0 Ur Specific [place] 1.015 Urine Protein Negative Urine Glucose (UA) Normal Urine Ketones Negative Urine Occult Blood Negative Urine Nitrite Negative Urine Bilirubin Negative Urine Urobilinogen 1 H Ur Leukocyte Esterase Negative Urine RBC 0 SEEN Urine WBC 0-5 SEEN Ur Squamous Epith Cells 5-10 SEEN Amorphous Sediment 1+ Urine Bacteria 1+ Urine Mucus 0 SEEN 12/06/23 18:05 WBC RBC Hgb Hct MCV MCH MCHC RDW Std Deviation RDW Coeff of Zain Plt Count MPV Immature Gran % (Auto) Neut % (Auto) Lymph % (Auto) [place] % (Auto) Eos % (Auto) Baso % (Auto) Absolute Neuts (auto) Absolute Lymphs (auto) Nucleated RBC % Platelet Estimate RBC Morphology Anisocytosis Sodium 137 Potassium 4.0 Chloride 109 H Carbon Dioxide 24.0 Anion Gap 4 L BUN 5 L Creatinine 0.81 Estim Creat Clear Calc 101.04 Est GFR (MDRD) Af Amer 99 Est GFR (MDRD) Non-Af 82 BUN/Creatinine Ratio 6.2 L Glucose 113 H Calcium 10.8 H Total Bilirubin 3.60 H AST 878 H ALT 1390 H Alkaline Phosphatase 628 H Total Protein 7.2 Albumin 3.3 Globulin 3.9 Albumin/Globulin Ratio 0.8 L Lipase 33 Urine Color Urine Clarity Urine pH Ur Specific [place] Urine Protein Urine Glucose (UA) Urine Ketones Urine Occult Blood Urine Nitrite Urine Bilirubin Urine Urobilinogen Ur Leukocyte Esterase Urine RBC Urine WBC Ur Squamous Epith Cells Amorphous Sediment Urine Bacteria Urine Mucus Radiography Diagnostic Testing: Clinical Impression(s) from Imaging Studies Gallbladder Ultrasound 12/06/23 18:43 IMPRESSION: Cholecystectomy. Expected trace fluid in the gallbladder fossa given recent surgery. No drainable focal fluid collection. Electronically Signed: Cadleron Miller MD (Bro[place]) at 20:13 EST , <Dr. Daniel Barker, DO - Last Filed: 12/06/23 21:14> [facility] Lab Data Labs: Laboratory Results - last 24 hr 12/06/23 12/06/23 12/06/23 16:05 17:05 17:14 WBC 7.0 RBC 4.30 Hgb 12.7 Hct 37.8 MCV 87.9 MCH 29.5 MCHC 33.6 RDW Std Deviation 38.8 RDW Coeff of Zain 12.0 Plt Count 355 MPV 10.3 Immature Gran % (Auto) 0.300 Neut % (Auto) 73.9 H Lymph % (Auto) 16.7 L [place] % (Auto) 7.6 Eos % (Auto) 0.9 Baso % (Auto) 0.6 Absolute Neuts (auto) 5.2 Absolute Lymphs (auto) 1.17 Nucleated RBC % 0 Platelet Estimate ADEQUATE RBC Morphology N CHROM Anisocytosis RARE Sodium Cancelled Cancelled Potassium Cancelled Cancelled Chloride Cancelled Cancelled Carbon Dioxide Cancelled Cancelled Anion Gap Cancelled Cancelled BUN Cancelled Cancelled Creatinine Cancelled Cancelled Estim Creat Clear Calc Cancelled Cancelled Est GFR (MDRD) Af Amer Cancelled Cancelled Est GFR (MDRD) Non-Af Cancelled Cancelled BUN/Creatinine Ratio Cancelled Cancelled Glucose Cancelled Cancelled Calcium Cancelled Cancelled Total Bilirubin Cancelled Cancelled AST Cancelled Cancelled ALT Cancelled Cancelled Alkaline Phosphatase Cancelled Cancelled Total Protein Cancelled Cancelled Albumin Cancelled Cancelled Globulin Cancelled Cancelled Albumin/Globulin Ratio Cancelled Cancelled Lipase Cancelled Cancelled Urine Color Yellow Urine Clarity Sl. Cloudy Urine pH 7.0 Ur Specific [place] 1.015 Urine Protein Negative Urine Glucose (UA) Normal Urine Ketones Negative Urine Occult Blood Negative Urine Nitrite Negative Urine Bilirubin Negative Urine Urobilinogen 1 H Ur Leukocyte Esterase Negative Urine RBC 0 SEEN Urine WBC 0-5 SEEN Ur Squamous Epith Cells 5-10 SEEN Amorphous Sediment 1+ Urine Bacteria 1+ Urine Mucus 0 SEEN 12/06/23 18:05 WBC RBC Hgb Hct MCV MCH MCHC RDW Std Deviation RDW Coeff of Zain Plt Count MPV Immature Gran % (Auto) Neut % (Auto) Lymph % (Auto) [place] % (Auto) Eos % (Auto) Baso % (Auto) Absolute Neuts (auto) Absolute Lymphs (auto) Nucleated RBC % Platelet Estimate RBC Morphology Anisocytosis Sodium 137 Potassium 4.0 Chloride 109 H Carbon Dioxide 24.0 Anion Gap 4 L BUN 5 L Creatinine 0.81 Estim Creat Clear Calc 101.04 Est GFR (MDRD) Af Amer 99 Est GFR (MDRD) Non-Af 82 BUN/Creatinine Ratio 6.2 L Glucose 113 H Calcium 10.8 H Total Bilirubin 3.60 H AST 878 H ALT 1390 H Alkaline Phosphatase 628 H Total Protein 7.2 Albumin 3.3 Globulin 3.9 Albumin/Globulin Ratio 0.8 L Lipase 33 Urine Color Urine Clarity Urine pH Ur Specific [place] Urine Protein Urine Glucose (UA) Urine Ketones Urine Occult Blood Urine Nitrite Urine Bilirubin Urine Urobilinogen Ur Leukocyte Esterase Urine RBC Urine WBC Ur Squamous Epith Cells Amorphous Sediment Urine Bacteria Urine Mucus Radiography Diagnostic Testing: Clinical Impression(s) from Imaging Studies Gallbladder Ultrasound 12/06/23 18:43 IMPRESSION: Cholecystectomy. Expected trace fluid in the gallbladder fossa given recent surgery. No drainable focal fluid collection. Electronically Signed: Calderon Miller MD (Brooks) at 20:13 EST Reading Location ID and State: [facility] / [place] , Service support , Treatment and Re-Evaluation :: I have personally performed a face to face assessment of the patient and have reviewed the PHILLIP Note. I performed a substantive portion of the visit including all aspects of the following. My garcia findings include: History: Patient presents with abdominal pain that became worse today. Patient had a recent cholecystectomy and states the pain is similar to the pain she had prior to the surgery. Patient has been seen in the emergency department since the surgery a couple of times. Patient had a recent right upper quadrant ultrasound. Patient had normal labs at that time. Patient states the pain is getting progressively worse. Patient states that her pain improved with the pain medication she was prescribed after her surgery. Patient states she is out of that again. Exam: Vital signs are stable except for mildly elevated blood pressure 150/100. Patient is afebrile. Patient is in no acute distress. Oral mucosa is pink and moist. Neck is supple. Trachea is midline. There is no JVD. Heart was regular rate and rhythm. Lungs are clear and equal bilaterally. Abdomen is soft. Bowel sounds are normal. There is some mild epigastric tenderness. There is no rebound or guarding noted. Cranial nerves II through XII are intact. There are no focal motor or sensory deficits noted. Medical Decision Making: Differential diagnosis includes peptic ulcer disease, GERD, pancreatitis, and urinary tract infection. Patient states she has been passing flatus and stool, therefore I do not feel that she has a bowel obstruction. Her abdomen is soft. I do not feel she has a bowel perforation. CBC will be obtained to assess for leukocytosis and anemia. Comprehensive metabolic profile will be obtained to assess for hepatic function, renal function, and electrolyte abnormality. Lipase will be obtained to assess for pancreatitis. Urinalysis will be obtained to assess for urinary tract infection and hematuria. CBC was reviewed and was within normal limits. Urinalysis was reviewed. There is no evidence of urinary tract infection or hematuria. Comprehensive metabolic profile was reviewed. Total bilirubin was elevated at 3.6. AST was elevated at 878 and ALT was elevated at 1390. Alkaline phosphatase was elevated at 628. Lipase was reviewed and was normal. Because of the elevated liver function test, right upper quadrant ultrasound was obtained. There is no ductal dilatation noted. There is no change from previous ultrasound. This was interpreted by the radiologist and was also independently reviewed by myself. Case was discussed with Dr. Hernandez. He recommended contacting Dr. Lea for possible ERCP. Case was discussed with Dr. Lea. He will be able to do an ERCP tomorrow. He recommended starting the patient on Zosyn. Case was discussed with the hospitalist. She will admit the patient to her service. Patient understood and was agreeable with the plan. All questions were answered. Discharge Plan Triage Chief Complaint: Abd Pain ED Midlevel Provider: Ivy Self ED Provider: Daniel Barker Dx/Rx/DC Orders Clinical Impression: Choledocholithiasis, Abdominal pain, Transaminitis Prescriptions: No Action PNV-[place] 28-1-300 mg capsule 1 cap PO DAILY oxycodone 5 mg capsule 5 mg PO Q6H PRN (Reason: pain) 3 Days Qty: 12 0RF pantoprazole 40 mg tablet,delayed release (DR/EC) 40 mg PO DAILY Qty: 60 0RF Primary Care Provider: Care Physician,No Primary Referrals: Care Physician,No Primary [Primary Care Provider] -
[2023-12-06] MEDS: Ondansetron 4 MG/2 ML Vial IV (16:12)
[2023-12-06] MEDS: Morphine 4 MG/ML Syringe IV (16:12)
[2023-12-06] MEDS: 0.9% Normal Saline (1000mL) 1,000 ML 999 ML IV (16:13)
[2023-12-06 16:29] LABS: Absolute Lymphocyte Count 1.17 X10^3/uL (0.83-4.51); Absolute Neutrophil Count 5.2 X10^3/uL (2.0-7.7); Basophil# 0.04 X10^3/uL; Basophil% 0.6 % (0-1); Eosinophil# 0.06 X10^3/uL; Eosinophils% 0.9 % (0-5); Hematocrit 37.8 % (37-47); Hemoglobin 12.7 g/dL (12.0-15.0); Lymphocyte # 1.17 X10^3/ul (0.83-4.51); Lymphocyte % 16.7 % (19-41); Mean Corp Hgb Conc 33.6 g/dL (32-36); Mean Corpuscular Hgb 29.5 pg (27.0-32.0); Mean Corpuscular Volume 87.9 fL (81-99); Mean Platelet Vol. 10.3 fl (6.2-12.0); Monocyte# 0.53 X10^3/uL; Monocyte% 7.6 % (0-10); NRBC Flagged by Analyzer 0 % (0-5); Neutrophil # 5.17 X10^3/uL (2.7-7.7); Neutrophil % 73.9 % (47-70); POSITIVE COUNT YES; Platelet Count 355 K/mm3 (150-450); RBC Distribution Width SD 38.8 fl (35.1-43.9)
[2023-12-06 16:30] LABS: Differential Indicated SCAN CRITERIA MET
[2023-12-06] MEDS: Pantoprazole Sodium 40 MG in 0.9% Normal Saline (100mL MB+) 100 ML 330 MG IV (16:39)
--- NOTE | 2023-12-06 16:40 | ED.RN ---
Addendum entered by Amara Alvarez 12/06/23 22:28: nurse in room Original Note: pt in room to administer protonix. pt asked can I have some more of the morphine? nurse educated pt that initial dose was administered 20 mins ago therefore another dose is not appropriate at this time.
[2023-12-06 16:54] LABS: Anisocytosis RARE; Platelet Estimate ADEQUATE (ADEQ); Red Cell Morphology N CHROM NORMAL (NORM C&C)
[2023-12-06 17:21] LABS: Mucous, Urine 0 SEEN /hpf (<or=2+); Red Blood Cells-Urine 0 SEEN /hpf (0-5)
[2023-12-06 17:26] LABS: Color, Urine Yellow (Yellow); Glucose, Dipstick Normal (Normal); Ketone-Dipstick Negative (Negative); Leukocyte Esterase-Dipstick Negative /ul (Negative); Nitrite-Dipstick Negative (Negative); Occult Blood-Urine Negative /ul (Negative); Protein-Dipstick Negative (Negative); Specific Gravity, Urine 1.015 (1.002-1.030); Urine Bilirubin Dipstick Negative (Negative); Urine Clarity Sl. Cloudy (Clear); Urine Urobilinogen 1 mg/dl (Normal)
[2023-12-06] MEDS: Mag Hydrox/Al Hydrox/Simeth 30 ML UDC PO (17:26)
[2023-12-06 17:32] LABS: Squamous Epithelial Cells - UA 5-10 SEEN /hpf (5-10)
--- NOTE | 2023-12-06 17:32 | ED.RN ---
THIS RN INTO ROOM TO GIVE GI COCKTAIL. DR COFFMAN IN TO TALK WITH PT. AFTER PHYSICIAN LEAVES PT ASKS AGAIN FOR MORE PAIN MEDICATION . THIS RN ASKS PT WHY SHE DID NOT TALK TO PHYSICIAN WHILE HE WAS IN ROOM. PT STATES I FORGOT. DR WARREN. NO NEW ORDERS
[2023-12-06 17:33] LABS: Amorphous Sediment 1+; Bacteria 1+ /hpf (None Seen); White Blood Cells 0-5 SEEN /hpf (0-5)
--- NOTE | 2023-12-06 17:36 | NURSING ---
GREEN TOP HEMOLIZED
--- NOTE | 2023-12-06 17:50 | ED.RN ---
THIS RN IN TO EXPLAIN TO PT THAT THERE ARE N O NEW ORDERS FOR PAIN MEDICATION FOR PT. PT POINTS HER FINGER AT THIS RN AND STATES EXCUSE ME, I NEED TO KNOW WHAT THE HOLD-UP IS, I HAVE COME TO YOU FOR PAIN RELIEF A ND YOU ARE NOT RELIEVING MY PAIN . THIS RN REQUESTS TO PT THAT SHE DOES NOT NEED TO YELL AT THIS NURSE, NOR DOES SHE NEED TO TREAT ME RUDE. PT STATES IM N OT TRYING TO TREAT YOU DISRESPECTFUL.
[2023-12-06 18:42] LABS: ALB/GLOB Ratio 0.8 RATIO (0.9-2.4); AST(SGOT) 878 U/L (15-37); Alanine Aminotransfer ALT/SGPT 1390 U/L (13-56); Albumin, Serum 3.3 g/dL (3.2-5.0); Alkaline Phosphatase 628 U/L (45-117); Anion Gap 4 (5-15); BUN 5 mg/dL (7-18); BUN/Creat Ratio 6.2 RATIO (10-20); Calcium,Total 10.8 mg/dL (8.5-10.1); Chloride 109 mmol/L (98-107); Creatinine, Serum 0.81 mg/dL (0.55-1.02); EST Glomerular Filtration Rate 82 mL/min (>60); Est Glom Filt Rate - Afr Amer 99 mL/min (>60); Estimated Creatinine Clearance 101.04 ml/min; Globulin 3.9 g/dL (2.2-4.2); Glucose 113 mg/dL (74-106); Lipase 33 U/L (13-75); Protein, Total 7.2 g/dL (6.4-8.2); Sodium Level 137 mmol/L (136-145)
--- NOTE | 2023-12-06 18:43 | US_ITS ---
EXAM: US ABDOMEN LIMITED, RIGHT UPPER QUADRANT CLINICAL INDICATION: pain following cholecystectomy. TECHNIQUE: Real-time ultrasound of the right upper quadrant with image documentation. COMPARISON: CT 11/27/2023 FINDINGS: LIVER: Focal hyperechoic lesion of the liver measuring 1.5 cm likely represents a hemangioma or focal fatty infiltration. No associated mass effect. No required imaging follow-up needed given high likelihood of benign nature. No intrahepatic biliary ductal dilation. GALLBLADDER: Cholecystectomy. Expected trace fluid in the gallbladder fossa given recent surgery. COMMON BILE DUCT: Unremarkable as visualized. The proximal common bile duct is within normal limits for the patient''s age. PANCREAS: Unremarkable as visualized. No focal abnormality is demonstrated in the pancreas. No pancreatic ductal dilatation. RIGHT KIDNEY: Unremarkable. There is no hydronephrosis. No shadowing calculus. No focal lesion or perinephric collection is demonstrated. US/Gallbladder IMPRESSION: Cholecystectomy. Expected trace fluid in the gallbladder fossa given recent surgery. No drainable focal fluid collection. Electronically Signed: Calderon Miller MD (Bro[place]) at 20:13 EST ,
--- NOTE | 2023-12-06 18:45 | ED.RN ---
pt's significant other to nurses' desk asking to speak to nurse of room 11. significant other stated can you just please tell me what is going on? nurse informed SO that we are waiting on one lab result d/t having difficulty obtaining IV access earlier in the evening. SO insistent that lab results would not change and he needed to speak to the doctor now because something is really wrong and we need to make a plan or something needs to be done. we might need to go to another hospital this RN informed SO that pt is being monitored closely and is in stable condition. Also informed that the doctor is waiting on lab results but would be in to reevaluate pt. SO educated on the nature of the ER and the need to do repeat testing d/t seeing a new physician with each visit and the potential for lab results/imaging to change from day to day. information reinforced multiple times with SIDNEY Gallagher also explaining the need to collaborate with Dr. Stoll as he was the surgeon to perform pt's cholecystectomy. SO reluctant to accept information presented but agreed to wait with patient until test results are obtained.
--- NOTE | 2023-12-06 18:53 | ED.RN ---
Pt's significant other was at the nurses station speaking with pt's RN and demanding that something be done for the pt because she has been having pain for too long after the surgery and there is definitely something wrong. He required frequent re-education on the process of waiting for labwork to return prior to MD re-eval. Pt's S.O. threatened to take pt to another hospital because he felt we weren't doing anything for her. This RN again re-iterated that the labs would result very soon and the MD would be in to see pt. He was informed that visits to the ED require each separate MD to do their assessment and learn the pt for them to be able to evaluate and diagnose. Pt's SO was finally acceptable to going back to the pt's room and awaiting the MD for further orders.
[2023-12-06] MEDS: HYDROmorphone 0.5 MG/0.5 ML SYRINGE IV ×2 (18:58→21:59)
[2023-12-06 19:06] VITALS: BP 160/73; PULSE 89; RESP 18; O2SAT 95
--- NOTE | 2023-12-06 21:02 | ED.RN ---
This RN walked into pt room to medicate with morphine. stated that morphine does nothing to help his 's pain and requested Dilaudid. RN informed pt and that she had a dose previously, so there is no guarantee that MD will reorder another dose. Pt and still refusing morphine and requesting Dilaudid. MD notified.
--- NOTE | 2023-12-06 21:03 | PCM.HP.STD ---
HPI - General General Date of Admission: 12/06/23 Date of Service: 12/06/23 Chief Complaint: Epigastric and RUQ pain, nausea, poor intake. HPI Narrative The patient is a 42 y/o F w/ PMHx: Obesity, GERD, Hx Pre-eclampsia, Hx Gestational HTN, currently 8 weeks gestational age, recently cholecystectomy per Dr. Hernandez 8 days prior with notable epigastric and RUQ pain at that time with improvement of her symptoms initially following intervention who now re-presnts to the [facility] ED on 12/06/23 secondary to history of progressively worsening discomfort in both the epigastric and right upper quadrant, worse with food therefore she has had poor oral intake with nausea without emesis as well as abdominal bloating with several ED visits in the interim secondary to pain with initiation on PPI for possible reflux as an etiology but given ongoing persistent discomfort prompted return for evaluation. She notes that pain has become more severe and constant since the evening prior and she was also recently told by her airport planner that she had mildly abnormal LFTs with most recently noted previously 12/02/2023 AST/LT 27/58. She notes currently pain is 7 out of 10 in severity and describes it as a aching and sharp discomfort worse with palpation attempts. Workup in the ED included T97.2, heart 85, BP 150/100, respiratory rate 18, 95% on room air, CBC with WBC 7, he 112.7, platelet 355 without marked shift, CMP with chloride 109, glucose 113, calcium 10.8, T. bili 3.60, AST/ALT 878/1390, alk phos 628, lipase 33, urinalysis not marked appearing, gallbladder ultrasound with evidence status post cholecystectomy, expected trace fluid in the gallbladder fossa given recent surgery with no concerning collection. [facility] Medical History (Updated 12/06/23 @ 23:[address] Kristel Shetty MD) Alcohol use Dehydration First trimester Gastric reflux History of blood transfusion History of gestational hypertension History of placenta abruption History of pre-eclampsia Hypertension Incomplete Intractable epigastric abdominal pain Non-smoker hemorrhage Wears glasses Home Medications multivit-min no.71-iron fum 28 mg-folate no.1 1 mg-dha 300 mg capsule (PNV-Blanco) 1 cap PO DAILY SUPPLEMENT 11/25/23 [History Last Taken 11/21/23] pantoprazole 40 mg tablet,delayed release 40 mg PO DAILY ACID REFLUX #60 tabs 11/25/23 [Rx Last Taken 11/26/23] Allergy/AdvReac Type Severity Reaction Status Date / Time No Known Allergies Allergy Verified 12/06/23 15:25 Family History Mother CAD (coronary artery disease) Thyroid disorder Father CAD (coronary artery disease) Thyroid disorder Sister Thyroid disorder Other Diabetes Surgical History Hx of wisdom tooth extraction S/P S/P dilation and curettage S/P laparoscopic cholecystectomy Social History adopted: No household members: spouse and children number of children: 7 current occupational status: unemployed current occupation: [employer] current occupational exposures/hazards: No pets and animals: Yes pets and animals: dog(s), hamster(s) and farm animals history of recent travel: No sexually active: Yes Smoking Status: Never smoker alcohol intake: current details: not while substance use type: does not use well-balanced diet: about half the time caffeine: Yes Type: coffee Number of servings: 2 eating out: 1-3 times/week during the past year weight has: decreased > 10 lbs what type of physical activity do you participate in: none gallo/church: [employer] seatbelt use: always do you feel safe at home: Yes additional social history: - David ROS ROS Narrative Admission Review of Systems: CONSTITUTIONAL: No weight loss, fever, chills, + weakness or fatigue. HEENT: Eyes: No visual loss, blurred vision, double vision or yellow sclerae. Ears, Nose, Throat: No hearing loss, sneezing, congestion, runny nose or sore throat. SKIN: No rash or itching, lesions, wounds. CARDIOVASCULAR: No chest pain, chest pressure or chest discomfort, palpitations, edema, orthopnea, syncopal events. RESPIRATORY: No shortness of breath, cough or sputum, wheezing, hemoptysis. GASTROINTESTINAL: + anorexia, nausea without vomiting, epigastric and right upper quadrant pain, constipation. No melena, BRBPR. GENITOURINARY: No dysuria, frequency, urgency or retention. NEUROLOGICAL: No headache, dizziness, syncope, paralysis, ataxia, numbness or tingling in the extremities, focal weakness, change in bowel or bladder control, seizure. MUSCULOSKELETAL: + muscle, back pain, joint pain or stiffness. HEMATOLOGIC: No anemia, bleeding or bruising. LYMPHATICS: No enlarged nodes. No history of splenectomy. PSYCHIATRIC: No history of depression or anxiety. ENDOCRINOLOGIC: No reports of sweating, cold or heat intolerance. No polyuria or polydipsia. ALLERGIES: No history of asthma, hives, eczema or rhinitis. Vital Signs Vital Signs Vital Signs: 12/06/23 15:25 12/06/23 19:06 Temperature 97.2 F L Temperature Source Temporal Pulse Rate 85 89 Respiratory Rate 18 18 Blood Pressure 150/100 H 160/73 H Blood Pressure Mean 116 102 Pulse Ox 95 95 Oxygen Delivery Method Room Air Room Air Weight Weight: 213 lb Body Mass Index (BMI) 36.6 Physical Exam Narrative Physical Examination: General: Awake, alert, oriented x 3 and cooperative, seated upright in the ED bed, uncomfortable appearing, rating pain 7 out of 10 in severity. Skin: Normal color, normal turgor, no icterus, no cyanosis. HEENT: AT/NC, EOMI, PERRLA, dry MM, no carotid bruits or JVD noted. Lungs: Mildly diminished, greater bases, appropriate effort, no rales, ronchi or wheezing. Heart: Regular rate and rhythm; no gallop, rub audible. Abdomen: Soft, tenderness to palpation in the epigastric and right upper quadrant with some voluntary guarding, mildly hypoactive bowel sounds, no obvious distention, difficult to discern HSM given habitus but also pain elicited. Extremities: No cyanosis, clubbing, or edema. Neurological: Patient awake, alert, oriented as noted, cognitive function intact; pupils equally reactive to light and accommodation, cranial nerves II-XII grossly normal, moving all 4 extremities, no focal deficits, strength moderately to severely globally decreased secondary to acute presentation complaints. Psychiatric: Affect appears flat, fatigued, uncomfortable appearing, no acute evidence of depressive or anxiety feelings. Results Lab / Micro Data 12/06/23 16:05 12/06/23 18:05 Labs: Laboratory Results - last 24 hr 12/06/23 16:05: WBC 7.0, RBC 4.30, Hgb 12.7, Hct 37.8, MCV 87.9, MCH 29.5, MCHC 33.6, RDW Std Deviation 38.8, RDW Coeff of Zain 12.0, Plt Count 355, MPV 10.3, Immature Gran % (Auto) 0.300, Neut % (Auto) 73.9 H, Lymph % (Auto) 16.7 L, [place] % (Auto) 7.6, Eos % (Auto) 0.9, Baso % (Auto) 0.6, Absolute Neuts (auto) 5.2, Absolute Lymphs (auto) 1.17, Nucleated RBC % 0, Platelet Estimate ADEQUATE, RBC Morphology N CHROM, Anisocytosis RARE, Sodium Cancelled, Potassium Cancelled, Chloride Cancelled, Carbon Dioxide Cancelled, Anion Gap Cancelled, BUN Cancelled, Creatinine Cancelled, Estim Creat Clear Calc Cancelled, Est GFR (MDRD) Af Amer Cancelled, Est GFR (MDRD) Non-Af Cancelled, BUN/Creatinine Ratio Cancelled, Glucose Cancelled, Calcium Cancelled, Total Bilirubin Cancelled, AST Cancelled, ALT Cancelled, Alkaline Phosphatase Cancelled, Total Protein Cancelled, Albumin Cancelled, Globulin Cancelled, Albumin/Globulin Ratio Cancelled, Lipase Cancelled 12/06/23 17:05: Sodium Cancelled, Potassium Cancelled, Chloride Cancelled, Carbon Dioxide Cancelled, Anion Gap Cancelled, BUN Cancelled, Creatinine Cancelled, Estim Creat Clear Calc Cancelled, Est GFR (MDRD) Af Amer Cancelled, Est GFR (MDRD) Non-Af Cancelled, BUN/Creatinine Ratio Cancelled, Glucose Cancelled, Calcium Cancelled, Total Bilirubin Cancelled, AST Cancelled, ALT Cancelled, Alkaline Phosphatase Cancelled, Total Protein Cancelled, Albumin Cancelled, Globulin Cancelled, Albumin/Globulin Ratio Cancelled, Lipase Cancelled 12/06/23 17:14: Urine Color Yellow, Urine Clarity Sl. Cloudy, Urine pH 7.0, Ur Specific [place] 1.015, Urine Protein Negative, Urine Glucose (UA) Normal, Urine Ketones Negative, Urine Occult Blood Negative, Urine Nitrite Negative, Urine Bilirubin Negative, Urine Urobilinogen 1 H, Ur Leukocyte Esterase Negative, Urine RBC 0 SEEN, Urine WBC 0-5 SEEN, Ur Squamous Epith Cells 5-10 SEEN, Amorphous Sediment 1+, Urine Bacteria 1+, Urine Mucus 0 SEEN 12/06/23 18:05: Sodium 137, Potassium 4.0, Chloride 109 H, Carbon Dioxide 24.0, Anion Gap 4 L, BUN 5 L, Creatinine 0.81, Estim Creat Clear Calc 101.04, Est GFR (MDRD) Af Amer 99, Est GFR (MDRD) Non-Af 82, BUN/Creatinine Ratio 6.2 L, Glucose 113 H, Calcium 10.8 H, Total Bilirubin 3.60 H, AST 878 H, ALT 1390 H, Alkaline Phosphatase 628 H, Total Protein 7.2, Albumin 3.3, Globulin 3.9, Albumin/Globulin Ratio 0.8 L, Lipase 33 Imaging Radiology Impression Gallbladder Ultrasound 12/06/23 18:43 IMPRESSION: Cholecystectomy. Expected trace fluid in the gallbladder fossa given recent surgery. No drainable focal fluid collection. Electronically Signed: Calderon Miller MD (Brooks) at 20:13 EST Reading Location ID and State: [facility] / [place] , Service support , Assessment & Plan Assessment/Plan (1) Choledocholithiasis: PLAN: Plan The patient is a 42 y/o F w/ PMHx: Obesity, GERD, Hx Pre-eclampsia, Hx Gestational HTN, currently 8 weeks gestational age, recently cholecystectomy per Dr. Hernandez 8 days prior with notable epigastric and RUQ pain at that time with improvement of her symptoms initially following intervention who now re-presnts to the [facility] ED on 12/06/23 secondary to history of progressively worsening discomfort in both the epigastric and right upper quadrant, worse with food therefore she has had poor oral intake with nausea without emesis as well as abdominal bloating with several ED visits in the interim secondary to pain with initiation on PPI for possible reflux as an etiology but given ongoing persistent discomfort prompted return for evaluation. #1. Hyperbilirubinemia, transaminitis concerning for choledocholithiasis status post recent cholecystectomy: Will admit to medical surgical floor, will allow clears within n.p.o. status at midnight, maintain on aggressive IV fluids, continue oral and IV pain regimen, will have as needed antiemetic regimen, will continue PPI, per discussion with ED per surgery and GI preference we will continue IV Zosyn therapy, will continue gastroenterology consultation as well as general surgery consultation for interventions as patient will likely proceed to a.m. ERCP. #2. Elevated blood pressure without formal hypertensive diagnosis with history of previous preeclampsia/gestational hypertension: From review of recent records patient has continued to have elevated blood pressures therefore patient may have underlying hypertensive disease but she currently is 8 weeks and she has been having significant acute pain for several days this could be related. Will have as needed IV hydralazine however if this is continued despite intervention with ERCP may be consider adding labetalol prior to her discharge. #3. status, 8 weeks gestational age: Encourage continued outpatient follow-up with her airport planner who she most recently saw 12/02/2023, will avoid any teratogenic agents. Given age will defer involvement of obstetrics and routine ultrasounds at this time. #4. Obesity: Weight loss and lifestyle changes encouraged. #5. GERD: We will continue patient PPI. #6. DVT prophylaxis: SCDs. Charges/Coding Visit Charges Inpatient E&M: 14761 Init Hosp L3
[2023-12-06] MEDS: Piperacil/Tazobactam 3.375 GM in 0.9% Normal Saline (50mL MB+) 50 ML IV (21:16)
[2023-12-06 21:40] VITALS: BP 142/82; PULSE 78; RESP 18; TEMP 36.5; O2SAT 100; BMI 35.3
[2023-12-06 21:41] VITALS: BP 160/73; PULSE 89; RESP 18; O2SAT 95
[2023-12-06] MEDS: oxyCODONE 5 MG Tablet PO (22:46)
[2023-12-06] MEDS: Acetaminophen 325 MG Tablet 650 MG PO (22:47)
[2023-12-06] MEDS: 0.9% Normal Saline (1000mL) 1,000 ML 125 ML IV (22:56)
[2023-12-07] VITALS (13 sets, daily range): BP systolic 129–160; BP diastolic 70–98; PULSE 75–98; RESP 16–18; TEMP 36.6–37.1; O2SAT 95–100; BMI 36.8; BMI 36.9
[2023-12-07] MEDS: HYDROmorphone 0.5 MG/0.5 ML SYRINGE IV ×3 (01:21→11:59)
[2023-12-07] MEDS: Acetaminophen 325 MG Tablet 650 MG PO ×2 (03:35→09:20)
[2023-12-07] MEDS: oxyCODONE 5 MG Tablet PO ×2 (03:35→09:21)
[2023-12-07 06:14] LABS: Absolute Lymphocyte Count 0.77 X10^3/uL (0.83-4.51); Absolute Neutrophil Count 5.3 X10^3/uL (2.0-7.7); Basophil# 0.05 X10^3/uL; Basophil% 0.7 % (0-1); Eosinophil# 0.07 X10^3/uL; Hematocrit 34.3 % (37-47); Hemoglobin 11.2 g/dL (12.0-15.0); Lymphocyte # 0.77 X10^3/ul (0.83-4.51); Lymphocyte % 11.2 % (19-41); Mean Corp Hgb Conc 32.7 g/dL (32-36); Mean Corpuscular Hgb 29.1 pg (27.0-32.0); Mean Corpuscular Volume 89.1 fL (81-99); Mean Platelet Vol. 10.2 fl (6.2-12.0); Monocyte# 0.71 X10^3/uL; Monocyte% 10.3 % (0-10); NRBC Flagged by Analyzer 0 % (0-5); Neutrophil # 5.28 X10^3/uL (2.7-7.7); Neutrophil % 76.5 % (47-70); Platelet Count 334 K/mm3 (150-450); RBC Distribution Width CV 12.1 % (11.6-14.6); RBC Distribution Width SD 39.1 fl (35.1-43.9); Red Blood Count 3.85 M/mm3 (4.2-5.4); White Blood Count 6.9 K/mm3 (4.4-11.0)
[2023-12-07] MEDS: 0.9% Normal Saline (1000mL) 1,000 ML 125 ML IV ×3 (06:33→21:19)
[2023-12-07] MEDS: Piperacil/Tazobactam 3.375 GM in 0.9% Normal Saline (50mL MB+) 50 ML IV ×3 (06:33→21:19)
[2023-12-07 06:52] LABS: ALB/GLOB Ratio 0.8 RATIO (0.9-2.4); AST(SGOT) 576 U/L (15-37); Alanine Aminotransfer ALT/SGPT 1121 U/L (13-56); Albumin, Serum 2.9 g/dL (3.2-5.0); Alkaline Phosphatase 599 U/L (45-117); Anion Gap 3 (5-15); BUN 5 mg/dL (7-18); BUN/Creat Ratio 6.4 RATIO (10-20); Calcium,Total 10.8 mg/dL (8.5-10.1); Chloride 108 mmol/L (98-107); Creatinine, Serum 0.79 mg/dL (0.55-1.02); EST Glomerular Filtration Rate 85 mL/min (>60); Est Glom Filt Rate - Afr Amer 103 mL/min (>60); Estimated Creatinine Clearance 104.23 ml/min; Globulin 3.7 g/dL (2.2-4.2); Glucose 129 mg/dL (74-106); Lipase 36 U/L (13-75); Potassium 3.7 mmol/L (3.5-5.1); Protein, Total 6.6 g/dL (6.4-8.2); Sodium Level 135 mmol/L (136-145)
--- NOTE | 2023-12-07 07:40 | PCM.PN.HOSP ---
Reason for Visit Reason for Visit: Diagnoses Calculus of bile duct without cholangitis or cholecystitis without obstruction (12/06/23) Objective Data Objective Data Vital Signs: Vital Signs Temp Pulse Resp BP Pulse Ox O2 Del Method 97.7 F L 89 18 160/73 H 95 Room Air 12/06/23 21:40 12/06/23 21:41 12/06/23 21:41 12/06/23 21:41 12/07/23 07:30 12/07/23 07:30 Oxygen Delivery Method Room Air Weight: 215 lb 7 oz Body Mass Index (BMI) 36.8 Intake & Output: Intake and Output for Last 24 Hours 12/05/23 12/06/23 12/07/23 23:59 23:59 23:59 Intake Total 1160 / 1160 952.08 / 952.08 Balance 1160 / 1160 952.08 / 952.08 Lab / Micro Data 12/07/23 05:12 12/07/23 05:12 Labs: Laboratory Results - last 24 hr 12/06/23 16:05: WBC 7.0, RBC 4.30, Hgb 12.7, Hct 37.8, MCV 87.9, MCH 29.5, MCHC 33.6, RDW Std Deviation 38.8, RDW Coeff of Zain 12.0, Plt Count 355, MPV 10.3, Immature Gran % (Auto) 0.300, Neut % (Auto) 73.9 H, Lymph % (Auto) 16.7 L, Lea % (Auto) 7.6, Eos % (Auto) 0.9, Baso % (Auto) 0.6, Absolute Neuts (auto) 5.2, Absolute Lymphs (auto) 1.17, Nucleated RBC % 0, Platelet Estimate ADEQUATE, RBC Morphology N CHROM, Anisocytosis RARE, 12/06/23 17:14: Urine Color Yellow, Urine Clarity Sl. Cloudy, Urine pH 7.0, Ur Specific [place] 1.015, Urine Protein Negative, Urine Glucose (UA) Normal, Urine Ketones Negative, Urine Occult Blood Negative, Urine Nitrite Negative, Urine Bilirubin Negative, Urine Urobilinogen 1 H, Ur Leukocyte Esterase Negative, Urine RBC 0 SEEN, Urine WBC 0-5 SEEN, Ur Squamous Epith Cells 5-10 SEEN, Amorphous Sediment 1+, Urine Bacteria 1+, Urine Mucus 0 SEEN 12/06/23 18:05: Sodium 137, Potassium 4.0, Chloride 109 H, Carbon Dioxide 24.0, Anion Gap 4 L, BUN 5 L, Creatinine 0.81, Estim Creat Clear Calc 101.04, Est GFR (MDRD) Af Amer 99, Est GFR (MDRD) Non-Af 82, BUN/Creatinine Ratio 6.2 L, Glucose 113 H, Calcium 10.8 H, Total Bilirubin 3.60 H, AST 878 H, ALT 1390 H, Alkaline Phosphatase 628 H, Total Protein 7.2, Albumin 3.3, Globulin 3.9, Albumin/Globulin Ratio 0.8 L, Lipase 33 12/07/23 05:12: WBC 6.9, RBC 3.85 L, Hgb 11.2 L, Hct 34.3 L, MCV 89.1, MCH 29.1, MCHC 32.7, RDW Std Deviation 39.1, RDW Coeff of Zain 12.1, Plt Count 334, MPV 10.2, Immature Gran % (Auto) 0.300, Neut % (Auto) 76.5 H, Lymph % (Auto) 11.2 L, [place] % (Auto) 10.3 H, Eos % (Auto) 1.0, Baso % (Auto) 0.7, Absolute Neuts (auto) 5.3, Absolute Lymphs (auto) 0.77 L, Nucleated RBC % 0, Sodium 135 L, Potassium 3.7, Chloride 108 H, Carbon Dioxide 24.0, Anion Gap 3 L, BUN 5 L, Creatinine 0.79, Estim Creat Clear Calc 104.23, Est GFR (MDRD) Af Amer 103, Est GFR (MDRD) Non-Af 85, BUN/Creatinine Ratio 6.4 L, Glucose 129 H, Calcium 10.8 H, Total Bilirubin 3.80 H, AST 576 H, ALT 1121 H, Alkaline Phosphatase 599 H, Total Protein 6.6, Albumin 2.9 L, Globulin 3.7, Albumin/Globulin Ratio 0.8 L, Lipase 36 Radiography Diagnostic Testing: Radiology Impression Gallbladder Ultrasound 12/06/23 18:43 IMPRESSION: Cholecystectomy. Expected trace fluid in the gallbladder fossa given recent surgery. No drainable focal fluid collection. Electronically Signed: Calderon Miller MD (Brooks) at 20:13 EST , Physical Exam Narrative Seen and examined. Patient is stated she does not have chronic liver disease. She drinks Once a week 1 shot of wine with her . Denies history of autoimmune disease including Cindi's, rheumatoid Psoriatec, celiac or other disease. Per patient and her she is a healthy except some complications including preeclampsia and gestational hypertension. Blood pressure was in systolic 110s to 120s before . No fever. Physical exam General: Alert, Oriented x3, Cooperative HEENT: Atraumatic, PERRLA, EOMI, Normocephalic Oral: No Gingival or Mucosal Lesions/ Ulcerations Neck: Supple, No JVD, Negative Carotid Bruits Chest wall/Lungs: Air entry equal in bilateral lung bases. No crepitation/rhonchi Cardiovascular: Regular rate, Regular Rhythm, Normal S1, Normal S2, No M/G/R Abdomen: Bowel Sounds Present, Soft, mild tenderness present over right upper quadrant at right subcostal margin. No palpable mass. , Non-Distended : 8 weeks . No dysuria. No renal angle tenderness. No suprapubic tenderness. Extremities: No edema, Capillary Refill Less than 3 Seconds Skin: No rashes, No breakdown Musculoskeletal: No Tenderness to Palpation of Joints or Extremities Neurological: Cranial nerves II-XII grossly intact, DTR 2+/4. No acute focal neurological deficit. Psych/Mental Status: Normal Affect, Appropriate. Assessment & Plan Assessment/Plan (1) Choledocholithiasis: PLAN: Plan The patient is a 42 y/o F with recent cholecystectomy about 8 days prior to admission, 8 weeks admitted with epigastric right upper quadrant pain for last couple days. After discharge she felt better for few days and then pain came back. She had normal EGD prior to surgery. She is nauseated, bloating requiring several ED visits in the interim but no vomiting. No dysuria. Normal BM. On omeprazole started 3 days ago. #1. Acute liver injury concerning for choledocholithiasis status post recent cholecystectomy: [facility] Direct bilirubin fractionation and GGT ordered. Acute hepatitis panel and autoimmune workup ordered although seems less likely as patient does not have history of autoimmune disease. General surgery and shredding machine operator is consulted. 12/07: Patient denies fever, excessive alcohol drink, autoimmune disease or chronic liver disease. Transaminases are improving.. Alkaline phosphatase improving although not significant change in total bilirubin and that is expected. Bili direct hyperbilirubinemia, total bili 3.8, direct 3.07. GGT 608. Right upper quadrant sonogram reviewed status postcholecystectomy but expected trace fluid in GB fossa. CBD unremarkable, possible within normal limit. Pancreas unremarkable with no focal abnormality. Discussed with the shredding machine operator Dr. Lea and plan for ERCP. Keep NPO. Patient on IV Zosyn, IV fluid and supportive medications for symptoms. #2. Elevated blood pressure without formal hypertensive diagnosis with history of previous preeclampsia/gestational hypertension: Patient has history of preeclampsia/gestational hypertension. 8 weeks . On IV hydralazine. 12/07: As per in the non state patient blood pressure is in normal range. The patient has history of gestational hypertension and preeclampsia in which blood pressure is elevated after 20 weeks of gestation. Most recent 147/95. #3. status, 8 weeks gestational age: Encourage continued outpatient follow-up with her surgical forceps fabricator who she most recently saw 12/02/2023, will avoid any teratogenic agents. #4. Obesity: Weight loss and lifestyle changes encouraged. #5. GERD: continue patient PPI. #6. DVT prophylaxis: SCDs. 12/06/23 16:05: WBC 7.0, RBC 4.30, Hgb 12.7, Hct 37.8, MCV 87.9, MCH 29.5, MCHC 33.6, RDW Std Deviation 38.8, RDW Coeff of Zain 12.0, Plt Count 355, MPV 10.3, Immature Gran % (Auto) 0.300, Neut % (Auto) 73.9 H, Lymph % (Auto) 16.7 L, [place] % (Auto) 7.6, Eos % (Auto) 0.9, Baso % (Auto) 0.6, Absolute Neuts (auto) 5.2, Absolute Lymphs (auto) 1.17, Nucleated RBC % 0, Platelet Estimate ADEQUATE, RBC Morphology N CHROM, Anisocytosis RARE, 12/06/23 17:14: Urine Color Yellow, Urine Clarity Sl. Cloudy, Urine pH 7.0, Ur Specific [place] 1.015, Urine Protein Negative, Urine Glucose (UA) Normal, Urine Ketones Negative, Urine Occult Blood Negative, Urine Nitrite Negative, Urine Bilirubin Negative, Urine Urobilinogen 1 H, Ur Leukocyte Esterase Negative, Urine RBC 0 SEEN, Urine WBC 0-5 SEEN, Ur Squamous Epith Cells 5-10 SEEN, Amorphous Sediment 1+, Urine Bacteria 1+, Urine Mucus 0 SEEN 12/06/23 18:05: Sodium 137, Potassium 4.0, Chloride 109 H, Carbon Dioxide 24.0, Anion Gap 4 L, BUN 5 L, Creatinine 0.81, Estim Creat Clear Calc 101.04, Est GFR (MDRD) Af Amer 99, Est GFR (MDRD) Non-Af 82, BUN/Creatinine Ratio 6.2 L, Glucose 113 H, Calcium 10.8 H, Total Bilirubin 3.60 H, AST 878 H, ALT 1390 H, Alkaline Phosphatase 628 H, Total Protein 7.2, Albumin 3.3, Globulin 3.9, Albumin/Globulin Ratio 0.8 L, Lipase 33 12/07/23 05:12: WBC 6.9, RBC 3.85 L, Hgb 11.2 L, Hct 34.3 L, MCV 89.1, MCH 29.1, MCHC 32.7, RDW Std Deviation 39.1, RDW Coeff of Zain 12.1, Plt Count 334, MPV 10.2, Immature Gran % (Auto) 0.300, Neut % (Auto) 76.5 H, Lymph % (Auto) 11.2 L, [place] % (Auto) 10.3 H, Eos % (Auto) 1.0, Baso % (Auto) 0.7, Absolute Neuts (auto) 5.3, Absolute Lymphs (auto) 0.77 L, Nucleated RBC % 0, Sodium 135 L, Potassium 3.7, Chloride 108 H, Carbon Dioxide 24.0, Anion Gap 3 L, BUN 5 L, Creatinine 0.79, Estim Creat Clear Calc 104.23, Est GFR (MDRD) Af Amer 103, Est GFR (MDRD) Non-Af 85, BUN/Creatinine Ratio 6.4 L, Glucose 129 H, Calcium 10.8 H, Total Bilirubin 3.80 H, AST 576 H, ALT 1121 H, Alkaline Phosphatase 599 H, Total Protein 6.6, Albumin 2.9 L, Globulin 3.7, Albumin/Globulin Ratio 0.8 L, Lipase 36 Clinical Impression(s) from Imaging Studies Gallbladder Ultrasound 12/06/23 18:43 IMPRESSION: Cholecystectomy. Expected trace fluid in the gallbladder fossa given recent surgery. No drainable focal fluid collection. Charges/Coding Addendum Addendum: Total time of the visit including total time spent in counseling or coordination of care, (more than 50% of the total time, spent in obtaining medical information from nurses and other ancillary care providers,explaining to the patient about labs, imaging, diagnosis and management of active complex medical conditions), management of acute liver injury, hypertension in state, discussion with shredding machine operator clinical update given to patient and her , review of labs and imaging is 35 minutes. Visit Charges Inpatient E&M: [id number] [facility] Hosp L3
[2023-12-07 08:44] LABS: International Normalized Ratio 1.1; Prothrombin Time (Protime)PT. 13.8 SECONDS (11.7-14.9)
[2023-12-07 09:11] LABS: Bilirubin, Direct 3.07 mg/dL (0.00-0.30); GGTP 608 U/L (5-55)
[2023-12-07] MEDS: Prenatal Vits Tablet 1 TABLET PO (10:11)
[2023-12-07] MEDS: Pantoprazole Sodium 40 MG Tablet PO (10:11)
--- NOTE | 2023-12-07 10:21 | RAD_ITS ---
PROCEDURE: FLUOROSCOPIC GUIDED CHOLANGIOGRAM/PANCREATOGRAPHY DATE OF EXAMINATION: December 07, 2023 INDICATION: Female, 43 years old. ERCP pain in following cholecystectomy. PHYSICIAN: Foreign Lea DO FLUOROSCOPY TIME (if supplied): 55.3 seconds RADIATION DOSAGE (If Supplied By Facility): CTDIvol = ( 19.44 ) mGy, DLP = ( ) mGycm CONSENT: The risks, benefits and alternatives to the procedure were explained to the patient, and the patient agreed to the procedure and signed the consent. PROCEDURE/TECHNIQUE: (All elements of maximal sterile barrier technique followed, including US elements as applicable) The risks, benefits, and alternatives to the procedure were explained to patient, and the patient agreed to the procedure and signed a consent form for the procedure. Comparison study: CT of abdomen and pelvis dated November 27, 2023. Right upper quadrant ultrasound dated December 06, 2023. FINDINGS: Intraoperative surgical instrumentation seen in the nikhil hepatis region and overlying the liver. Contrast outlines the common bile duct and the main right and left intrahepatic biliary ducts. Cholecystectomy clips are present. Mild intrahepatic biliary duct dilatation is present, possibly postcholecystectomy related or due to contrast distention. No filling defects are identified. There is no biliary ductal dilatation. No extraluminal leakage of contrast is seen outside of the biliary ducts or bowel. RAD/ERCP Biliary/Pancreas IMPRESSION: 1. Status post cholangiogram. 2. Mild intrahepatic biliary duct dilatation is present, possibly postcholecystectomy related or due to contrast distention. Electronically Signed: Eliseo Herrera MD at 16:30 EST ,
[2023-12-07] MEDS: 0.9% Saline Lock 10 ML Syringe IV (11:59)
--- NOTE | 2023-12-07 13:57 | OP.CCLET_ITS ---
12/07/2023 No Primary Care Physician Re : ERCP procedure for Luma Cordova Dear Care Physician This procedure was performed on Thursday, December 07, 2023. My impressions and recommendations are as follows: Impressions : - A bile leak was found. - Choledocholithiasis was found. Complete removal was accomplished by biliary sphincterotomy and balloon extraction. - One temporary stent was placed into the ventral pancreatic duct. - A biliary sphincterotomy was performed. - The biliary tree was swept. - One stent was placed into the common bile duct. Recommendations : My findings are described in the full procedure note, which is enclosed. If I can be of further assistance, please feel free to contact me at . Sincerely, Foreign Lea, 12/07/2023 1:56:31 PM This report has been signed electronically.
--- NOTE | 2023-12-07 13:57 | OP.ERCP_ITS ---
Patient Name: Luma Cordova Procedure Date: 12/07/2023 12:15 PM Date of : 1980 Age: 43 Procedure: ERCP Indications: Evaluation and possible treatment of bile duct stone(s), Suspected bile leak, Jaundice Providers: Foreign Lea DO Medicines: Monitored Anesthesia Care Patient Profile: This is a 43 year old female. Refer to note in patient chart for documentation of history and physical. This patient has no history of previous ERCP. She is status post laparoscopic cholecystectomy recently. Complications: No immediate complications. Procedure: Pre-Anesthesia Assessment: - Prior to the procedure, a History and Physical was performed, and patient medications and allergies were reviewed. The patient is competent. The risks and benefits of the procedure and the sedation options and risks were discussed with the patient. All questions were answered and informed consent was obtained. Patient identification and proposed procedure were verified by the physician. Mental Status Examination: normal. Prophylactic Antibiotics: The patient does not require prophylactic antibiotics. Prior Anticoagulants: The patient has taken no anticoagulant or antiplatelet agents. ASA Grade Assessment: II - A patient with mild systemic disease. After reviewing the risks and benefits, the patient was deemed in satisfactory condition to undergo the procedure. The anesthesia plan was to use monitored anesthesia care (MAC). Immediately prior to administration of medications, the patient was re-assessed for adequacy to receive sedatives. The heart rate, respiratory rate, oxygen saturations, blood pressure, adequacy of pulmonary ventilation, and response to care were monitored throughout the procedure. The physical status of the patient was re-assessed after the procedure. After obtaining informed consent, the scope was passed under direct vision. Throughout the procedure, the patient's blood pressure, pulse, and oxygen saturations were monitored continuously. The Duodenoscope was introduced through the mouth, and advanced to the duodenum and used to inject contrast into the bile duct and ventral pancreatic duct. The ERCP was accomplished without difficulty. The patient tolerated the procedure well. Scope In: 12:48:55 PM Scope Out: 1:43:16 PM Total Procedure Duration Time 0 hours 54 minutes 21 seconds Findings: The bobtail driver film was normal. The esophagus was successfully intubated under direct vision. The scope was advanced to a normal major papilla in the descending duodenum without detailed examination of the pharynx, larynx and associated structures, and upper GI tract. The upper GI tract was grossly normal. The ventral pancreatic duct was deeply cannulated with the short-nosed traction sphincterotome. Contrast was injected. I personally interpreted the pancreatic duct images. There was brisk flow of contrast through the ducts. Image quality was excellent. Opacification of the entire pancreatic ductal system was successful. The maximum diameter of the ducts was 2 mm. The entire opacified area was normal. Placement of a 0.035 inch x 260 cm angled Hydra Jagwire into the biliary tree was attempted. This passed successfully. One 5 Fr by 7 cm temporary stent was placed 5 cm into the ventral pancreatic duct. Clear fluid flowed through the stent. The stent was in good position. A straight Roadrunner wire was passed into the biliary tree. A 5 mm biliary sphincterotomy was made with a traction (standard) sphincterotome using ERBE electrocautery. The sphincterotomy oozed blood. To discover objects, the biliary tree was swept with a 15 mm balloon starting at the bifurcation. Sludge was swept from the duct. All stones were removed. The bile duct was deeply cannulated with the 15 mm balloon. Contrast was injected. Opacification of the main bile duct was successful. The maximum diameter of the ducts was 8 mm. The entire biliary tree except for the cystic duct and gallbladder and main bile duct contained one stone, which was 6 mm in diameter. Extravasation of contrast originating from the middle third of the main bile duct was observed. A straight Roadrunner wire was passed into the biliary tree. One 10 Fr by 7 cm stent with two external flaps and two internal flaps was placed 5 cm into the common bile duct. Bile flowed through the stent. The stent was in good position. Impression: - A bile leak was found. - Choledocholithiasis was found. Complete removal was accomplished by biliary sphincterotomy and balloon extraction. - One temporary stent was placed into the ventral pancreatic duct. - A biliary sphincterotomy was performed. - The biliary tree was swept. - One stent was placed into the common bile duct. Procedure Code(s): --- Professional --- 32639, Endoscopic retrograde cholangiopancreatography (ERCP); with placement of endoscopic stent into biliary or pancreatic duct, including pre- and post-dilation and guide wire passage, when performed, including sphincterotomy, when performed, each stent [id number], 59, Endoscopic retrograde cholangiopancreatography (ERCP); with placement of endoscopic stent into biliary or pancreatic duct, including pre- and post-dilation and guide wire passage, when performed, including sphincterotomy, when performed, each stent [id number], Endoscopic retrograde cholangiopancreatography (ERCP); with removal of calculi/debris from biliary/pancreatic duct(s) 49723, 26, Endoscopic catheterization of the pancreatic ductal system, radiological supervision and interpretation CPT copyright 2021 [employer]. All rights reserved. The codes documented in this report are preliminary and upon cement paver review may be revised to meet current compliance requirements. Foreign Lea DO 12/07/2023 1:56:31 PM This report has been signed electronically. Number of Addenda: 0 Note Initiated On: 12/07/2023 12:15 PM
[2023-12-08 02:08] VITALS: BP 140/82; PULSE 77; RESP 16; TEMP 36.4; O2SAT 99
[2023-12-08] MEDS: 0.9% Normal Saline (1000mL) 1,000 ML 125 ML IV (02:14)
[2023-12-08 05:26] VITALS: BMI 37.9
[2023-12-08 06:22] LABS: AST(SGOT) 328 U/L (15-37); Alanine Aminotransfer ALT/SGPT 805 U/L (13-56); Albumin, Serum 2.5 g/dL (3.2-5.0); Alkaline Phosphatase 532 U/L (45-117); Bilirubin, Direct 2.13 mg/dL (0.00-0.30); GGTP 524 U/L (5-55); Globulin 3.6 g/dL (2.2-4.2); Protein, Total 6.1 g/dL (6.4-8.2)
[2023-12-08 06:26] VITALS: BP 139/83; PULSE 70; RESP 16; TEMP 36.4; O2SAT 98
[2023-12-08] MEDS: Piperacil/Tazobactam 3.375 GM in 0.9% Normal Saline (50mL MB+) 50 ML IV (06:27)
[2023-12-08 06:58] VITALS: O2SAT 93
--- NOTE | 2023-12-08 08:00 | PN.GI_ITS ---
Subjective Subjective Patient underwent ERCP with sphincterotomy and stone extraction stent placement for small bile leak. She is not having abdominal pain she is tolerating a diet without any problems. Objective Data Objective Data Vital Signs: Vital Signs Temp Pulse Resp BP Pulse Ox O2 Del Method 98.1 F 80 16 117/65 97 Room Air 12/08/23 14:47 12/08/23 14:47 12/08/23 14:47 12/08/23 14:47 12/08/23 14:47 12/08/23 14:47 Oxygen Delivery Method Room Air Weight: 222 lb 2 oz Body Mass Index (BMI) 37.9 Intake & Output: Intake and Output for Last 24 Hours 12/06/23 12/07/23 12/08/23 23:59 23:59 23:59 Intake Total 1160 / 1160 2708.33 / 3108.33 2414.58 / 2414.58 Output Total 1200 / 1825 2475 / 2475 Balance 1160 / 1160 1508.33 / 1283.33 -60.42 / -60.42 Lab / Micro Data 12/07/23 05:12 12/07/23 05:12 Labs: Laboratory Results - last 24 hr 12/08/23 04:04: Total Bilirubin 2.50 H, Direct Bilirubin 2.13 H, GGT 524 H, AST 328 H, ALT 805 H, Alkaline Phosphatase 532 H, Total Protein 6.1 L, Albumin 2.5 L , Globulin 3.6 Radiography Diagnostic Testing: Radiology Impression Endo Retro Cholangiopancreatogram 12/07/23 10:21 IMPRESSION: 1. Status post cholangiogram. 2. Mild intrahepatic biliary duct dilatation is present, possibly postcholecystectomy related or due to contrast distention. Electronically Signed: Eliseo Herrera MD at 16:30 EST , Physical Exam Const oriented x3 and no apparent distress Resp normal respiratory effort GI soft to palpation and non-tender Assessment & Plan Assessment/Plan (1) Choledocholithiasis: PLAN: Plan The patient is a 42 y/o F w/ PMHx: Obesity, GERD, Hx Pre-eclampsia, Hx Ges tational HTN, currently 8 weeks gestational age, recently cholecystectomy per Dr. Hernandez 8 days prior with notable epigastric and RUQ pain. Hyperbilirubinemia, transaminitis concerning for choledocholithiasis status post recent cholecystectomy: Patient is doing very well after ERCP. All IVs can be switched over to home. She will need to follow-up as an outpatient for stent removal. Likely we will wait this weekend until she is . Charges/Coding Visit Charges Inpatient E&M: 46413 Subs Hosp L3
[2023-12-08] MEDS: Prenatal Vits Tablet 1 TABLET PO (08:28)
[2023-12-08] MEDS: Pantoprazole Sodium 40 MG Tablet PO (08:28)
[2023-12-08 08:45] VITALS: BP 137/75; PULSE 68; RESP 16; TEMP 36.7; O2SAT 96
--- NOTE | 2023-12-08 09:03 | PN.SURG_ITS ---
Subjective Subjective I went and saw the patient this morning. She is resting comfortably. Objective Data Objective Data Vital Signs: Vital Signs Temp Pulse Resp BP Pulse Ox O2 Del Method 98.1 F 68 16 137/75 H 96 Room Air 12/08/23 08:45 12/08/23 08:45 12/08/23 08:45 12/08/23 08:45 12/08/23 08:45 12/08/23 08:45 Oxygen Delivery Method Room Air Weight: 222 lb 2 oz Body Mass Index (BMI) 37.9 Intake & Output: Intake and Output for Last 24 Hours 12/06/23 12/07/23 12/08/23 23:59 23:59 23:59 Intake Total 1160 / 1160 2708.33 / 3108.33 1364.58 / 1364.58 Output Total 1200 / 1825 1275 / 1275 Balance 1160 / 1160 1508.33 / 1283.33 89.58 / 89.58 Lab / Micro Data 12/07/23 05:12 12/07/23 05:12 Labs: Laboratory Results - last 24 hr 12/07/23 08:10: Direct Bilirubin 3.07 H, GGT 608 H 12/08/23 04:04: Total Bilirubin 2.50 H, Direct Bilirubin 2.13 H, GGT 524 H, AST 328 H, ALT 805 H, Alkaline Phosphatase 532 H, Total Protein 6.1 L, Albumin 2.5 L , Globulin 3.6 Radiography Diagnostic Testing: Radiology Impression Endo Retro Cholangiopancreatogram 12/07/23 10:21 IMPRESSION: 1. Status post cholangiogram. 2. Mild intrahepatic biliary duct dilatation is present, possibly postcholecystectomy related or due to contrast distention. Electronically Signed: Eliseo Herrera MD at 16:30 EST , Physical Exam Const oriented x3 and no apparent distress Resp normal respiratory effort GI soft to palpation and non-tender Assessment & Plan Assessment/Plan (1) Abdominal pain: (2) Choledocholithiasis: PLAN: Plan Patient had ERCP with stone removal and stent placement. She is currently not having pain. She can be discharged when she is tolerating a diet with no abdominal pain. Cam Hernandez MD Pager: [facility] [address] [place] [address] [address] [place] [address] Office:
--- NOTE | 2023-12-08 14:31 | DCINST_ITS ---
Discharge Instructions Diet Discharge Diet: No restrictions Activity Discharge Activity: Return to Normal Activity Weight Bearing Status: Full weight bearing Follow Up Care Test Results: Test results from this visit will be discussed in further detail at your follow- up appointment, if applicable. Discharge Plan Admission Admit Date/Time: 12/06/23 21:04 Primary Reason for Your Visit: Choledocholithiasis Attending Provider: Ronan Felix Primary Care Provider: Care Physician,No Primary Consulting Providers: Cam Hernandez; Kristel Shetty; Candido Stein Instructions Additional Instructions / Restrictions: If you have any fevers or chills, contact your primary care doctor or go to the emergency room for evaluation Discharge Orders/Prescriptions Prescriptions: Continued PNV-[place] 28-1-300 mg capsule 1 cap PO DAILY pantoprazole 40 mg tablet,delayed release (DR/EC) 40 mg PO DAILY Qty: 60 0RF Referrals / Follow Up: Foreign Lea, [Med Staff - Active Staff] - See Referral Note (As directed, if you are not contacted by the middle of the week, call his office for follow- up appointment, if you already have a follow-up appointment, keep that appointment) Care Physician,No Primary [Primary Care Provider] - Disposition Disposition (needs filled in before D/C Order can be placed): Home, Self Care
--- NOTE | 2023-12-08 14:35 | DS.PCM_ITS ---
Providers Date of Admission: 12/06/23 Date of Discharge: 12/08/23 Primary Care Physician: Charu Primary Care Phys Consultations 12/06/23 22:18 Consult: Gastroenterology Routine Consulting Provider: [facility] Reason for Consult: Choledocholithiasis EMERGENT Consult: No Notified: Yes Date Notified: 12/06/23 Time Notified: 21:05 Method of Notification: ED Physician Initiated Consult: General Surgery Routine Consulting Provider: Cam Hernandez Reason for Consult: Choledocholithasis EMERGENT Consult: No Notified: Yes Date Notified: 12/06/23 Time Notified: 21:07 Method of Notification: ED Physician Initiated Reason For Visit: SUSPECTED CHOLEDOCHOLITHIASIS Diagnosis Discharge Diagnosis (1) Abdominal pain: Status: Resolved Code(s): R10.9 - Unspecified abdominal pain (2) Choledocholithiasis: Status: Resolved Code(s): K80.50 - Calculus of bile duct without cholangitis or cholecystitis without obstruction Plan 1. Choledocholithiasis #2 acute hepatitis secondary to obstructing common duct stone #3 8-week Medications at Discharge Home Medications multivit-min no.71-iron fum 28 mg-folate no.1 1 mg-dha 300 mg capsule (PNV- [place]) 1 cap PO DAILY SUPPLEMENT 11/25/23 pantoprazole 40 mg tablet,delayed release 40 mg PO DAILY ACID REFLUX #60 tabs 11/25/23 Hospital Course Operations None Procedures - (ERCP with removal of common bile duct stone and stent placement) Summary of Care Provided Minutes Spent on Discharge: 30 Hospital Course: This 43-year-old white female came to the emergency room at [facility] with complaints of epigastric and left upper quadrant abdominal pain, patient had a recent cholecystectomy approximately 8 days prior. Patient did complain of nausea but no vomiting. Workup in the emergency room revealed a normal CBC, UA showed +1 bacteria but was otherwise, patient's liver enzymes were elevated with an AST of 878, ALT of 1390 and alkaline phosphatase of 628. Gallbladder ultrasound showed cholecystectomy and a trace fluid collection in gallbladder fossa. Case was discussed with general surgery, he recommended contacting gastroenterology for possible ERCP, patient was admitted to [place] [address] and seen in consultation by gastroenterology, she underwent an ERCP which revealed a stone in the common bile duct, she underwent a biliary sphincterotomy and balloon extraction of the stone stent was put in A bile leak was also found. Patient did well after surgery and there were no complications. On 12/08/2023, patient was seen and examined: On examination she appeared in good health and spirits, she does not appear to be in any distress. Vital signs as documented. Skin warm and dry and without overt rashes. Neck without JVD, thyroid appears normal, trachea is midline, neck is supple. Lungs clear, normal air movement was noted. Heart exam notable for regular rhythm, normal sounds and absence of murmurs, rubs or gallops. Abdomen unremarkable and without evidence of organomegaly, masses, or abdominal aortic enlargement, bowel sounds are present in all 4 quadrants, no abdominal tenderness was noted. Extremities nonedematous, no cyanosis was noted, no clubbing was noted. Neuro: Cranial nerves II through XII are grossly intact, no focal motor deficits were noted, sensation to light touch and pinprick is intact, motor exam 5/5 throughout. Psych: Patient is alert and oriented x3, she does not appear anxious or depressed, she does not appear agitated. Patient was discharged home in stable condition on 12/08/2023 Weight / BMI Weight Weight: 100.754 kg Body Mass Index (BMI) 37.9 ABG / Lab / Microbiology Data 12/07/23 05:12 12/07/23 05:12 Laboratory: Laboratory Results - last 24 hr 12/08/23 04:04: Total Bilirubin 2.50 H, Direct Bilirubin 2.13 H, GGT 524 H, AST 328 H, ALT 805 H, Alkaline Phosphatase 532 H, Total Protein 6.1 L, Albumin 2.5 L , Globulin 3.6 Radiography Diagnostic Testing: Radiology Impression Endo Retro Cholangiopancreatogram 12/07/23 10:21 IMPRESSION: 1. Status post cholangiogram. 2. Mild intrahepatic biliary duct dilatation is present, possibly postcholecystectomy related or due to contrast distention. Electronically Signed: Eliseo Herrera MD at 16:30 EST , D/C Instructions Discharge Diet: No restrictions Weight Bearing Status: Full weight bearing Meaningful Use Info Meaningful Use Diagnoses (Choose all that apply): None applicable Discharge Plan Admission Admit Date/Time: 12/06/23 21:04 Primary Reason for Your Visit: Choledocholithiasis Attending Provider: Ronan Felix Primary Care Provider: Care Physician,No Primary Consulting Providers: Cam Hernandez; Kristel Shetty; Candido Stein Instructions Additional Instructions / Restrictions: If you have any fevers or chills, contact your primary care doctor or go to the emergency room for evaluation Discharge Orders/Prescriptions Prescriptions: Continued PNV-[place] 28-1-300 mg capsule 1 cap PO DAILY pantoprazole 40 mg tablet,delayed release (DR/EC) 40 mg PO DAILY Qty: 60 0RF Referrals / Follow Up: Foreign Lea, [Med Staff - Active Staff] - See Referral Note (As directed, if you are not contacted by the middle of the week, call his office for follow- up appointment, if you already have a follow-up appointment, keep that appointment) Care Physician,No Primary [Primary Care Provider] - Disposition Disposition (needs filled in before D/C Order can be placed): Home, Self Care Charges/Coding Visit Charges Inpatient E&M: 32821 Disch Hosp
--- NOTE | 2023-12-08 14:40 | PHA.DC_ITS ---
Pharmacy [place] Med Reconciliation Pharmacy Service has performed discharge medication reconciliation for this patient. The patient's discharge medication list was reviewed for discrepancies and discrepancies were resolved. Medications at Discharge Home Medications multivit-min no.71-iron fum 28 mg-folate no.1 1 mg-dha 300 mg capsule (PNV- [place]) 1 cap PO DAILY SUPPLEMENT 11/25/23 pantoprazole 40 mg tablet,delayed release 40 mg PO DAILY ACID REFLUX #60 tabs 11/25/23
[2023-12-08 14:47] VITALS: BP 117/65; PULSE 80; RESP 16; TEMP 36.7; O2SAT 97
--- NOTE | 2023-12-08 15:15 | CASEMGMT ---
SIDNEY ZHAO Readmission Note Previous Admission: 11/27/23-11/29/23 Diagnosis: L upper quadrant pain DC Disposition: Home Current Admission: Admitted 12/06/23 Current Diagnosis: suspected choledocholithiasis Pt presented to the ER after 8 days of persistent pain s/p cholecystectomy. Pt had a normal EGD prior and an autoimmune workup. Pt is 8.5 wks . She had an ERCP by with stent placement and stone removal. SIDNEY CM into pt room, pt with family and nurse at bedside. Pt states she feels she is ready to dc home this time but did not last admission as her bed at home was not as conducive as the hospital bed for healing incisions. Pt states she does have the PCP list given last time but would like another one, provided at this time. Pt states she did not have an appt with since last hospitalization due to timing but it is scheduled now. Pt denies any further needs. DC Plan: Home
[2023-12-09 14:09] LABS: ANTINUCLEAR ANTIBODIES DIRECT Negative (Negative); Anti-Mitochondrial AB <20.0 Units (0.0-20.0); Anti-Smooth Muscle ABS 7 Units (0-19); HEPATITIS B SURFACE AG Negative (Negative); Hep C Antibodies Non Reactive (Non Reactive); Hepatitis A IgM Antibody Negative (Negative); Hepatitis B Core AB IgM Negative (Negative)
== END 2023-12-08 15:15 | disposition home or self-care (01) | DRG 566 ==
LOC: ED 17:17 → MS3 21:27
PROVIDERS: Internal Medicine; Internal Medicine Gastroenterology; Physician Assistant; Admitting Provider Family Medicine; Emergency Provider Emergency Medicine; Visit Provider Internal Medicine
PROC: 0FC98ZZ Extirpation of Matter from Common Bile Duct, Via Natural or Artificial Opening Endoscopic (ICD-10-PCS; CPT 43260; principal; 2023-12-07 12:45)
DX: O26.611 Liver and biliary tract disorders in pregnancy, first trimester (principal); O10.011 Pre-existing essential hypertension complicating pregnancy, first trimester; O99.211 Obesity complicating pregnancy, first trimester; K21.9 Gastro-esophageal reflux disease without esophagitis; O26.891 Other specified pregnancy related conditions, first trimester; R74.01 Elevation of levels of liver transaminase levels; Z3A.08 8 weeks gestation of pregnancy; O99.611 Diseases of the digestive system complicating pregnancy, first trimester; Z90.49 Acquired absence of other specified parts of digestive tract; E66.8 Other obesity
CPT/HCPCS: 36415; 74330; 76000; 76705; 80053; 80074; 80076; 81001; 82248; 82977; 83516; 83690; 85025; 85610; 86038; 86225; 86235; 87491; 87591; 87624; 88175; 94668; 99252; 99283; J7030; J7040; A4216; G0145; G0463; J2405

== ENCOUNTER → 2023-12-29 | Outpatient (CLI) | payer MEDICAID, SELFPAY ==
[2023-12-29 15:32] LABS: Absolute Lymphocyte Count 1.61 X10^3/uL (0.83-4.51); Absolute Neutrophil Count 4.1 X10^3/uL (2.0-7.7); Basophil# 0.04 X10^3/uL; Basophil% 0.6 % (0-1); Eosinophil# 0.18 X10^3/uL; Eosinophils% 2.7 % (0-5); Hematocrit 34.1 % (37-47); Hemoglobin 11.7 g/dL (12.0-15.0); Lymphocyte # 1.61 X10^3/ul (0.83-4.51); Lymphocyte % 24.5 % (19-41); Mean Corp Hgb Conc 34.3 g/dL (32-36); Mean Corpuscular Hgb 30.2 pg (27.0-32.0); Mean Corpuscular Volume 87.9 fL (81-99); Mean Platelet Vol. 10.4 fl (6.2-12.0); Monocyte# 0.61 X10^3/uL; Monocyte% 9.3 % (0-10); NRBC Flagged by Analyzer 0 % (0-5); Neutrophil # 4.11 X10^3/uL (2.7-7.7); Neutrophil % 62.6 % (47-70); Platelet Count 201 K/mm3 (150-450); RBC Distribution Width CV 12.1 % (11.6-14.6); RBC Distribution Width SD 38.6 fl (35.1-43.9); Red Blood Count 3.88 M/mm3 (4.2-5.4); White Blood Count 6.6 K/mm3 (4.4-11.0)
[2023-12-29 16:21] LABS: Hemoglobin A1c 5.5 % (3.8-5.6)
[2023-12-29 16:58] LABS: HIV - WCH Non-Reactive (Nonreactive); Hepatitis B Surface Antigen Non-Reactive (Nonreactive); Hepatitis C Antibody Non-Reactive (Nonreactive); Rubella IgG Reactive (Nonreactive); Syphilis Antibodies Non-reactive
--- OUTSIDE RECORDS SUMMARY | 2023-12-29 17:31 | XMS RPT_ITS | CCD ---
Author Name Unknown Address [address] [place] [address] Organization [facility] Care Team Providers Care Road Tester Name Role Phone Tiesha QURESHI, Donald Syed Primary Care Provider [phone] Unavailable Primary Care Provider Unavailrandi Motley MD, Donald Syed Primary Care Provider [phone] Donald Motley MD Primary Care Provider [phone] CRISTOFER BANKS Referring Unavailable DONALD MOTLEY Primary [...] 13:17-0400 Body weight 103.87 kg Cat Older CROP GRAIN OR LIVESTOCK FARM MANAGER.PICKLE MAKER Work Phone: [facility] 02-07-2023 13:17-0400 Diastolic blood pressure 85 mm[Hg] Cat Older CROP GRAIN OR LIVESTOCK FARM MANAGER.PICKLE MAKER Work Phone: [facility] 02-07-2023 13:17-0400 Heart rate 78 /min Cat Older CROP GRAIN OR LIVESTOCK FARM MANAGER.PICKLE MAKER Work Phone: [facility] 02-07-2023 13:17-0400 Respiratory rate 16 /min Cat Older CROP GRAIN OR LIVESTOCK FARM MANAGER.PICKLE MAKER Work Phone: [facility] 02-07-2023 13:17-0400 Systolic blood pressure 126 mm[Hg] Cat Older CROP GRAIN OR LIVESTOCK FARM MANAGER.PICKLE MAKER Work Phone: [facility] 12-02-2022 15:25-0500 Body height 162.6 cm Caroline Meza PA-C Work Phone: [facility] 12-02-2022 15:25-0500 Body weight 104.24 kg Caroline Kalka PA-C Work Phone: [facility] 12-02-2022 15:25-0500 Diastolic blood pressure 84 mm[Hg] Caroline Kalka PA-C Work Phone: [facility] 12-02-2022 15:25-0500 Heart rate 68 /min Caroline Kalka PA-C Work Phone: [facility] 12-02-2022 15:25-0500 Systolic blood pressure 126 mm[Hg] Caroline Kalka PA-C Work Phone: [facility] 11-07-2022 14:15-0500 Body height 162.6 cm Pac 3 Work Phone: [facility] 11-07-2022 14:15-0500 Body weight 99.79 kg Pac 3 Work Phone: [facility] 10-28-2022 09:46-0500 Body weight 103.42 kg Cat Older CROP GRAIN OR LIVESTOCK FARM MANAGER.PICKLE MAKER Work Phone: [facility] 10-28-2022 09:46-0500 Diastolic blood pressure 83 mm[Hg] Cat Older CROP GRAIN OR LIVESTOCK FARM MANAGER.PICKLE MAKER Work Phone: [facility] 10-28-2022 09:46-0500 Heart rate 76 /min Cat Older CROP GRAIN OR LIVESTOCK FARM MANAGER.PICKLE MAKER Work Phone: [facility] 10-28-2022 09:46-0500 Respiratory rate 14 /min Cat Older CROP GRAIN OR LIVESTOCK FARM MANAGER.PICKLE MAKER Work Phone: [facility] 10-28-2022 09:46-0500 Systolic blood pressure 125 mm[Hg] Cat Older CROP GRAIN OR LIVESTOCK FARM MANAGER.PICKLE MAKER Work Phone: [facility] Encounters Encounter Date Encounter Type Care Provider Facility Start: 02-24-2023 End: 02-24-2023 ambulatory DONALD MOTLEY Facility:[facility] Start: 02-07-2023 End: 02-08-2023 ambulatory ANTOINE TIESHA Facility:[facility] Start: 02-07-2023 End: 02-07-2023 Patient encounter procedure Cat Older CROP GRAIN OR LIVESTOCK FARM MANAGER.ALISSON Work Phone: Internal Medicine [facility] Procedures Date Procedure Procedure Detail Performing Clinician Start: 10-31-2022 Hepatobiliary syst i maging including gallbladder Cat Older CROP GRAIN OR LIVESTOCK FARM MANAGER.ALISSON Work Phone: Plan of Treatment Date Care Activity Detail Author Start: 02-08-2024 HEPATITIS C SCREENING HEPATITIS C ME DANNI [facility] Payers Date Payer Category Payer Medicaid [id number] 2021 Medicaid [id number] Social History Date Type Detail Facility Start: 10-21-2022 Tobacco smoking stat [facility] Never smoked tobacco [facility] Start: 10-21-2022 Tobacco use and exposure Smoke less tobacco non-user [facility] Start: 10-28-2022 End: 11-05-2022 Alcohol intake Ex-drinker (finding) [facility] Start: 10-28-2022 End: 02-07-2023 Alcohol intake [facility] Start: 1980 Sex Assigned At Not on file C [facility] Tobacco smoking stat [facility] Tobacco smoking consumption unknown [facility] Start: 11-07-2022 Alcohol Comment 2/week [facility] Start: 12-02-2022 End: 02-07-2023 Alcohol intake Current drinker of alcohol (finding) [facility] Start: 02-06-2023 History SDOH Alcohol Frequency 4 [facility] Start: 02-06-2023 History SDOH Alcohol Std Drinks 1 [facility] Start: 02-06-2023 History SDOH Social Connections Phone 5 [facility] Start: 02-06-2023 History SDOH Social Connections Get Together 3 [facility] Start: 02-06-2023 History SDOH Physica l Activity MPS 6 [facility] Start: 02-06-2023 History SDOH Stress [address] [facility] Start: 10-28-2022 Tobacco use panel [facility] Clinical Notes 10-14-2022 to 10-22-2023 Cat Older, CROP GRAIN OR LIVESTOCK FARM MANAGERMARY - 02/07/2023 1:32 PM Xander Meza PA-C - 12/02/2022 3:25 PM ESTTelephone Encounter - Judy You - 11/19/2022 8:16 AM ESTPatient InstructionsPatient Instructions Note Date & Type Note Facility 10-22-2023 Note Patient Outreach (IN TMMN) TOD DA SILVA ([id number]) 1980 F Date Time Provider Department 10/22/23 DONALD MOTLEY During your visit today, we recorded the following information about you: Allergies As of Date: 10/22/2023 (No Known Allergies) Date Reviewed: 02/21/2023 Reviewed by: Makenna Moralez RT(R) - Fully Assessed Visit Diagnosis:Encounter for screening mammogram for breast cancer [Z12.31] Order(s):[facility] SCREENING [[id number]] Order #: [id number] FUTURE Prescriptions as of 10/27/2023 - ascorbic acid, vitamin C, (VITAMIN C) 250 mg tablet Take 250 mg by mouth once daily. - cholecalciferol, vitamin D3, 10 mcg (400 unit) cap Take 400 Units by mouth once daily. Problem List As Of Date 10/22/2023 Noted Resolved Adrenal nodule (HCC) [E27.8] 10/28/2022 Obesity (BMI 30-39.9) [E66.9] 11/07/2022 Encounter Status:Closed by [employer] on 10/27/23 [facility] 02-24-2023 Note HNO ID: [id number] Author: RT Sharath(R) Service: ? Author Type: Radiologic Technologist Mammogram Type: Progress Notes Filed: 02/24/2023 2:42 PM [...] RT Salazar(R) February 24, 2023 2:41 PM [facility] 02-07-2023 Note HNO ID: [id number] Author: Cat Nuñez APRN.PICKLE MAKER Service: ? Author Type: Nurse Practitioner Type: [...] test results, and coordinating care. Cat Nuñez APRN.PICKLE MAKER [facility] 02-07-2023 History of Presen t illness Narrative [...] Cat Nuñez APRN.CNP documented in this encounter [facility] 12-02-2022 Note HNO ID: [id number] Author: Caroline Meza PA-C Service: ? Author Type: Physician Access Rep Type: Progress Notes Filed: 12/02/2022 3:50 PM [...] Abs Lymph 1.00 - 4.00 k/uL 2.01 Tama% % 9.5 Abs Tama <0.87 k/uL 0.58 Eosin% % 2.3 Abs [...] HISTORY Procedure Laterality Date SECTION HX 2018 DANCO, DIAG AND/OR THERAPEUTIC 2017 Allergies: ALLERGIES No [...] is present. Musculosk (more content not included)... [facility] 12-02-2022 History of Presen t illness Narrative [...] Abs Lymph 1.00 - 4.00 k/uL 2.01 Tama% % 9.5 Abs Tama <0.87 k/uL 0.58 Eosin% % 2.3 Abs [...] which included preparing to see the patient, [id number] patient care, completing clinical documentation, obtaining and/or reviewing separately obtained history, performing a medically appropriate examination, counseling and educating the patient/family/caregiver, ordering medications, tests, or procedures, communicating with other HCPs (not separately reported), independently interpreting results (not separately reported), communicating results to the patient/family/caregiver, and care coordination (not separately reported). Caroline Meza PA-C December 02, 2022 3:47 PM documented in this encounter [facility] 11-19-2022 Miscellaneous Notes Called patient to confirm cancellation of procedure. Patient confirmed cancellation and denied to reschedule. Patient stated she is following up with gastro. Message sent to [place] to cancel surgery on 11/21/2022 with Darion. Jduy You Social Scientist Patient calling in to cancel procedure with Dr Orlando at this time declined to reschedule. Patient accepted sooner date in [place] with Dr. Orlando - anesthesia reviewed and approved. Patient now scheduled 11/21/[address] Orlando in [place] for Lap Michelle. Patient stated if she gets worse she will go to the ER. Message sent to change to [place] Judy You Social Scientist Patient scheduled in [place] with soonest date of 11/25/2022 with Nuvia. Patient asking if she can get in sooner with Darion in [place] and possibly next week as she is in terrible pain and can't wait till the 16. Message sent to verify approval for [place]. Sated to patient I will be in contact if we can geta sooner date. Patient given my direct line of [phone]. Images from the original note were not included. Tali Orlando MD You 22 hours ago (9:39 AM) To be scheduled at [place] [facility] anesthesia Dx: k80.90 CPT 82847, possible [id number] Thank you You Tali Orlando MD [address] Orlando, Patient is ready to proceed with gallbladder surgery as she is in constant pain. What CPT, DX and anesthesia would you like to proceed with? Please advise Thank you Judy You Social Scientist Pt called in states having constant pain now and would like to proceed with the gallbladder surgery. documented in this encounter [facility] 11-07-2022 Instructions Ninfa Guzman PA-C - 11/07/2022 2:29 PM EST PATIENT PREOPERATIVE INSTRUCTIONS Cristofer Banks MD has scheduled you for your procedure at this surgery center: [facility]: [phone] -- [address] [facility] [address]. Please read below carefully for your personalized [...] not contain aspirin or NSAIDS as needed. [place] is OK to continue Important Reminders: - [...] Procedures: - YOU MUST HAVE A RESPONSIBLE HASH SLINGER TAKE YOU HOME. A TRANSIT MECHANIC OR CIGARETTE FILTER INSPECTOR CANNOT BE MADE A RESPONSIBLE HASH SLINGER. - We recommend that a responsible person [...] Advance Directive, please fax a copy to [phone] or email to for it to be [...] Ninfa Guzman PA-C documented in this encounter [facility] 11-07-2022 History and physical note PREANESTHESIA [...] describes constant abdominal pain, worse after eating. Fortuna brings relief for 2 hours. She also [...] gallbladder Neuro: No history of TIA's, stroke, CASH MANAGEMENT OFFICER tumor, impaired sensorium, hemiplegia, paraplegia or quadraplegia. No neurological symptoms or problems. Respiratory: No history of current cough or dyspnea, or pneumonia in the past 6 weeks. No history of respiratory/pulmonary symptoms or problems. Cardiovascular: No history of HTN requiring medication, no history of angina, CHF, ND, cardiac surgery or stents. Denies rest pain, gangrene or revascularization/amputation for PVD. No history of cardiovascular symptoms or problems. GI: see HPI : No history of dysuria, frequency or incontinence,, stones or chronic kidney disease PHOTO PRINT SPECIALIST: Negative for abnormal vaginal bleeding, abnormal vaginal [...] device. I spent more than 25 minutes zyyy-ns-ippq with the patient and over half the time was devoted to counseling and/or coordination of care. SIGNATURE: Ninfa Guzman PA-C PATIENT NAME: Tod Cordova DATE: 11/07/2022 TIME: 2:25 PM PAGER/CONTACT #: documented in this encounter [facility] 11-05-2022 Miscellaneous Notes Per Cat Nuñez [...] Cat Nuñez APRN.CNP documented in this encounter [facility] 11-05-2022 Miscellaneous Notes Error documented in this encounter [facility] 10-31-2022 Note HNO ID: [id number] Author: RT Anthony(R) Service: Nuclear Medicine Author [...] 13:20 PATIENT DISCHARGED TO: Ambulatory patient, left [place] department area. A Diagnostic radioactive procedure has taken place, with no further precautions necessary other than routine body substance precautions. More information regarding radiation safety can be found using this link: [email or web address] SIGNATURE: PIERRE Cruz PATIENT NAME: Tod Cordova DATE: October 31, 2022 TIME: 1:35 PM PAGER/CONTACT #: [facility] 10-31-2022 History of Presen t illness Narrative [...] PM PAGER/CONTACT #: documented in this encounter [facility] 10-30-2022 Note Patient Outreach (IN TMMN) TOD DA SILVA ([id number]) 1980 F Date Time Provider Department 10/30/22 DONALD MOTLEY During your visit today, we recorded the following information about you: Allergies As of Date: 10/30/2022 (No Known Allergies) Date Reviewed: 10/28/2022 Reviewed by: Cat Nuñez APRN.CNP - Fully Assessed Visit Diagnosis:Encounter for screening mammogram for breast cancer [Z12.31] Order(s):[facility] SCREENING [[id number]] Order #: [id number] FUTURE Prescriptions as of 11/04/2022 - ascorbic [...] nodule (HCC) [E27.8] 10/28/2022 Encounter Status:Closed by [employer], PRODUSER on 11/04/22 [facility] 10-28-2022 Note HNO ID: [id number] Author: Cat Nuñez APRN.PICKLE MAKER Service: ? Author Type: Nurse Practitioner Type: [...] and was not happy with her answers. [place] that they just wanted to cut out [...] body habitus DATA REVIEWED: Outside chart from [facility] ER reviewed. ASSESSMENT/PLAN: 1. Abdominal pain, [...] agreeable to treatment plan. Cat Nuñez APRN.CNP [facility] 10-28-2022 Instructions Cat Nuñez APRN.CNP - 10/28/2022 10:18 AM EST Ursodiol documented in this encounter [facility] 10-28-2022 History of Presen t illness [...] and was not happy with her answers. [place] that they just wanted to cut out [...] body habitus DATA REVIEWED: Outside chart from [facility] ER reviewed. ASSESSMENT/PLAN: 1. Abdominal pain, [...] Cat Nuñez APRN.CNP documented in this encounter [facility] 10-14-2022 Miscellaneous Notes Images from the original note were not included. Tali Orlando MD P [facility] Surg Scheduling Pool This is a new patient - Tod Cordova, seen in [place] ED 10/11/2022 with cholelithiasis/biliary colic. To be referred to this clinic for consideration of laparoscopic cholecystectomy. : 1980 [address], [place] [phone] Please call patient for an appointment to see one of us. 1st attempt to reach patient to schedule an in office visit with Dr. Orlando. Left voicemail to directly contact [phone]. Registration is NOT complete. Judy You Social Scientist documented in this encounter [facility] Diagnosis Encounter for screening mammogram for breast cancer Calculus of gallbladder without cholecystitis without obstruction Calculus of gallbladder without mention of cholecystitis or obstruction [facility] Diagnosis Pre-op evaluation- Primary Preoperative examination, unspecified Obesity (BMI 30-39.9) Obesity, unspecified Calculus of gallbladder without cholecystitis without obstruction Calculus of gallbladder without mention of cholecystitis or obstruction [facility] Diagnosis Biliary dyskinesia- Primary Other specified disorder of gallbladder [facility] Diagnosis Calculus of gallbladder without cholecystitis without obstruction- Primary Calculus of gallbladder without mention of cholecystitis or obstruction Adrenal nodule (HCC) Unspecified disorder of adrenal glands Obesity (BMI 30-39.9) Obesity, unspecified Screening, lipid Screening for lipoid disorders [facility] Diagnosis Calculus of gallbladder without cholecystitis without obstruction Calculus of gallbladder without mention of cholecystitis or obstruction Abdominal pain, unspecified abdominal location documented [facility] this encounter [facility]ative)* Diagnostic Procedure Only (Routine) - Pending Review Specialty Diagnoses / Procedures Referred By Sierra quijano Referred To Contact [facility] Diagnoses Encounter for screening mammogram for breast cancer Procedures JULES SCREENING SCREENING MAMMOGRAPHY BI 2-VIEW BREAST INC CAD Donald Motley MD [address] [place] [address] [facility] [address] [address] Referral ID Status Reason Start Date Expiration Date Visits Requested Visits Authorized [id number] Pending Review Auto-Generat ed Referral 2 11/29/2023 1 1 [facility] Reason for Referral Specialty Diagnoses / Procedures Referred By Sierra quijano Referred To Contact Gastroenterology Diagnoses Abdominal pain, unspecified abdominal location Procedures CONSULT TO GASTROENTEROLOGY OFFICE/OUTPATIENT [facility] MDM 60-74 MINUTES Older, JULIA Shelton.PICKLE MAKER [address] [place] [address] Referral ID Status Reason Start Date Expiration Date Visits Requested Visits Authorized [id number] Authorized PCP Requested Referral 2 10/28/2023 1 1 Specialty Diagnoses / Procedures Referred By Contac t Referred To Contact MOLECULAR & FUNCTIONAL IMAGING Diagnoses Calculus of gallbladder without cholecystitis without obstruction Abdominal pain, unspecified abdominal location Procedures NM HEPATOBILIARY W EF AND/OR RX HEPATOBIL SYST IMAG INC GB W/PHARMA INTERVENJ Older, Cat, CROP GRAIN OR LIVESTOCK FARM MANAGER.PICKLE MAKER [address] [place] [address] Molecular & Functional Imaging [address] [place] [address] Referral ID Status Reason Start Date Expiration Date Visits Requested Visits Authorized [id number] Authorized Auto-Generat ed Referral 2 11/27/2023 1 1 Specialty Diagnoses / Procedures Referred By Contac t Referred To Contact CT IMAGING Diagnoses Disorder of adrenal gland (HCC) Adrenal nodule (HCC) Procedures CT ADRENAL WO/W IVCON CT ABDOMEN W & W/O CONTRAST Joaquin, Cat, CROP GRAIN OR LIVESTOCK FARM MANAGER.PICKLE MAKER [address] [place] [address] Ct Imaging Referral ID Status Reason Start Date Expiration Date Visits Requested Visits Authorized [id number] Authorized Auto-Generat ed Referral 02/07/2023 03/24/2023 1 [...] or prosecute any alcohol or drug abuse patient.[facility] the event this information is protected by the Federal Confidentiality of Alcohol and Drug Abuse Patient Records regulations: The Federal rules restrict any use of the information to criminally investigate or prosecute any alcohol or drug abuse patient.[facility] the event this information is protected by the Federal Confidentiality of Alcohol and Drug Abuse Patient Records regulations: The Federal rules restrict any use of the information to criminally investigate or prosecute any alcohol or drug abuse patient.[facility] the event this information is protected by the Federal Confidentiality of Alcohol and Drug Abuse Patient Records regulations: The Federal rules restrict any use of the information to criminally investigate or prosecute any alcohol or drug abuse patient.[facility] HospitalIn the event this information is protected by the Federal Confidentiality of Alcohol and Drug Abuse Patient Records regulations: The Federal rules restrict any use of the information to criminally investigate or prosecute any alcohol or drug abuse patient.[facility] the event this information is protected by the Federal Confidentiality of Alcohol and Drug Abuse Patient Records regulations: The Federal rules restrict any use of the information to criminally investigate or prosecute any alcohol or drug abuse patient.[facility]In the event this information is protected by the Federal Confidentiality of Alcohol and Drug Abuse Patient Records regulations: The Federal rules restrict any use of the information to criminally investigate or prosecute any alcohol or drug abuse patient.[facility] the event this information is protected by the Federal Confidentiality of Alcohol and Drug Abuse Patient Records regulations: The Federal rules restrict any use of the information to criminally investigate or prosecute any alcohol or drug abuse patient.[facility] the event this information is protected by the Federal Confidentiality of Alcohol and Drug Abuse Patient Records regulations: The Federal rules restrict any use of the information to criminally investigate or prosecute any alcohol or drug abuse patient.[facility] the event this information is protected by the Federal Confidentiality of Alcohol and Drug Abuse Patient Records regulations: The Federal rules restrict any use of the information to criminally investigate or prosecute any alcohol or drug abuse patient.[facility] Reason for Visit (unrecogniz ed section and content) Reason Comments Results Reason Comments Appointment Reason Comments Anesthesia Consult Reason Comments Patient Update Appointment Reason Comments Abdominal Pain Specialty Diagnoses / Procedures Referred By Sierra quijano Referred To Contact Gastroenterology Diagnoses Abdominal pain, unspecified abdominal location Procedures CONSULT TO GASTROENTEROLOGY OFFICE/OUTPATIENT NEW HIGH MDM 60-74 MINUTES Cat Nuñez, CROP GRAIN OR LIVESTOCK FARM MANAGER.PICKLE MAKER [address] [place] [address] Referral ID Status Reason Start Date Expiration Date V isits Requested Visits Authorized [id number] Closed PCP Requested Referral 10/28/2022 10/28/2023 1 1 Reason Comments F/U 3 Month Gallstones Reason Comments Radiology NM Specialty Diagnoses / Procedures Referred By Sierra quijano Referred To Contact MOLECULAR & FUNCTIONAL IMAGING Diagnoses Calculus of gallbladder without cholecystitis without obstruction Abdominal pain, unspecified abdominal location Procedures NM HEPATOBILIARY W EF AND/OR RX HEPATOBIL SYST IMAG INC GB W/PHARMA INTERVENJ Cat Nuñez, CROP GRAIN OR LIVESTOCK FARM MANAGER.PICKLE MAKER [address] [place] [address] Molecular & Functional Imaging [address] [place] [address] Referral ID Status Reason Start Date Expiration Date V isits Requested Visits Authorized [id number] Closed Auto-Generate d Referral 10/28/2022 11/27/2023 1 1 Care Teams (unrecognized sec tion and content) Road Tester Relationship Specialty Start Date End Date Donald Motley MD [address] [place] [address] PCP - General Internal Medicine 10/28/22 Road Tester Relationship Specialty Start Date End Date Donald Motley MD [address] [place], [place] [address] PCP - General Internal Medicine 10/28/22 11/07/22 Road Tester Relationship Specialty Start Date End Date Donald Motley MD [address] [place], [place] [address] PCP - General Internal Medicine 10/28/22 11/07/22 Road Tester Relationship Specialty Start Date End Date Donald Motley MD [address], [place] [id number] PCP - General Internal Medicine 10/28/22 11/07/22 Road Tester Relationship Specialty Start Date End Date Donald Motley MD [address] [place] [address] PCP - General Internal Medicine 12/30/22 Road Tester Relationship Specialty Start Date End Date Donald Motley MD [address] [place], [place] [address] PCP - General Internal Medicine 10/28/22 11/07/22 [...] BE BASED ON THE PRIMARY CLINICAL RECORDS. [facility]. provides no warranty or guarantee of the accuracy or completeness of information in this document.
== END | disposition home or self-care (01) ==
LOC: LAB 14:41
PROVIDERS: Referring Provider Registered Nurse; Visit Provider Registered Nurse
DX: Z34.90 Encounter for supervision of normal pregnancy, unspecified, unspecified trimester (principal)
CPT/HCPCS: 36415; 83036; 85025; 86703; 86762; 86780; 86803; 86850; 86900; 86901; 87340

== ENCOUNTER → 2024-01-01 | Outpatient (CLI) | payer MEDICAID, SELFPAY ==
[2024-01-01 17:25] LABS: Protein, Urine (Random) 8.6 mg/dL (<11.9); Protein:Creat Ratio 79 mg/g CRE (0-200)
--- OUTSIDE RECORDS SUMMARY | 2024-01-01 19:20 | XMS RPT_ITS | CCD ---
Author Name Unknown Address [email or web address] [place] [address] Organization [facility] Care Team Providers Care Finish Inspector Name Role Phone Tiesha QURESHI, Donald Syed Primary Care Provider [phone] Unavailable Primary Care Provider Unavailrandi Motley MD, Donald Syed Primary Care Provider [phone] Donald Motley MD Primary Care Provider [phone] CRISTOFER BANKS Referring Unavailable DONALD MOTLEY Primary [...] 13:17-0400 Body weight 103.87 kg Cat Older AIRPORT GUIDE.PASSPORT SUPPORT MANAGER Work Phone: [facility] 02-07-2023 13:17-0400 Diastolic blood pressure 85 mm[Hg] Cat Older AIRPORT GUIDE.PASSPORT SUPPORT MANAGER Work Phone: [facility] 02-07-2023 13:17-0400 Heart rate 78 /min Cat Older AIRPORT GUIDE.PASSPORT SUPPORT MANAGER Work Phone: [facility] 02-07-2023 13:17-0400 Respiratory rate 16 /min Cat Older AIRPORT GUIDE.PASSPORT SUPPORT MANAGER Work Phone: [facility] 02-07-2023 13:17-0400 Systolic blood pressure 126 mm[Hg] Cat Older AIRPORT GUIDE.PASSPORT SUPPORT MANAGER Work Phone: [facility] 12-02-2022 15:25-0500 Body height 162.6 cm Caroline Meza PA-C Work Phone: [facility] 12-02-2022 15:25-0500 Body weight 104.24 kg Caroline Kalka PA-C Work Phone: [facility] 12-02-2022 15:25-0500 Diastolic blood pressure 84 mm[Hg] Caroline Kalka PA-C Work Phone: [facility] 12-02-2022 15:25-0500 Heart rate 68 /min Caroline Kalka PA-C Work Phone: [facility] 12-02-2022 15:25-0500 Systolic blood pressure 126 mm[Hg] Caroline Kalka PA-C Work Phone: [facility] 11-07-2022 14:15-0500 Body height 162.6 cm Pac 3 Work Phone: [facility] 11-07-2022 14:15-0500 Body weight 99.79 kg Pac 3 Work Phone: [facility] 10-28-2022 09:46-0500 Body weight 103.42 kg Cat Older AIRPORT GUIDE.PASSPORT SUPPORT MANAGER Work Phone: [facility] 10-28-2022 09:46-0500 Diastolic blood pressure 83 mm[Hg] Cat Older AIRPORT GUIDE.PASSPORT SUPPORT MANAGER Work Phone: [facility] 10-28-2022 09:46-0500 Heart rate 76 /min Cat Older AIRPORT GUIDE.PASSPORT SUPPORT MANAGER Work Phone: [facility] 10-28-2022 09:46-0500 Respiratory rate 14 /min Cat Older AIRPORT GUIDE.PASSPORT SUPPORT MANAGER Work Phone: [facility] 10-28-2022 09:46-0500 Systolic blood pressure 125 mm[Hg] Cat Older AIRPORT GUIDE.PASSPORT SUPPORT MANAGER Work Phone: [facility] Encounters Encounter Date Encounter Type Care Provider Facility Start: 02-24-2023 End: 02-24-2023 ambulatory DONALD MOTLEY Facility:[facility] Start: 02-07-2023 End: 02-08-2023 ambulatory ANTOINE TIESHA Facility:[facility] Start: 02-07-2023 End: 02-07-2023 Patient encounter procedure Cat Older AIRPORT GUIDE.ALISSON Work Phone: Internal Medicine [facility]on Procedures Date Procedure Procedure Detail Performing Clinician Start: 10-31-2022 Hepatobiliary syst i maging including gallbladder Cat Older AIRPORT GUIDE.ALISSON Work Phone: Plan of Treatment Date Care Activity Detail Author Start: 02-08-2024 HEPATITIS C SCREENING HEPATITIS C MS DANNI [facility] Payers Date Payer Category Payer Medicaid [id number] 2021 Medicaid [id number] Social History Date Type Detail Facility Start: 10-21-2022 Tobacco smoking stat [facility] Never smoked tobacco [facility] Start: 10-21-2022 Tobacco use and exposure Smoke less tobacco non-user [facility] Start: 10-28-2022 End: 11-05-2022 Alcohol intake Ex-drinker (finding) [facility] Start: 10-28-2022 End: 02-07-2023 Alcohol intake [facility] Start: 1980 Sex Assigned At Not on file C [facility] Tobacco smoking stat [facility] Tobacco smoking consumption unknown [facility] Start: 11-07-2022 Alcohol Comment 2/week [facility] Start: 12-02-2022 End: 02-07-2023 Alcohol intake Current drinker of alcohol (finding) [facility] Start: 02-06-2023 History SDOH Alcohol Frequency 4 [facility] Start: 02-06-2023 History SDOH Alcohol Std Drinks 1 [facility] Start: 02-06-2023 History SDOH Social Connections Phone 5 [facility] Start: 02-06-2023 History SDOH Social Connections Get Together 3 [facility] Start: 02-06-2023 History SDOH Physica l Activity MPS 6 [facility] Start: 02-06-2023 History SDOH Stress 2 [facility] Start: 10-28-2022 Tobacco use panel [facility] Clinical Notes 10-14-2022 to 10-22-2023 Cat Older, AIRPORT GUIDEMARY - 02/07/2023 1:32 PM Xander Meza PA-C - 12/02/2022 3:25 PM ESTTelephone Encounter - Judy You - 11/19/2022 8:16 AM ESTPatient InstructionsPatient Instructions Note Date & Type Note Facility 10-22-2023 Note Patient Outreach (IN [facility]) TOD DA SILVA ([id number]) 1980 F Date Time Provider Department 10/22/23 DONALD MOTLEY During your visit today, we recorded the following information about you: Allergies As of Date: 10/22/2023 (No Known Allergies) Date Reviewed: 02/21/2023 Reviewed by: Makenna Moralez RT(R) - Fully Assessed Visit Diagnosis:Encounter for screening mammogram for breast cancer [Z12.31] Order(s):[facility] SCREENING [[id number]] Order #: [id number] FUTURE Prescriptions as of 10/27/2023 - ascorbic acid, vitamin C, (VITAMIN C) 250 mg tablet Take 250 mg by mouth once daily. - cholecalciferol, vitamin D3, 10 mcg (400 unit) cap Take 400 Units by mouth once daily. Problem List As Of Date 10/22/2023 Noted Resolved Adrenal nodule (HCC) [E27.8] 10/28/2022 Obesity (BMI 30-39.9) [E66.9] 11/07/2022 Encounter Status:Closed by [employer] on 10/27/23 [facility] 02-24-2023 Note HNO ID: [id number] Author: RT Sharath(R) Service: ? Author Type: Pinball Machine Repairer Type: Progress Notes Filed: 02/24/2023 2:42 PM [...] RT Salazar(R) February 24, 2023 2:41 PM [facility] 02-07-2023 Note HNO ID: [id number] Author: Cat Nuñez APRN.PASSPORT SUPPORT MANAGER Service: ? Author Type: Nurse Practitioner Type: [...] test results, and coordinating care. Cat Nuñez APRN.PASSPORT SUPPORT MANAGER [facility] 02-07-2023 History of Presen t [...] Cat Nuñez APRN.CNP documented in this encounter [facility] 12-02-2022 Note HNO ID: [id number] Author: Caroline Meza PA-C Service: ? Author Type: Physician Ultrasound Spec Type: Progress Notes Filed: 12/02/2022 3:50 PM [...] Abs Lymph 1.00 - 4.00 k/uL 2.01 Racine% % 9.5 Abs Racine <0.87 k/uL 0.58 Eosin% % 2.3 Abs [...] HISTORY Procedure Laterality Date SECTION HX 2018 DANNJ, DIAG AND/OR THERAPEUTIC 2017 Allergies: ALLERGIES No [...] is present. Musculosk (more content not included)... [facility] 12-02-2022 History of Presen t [...] Abs Lymph 1.00 - 4.00 k/uL 2.01 Racine% % 9.5 Abs Racine <0.87 k/uL 0.58 Eosin% % 2.3 Abs [...] which included preparing to see the patient, [id number] patient care, completing clinical documentation, obtaining and/or reviewing separately obtained history, performing a medically appropriate examination, counseling and educating the patient/family/caregiver, ordering medications, tests, or procedures, communicating with other HCPs (not separately reported), independently interpreting results (not separately reported), communicating results to the patient/family/caregiver, and care coordination (not separately reported). Caroline Meza PA-C December 02, 2022 3:47 PM documented in this encounter [facility] 11-19-2022 Miscellaneous Notes Called patient to confirm cancellation of procedure. Patient confirmed cancellation and denied to reschedule. Patient stated she is following up with gastro. Message sent to [place] to cancel surgery on 11/21/2022 with Darion. Judy You Dielectric Machine Operator Patient calling in to cancel procedure with Dr Orlando at this time declined to reschedule. Patient accepted sooner date in [place] with Dr. Orlando - anesthesia reviewed and approved. Patient now scheduled 11/21/[address] Orlando in [place] for Lap Michelle. Patient stated if she gets worse she will go to the ER. Message sent to change to [place] Judy You Dielectric Machine Operator Patient scheduled in [place] with soonest date of 11/25/2022 with Nuvia. Patient asking if she can get in sooner with Darion in [place] and possibly next week as she is in terrible pain and can't wait till the 16. Message sent to verify approval for [place]. Sated to patient I will be in contact if we can geta sooner date. Patient given my direct line of [phone]. Images from the original note were not included. Tali Orlando MD You 22 hours ago (9:39 AM) To be scheduled at [place] [facility] Dx: k80.90 CPT 50649, possible 15691 Thank you You Tali Orlando MD [address] Orlando, Patient is ready to proceed with gallbladder surgery as she is in constant pain. What CPT, DX and anesthesia would you like to proceed with? Please advise Thank you Judy You Dielectric Machine Operator Pt called in states having constant pain now and would like to proceed with the gallbladder surgery. documented in this encounter [facility] 11-07-2022 Instructions Ninfa Guzman PA-C - 11/07/2022 2:29 PM EST PATIENT PREOPERATIVE INSTRUCTIONS Cristofer Banks MD has scheduled you for your procedure at this surgery center: [facility]: [phone] -- [address] [address]. Please read below carefully for your personalized [...] not contain aspirin or NSAIDS as needed. [place] is OK to continue Important Reminders: - [...] Procedures: - YOU MUST HAVE A RESPONSIBLE BODY PIERCER TAKE YOU HOME. A CROP GRAIN OR LIVESTOCK FARMER OR MACHINE PLASTER MIXER CANNOT BE MADE A RESPONSIBLE BODY PIERCER. - We recommend that a responsible person [...] Advance Directive, please fax a copy to [phone] or email to for it to be [...] Ninfa Guzman PA-C documented in this encounter [facility] 11-07-2022 History and physical note PREANESTHESIA CONSULT [...] describes constant abdominal pain, worse after eating. [place] brings relief for 2 hours. She also [...] gallbladder Neuro: No history of TIA's, stroke, HEAT TREAT PULLER tumor, impaired sensorium, hemiplegia, paraplegia or quadraplegia. No neurological symptoms or problems. Respiratory: No history of current cough or dyspnea, or pneumonia in the past 6 weeks. No history of respiratory/pulmonary symptoms or problems. Cardiovascular: No history of HTN requiring medication, no history of angina, CHF, [place], cardiac surgery or stents. Denies rest pain, gangrene or revascularization/amputation for PVD. No history of cardiovascular symptoms or problems. GI: see HPI : No history of dysuria, frequency or incontinence,, stones or chronic kidney disease CIVIL RIGHTS INVESTIGATOR: Negative for abnormal vaginal bleeding, abnormal vaginal [...] device. I spent more than 25 minutes ikcp-os-[id number] with the patient and over half the time was devoted to counseling and/or coordination of care. SIGNATURE: Ninfa Guzman PA-C PATIENT NAME: Tod Cordova DATE: 11/07/2022 TIME: 2:25 PM PAGER/CONTACT #: documented in this encounter [facility] 11-05-2022 Miscellaneous Notes Per Cat Nuñez NP, [...] Cat Nuñez APRN.CNP documented in this encounter [facility] 11-05-2022 Miscellaneous Notes Error documented in this encounter [facility] 10-31-2022 Note HNO ID: [id number] Author: RT Anthony(R) Service: Nuclear Medicine Author [...] 31, 2022 TIME: 1:35 PM PAGER/CONTACT #: [facility] 10-31-2022 History of Presen t [...] PM PAGER/CONTACT #: documented in this encounter [facility] 10-30-2022 Note Patient Outreach (IN [facility]MMN) TOD DA SILVA ([id number]) 1980 F Date Time Provider Department 10/30/22 DONALD MOTLEY During your visit today, we recorded the following information about you: Allergies As of Date: 10/30/2022 (No Known Allergies) Date Reviewed: 10/28/2022 Reviewed by: Cat Nuñez APRN.CNP - Fully Assessed Visit Diagnosis:Encounter for screening mammogram for breast cancer [Z12.31] Order(s):[facility] SCREENING [[id number]] Order #: [id number] FUTURE Prescriptions as of 11/04/2022 - ascorbic [...] nodule (HCC) [E27.8] 10/28/2022 Encounter Status:Closed by Room[employer]er, PRODUSER on 11/04/22 [facility] 10-28-2022 Note HNO ID: [id number] Author: Cat Nuñez APRN.PASSPORT SUPPORT MANAGER Service: ? Author Type: Nurse Practitioner Type: [...] and was not happy with her answers. [place] that they just wanted to cut out [...] body habitus DATA REVIEWED: Outside chart from [facility] ER reviewed. ASSESSMENT/PLAN: 1. Abdominal pain, [...] agreeable to treatment plan. Cat Nuñez APRN.CNP [facility] 10-28-2022 Instructions Cat Nuñez APRN.CNP - 10/28/2022 10:18 AM EST Ursodiol documented in this encounter [facility] 10-28-2022 History of Presen t illness Narrative [...] and was not happy with her answers. [place] that they just wanted to cut out [...] body habitus DATA REVIEWED: Outside chart from [facility] ER reviewed. ASSESSMENT/PLAN: 1. Abdominal pain, [...] Cat Nuñez APRN.CNP documented in this encounter [facility] 10-14-2022 Miscellaneous Notes Images from the original note were not included. Tali Orlando MD P [facility] Surg Scheduling Pool This is a new patient - Tod Cordova, seen in [place] ED 10/11/2022 with cholelithiasis/biliary colic. To be referred to this clinic for consideration of laparoscopic cholecystectomy. : 1980 [address], [place] [phone] Please call patient for an appointment to see one of us. 1st attempt to reach patient to schedule an in office visit with Dr. Orlando. Left voicemail to directly contact [phone]. Registration is NOT complete. Judy You Dielectric Machine Operator documented in this encounter [facility] documented [facility] this encounter [facility]* Diagnosis Encounter for screening mammogram for breast cancer Calculus of gallbladder without cholecystitis without obstruction Calculus of gallbladder without mention of cholecystitis or obstruction [facility] Diagnosis Pre-op evaluation- Primary Preoperative examination, unspecified Obesity (BMI 30-39.9) Obesity, unspecified Calculus of gallbladder without cholecystitis without obstruction Calculus of gallbladder without mention of cholecystitis or obstruction [facility]* Diagnosis Biliary dyskinesia- Primary Other specified disorder of gallbladder [facility]* Diagnosis Calculus of gallbladder without cholecystitis without obstruction- Primary Calculus of gallbladder without mention of cholecystitis or obstruction Adrenal nodule (HCC) Unspecified disorder of adrenal glands Obesity (BMI 30-39.9) Obesity, unspecified Screening, lipid Screening for lipoid disorders [facility] Diagnosis Calculus of gallbladder without cholecystitis without obstruction Calculus of gallbladder without mention of cholecystitis or obstruction Abdominal pain, unspecified abdominal location documented in this encounter [facility] (narrative)* Diagnostic Procedure Only (Routine) - Pending Review Specialty Diagnoses / Procedures Referred By Sierra quijano Referred To Contact [facility] Diagnoses Encounter for screening mammogram for breast cancer Procedures JULES SCREENING SCREENING MAMMOGRAPHY BI 2-VIEW BREAST INC CAD Donald Motley MD [address] [place] [address] [facility] [address] [place] [address] Referral ID Status Reason Start Date Expiration Date Visits Requested Visits Authorized [id number] Pending Review Auto-Generat ed Referral 2 11/29/2023 1 1 [facility] Reason for Referral Specialty Diagnoses / Procedures Referred By Sierra quijano Referred To Contact Gastroenterology Diagnoses Abdominal pain, unspecified abdominal location Procedures CONSULT TO GASTROENTEROLOGY OFFICE/OUTPATIENT [facility] MDM 60-74 MINUTES Older, JULIA Shelton.PASSPORT SUPPORT MANAGER [address] [place] [address] Referral ID Status Reason Start Date Expiration Date Visits Requested Visits Authorized [id number] Authorized PCP Requested Referral 2 10/28/2023 1 1 Specialty Diagnoses / Procedures Referred By Contac t Referred To Contact [facility]LE[facility]ULAR [facility] FUNCTIONAL IMAGING Diagnoses Calculus of gallbladder without cholecystitis without obstruction Abdominal pain, unspecified abdominal location Procedures NM HEPATOBILIARY W EF AND/OR RX HEPATOBIL SYST IMAG INC GB W/PHARMA INTERVENJ Older, Cat, AIRPORT GUIDE.PASSPORT SUPPORT MANAGER [address] [place] [address] [facility] [address] [place] [address] Referral ID Status Reason Start Date Expiration Date Visits Requested Visits Authorized [id number] Authorized Auto-Generat ed Referral 2 11/27/2023 1 1 Specialty Diagnoses / Procedures Referred By Contac t Referred To Contact CT IMAGING Diagnoses Disorder of adrenal gland (HCC) Adrenal nodule (HCC) Procedures CT ADRENAL WO/W IVCON CT ABDOMEN W & W/O CONTRAST Joaquin, Cat, AIRPORT GUIDE.PASSPORT SUPPORT MANAGER [address] [place] [address] Ct Imaging Referral ID Status Reason Start Date Expiration Date Visits Requested Visits Authorized [id number] Authorized Auto-Generat ed Referral 02/07/2023 03/24/2023 1 [...] or prosecute any alcohol or drug abuse patient.[facility] the event this information is protected by the Federal Confidentiality of Alcohol and Drug Abuse Patient Records regulations: The Federal rules restrict any use of the information to criminally investigate or prosecute any alcohol or drug abuse patient.[facility] System[facility] the event this information is protected by the Federal Confidentiality of Alcohol and Drug Abuse Patient Records regulations: The Federal rules restrict any use of the information to criminally investigate or prosecute any alcohol or drug abuse patient.[facility] SystemIn the event this information is protected by the Federal Confidentiality of Alcohol and Drug Abuse Patient Records regulations: The Federal rules restrict any use of the information to criminally investigate or prosecute any alcohol or drug abuse patient.[facility] System[facility] the event this information is protected by the Federal Confidentiality of Alcohol and Drug Abuse Patient Records regulations: The Federal rules restrict any use of the information to criminally investigate or prosecute any alcohol or drug abuse patient.[facility] SystemIn the event this information is protected by the Federal Confidentiality of Alcohol and Drug Abuse Patient Records regulations: The Federal rules restrict any use of the information to criminally investigate or prosecute any alcohol or drug abuse patient.[facility] SystemIn the event this information is protected by the Federal Confidentiality of Alcohol and Drug Abuse Patient Records regulations: The Federal rules restrict any use of the information to criminally investigate or prosecute any alcohol or drug abuse patient.[facility] SystemIn the event this information is protected by the Federal Confidentiality of Alcohol and Drug Abuse Patient Records regulations: The Federal rules restrict any use of the information to criminally investigate or prosecute any alcohol or drug abuse patient.[facility] SystemIn the event this information is protected by the Federal Confidentiality of Alcohol and Drug Abuse Patient Records regulations: The Federal rules restrict any use of the information to criminally investigate or prosecute any alcohol or drug abuse patient.[facility] System[facility] the event this information is protected by the Federal Confidentiality of Alcohol and Drug Abuse Patient Records regulations: The Federal rules restrict any use of the information to criminally investigate or prosecute any alcohol or drug abuse patient.[facility] Reason for Visit (unrecogniz ed section and content) Reason Comments Results Reason Comments Appointment Reason Comments Anesthesia Consult Reason Comments Patient Update Appointment Reason Comments Abdominal Pain Specialty Diagnoses / Procedures Referred By Sierra quijano Referred To Contact Gastroenterology Diagnoses Abdominal pain, unspecified abdominal location Procedures CONSULT TO GASTROENTEROLOGY OFFICE/OUTPATIENT NEW HIGH MDM 60-74 MINUTES Cat Nuñez, AIRPORT GUIDE.PASSPORT SUPPORT MANAGER [address] [place] [address] Referral ID Status Reason Start Date Expiration Date V isits Requested Visits Authorized [id number] Closed PCP Requested Referral 10/28/2022 10/28/2023 1 1 Reason Comments F/U 3 Month Gallstones Reason Comments Radiology NM Specialty Diagnoses / Procedures Referred By Sierra quijano Referred To Contact MOLECULAR & FUNCTIONAL IMAGING Diagnoses Calculus of gallbladder without cholecystitis without obstruction Abdominal pain, unspecified abdominal location Procedures NM HEPATOBILIARY W EF AND/OR RX HEPATOBIL SYST IMAG INC GB W/PHARMA INTERVENJ Cat Nuñez, AIRPORT GUIDE.PASSPORT SUPPORT MANAGER [address] [place] [address] Molecular [facility] [address] [place] [address] Referral ID Status Reason Start Date Expiration Date V isits Requested Visits Authorized [id number] Closed Auto-Generate d Referral 10/28/2022 11/27/2023 1 1 Care Teams (unrecognized sec tion and content) Finish Inspector Relationship Specialty Start Date End Date Donald Motley MD [address] [place] [address] PCP - General Internal Medicine 10/28/22 Finish Inspector Relationship Specialty Start Date End Date Donald Motley MD [address] [place], [place] [id number] PCP - General Internal Medicine 10/28/22 11/07/22 Finish Inspector Relationship Specialty Start Date End Date Donald Motley MD [address] [place], [place] [address] PCP - General Internal Medicine 10/28/22 11/07/22 Finish Inspector Relationship Specialty Start Date End Date Donald Motley MD [address] [place], [place] [id number] PCP - General Internal Medicine 10/28/22 11/07/22 Finish Inspector Relationship Specialty Start Date End Date Donald Motley MD [address] [place] [address] PCP - General Internal Medicine 12/30/22 Finish Inspector Relationship Specialty Start Date End Date Donald Motley MD [address], [place] [address] PCP - General Internal Medicine 10/28/22 11/07/22 [...] BE BASED ON THE PRIMARY CLINICAL RECORDS. [employer] [facility]. provides no warranty or guarantee of the accuracy or completeness of information in this document.
== END | disposition home or self-care (01) ==
PROVIDERS: Referring Provider Obstetrics & Gynecology; Visit Provider Obstetrics & Gynecology
DX: Z87.59 Personal history of other complications of pregnancy, childbirth and the puerperium (principal); O09.90 Supervision of high risk pregnancy, unspecified, unspecified trimester; Z3A.00 Weeks of gestation of pregnancy not specified
CPT/HCPCS: 82570; 84156; 87086; 87088

== ENCOUNTER → 2024-02-03 | Outpatient (CLI) | payer MEDICAID, SELFPAY ==
[2024-02-03 16:59] LABS: ALB/GLOB Ratio 0.9 RATIO (0.9-2.4); AST(SGOT) 19 U/L (15-37); Alanine Aminotransfer ALT/SGPT 27 U/L (13-56); Alkaline Phosphatase 70 U/L (45-117); Anion Gap 9 (5-15); BUN 11 mg/dL (7-18); Bilirubin, Direct 0.11 mg/dL (0.00-0.30); Calcium,Total 10.6 mg/dL (8.5-10.1); Chloride 108 mmol/L (98-107); Creatinine, Serum 0.84 mg/dL (0.55-1.02); EST Glomerular Filtration Rate 78 mL/min (>60); Est Glom Filt Rate - Afr Amer 94 mL/min (>60); GGTP 10 U/L (5-55); Globulin 3.5 g/dL (2.2-4.2); Glucose 126 mg/dL (74-106); Potassium 3.7 mmol/L (3.5-5.1); Protein, Total 6.5 g/dL (6.4-8.2); Sodium Level 138 mmol/L (136-145)
== END | disposition home or self-care (01) ==
LOC: LAB 15:59
PROVIDERS: Obstetrics & Gynecology; Referring Provider Nurse Practitioner Women's Health; Visit Provider Nurse Practitioner Women's Health
DX: Z34.82 Encounter for supervision of other normal pregnancy, second trimester (principal)
CPT/HCPCS: 80053; 82248; 82977

== ENCOUNTER 2024-02-28 12:30 | Outpatient (CLI) | payer MEDICAID, SELFPAY ==
--- NOTE | 2024-02-28 12:39 | US_ITS ---
STUDY: SECOND AND THIRD TRIMESTER OBSTETRICAL ULTRASOUND - LIMITED REASON FOR EXAM: Female, 43 years old bleeding -- check placenta and cervical length LMP: 10/10/2023 PRIOR ULTRASOUND: Prior study dated: 11/28/2023 TECHNIQUE: Transabdominal TECHNICAL QUALITY: Adequate. FINDINGS: There is a single intrauterine fetus. The fetus is in a breech presentation. There is demonstrated cardiac activity with a heart rate of 157 bpm. There is a normal amniotic fluid volume. The largest amniotic fluid pocket measures 3.8 cm. The amniotic fluid index (MEAGAN) is within normal limits but not measured. The placenta is posterior in location and is not low lying. There are Grade 1 placental changes. Well-defined heterogeneous hypoechoic area within the placenta measuring about 2.7 cm could represent venous vasquez. The cervix measures 3.6 cm cm in length. US/OB Limited (No Biometrics) IMPRESSION: 1. Single live intrauterine fetus in breech presentation. 2. Posterior placenta without evidence of placenta previa or abruption. 3. Hypoechoic well-defined heterogeneous area within the placenta could represent venous vasquez. Follow-up exam is suggested. Electronically Signed: Gustavo Dorman MD at 14:56 EDT ,
[2024-02-28 12:47] VITALS: BMI 38.7
[2024-02-28 12:56] VITALS: RESP 16; TEMP 36.1
[2024-02-28 12:57] VITALS: BP 134/68; PULSE 66
[2024-02-28 13:09] LABS: Mucous, Urine 0 SEEN /hpf (<or=2+); Red Blood Cells-Urine 0 SEEN /hpf (0-5); Squamous Epithelial Cells - UA 0 SEEN /hpf (5-10)
[2024-02-28 13:27] LABS: Color, Urine Yellow (Yellow); Glucose, Dipstick Normal (Normal); Ketone-Dipstick Negative (Negative); Leukocyte Esterase-Dipstick 25 /ul (Negative); Nitrite-Dipstick Negative (Negative); Occult Blood-Urine 250 /ul (Negative); Protein-Dipstick 15 mg/dl (Negative); Urine Bilirubin Dipstick Negative (Negative); Urine Clarity Clear (Clear); Urine Urobilinogen Normal (Normal)
[2024-02-28 13:54] LABS: Fibrinogen 157 mg/dl (203-444)
[2024-02-28 14:14] LABS: Bacteria 1+ /hpf (None Seen); White Blood Cells 0-5 SEEN /hpf (0-5)
[2024-02-28 15:12] LABS: Hematocrit 35.6 % (37-47); Mean Corp Hgb Conc 33.7 g/dL (32-36); Mean Corpuscular Hgb 30.9 pg (27.0-32.0); Mean Corpuscular Volume 91.8 fL (81-99); Mean Platelet Vol. 10.2 fl (6.2-12.0); Platelet Count 218 K/mm3 (150-450); RBC Distribution Width CV 13.3 % (11.6-14.6); RBC Distribution Width SD 44.7 fl (35.1-43.9); Red Blood Count 3.88 M/mm3 (4.2-5.4); White Blood Count 10.4 K/mm3 (4.4-11.0)
[2024-02-28 17:45] VITALS: RESP 16; TEMP 37.3
[2024-02-28 17:46] VITALS: BP 133/69; PULSE 72
[2024-02-28 18:18] LABS: Hematocrit 31.6 % (37-47); Hemoglobin 10.8 g/dL (12.0-15.0); Mean Corp Hgb Conc 34.2 g/dL (32-36); Mean Corpuscular Hgb 30.7 pg (27.0-32.0); Mean Corpuscular Volume 89.8 fL (81-99); Mean Platelet Vol. 10.1 fl (6.2-12.0); Platelet Count 193 K/mm3 (150-450); RBC Distribution Width CV 13.2 % (11.6-14.6); RBC Distribution Width SD 43.3 fl (35.1-43.9); Red Blood Count 3.52 M/mm3 (4.2-5.4); White Blood Count 9.4 K/mm3 (4.4-11.0)
[2024-02-28 18:31] LABS: Fibrinogen 255 mg/dl (203-444)
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
[2024-02-28 19:45] VITALS: RESP 18; TEMP 37.2
[2024-02-28 19:47] VITALS: BP 138/71; PULSE 74
[2024-02-29 00:22] VITALS: BP 139/74; PULSE 68; RESP 18; TEMP 36.5
[2024-02-29 01:04] LABS: Absolute Lymphocyte Count 2.26 X10^3/uL (0.83-4.51); Absolute Neutrophil Count 5.4 X10^3/uL (2.0-7.7); Basophil# 0.04 X10^3/uL; Basophil% 0.5 % (0-1); Eosinophil# 0.15 X10^3/uL; Eosinophils% 1.7 % (0-5); Hematocrit 31.9 % (37-47); Hemoglobin 10.9 g/dL (12.0-15.0); Lymphocyte # 2.26 X10^3/ul (0.83-4.51); Lymphocyte % 26.2 % (19-41); Mean Corp Hgb Conc 34.2 g/dL (32-36); Mean Corpuscular Hgb 30.9 pg (27.0-32.0); Mean Corpuscular Volume 90.4 fL (81-99); Mean Platelet Vol. 10.5 fl (6.2-12.0); Monocyte# 0.62 X10^3/uL; Monocyte% 7.2 % (0-10); NRBC Flagged by Analyzer 0 % (0-5); Neutrophil # 5.42 X10^3/uL (2.7-7.7); Platelet Count 201 K/mm3 (150-450); RBC Distribution Width CV 13.3 % (11.6-14.6); RBC Distribution Width SD 44.2 fl (35.1-43.9); Red Blood Count 3.53 M/mm3 (4.2-5.4); White Blood Count 8.6 K/mm3 (4.4-11.0)
[2024-02-29 01:06] LABS: Partial Thromboplast Time 25.5 Seconds (24.1-36.2)
[2024-02-29 01:10] LABS: Prothrombin Time (Protime)PT. 13.1 SECONDS (11.7-14.9)
[2024-02-29 02:04] LABS: Fibrinogen 253 mg/dl (203-444)
[2024-02-29 04:56] VITALS: BP 127/60; PULSE 68
[2024-02-29 04:57] VITALS: RESP 18; TEMP 36.5
== END 2024-02-29 05:05 | disposition home or self-care (01) ==
LOC: WPOUT 12:37 → WP 12:38
PROVIDERS: Obstetrics & Gynecology; Visit Provider Advanced Practice Midwife
DX: O46.92 Antepartum hemorrhage, unspecified, second trimester (principal); O34.42 Maternal care for other abnormalities of cervix, second trimester; Z3A.20 20 weeks gestation of pregnancy; O99.612 Diseases of the digestive system complicating pregnancy, second trimester; K21.9 Gastro-esophageal reflux disease without esophagitis; Z79.899 Other long term (current) drug therapy; Z90.49 Acquired absence of other specified parts of digestive tract; O09.522 Supervision of elderly multigravida, second trimester; N84.1 Polyp of cervix uteri
CPT/HCPCS: 36415; 76815; 81001; 85025; 85027; 85384; 85610; 85730; 87086; 87088; 99221; G0378

== ENCOUNTER → 2024-04-08 | Outpatient (CLI) | payer MEDICAID, SELFPAY ==
[2024-04-08 14:07] LABS: Hematocrit 31.9 % (37-47); Mean Corp Hgb Conc 34.5 g/dL (32-36); Mean Corpuscular Hgb 31.9 pg (27.0-32.0); Mean Corpuscular Volume 92.5 fL (81-99); Mean Platelet Vol. 10.1 fl (6.2-12.0); Platelet Count 238 K/mm3 (150-450); RBC Distribution Width CV 12.8 % (11.6-14.6); RBC Distribution Width SD 42.5 fl (35.1-43.9); Red Blood Count 3.45 M/mm3 (4.2-5.4); White Blood Count 9.6 K/mm3 (4.4-11.0)
[2024-04-08 14:24] LABS: ALB/GLOB Ratio 0.7 RATIO (0.9-2.4); AST(SGOT) 11 U/L (15-37); Alanine Aminotransfer ALT/SGPT 20 U/L (13-56); Albumin, Serum 2.8 g/dL (3.2-5.0); Alkaline Phosphatase 64 U/L (45-117); Anion Gap 5 (5-15); BUN 10 mg/dL (7-18); BUN/Creat Ratio 9.9 RATIO (10-20); Calcium,Total 10.3 mg/dL (8.5-10.1); Chloride 107 mmol/L (98-107); Creatinine, Serum 1.01 mg/dL (0.55-1.02); EST Glomerular Filtration Rate 63 mL/min (>60); Est Glom Filt Rate - Afr Amer 77 mL/min (>60); Globulin 3.9 g/dL (2.2-4.2); Glucose 113 mg/dL (74-106); LDH 150 U/L (84-246); Protein, Total 6.7 g/dL (6.4-8.2); Sodium Level 136 mmol/L (136-145)
[2024-04-08 14:50] LABS: Protein, Urine (Random) 6.3 mg/dL (<11.9); Protein:Creat Ratio 122 mg/g CRE (0-200)
== END | disposition home or self-care (01) ==
LOC: LAB 13:31
PROVIDERS: Referring Provider Obstetrics & Gynecology; Visit Provider Obstetrics & Gynecology
DX: O09.92 Supervision of high risk pregnancy, unspecified, second trimester (principal); O10.912 Unspecified pre-existing hypertension complicating pregnancy, second trimester; Z3A.00 Weeks of gestation of pregnancy not specified
CPT/HCPCS: 36415; 80053; 82570; 83615; 84156; 85027

== ENCOUNTER → 2024-04-26 | Outpatient (CLI) | payer MEDICAID, SELFPAY ==
[2024-04-26 14:40] LABS: Absolute Lymphocyte Count 1.83 X10^3/uL (0.83-4.51); Absolute Neutrophil Count 8.3 X10^3/uL (2.0-7.7); Basophil# 0.04 X10^3/uL; Basophil% 0.4 % (0-1); Eosinophil# 0.08 X10^3/uL; Eosinophils% 0.7 % (0-5); Hematocrit 31.3 % (37-47); Hemoglobin 10.4 g/dL (12.0-15.0); Lymphocyte # 1.83 X10^3/ul (0.83-4.51); Mean Corp Hgb Conc 33.2 g/dL (32-36); Mean Corpuscular Hgb 31.6 pg (27.0-32.0); Mean Corpuscular Volume 95.1 fL (81-99); Mean Platelet Vol. 10.5 fl (6.2-12.0); Monocyte# 0.48 X10^3/uL; Monocyte% 4.4 % (0-10); NRBC Flagged by Analyzer 0 % (0-5); Neutrophil # 8.28 X10^3/uL (2.7-7.7); Neutrophil % 76.8 % (47-70); Platelet Count 255 K/mm3 (150-450); RBC Distribution Width CV 12.9 % (11.6-14.6); RBC Distribution Width SD 44.5 fl (35.1-43.9); Red Blood Count 3.29 M/mm3 (4.2-5.4); White Blood Count 10.8 K/mm3 (4.4-11.0)
[2024-04-26 15:55] LABS: HIV - WCH Non-Reactive (Nonreactive); Syphilis Antibodies Non-reactive
[2024-04-26 21:39] LABS: Glucose Challenge Gest 1H 50g 183 mg/dL (70-140)
== END | disposition home or self-care (01) ==
LOC: LAB 13:36
PROVIDERS: Referring Provider Obstetrics & Gynecology; Visit Provider Obstetrics & Gynecology
DX: Z13.1 Encounter for screening for diabetes mellitus (principal); O09.92 Supervision of high risk pregnancy, unspecified, second trimester; Z3A.00 Weeks of gestation of pregnancy not specified
CPT/HCPCS: 36415; 82950; 85025; 86703; 86780

== ENCOUNTER → 2024-05-03 | Outpatient (CLI) | payer MEDICAID, SELFPAY ==
[2024-05-03 16:33] LABS: Absolute Lymphocyte Count 2.01 X10^3/uL (0.83-4.51); Absolute Neutrophil Count 9.4 X10^3/uL (2.0-7.7); Basophil# 0.06 X10^3/uL; Basophil% 0.5 % (0-1); Eosinophil# 0.09 X10^3/uL; Eosinophils% 0.7 % (0-5); Hematocrit 31.5 % (37-47); Hemoglobin 10.5 g/dL (12.0-15.0); Lymphocyte # 2.01 X10^3/ul (0.83-4.51); Lymphocyte % 16.1 % (19-41); Mean Corp Hgb Conc 33.3 g/dL (32-36); Mean Corpuscular Hgb 31.2 pg (27.0-32.0); Mean Corpuscular Volume 93.5 fL (81-99); Mean Platelet Vol. 10.5 fl (6.2-12.0); Monocyte# 0.84 X10^3/uL; Monocyte% 6.7 % (0-10); NRBC Flagged by Analyzer 0 % (0-5); Neutrophil # 9.39 X10^3/uL (2.7-7.7); Platelet Count 222 K/mm3 (150-450); RBC Distribution Width CV 13.2 % (11.6-14.6); Red Blood Count 3.37 M/mm3 (4.2-5.4); White Blood Count 12.5 K/mm3 (4.4-11.0)
[2024-05-03 16:48] LABS: Protein, Urine (Random) 11.8 mg/dL (<11.9); Protein:Creat Ratio 218 mg/g CRE (0-200)
[2024-05-03 17:18] LABS: ALB/GLOB Ratio 0.8 RATIO (0.9-2.4); AST(SGOT) 19 U/L (15-37); Alanine Aminotransfer ALT/SGPT 19 U/L (13-56); Albumin, Serum 2.7 g/dL (3.2-5.0); Alkaline Phosphatase 71 U/L (45-117); Anion Gap 7 (5-15); BUN 15 mg/dL (7-18); Calcium,Total 10.8 mg/dL (8.5-10.1); Chloride 109 mmol/L (98-107); Creatinine, Serum 1.07 mg/dL (0.55-1.02); EST Glomerular Filtration Rate 59 mL/min (>60); Est Glom Filt Rate - Afr Amer 72 mL/min (>60); Globulin 3.4 g/dL (2.2-4.2); Glucose 101 mg/dL (74-106); Potassium 3.8 mmol/L (3.5-5.1); Protein, Total 6.1 g/dL (6.4-8.2); Sodium Level 138 mmol/L (136-145)
== END | disposition home or self-care (01) ==
LOC: LAB 15:41
PROVIDERS: Referring Provider Obstetrics & Gynecology; Visit Provider Obstetrics & Gynecology
DX: O10.919 Unspecified pre-existing hypertension complicating pregnancy, unspecified trimester (principal); Z3A.00 Weeks of gestation of pregnancy not specified
CPT/HCPCS: 36415; 80053; 82570; 84156; 85025

== ENCOUNTER 2024-05-04 09:50 | Outpatient (RCR) | payer MEDICAID, SELFPAY | END 2024-05-09 23:59 | LOC: DC 09:50 | PROVIDERS: Visit Provider Advanced Practice Midwife | DX: O24.419 Gestational diabetes mellitus in pregnancy, unspecified control (principal) | CPT/HCPCS: 97802 ==

== ENCOUNTER → 2025-01-18 | Outpatient (CLI) | payer MEDICAID, SELFPAY ==
--- NOTE | 2025-01-18 10:24 | US_ITS ---
PROCEDURE: ABDOMEN LIMITED REASON FOR EXAM: RUQ PAIN, S/P BILIARY STENT COMPARISON: Comparison is made with prior examination dated December 06, 2023. TECHNIQUE: Right upper quadrant abdominal ultrasound. [employer] ElastQ Imaging shear wave elastography for non-invasive assessment of liver tissue stiffness. [employer] EPIQ Elite. FINDINGS: LIVER: Size: Enlarged (hepatomegaly) Length: 17.9 cm Echotexture: Diffusely echogenic suggesting fatty infiltration Contour: Normal Lesions: None identified GALLBLADDER: Status post cholecystectomy. COMMON BILE DUCT: Normal it measures 9 mm. A stent is seen within the common bile duct.. PANCREAS: Normal Visualized portions of the right kidney are unremarkable. No right upper quadrant ascites. US/Abdomen Limited IMPRESSION: Mild hepatomegaly and fatty infiltration of the liver. Status post cholecystectomy. Stent is seen within the common bile duct. Reading Location: [place] [address]
[2025-01-18 11:29] LABS: Erythrocyte Sedimentation Rate 3 mm/hr (0-30)
[2025-01-18 11:56] LABS: ALB/GLOB Ratio 1.5 RATIO (0.9-2.4); AST(SGOT) 19 U/L (<=31); Alanine Aminotransfer ALT/SGPT 17 U/L (<=34); Albumin, Serum 4.2 g/dL (3.5-5.0); Alkaline Phosphatase 90 U/L (35-104); Anion Gap 8 (5-15); BUN 15 mg/dL (4-19); BUN/Creat Ratio 16.4 RATIO (10-20); Calcium,Total 10.6 mg/dL (7.6-11.0); Carbon Dioxide 21.9 mmol/L (21.0-32.0); Chloride 107 mmol/L (98-108); EST Glomerular Filtration Rate 81 (>60); Globulin 2.8 g/dL (2.2-4.2); Glucose 93 mg/dL (70-99); Potassium 4.5 mmol/L (3.3-5.1); Sodium Level 138 mmol/L (133-145); Total Bilirubin 0.43 mg/dL (0.00-1.30)
[2025-01-18 12:29] LABS: Amylase 35 U/L (28-100); Lipase 23 U/L (13-75)
== END | disposition home or self-care (01) ==
PROVIDERS: Referring Provider Internal Medicine Gastroenterology; Visit Provider Internal Medicine Gastroenterology
DX: R10.11 Right upper quadrant pain (principal); Z98.890 Other specified postprocedural states
CPT/HCPCS: 36415; 76705; 80053; 82150; 83690; 85652; 86140

== ENCOUNTER 2025-04-19 10:47 | Day surgery (SDC) | payer MEDICAID, SELFPAY ==
[2025-04-19] VITALS (7 sets, daily range): BP systolic 138–151; BP diastolic 81–93; PULSE 62–90; RESP 16–20; TEMP 36.6–36.9; O2SAT 98–100; BMI 39.6
--- NOTE | 2025-04-19 10:57 | PRE.ANES_ITS ---
ASA Classification* ASA Classification ASA Classification: 2 Assessment & Plan Anesthesia* Anesthesia Assessment Anesthesia Assessment: Discussed sedation and/or anesthesia options, risks, benefits, and alternatives with patient/parents/legal guardian/POA. Questions invited. The patient/parents/legal guardian/POA seems to understand and agrees to proceed with anesthesia plan. Reviewed the physical assessment, medical history, allergy history and patient home medications list prior to surgery/procedure/anesthetic and documented any changes. Performed airway and anesthesia risk assessments. Anesthesia Type Anesthesia Type: General Anesthesia Focused Assessment* Airway Assessment Mouth opens: >3 cm Mallampati Score: II Labs Anesthesia Preop lab: CBC WBC 12.5 K/mm3 (4.4-11.0) H 05/03/24 15:51 4 RBC 3.37 M/mm3 (4.2-5.4) L 05/03/24 15:51 05/03/24 Hgb 10.5 g/dL (12.0-15.0) L 05/03/24 15:51 4 Hct 31.5 % (37-47) L 05/03/24 15:51 05/03/24 Plt Count 222 K/mm3 (150-450) 05/03/24 15:51 05/03/24 CHEMISTRY Potassium 4.5 mmol/L (3.3-5.1) 01/18/25 11:02 01/18/25 Sodium 138 mmol/L (133-145) 01/18/25 11:02 01/18/25 BUN 15 mg/dL (4-19) 01/18/25 11:02 01/18/25 Creatinine 0.90 mg/dL (0.70-1.20) 01/18/25 11:02 01/18/25 Glucose 93 mg/dL (70-99) 01/18/25 11:02 01/18/25 TSH 0.94 uIU/mL (0.358-3.74) 11/23/23 23:59 COAG PT 13.1 SECONDS (11.7-14.9) 02/29/24 00:17 HCG, Quant 07141 mIU/mL (1-3) H 12/02/23 23:18 12/02/23 Urine Test Negative Negative 10/11/22 23:03 10/11/22 Pre-Assessment Diagnosis/Proposed Procedure Planned Operative Procedure(s): ERCP Anesthesia History 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 When Was Last Pacemaker Check QUESTION #4 FULL TEXT: You/Your Family Experience fever (hyperthermia) with Anesthesia Last Oral Intake Last Oral intake: Last Oral Intake NPO since Meds taken in AM with sips of water? Meds patient instructed to take am of surgery PONV PONV - beveling and edging machine operator: PONV - beveling and edging machine operator Female Yes 04/18/25 08:22 HX of Motion Sickness No 04/18/25 08:22 HX of N/V After Surgery No 04/18/25 08:22 Non-Smoker Yes 04/18/25 08:22 Duration of Surgery greater No 04/18/25 08:22 than 60 minutes Number of Risk Factors 2 04/18/25 08:22 PONV Score Moderate Risk 04/18/25 08:22 Height & Weight Height & Weight: Anesthesia: Height & Weight Height 5 ft 4 in 05/04/24 10:00 Respiratory Assessment Respiratory Assessment - beveling and edging machine operator: Respiratory Tract Infection Hx - beveling and edging machine operator Hx Respiratory Tract Infection No 04/18/25 08:22 STOP Sleep Apnea STOP Sleep Apnea - beveling and edging machine operator: STOP Sleep Apnea - beveling and edging machine operator Hx Hypertension Yes: WITH 04/18/25 08:22 Hx Sleep Apnea No 04/18/25 08:22 CPAP BIPAP Do you snore loudly (louder Yes 04/18/25 08:22 than talking or can be heard Do you often feel tired/ Yes 04/18/25 08:22 fatigued/ sleepy during daytime? Has anyone observed you stop No 04/18/25 08:22 breathing during sleep? STOP Results Positive 04/18/25 08:22 QUESTION #5 FULL TEXT : Do you snore loudly (louder than talking or can be heard through closed doors)? 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 Specify any problems Hx of Preganancy in last 3 No 04/18/25 08:22 Months Nurse Filling Out Transfusion JZOLLHARDY 04/18/25 08:22 & Questions: Date: 04/18/25 04/18/25 08:22 Time: :04/18/25 08:22 Patient unable to answer at this time (ie. 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: /Reproductive Hx- beveling and edging machine operator Hx Now No 04/18/25 08:22 Gestational Age (in weeks): EDC: Hx Hx Para Hx Section SAB Yes 04/18/25 08:22 Active Medications Active Medications: Current Medications Generic Name Dose Route Start Last Admin Trade Name Freq PRN Reason Stop Dose Admin Lactated Ringer's 1,000 mls @ 15 mls/hr 04/19/25 11:00 IV .Q48H HELEN PFSH Medical History Loose, teeth History of biliary stent insertion Grand multipara Transaminitis Dehydration First trimester Obesity History of gestational hypertension History of miscarriage, currently Supervision of high-risk Intractable epigastric abdominal pain Wears glasses Alcohol use Gastric reflux Non-smoker Hypertension Incomplete History of pre-eclampsia History of placenta abruption History of blood transfusion hemorrhage Home Medications ?Medication ?Instructions ?Recorded ?Last Taken ?Type flash glucose scanning reader #1 ea 04/27/24 Unknown R x (FreeStyle Cornelius 2 [place]) flash glucose sensor (FreeStyle #1 ea 04/27/24 Unknown Rx Cornelius 2 Sensor kit) Allergy/AdvReac Type Severity Reaction Status Date / Time No Known Allergies Allergy Verified 04/18/25 08:12 Family History Mother CAD (coronary artery disease) Thyroid disorder Father CAD (coronary artery disease) Thyroid disorder Sister Thyroid disorder Other Diabetes Surgical History Hx of section complicating S/P laparoscopic cholecystectomy Hx of wisdom tooth extraction S/P S/P dilation and curettage Social History adopted: No household members: spouse and children number of children: 7 current occupational status: unemployed current occupation: [employer] current occupational exposures/hazards: No pets and animals: Yes pets and animals: dog(s), hamster(s) and farm animals history of recent travel: No sexually active: Yes Smoking Status: Never smoker alcohol intake: current details: not while substance use type: does not use well-balanced diet: about half the time caffeine: Yes Type: coffee Number of servings: 2 eating out: 1-3 times/week during the past year weight has: decreased > 10 lbs what type of physical activity do you participate in: none gallo/pentecostalism: Mandaen seatbelt use: always do you feel safe at home: Yes additional social history: - David Review of Systems (Anesthesia) ROS Narrative System reviewed and no additional complaints, except as documented.
[2025-04-19 11:11] LABS: Internal QC Validated? YES +Cl - CLEAR BKGD; Pregnancy, Urine Negative Negative
[2025-04-19] MEDS: Lactated Ringers 1,000 ML 15 ML IV (11:27)
--- NOTE | 2025-04-19 11:45 | FLU_PTH ---
PATIENT: TOD MUHAMMAD LOC: EN U#:[id number] AGE/SX: 44/F ROOM: RE04/19/[address]: Dr. Foreign Lea DO : 1980 BED: DIS: 04/19/2025 SPEC #: [id number] RECD: 04/19/25 13:27 STATUS: DARIN YANELY #: [id number] MARCELINO: 04/19/25 11:[address]: Foreign Lea DEPT: CYTOLOGY RECD BY: Andrea Longo ENTERED: 04/20/25 09:33 SP TYPE: Fluid OTHR DR: Charu Primary Care Phys Tissues: A - Biliary tract, NOS B - Pancreatic duct, NOS Procedures: Special Stain Group II Surgery Specimen Level IV Surgery Specimen Level V Cytospin Fluid HEADER OPERATION: ERCP with removal of stents PRE-OP DIAGNOSIS: Choledocholithiasis, stents TISSUE SUBMITTED: A- Biliary stent for cytology, B- Pancreatic stent for cytology DIAGNOSIS CYTOLOGY A. Biliary stent (cytospin, cellblock), ERCP: * No malignant cells identified. B. Pancreatic stent (cytospin, cellblock), ERCP: * No malignant cells identified. * Fungal organisms present. CYTOLOGY STUDY Slides are reviewed. CYTOLOGY GROSS A. Received is 12cm blue/black stent with 4 ml of yellow thick material labeled with the patient's name and and designated per the requisition as Biliary stent. Submitted for cytology and cell block preparation. B. Received is 10cm green stent with scant white material labeled with the patient's name and and designated per the requisition as Pancreatic stent. Submitted for cytology and cell block preparation. Mr 04/20/2025 CPT: 43589j0 ,[id number]
--- NOTE | 2025-04-19 12:28 | PCM.HP.STD ---
HPI - General General Date of Admission: 04/19/25 Date of Service: 04/19/25 HPI Narrative TOD MUHAMMAD, is a 44 F who presents for stent removal. [facility] ED 09.18.23, 09.23.24 with abdominal pain. Seen by OSH surgeon who recommended cholecystectomy but she chose a java tech lead route. Empiric treatment of PUD was helpful in acute symptoms. ?US 11.23.23?1.3cm meningioma of left liver lobe; multiple layering gallstones [facility] hospitalization 11.27.23-11.29.23 with acute cholecystitis requiring cholecystectomy. ?US 11.27.23?hepatic hemangioma; gallbladder wall thickening up to4.6mm with mild pericholecystic fluid ?CT abd/pel IV only 11.27.23?increased hepatic echogenicity; adrenal adenoma; ?EGD 11.27.23 WSA?without visual abnormality. Pathology chronic gastritis. H.pylori neg. Surgery 11.28.23?tense gallbladder aspirated noting hydrops; cholangiograms not obtained due to gallbladder thickening and cystic duct obstruction. Pathology chronic cholecystitis and cholelithiasis US 12.02.23 (ED)?hepatomegaly with diffuse increased echogenicity; 5.5x1cm fluid collection in gallbladder fossa; nonobstructing right renal stone *[facility] hospitalization 12.06.23-12.08.23 for management of choledocholithiasis with secondary acute hepatitis during . ?US 12.06.23?hepatic hemangioma versus focal fatty infiltration 1.5cm; s/p cholecystectomy ?ERCP 12.07.23?bile leak; choledocholithiasis, sphincterotomy/balloon extraction; temporary stent in VPD and CBD. No specimens ?Biochemical admission/discharge?AST [id number] H628-t. bili H3.6? AST [id number] H805-AP H532-t. bili H2.5-d.bili H2.13-GGT H524 ? KI, ASM, hepatitis, HIV, lipase, A1c WNL OV 3.28.24 Pt states she is well since hospital stay. Is not having any abdominal pain, nausea. Appetite is good. BM are normal. No other concerns. ? [facility] Medical History Loose, teeth History of biliary stent insertion Grand multipara Transaminitis Dehydration First trimester Obesity History of gestational hypertension History of miscarriage, currently Supervision of high-risk Intractable epigastric abdominal pain Wears glasses Alcohol use Gastric reflux Non-smoker Hypertension Incomplete History of pre-eclampsia History of placenta abruption History of blood transfusion hemorrhage Home Medications ?Medication ?Instructions ?Recorded ?Last Taken ?Type flash glucose scanning reader #1 ea 04/27/24 Unknown Rx (FreeStyle Cornelius 2 [place]) flash glucose sensor (FreeStyle #1 ea 04/27/24 Unknown Rx Cornelius 2 Sensor kit) Allergy/AdvReac Type Severity Reaction Status Date / Time No Known Allergies Allergy Verified 04/19/25 11:20 Family History Mother CAD (coronary artery disease) Thyroid disorder Father CAD (coronary artery disease) Thyroid disorder Sister Thyroid disorder Other Diabetes Surgical History Hx of section complicating S/P laparoscopic cholecystectomy Hx of wisdom tooth extraction S/P S/P dilation and curettage Social History adopted: No household members: spouse and children number of children: 7 current occupational status: unemployed current occupation: [employer] current occupational exposures/hazards: No pets and animals: Yes pets and animals: dog(s), hamster(s) and farm animals history of recent travel: No sexually active: Yes Smoking Status: Never smoker alcohol intake: current details: not while substance use type: does not use well-balanced diet: about half the time caffeine: Yes Type: coffee Number of servings: 2 eating out: 1-3 times/week during the past year weight has: decreased > 10 lbs what type of physical activity do you participate in: none gallo/caodaism: Mosque seatbelt use: always do you feel safe at home: Yes additional social history: - David ROS Constitutional Constitutional: Denies fatigue, fever(s), poor appetite, weight gain or weight loss Gastrointestinal Gastrointestinal: Denies belching, bloating, change in bowel habits, change in stool character, chewing difficulty, coffee ground emesis, constipation, cramping, diarrhea, dyspepsia, dysphagia, early satiety, excessive flatus, fecal incontinence, heartburn, hematemesis, hematochezia, hemorrhoids, loose stools, melena, nausea, odynophagia, rectal bleeding, tenesmus, vomiting or weight changes Vital Signs Vital Signs Vital Signs: 04/19/25 11:23 04/19/25 11:23 Temperature 97.8 F Temperature Source Temporal Pulse Rate 70 Respiratory Rate 18 Respiratory Pattern Normal Blood Pressure 150/90 H Blood Pressure Mean 110 Blood Pressure Source Monitor Blood Pressure Position Sitting Blood Pressure Location Left Arm Pulse Ox 98 Oxygen Delivery Method Room Air Weight Weight: 231 lb 4.238 oz Body Mass Index (BMI) 39.6 Physical Exam Const alert, oriented x3, no apparent distress and healthy appearing General Appearance: cooperative GI normal to inspection, nondistended, normoactive bowel sounds, soft to palpation, non-tender and non-distended Percussion: normal to percussion Rectal Exam: deferred Results Lab / Micro Data Labs: Laboratory Results - last 24 hr 04/19/25 11:00: Urine Test Negative Assessment & Plan Assessment/Plan (1) Choledocholithiasis: (2) Cholelithiasis: PLAN: Assessment and Plan Assessment and Plan (1) Choledocholithiasis: Status: Resolved Plan: 43-year-old who is currently 17 weeks with history of cholecystitis status postcholecystectomy and choledocholithiasis status post ERCP with stone removal and stent placement. She is doing very well. The current plan is to wait till after she delivers at 38 weeks of . At that time we can schedule for stent removal. As of this time she is not having any problems. She is doing very well.
--- NOTE | 2025-04-19 12:45 | RAD_ITS ---
PROCEDURE: ERCP BILIARY/PANCREAS; O.R. FLUORO FOR C-ARM 04/19/2025 REASON FOR EXAM: ERCP TECHNIQUE: Intraoperative fluoroscopy for ERCP was performed. 10 fluoroscopic images were also obtained. RAD/O.R. Fluoro for C-Arm IMPRESSION: Intraoperative fluoroscopy for ERCP was performed. 10 fluoroscopic images were also obtained. Reading Location: [address]
--- NOTE | 2025-04-19 12:45 | RAD_ITS ---
PROCEDURE: ERCP BILIARY/PANCREAS; O.R. FLUORO FOR C-ARM 04/19/2025 REASON FOR EXAM: ERCP TECHNIQUE: Intraoperative fluoroscopy for ERCP was performed. 10 fluoroscopic images were also obtained. RAD/ERCP Biliary/Pancreas IMPRESSION: Intraoperative fluoroscopy for ERCP was performed. 10 fluoroscopic images were also obtained. Reading Location: [address]
--- NOTE | 2025-04-19 13:11 | OP.ERCP_ITS ---
Patient Name: Luma Cordova Procedure Date: 04/19/2025 12:08 PM Date of : 1980 Age: 44 Procedure: ERCP Indications: Bile duct stone(s), Biliary stent removal Providers: Foreign Lea DO Referring MD: No Primary Care Physician Medicines: Monitored Anesthesia Care Patient Profile: This is a 44 year old female. Refer to note in patient chart for documentation of history and physical. Patient has symptoms. Complications: No immediate complications. Procedure: Pre-Anesthesia Assessment: - Prior to the procedure, a History and Physical was performed, and patient medications and allergies were reviewed. The patient is competent. The risks and benefits of the procedure and the sedation options and risks were discussed with the patient. All questions were answered and informed consent was obtained. Patient identification and proposed procedure were verified by the physician in the pre-procedure area. Mental Status Examination: alert and oriented. Airway Examination: normal oropharyngeal airway and neck mobility. Respiratory Examination: clear to auscultation. CV Examination: normal. Prophylactic Antibiotics: The patient does not require prophylactic antibiotics. Prior Anticoagulants: The patient has taken no anticoagulant or antiplatelet agents except for NSAID medication. ASA Grade Assessment: II - A patient with mild systemic disease. After reviewing the risks and benefits, the patient was deemed in satisfactory condition to undergo the procedure. The anesthesia plan was to use monitored anesthesia care (MAC). Immediately prior to administration of medications, the patient was re-assessed for adequacy to receive sedatives. The heart rate, respiratory rate, oxygen saturations, blood pressure, adequacy of pulmonary ventilation, and response to care were monitored throughout the procedure. The physical status of the patient was re-assessed after the procedure. After obtaining informed consent, the scope was passed under direct vision. Throughout the procedure, the patient's blood pressure, pulse, and oxygen saturations were monitored continuously. The Duodenoscope was introduced through the mouth, and advanced to the duodenum and used to inject contrast into the bile duct. The ERCP was accomplished without difficulty. The patient tolerated the procedure well. Scope In: 12:47:27 PM Scope Out: 12:59:42 PM Total Procedure Duration Time 0 hours 12 minutes 15 seconds Findings: The hay buckler film was normal. The esophagus was successfully intubated under direct vision. The scope was advanced to a normal major papilla in the descending duodenum without detailed examination of the pharynx, larynx and associated structures, and upper GI tract. The upper GI tract was grossly normal. The bile duct was deeply cannulated with the short-nosed traction sphincterotome. Contrast was injected. I personally interpreted the bile duct images. There was brisk flow of contrast through the ducts. Image quality was adequate. Contrast extended to the entire biliary tree. Opacification of the entire opacified area, main bile duct and entire biliary tree was successful. The maximum diameter of the ducts was 7 mm. The cystic duct contained one stone, which was 6 mm in diameter. The entire opacified area was diffusely dilated, with a stone causing an obstruction. The largest diameter was 10 mm. Placement of a long 0.025 inch Jagwire into the biliary tree was attempted. This passed successfully. A cholecystectomy had been performed. A 5 mm biliary sphincterotomy was made with a traction (standard) sphincterotome using ERBE electrocautery. There was no post-sphincterotomy bleeding. The biliary tree was swept with a 12 mm balloon starting at the left main hepatic duct. Sludge was swept from the duct. Two stones were removed. No stones remained. One stent was removed from the common bile duct using a snare and sent for cytology. One stent was removed from the pancreatic duct using a snare and sent for cytology. The stent was found to be occluded via the water column test. Impression: - The biliary system were dilated, with a stone causing an obstruction. - The patient has had a cholecystectomy. - Choledocholithiasis was found. Complete removal was accomplished by biliary sphincterotomy and balloon extraction. - A biliary sphincterotomy was performed. - The biliary tree was swept. - One stent was removed from the common bile duct. - One stent was removed from the pancreatic duct. Procedure Code(s): --- Professional --- 82946, Endoscopic retrograde cholangiopancreatography (ERCP); with removal of foreign body(s) or stent(s) from biliary/pancreatic duct(s) 13288, Endoscopic retrograde cholangiopancreatography (ERCP); with removal of calculi/debris from biliary/pancreatic duct(s) 55023, Endoscopic retrograde cholangiopancreatography (ERCP); with sphincterotomy/papillotomy 24913, 26, Endoscopic catheterization of the biliary ductal system, radiological supervision and interpretation CPT copyright 2021 [employer]. All rights reserved. The codes documented in this report are preliminary and upon county ordinary review may be revised to meet current compliance requirements. Foreign Lea DO 04/19/2025 1:11:03 PM This report has been signed electronically. Number of Addenda: 0 Note Initiated On: 04/19/2025 12:08 PM
--- NOTE | 2025-04-19 13:11 | OP.CCLET_ITS ---
04/19/2025 No Primary Care Physician Re : ERCP procedure for Luma Cordova Dear Care Physician This procedure was performed on Saturday, April 19, 2025. My impressions and recommendations are as follows: Impressions : - The biliary system were dilated, with a stone causing an obstruction. - The patient has had a cholecystectomy. - Choledocholithiasis was found. Complete removal was accomplished by biliary sphincterotomy and balloon extraction. - A biliary sphincterotomy was performed. - The biliary tree was swept. - One stent was removed from the common bile duct. - One stent was removed from the pancreatic duct. Recommendations : My findings are described in the full procedure note, which is enclosed. If I can be of further assistance, please feel free to contact me at . Sincerely, Foreign Lea, 04/19/2025 1:11:03 PM This report has been signed electronically.
--- NOTE | 2025-04-19 13:14 | PCM.POST.ANE ---
Anesthesia: Postop Eval I Current Vital Signs Temperature: 98.1 F Pulse Rate: 90 Blood Pressure: 151/90 Respiratory Rate: 20 Pulse Ox: 98 Assessment Airway patent: Yes Spontaneous unlabored respirations: Yes nausea: Yes Vomiting: No Anesthesia Complication: No Fluid Hydration Crystalloid volume administer (ml): 400 Total IV fluid infused: 400 Progress Note Anesthesia document: Postop Eval 1 completed: Yes
--- NOTE | 2025-04-19 13:18 | POSTOPAN2_ITS ---
Anesthesia Postop Eval I Sum Postop Eval Completion status Anesthesia document: Postop Eval 1 completed: Yes Anesthesia Postop Eval I Summary Anesthesia Postop Eval I Summary: Anesthesia Postop Eval I: Assessment Summary Airway patent Yes 04/19/25 13:14 COMPUTER APPLICATIONS INSTRUCTOR.CSIR Spontaneous unlabored Yes 04/19/25 13:14 COMPUTER APPLICATIONS INSTRUCTOR.CSIR respirations Mental status nausea Yes 04/19/25 13:14 COMPUTER APPLICATIONS INSTRUCTOR.CSIR Vomiting No 04/19/25 13:14 COMPUTER APPLICATIONS INSTRUCTOR.CSIR Anesthesia Postop Eval I: Fluid Summary Crystalloid volume administer 400 04/19/25 13:14 COMPUTER APPLICATIONS INSTRUCTOR.CSIR (ml) Colloids volume administered ( ml) Blood Product volume administered (ml) Total IV fluid infused 400 04/19/25 13:14 COMPUTER APPLICATIONS INSTRUCTOR.CSIR Anesthesia Postop Eval I: Summary Notes Anesthesia Complication No 04/19/25 13:14 COMPUTER APPLICATIONS INSTRUCTOR.CSIR Anesthesia Complication Comment: Post-operative progress note Anesthesia: Postop Eval II Evaluation Mental status: Awake Pain Level: 0 nausea: No Vomiting: No
--- NOTE | 2025-04-19 13:18 | PCM.POSTANE2 ---
Anesthesia Postop Eval I Sum Postop Eval Completion status Anesthesia document: Postop Eval 1 completed: Yes Anesthesia Postop Eval I Summary Anesthesia Postop Eval I Summary: Anesthesia Postop Eval I: Assessment Summary Airway patent Yes 04/19/25 13:14 RETAIL VISUAL MERCHANDISER.CSIR Spontaneous unlabored Yes 04/19/25 13:14 RETAIL VISUAL MERCHANDISER.CSIR respirations Mental status nausea Yes 04/19/25 13:14 RETAIL VISUAL MERCHANDISER.CSIR Vomiting No 04/19/25 13:14 RETAIL VISUAL MERCHANDISER.CSIR Anesthesia Postop Eval I: Fluid Summary Crystalloid volume administer 400 04/19/25 13:14 RETAIL VISUAL MERCHANDISER.CSIR (ml) Colloids volume administered ( ml) Blood Product volume administered (ml) Total IV fluid infused 400 04/19/25 13:14 RETAIL VISUAL MERCHANDISER.CSIR Anesthesia Postop Eval I: Summary Notes Anesthesia Complication No 04/19/25 13:14 RETAIL VISUAL MERCHANDISER.CSIR Anesthesia Complication Comment: Post-operative progress note Anesthesia: Postop Eval II Evaluation Mental status: Awake Pain Level: 0 nausea: No Vomiting: No
[2025-04-19] MEDS: Acetaminophen 325 MG Tablet 650 MG PO (13:46)
== END 2025-04-19 14:38 | disposition home or self-care (01) ==
LOC: EN 10:47 → AC 10:48
PROVIDERS: Anesthesiology; Visit Provider Internal Medicine Gastroenterology
PROC: (CPT 43260; principal; 2025-04-19 11:25)
DX: Z46.59 Encounter for fitting and adjustment of other gastrointestinal appliance and device (principal); K80.21 Calculus of gallbladder without cholecystitis with obstruction; I10 Essential (primary) hypertension; Z90.49 Acquired absence of other specified parts of digestive tract; K21.9 Gastro-esophageal reflux disease without esophagitis
CPT/HCPCS: 43264; 43275; 43262; 74330; 76000; 81025; 88108; 88305; 88307; 88313; J2405